=== PATIENT | male | born 1945 | race Caucasian/White ===

== ENCOUNTER 2019-04-28 06:59 | Inpatient (IN) | payer MEDICARE ==
[2019-04-28] MEDS ORDERED: Aspirin Chewable 81 MG TAB ONE (07:43)
[2019-04-28] MEDS ORDERED: Nitroglycerin 0.4 MG TAB 1 EACH ONE (07:43)
[2019-04-28] MEDS ORDERED: Nitroglycerin 2% Ointment 1 INCH/1 GM Packet ONE (07:43)
[2019-04-28 08:17] LABS: Troponin I 0.051 ng/mL (< 0.028)
[2019-04-28] MEDS ORDERED: Ondansetron ODT 4 MG TAB PO PRN (08:53)
[2019-04-28] MEDS ORDERED: Calcium Carbonate 500 MG ChewTAB PO PRN (08:53)
[2019-04-28] MEDS ORDERED: Acetaminophen 325 MG TAB PO PRN (08:53)
[2019-04-28] MEDS ORDERED: Ondansetron PF 4 MG/2 ML Vial IVP PRN (08:53)
[2019-04-28] MEDS ORDERED: Senokot S 8.6-50 MG TAB PO PRN (08:53)
[2019-04-28] MEDS ORDERED: Enoxaparin Sodium 40 MG/0.4 ML SYRINGE SC SCH (09:00)
[2019-04-28] MEDS ORDERED: Furosemide 100 MG in Sodium Chloride 0.9% 90 ML IVPB SCH ×2 (09:00→14:51)
[2019-04-28 09:22] LABS: Anion Gap 17 mmol/L (10-20); BUN (Urea Nitrogen) 33 mg/dL (8.4-25.7); Calc. Creatinine Clearance 0 mL/min (70-130); Calcium 8.6 mg/dL (7.8-10.44); Carbon Dioxide 28 mmol/L (23-31); Chloride 100 mmol/L (98-107); Estimated GFR-MDRD 55; Glucose 93 mg/dL (83-110); Potassium 3.9 mmol/L (3.5-5.1); Sodium 141 mmol/L (136-145)
--- NOTE | 2019-04-28 10:15 | RAD ---
EXAM: XR Chest 1 View Portable PROVIDED CLINICAL HISTORY: Shortness of breath COMPARISON: None FINDINGS: The cardiac silhouette appears enlarged. Median sternotomy changes, atherosclerosis and left subclavi an cardiac pacing device redemonstrated. Bibasilar pleural-parenchymal opacity and perihilar airspace disease. No evidence for pneumothorax. Portions of the upper chest are obscured by overlying patient's soft tissues. The lungs are hypoinflated. IMPRESSION: Cardiomegaly and findings suggesting congestive failure with left greater than right pleural fluid an d adjacent atelectasis and/or infiltrate. Perihilar airspace disease may reflect pulmonary edema. Follow-up is recommended.
--- NOTE | 2019-04-28 10:39 | HP ---
PRIMARY CARE PHYSICIAN: Byron Torres MD at [facility]. CHIEF COMPLAINT: Shortness of breath. HISTORY OF PRESENT ILLNESS: The patient is a 74-year-old male with coronary artery disease, presented to the emergency room with above complaints. He initially presented to [facility] and was transferred to this facility. The patient is a poor historian. Over the last few days, the patient developed gradual worsening shortness of breath along with bilateral lower extremity swelling. His shortness of breath got worse this morning, for which he presented to the emergency room. He denies any chest pain, palpitations, syncope. He has chronic bilateral lower extremity ulceration and is followed by wound care. He has pressure dressings in both the lower extremity up to the knees. He denies recent immobilization or travel. He had mild cough without significant production. He denies recent hospital admission. The last time he was hospitalized was approximately 7 years ago for his coronary artery bypass grafting. The patient was started on noninvasive positive-pressure ventilation for O2 saturation of 88% at [facility]. His BNP was 2961 with a troponin of 0.041. He received IV Lasix. A Molina catheter was placed with 1300 output. He was transferred to this hospital. He is currently on noninvasive positive-pressure ventilation. PAST MEDICAL HISTORY: 1. Coronary artery disease. 2. Questionable peripheral vascular disease. PAST SURGICAL HISTORY: 1. Coronary artery bypass grafting. 2. Multiple toes amputation. ALLERGIES: NO KNOWN DRUG ALLERGIES. MEDICATIONS: Current home medications per the patient, he takes 81 mg aspirin as well as Lasix 20 mg b.i.d., which was recently increased. SOCIAL HISTORY: The patient currently lives in a mobile home alone. He is full code. His decision maker is Jai Jane. He denies current use of tobacco, alcohol, or drug use. FAMILY HISTORY: Negative for premature coronary artery disease. REVIEW OF SYSTEMS: Limited due to current mentation. PHYSICAL EXAMINATION: VITAL SIGNS: Temperature 97.5, respirations of 28, pulse rate of 69 with a blood pressure of 110/75 with O2 saturation of 95% on noninvasive positive-pressure ventilation. GENERAL: A 74-year-old male, in kmgk-bq-jqwydhwr respiratory distress. HEENT: Head, atraumatic and normocephalic. Sclerae anicteric. Moist mucous membranes. No oral lesion. NECK: Supple. No carotid bruit. JVD appears to be elevated. LUNGS: Showed accessory muscle use with rhonchi and rales especially at bases. No wheezing. HEART: S1 and S2 present. There is systolic murmur over the left lateral sternal border. No heaves or pulsation. ABDOMEN: Soft, bowel sounds present. No organomegaly. EXTREMITIES: There is bilateral lower extremity edema with pressure dressings. NEUROLOGY: As discussed above. PSYCHIATRY: As discussed above. SKIN: Warm and dry. There is superficial abrasion on his left side of the forehead approximately 1 cm in diameter. LYMPH NODE: No palpable lymph nodes in the neck. LABORATORY FINDINGS: WBC 5.0 with hemoglobin 14.2, hematocrit 44.9, and platelet of 177. Chemistry showed sodium 141, potassium 3.6, chloride 100, bicarb 30, BUN of 33, creatinine 1.6. Bilirubin 1.4 with alkaline phosphatase 233, AST 31, ALT of 29. Troponin of 0.041 with normal CK-MB. EKG by my review showed left bundle-branch block with first-degree AV block. Chest x-ray at [facility] was consistent with congestive heart failure. Repeat chest x-ray is pending at this time. IMPRESSION: 1. Acute hypoxic respiratory failure secondary to congestive heart failure exacerbation, ejection fraction unknown. 2. Acute kidney injury, probably secondary to cardiorenal syndrome. 3. Type 2 myocardial infarction. 4. Abnormal LFTs probably secondary to passive hepatic congestion. 5. Coronary artery disease. 6. Suspected peripheral vascular disease. 7. History of bilateral lower extremity edema with ulceration, currently has pressure dressings. 8. Physical deconditioning. 9. Multiple toe amputations. PLAN: The patient will be monitored in the intermediate care unit. Due to his blood pressure on the lower side as well as acute kidney injury, we will start him on low-dose Lasix drip. His x-ray at [facility] showed worsening bilateral pleural effusion. An x-ray will be repeated. We will get echocardiogram. We will put him on fluid restriction. We will start him on potassium supplementation while on IV Lasix. Consult Cardiology and Pulmonary. Plan was discussed with the patient in detail. He stated understanding. We will consult Physical Therapy as well for possible need for snf placement at discharge. Job ID: [id number]
[2019-04-28] MEDS: Potassium Chloride 10 MEQ TAB PO SCH ×2 (15:13→16:57)
[2019-04-28] MEDS ORDERED: DOBUTamine 500 mg/250 ml 250 ML IVPB SCH (16:30)
--- NOTE | 2019-04-28 17:10 | CON ---
DATE OF CONSULTATION: 04/28/2019 REASON FOR CONSULTATION: Severe congestive heart failure. HISTORY OF PRESENT ILLNESS: Mr. Jane is a 74-year-old gentleman, apparently a long cardiac history. Unfortunately, he cannot give much history as he is on BiPAP, but he is critically ill. Mr. Jane was transferred from the [facility]. He was relatively hypotensive and had severe pulmonary edema. He was given the BiPAP and given intravenous diuretics. He remains on BiPAP. Because of the BiPAP, he is unable to give really any answers except yes and no and even that is not completely clear how much he understands. The patient did have previous bypass surgery based on chest x-ray. Also has a defibrillator implantation. He thinks a bypass was 6 or 7 years ago in [place], but he really cannot tell me anything else. He says he has not had recent chest pain. He had a defibrillator in the past. He cannot tell me when or what type it is. We were unable to know what medicines he was taking, although apparently he was taking furosemide on a daily basis perhaps 20 mg, but we do not know. ALLERGIES: NONE KNOWN OR AT LEAST NONE REPORTED. REVIEW OF SYSTEMS: Does not obtainable. PAST MEDICAL HISTORY: 1. He has had bypass surgery based on the chest x-ray, he says six or seven years ago. 2. Previous defibrillator implantation. 3. Apparently, he has history of congestive heart failure. FAMILY HISTORY: Unobtainable. SOCIAL HISTORY: Unobtainable, although apparently he has been living at home. PHYSICAL EXAMINATION: GENERAL: This is a chronically ill-appearing gentleman, still in some respiratory distress. He is on BiPAP. VITAL SIGNS: His blood pressure is in the 90 systolic. The pulse is in the 70s, it is sinus on the monitor in the left bundle-branch block pattern. NECK: Neck veins are distended, but he is lying only about a 15 degrees angle. He is lying on his left side. CARDIAC: Distant heart sounds. I do not appreciate a murmur, rub, or gallop, but as mentioned, he is lying on his right side. ABDOMEN: Soft and nontender. EXTREMITIES: There is 4+ edema all the way up to his hips. Pedal pulses are diminished. PERTINENT LABORATORY: He does have a creatinine of 1.27, which is actually better than it was in [facility]. Potassium is 3.9. Troponin 0.051. Creatinine was 1.6 in [facility]. Troponin 0.041 in [facility]. BNP 2961. Chest x-ray shows severe pulmonary edema, previous sternotomy wires, and a defibrillator is in place. The film is under penetrated. I think it is probably a biventricular device, but the pacing is not biventricular. EKG reveals a wide-complex rhythm. It looks like it is sinus in all likelihood. There is lot of baseline artifact with a very wide left bundle-branch block pattern. QRS 0.18. ASSESSMENT: 1. Congestive heart failure, severe, probably systolic, acute on chronic. 2. Previous bypass surgery. 3. Previous defibrillator implantation. From looking at the x-ray, I believe it is probably a biventricular device, but it does not appear to be biventricular pacing. 4. Renal insufficiency/failure, stage 3 to 4 depending on which the creatinine is looked at. 5. Relative hypotension. 6. Respiratory failure. The patient is clearly chronically ill, but also acutely ill as well. PLAN: 1. He is on intravenous Lasix. We will try to increase the dose. 2. Try to interrogate the defibrillator to see at least what type he has, whether it is still functioning. 3. Echocardiogram to be a left ventricular function and valvular heart status. 4. Hopefully, if further information could be obtained, prognosis appears likely poor long-term in this unfortunate gentleman. Hopefully, further family will be available for further information. Job ID: [id number]
--- NOTE | 2019-04-29 01:19 | CON ---
DATE OF CONSULTATION: 04/28/2019 HISTORY OF PRESENT ILLNESS: Mr. Jane is a 74-year-old male who presented to the hospital today with complaints of shortness of breath. He has formally been followed by [facility] code clerk. He is transferred from [place] here with significant pulmonary edema and hypoventilation. He has improved with BiPAP. He is diuresed with Lasix. PAST MEDICAL HISTORY: Remarkable for: 1. Coronary artery bypass grafting. 2. History of defibrillator. 3. History of cardiomyopathy. SOCIAL HISTORY: he lives in a 39-foot long trailer according to the nursing staff. Apparently, he is not a daily smoker or daily drinker. FAMILY HISTORY: Not obtained. ALLERGIES: THERE ARE NO REPORTED ALLERGIES. REVIEW OF SYSTEMS: 10 point review of systems completed, not accurately obtainable. PHYSICAL EXAMINATION: GENERAL: He is frail-appearing. He has bruises all over his body. He says he falls frequently at home. VITAL SIGNS: Blood pressure is 111/65, heart rate is in the 80s, respiratory rate in the teens, oximetry is in the 90s. HEENT: Pupils react. Sclerae anicteric. NECK: Supple. LUNGS: Remarkable for crackles in both lung bases. HEART: Regular rhythm. S1 and S2 are distant. ABDOMEN: Soft and nontender. EXTREMITIES: With four extremity edema. As mentioned, multiple ecchymoses. He has some ecchymoses on his torso as well. LABORATORY DATA: Electrolytes are normal. BUN 33, creatinine 1.27. Troponin was 0.05. No other lab done here. Apparently, there was lab done in [place], but I will not have access to this in the computer. IMPRESSION: Congestive heart failure. His radiograph certainly consistent with this and hypoventilation. We will be happy to follow the other physicians caring for him. He appears to be slowly clinically improving, but he also appears to be quite frail. This is a 70 minute consult, with greater than 50% of time spent on unit coordinating care. Job ID: [id number] MTDD
[2019-04-29 04:21] LABS: ALT (SGPT) 25 U/L (8-55); AST (SGOT) 34 U/L (5-34); Albumin 2.9 g/dL (3.4-4.8); Alkaline Phosphatase 191 U/L (40-110); Anion Gap 16 mmol/L (10-20); BUN (Urea Nitrogen) 28 mg/dL (8.4-25.7); Bilirubin, Total 1.8 mg/dL (0.2-1.2); Calc. Creatinine Clearance 80 mL/min (70-130); Calcium 8.1 mg/dL (7.8-10.44); Carbon Dioxide 27 mmol/L (23-31); Chloride 101 mmol/L (98-107); Estimated GFR-MDRD 64; Globulin 3.4 g/dL (2.4-3.5); Glucose 91 mg/dL (83-110); Magnesium 2.2 mg/dL (1.6-2.6); Potassium 4.9 mmol/L (3.5-5.1); Protein, Total 6.3 g/dL (5.8-8.1); Sodium 139 mmol/L (136-145)
[2019-04-29 05:22] LABS: #Eosinphils 0.1 thou/uL (0.0-0.7); #Lymphocytes 0.9 thou/uL (1.20-3.40); #Monocytes 0.9 thou/uL (0.11-0.59); #Neutrophils 4.7 thou/uL (1.40-6.50); %Basophils 0.5 % (0.0-1.0); %Monocytes 13.6 % (0.0-10.0); %Neutrophils 71.8 % (42.0-75.0); Hemoglobin 13.9 g/dL (14.0-18.0); MDiff Complete? YES; Macrocytosis SLIGHT = 6-15 cells (100X) (0-5/hpf); Mean Corpuscular HGB CONC 30.9 g/dL (32.0-36.0); Mean Corpuscular Hemoglobin 31.4 pg (27.0-31.0); Mean Platelet Volume 9.6 fL (7.4-10.4); Platelet Count 70 thou/uL (130-400); Platelet Morphology Comment Appears Decreased; RBC Distribution Width 14.5 % (11.5-14.5); Red Blood Cell (RBC) Count 4.43 mill/uL (4.70-6.10); White Blood Cell (WBC) Count 6.5 thou/uL (4.8-10.8)
--- NOTE | 2019-04-29 08:43 | RAD ---
CHEST ONE VIEW: HISTORY: Heart failure. COMPARISON: Radiograph from the prior day. FINDINGS: Large effusions are similar. High grade pulmonary edema. AICD/pacer is similar. Multiple midline sternotomy wires. No acute osseous abnormality. IMPRESSION: High grade decompensated congestive heart failure. POS: CET
[2019-04-29] MEDS: Aspirin 81 mg Enteric Coated Tablet PO SCH (08:46)
--- NOTE | 2019-04-29 08:46 | PRG ---
DATE OF SERVICE: 04/29/2019 SUBJECTIVE: Mr. Jane is feeling better. He is off his BiPAP, he is on nasal cannula oxygen. OBJECTIVE: VITAL SIGNS: His blood pressure 107/67, pulse is in the 90s. He has frequent premature contractions. LUNGS: Clear anterolaterally. CARDIAC: Normal S1, normal S2. ABDOMEN: Soft and nontender. Echocardiogram showed the ejection fraction to be 15%. LABORATORY: Creatinine is 1.11, bilirubin 1.8. ASSESSMENT: 1. Congestive heart failure, systolic, acute on chronic, advanced. 2. Left bundle-branch block. 3. Defibrillator battery has been depleted, not functional. PLAN: 1. Consideration for replacing the defibrillator generator. Hopefully, can resynchronize him, otherwise appears to be end-stage if cannot be done. The patient is agreeable to discussing that with Dr. Phelps. 2. We will hold Mediastream as he may undergo procedure today. Job ID: [id number]
[2019-04-29] MEDS: Amiodarone 450 MG, Admixture Fee 1 EACH in Dextrose 5% in Water 250 ML IVPB SCH (10:27)
--- NOTE | 2019-04-29 15:40 | PDOC.HOSPP ---
- Subjective Encounter Date: 04/29/19 Encounter Time: 14:00 Subjective: Patient seen and examined for Resp failure. SOB improving. Still requiring NIPPV intermittently. No new complaints. No overnight events - Objective Vital Signs & Weight: Vital Signs (12 hours) Temp Pulse Pulse Pulse BP BP Pulse Ox 04/29/19 12:01 77 80 103/70 101/75 04/29/19 11:50 97.9 F 04/29/19 10:36 79 04/29/19 08:00 100 04/29/19 07:20 97.2 F L 04/29/19 03:59 97.5 F L Pulse Ox Pulse Ox 04/29/19 12:01 94 L 90 L 04/29/19 11:50 04/29/19 10:36 04/29/19 08:00 04/29/19 07:20 04/29/19 03:59 Weight Admit Weight 220 lb Weight 221 lb 8 oz Most Recent Monitor Data Heart Rate from ECG 81 NIBP 95/62 NIBP BP-Mean 73 Respiration from ECG 30 SpO2 100 I&O: 04/28/19 04/29/19 04/30/19 06:59 06:59 06:59 Intake Total 750.9 Output Total 2275 Balance -1524.1 Result Diagrams: 04/29/19 03:38 04/29/19 03:38 Radiology Reviewed by me: Yes (CXR - reviewed) EKG Reviewed by me: Yes (Tele SR/NSVT) Hospitalist ROS - Review of Systems Cardiovascular: reports: orthopnea, paroxysmal noc. dyspnea, edema. denies: chest pain, palpitations, light headedness, other Gastrointestinal: denies: nausea, vomiting, abdominal pain, diarrhea, constipation, melena, hematochezia, other - Medication Medications: Active Medications Generic Name Dose Route Start Last Admin Trade Name Freq PRN Reason Stop Dose Admin Aspirin 81 mg 04/29/19 09:00 04/29/19 08:46 Ecotrin PO 81 mg DAILY KAITLYNN Administration Furosemide 100 mg/ Sodium 100 mls @ 5 mls/hr 04/28/19 14:51 04/28/19 15:13 Chloride IVPB 100 mls INF KAITLYNN Administration 5 MG/HR Amiodarone HCl 450 mg/ 259 mls @ 0 mls/hr 04/29/19 10:15 04/29/19 10:27 Miscellaneous Medication 1 IVPB 259 mls each/ Dextrose/Water INF KAITLYNN Administration Protocol As Directed Potassium Chloride 20 meq 04/29/19 08:00 04/29/19 08:47 Klor-Con PO Not Given BID- KAITLYNN - Exam General Appearance: ill appearing Neck: JVD Heart: RRR, no gallops, no rubs, murmur present Respiratory: rales, rhonchi, tachypneic Respiratory - other findings: accessory muscle use Gastrointestinal: soft, non-tender, non-distended, normal bowel sounds Extremities: no cyanosis, no clubbing Extremities - other findings: B/L LE compression dressing Neurological: no new deficit Psychiatric: normal affect, A&O x 3 Hosp A/P - Plan DVT proph w/lovenox Acute hypoxic respiratory failure requiring NIPPB Acute on chronic systolic HF exacerbation - ACC stage D NSVT EMILY on CKD 2 Type 2 myocardial infarction. Abnormal LFTs probably secondary to passive hepatic congestion. CAD PVD Chronic B/L LE ulcers Physical deconditioning. Multiple toe amputations. Thrombocytopenia PLAN: Cont Lasix drip with fluid restriction Cont Amiodarone drip Off Dobutamine due to ventricular arrhythmia Cont ASA Cardio/Pulm/EP input appreciated AM labs Monitor Platelets SNF eval Cont other meds as above
--- NOTE | 2019-04-29 16:13 | CON ---
DATE OF CONSULTATION: This is Luly Robles NP, dictating a report for Salomon Phelps MD. REASON FOR CONSULTATION: Biventricular ICD in the pocket, qehma-lm-[id number] systolic heart failure. HISTORY OF PRESENT ILLNESS: Mr. Jane is a 74-year-old gentleman with an extensive cardiac history. He is currently in the intensive care unit at [facility] on BiPAP. He initially presented to [facility] and was transferred to [facility] for increased acuity of care. He was hypotensive and had severe pulmonary edema. He was placed on BiPAP and is being given IV diuretics. Today, he remains on BiPAP, and thus, he has a difficult time answering questions in a review of systems. Most information was gathered through chart review and medical records. He has a history of coronary artery bypass and also a biventricular ICD. Interrogation of this device was attempted, however, appears to be in the pocket. Also, his QRS on EKG is severely widened with left bundle-branch morphology, suggesting loss of biventricular pacing support. His bypass was probably 6 to 7 years ago in [place], although it seems his followup with doctors has been minimal at best since that time. REVIEW OF SYSTEMS: Unable to obtain given respiratory distress and on BiPAP. ALLERGIES: NO KNOWN DRUG ALLERGIES, LISTED IN CHART FOR REVIEW. PAST MEDICAL HISTORY: 1. Coronary artery disease with prior bypass grafting. 2. Biventricular ICD. 3. Cardiomyopathy. SOCIAL HISTORY: Chart review shows the patient has denied alcohol or tobacco use. He lives in a trailer according to nursing staff. FAMILY HISTORY: Could not be obtained. OBJECTIVE: VITAL SIGNS: Pulse 77, blood pressure 103/70, oxygen 94% on 4 L via nasal cannula, and temperature is 97.9 degrees Fahrenheit. GENERAL: The patient is alert. Orientation was not assessed with BiPAP. The patient does nod his head or shake his head appropriate in response to questions and appears to be appropriate. He is resting in bed at the time of exam on BiPAP. He is quite frail-appearing and has extensive bruising over his body. He indicates he falls frequently at home. HEENT: He is normocephalic and atraumatic. Sclerae are anicteric. EOMs are intact. NECK: Supple with positive jugular venous distention. There is no lymphadenopathy. LUNGS: Crackles to bilateral lower lobes. There are no wheezes or rhonchi appreciated. He is on a bilevel support. HEART: Rate is irregularly irregular. PMI is nonpalpable. Heart tones are distant. ABDOMEN: Soft and nontender. EXTREMITIES: Warm and dry to touch. Extensive scattered bruising/ecchymoses are noted. He has edema in all 4 extremities. There is no clubbing. DATABASE: Hematology was unremarkable. Chemistry: Potassium 4.9 and creatinine 1.11. Magnesium 2.2. ALT and AST are within normal limits. Troponin 0.051. TSH 1.12. Echocardiogram on 04/28/2019: Ejection fraction 15%. Left atrium severely dilated. PA systolic pressure 55 mmHg. Telemetry and EKG: Currently in sinus rhythm with wide QRS and left bundle-branch block morphology. IMPRESSION: 1. Implantable cardiac defibrillator battery depletion, requiring generator change. 2. History of ynw-TF-pltxoaspb myocardial infarction/complicated with cardiac arrest in 2010. 3. Coronary artery disease with 4-vessel bypass in 2010 with redo saphenous vein graft to the RCA on 06/17/2010. 4. History of left ventricular assist device. 5. Status post biventricular implantable cardiac defibrillator implant on 07/28/2010 without any recent followup, now at end-of-life. 6. Drtur-gh-dflyujp systolic heart failure with acute fluid overload on bilevel support. 7. Cardiomyopathy with left ventricular ejection fraction of approximately 15%. 8. Nonsustained ventricular tachycardia in the setting of acute congestive heart failure exacerbation, currently on IV amiodarone. 9. Peripheral vascular disease status post toe amputation with chronic cellulitis without systemic infection. PLAN AND RECOMMENDATIONS: Mr. Jane has an extensive and complicated cardiac history. It appears his biventricular ICD is at end-of-life/ in the pocket. With that in mind, he lost biventricular pacing support, which would contribute to an acute heart failure exacerbation. Mr. Jane does not appear to have had any recent followup with whoever placed this ICD. He does require generator change. His ejection fraction is severely reduced and he continues to need IV diuretics for fluid management. At this point, I would wait for generator change until he is better compensated with his acute congestive heart failure. I will plan for a generator change on Saturday, 05/01. I discussed the risks, benefits, and alternatives with him. He nods to indicate understanding and I will follow up with him tomorrow to once again discuss generator change. Thank you for allowing me to participate in the care of this patient. Job ID: [id number]
[2019-04-29 16:24] LABS: Potassium 3.9 mmol/L (3.5-5.1)
[2019-04-29] MEDS ORDERED: cefTRIAXone\\ROCEPHIN 1 GM in Sodium Chloride 0.9% 100 ML IVPB SCH (17:00)
[2019-04-29] MEDS ORDERED: Enoxaparin Sodium 40 MG/0.4 ML SYRINGE SC SCH (18:00)
--- NOTE | 2019-04-29 20:26 | PRG ---
DATE OF SERVICE: 04/29/2019 SUBJECTIVE: Mr. Jane is considerably better. He is having nonsustained ventricular tachycardia. I felt it maybe as the fibrillator is . He had a long hospitalization apparently in [place] in the past that even involved a tracheostomy. OBJECTIVE: His chest exam is improved. His crackles are improved. He is off BiPAP and appears reasonably comfortable. Heart, regular rhythm. Abdomen is soft. IMPRESSION: History of coronary artery bypass grafting; coronary artery disease; ventricular tachycardia in the past; placement of a defibrillator; qkele-ij-koevipl respiratory failure, requiring a tracheostomy; and history of cardiomyopathy. He has not kept followup appointments with his container washer machine in [place] apparently, we will continue to follow. Chest x-ray still shows pulmonary edema and effusions. He continues to diurese. Job ID: [id number]
[2019-04-30 03:58] LABS: INR-International Normal Ratio 1.3; PTT 32.1 SEC (22.9-36.1); Prothrombin Time 16.3 SEC (12.0-14.7)
[2019-04-30 04:19] LABS: Albumin 3.1 g/dL (3.4-4.8)
[2019-04-30 04:21] LABS: Calcium 8.2 mg/dL (7.8-10.44); Chloride 100 mmol/L (98-107); Sodium 137 mmol/L (136-145)
[2019-04-30 04:22] LABS: Glucose 121 mg/dL (83-110)
[2019-04-30 04:24] LABS: Bilirubin, Total 1.3 mg/dL (0.2-1.2); Carbon Dioxide 25 mmol/L (23-31)
[2019-04-30 04:25] LABS: Alkaline Phosphatase 266 U/L (40-110); Calc. Creatinine Clearance 69 mL/min (70-130); Estimated GFR-MDRD 54
[2019-04-30 04:26] LABS: BUN (Urea Nitrogen) 29 mg/dL (8.4-25.7)
[2019-04-30 04:27] LABS: Magnesium 2.3 mg/dL (1.6-2.6)
[2019-04-30 04:28] LABS: ALT (SGPT) 30 U/L (8-55)
[2019-04-30 06:18] LABS: AST (SGOT) 32 U/L (5-34)
[2019-04-30 06:19] LABS: Potassium 4.3 mmol/L (3.5-5.1)
[2019-04-30 06:20] LABS: Protein, Total 6.6 g/dL (5.8-8.1)
[2019-04-30 06:21] LABS: Globulin 3.5 g/dL (2.4-3.5)
[2019-04-30 06:25] LABS: Anion Gap 16 mmol/L (10-20)
[2019-04-30] MEDS: Amiodarone 450 MG, Admixture Fee 1 EACH in Dextrose 5% in Water 250 ML IVPB SCH (08:42)
[2019-04-30] MEDS: Aspirin 81 mg Enteric Coated Tablet PO SCH (08:42)
[2019-04-30] MEDS ORDERED: Enoxaparin Sodium 40 MG/0.4 ML SYRINGE SC SCH (09:00)
[2019-04-30] MEDS ORDERED: DOBUTamine 500 mg/250 ml 250 ML IVPB SCH (09:30)
[2019-04-30] MEDS: Saccharomyces boulardii 250 MG CAP PO SCH (09:36)
--- NOTE | 2019-04-30 09:47 | PRG ---
DATE OF SERVICE: 04/30/2019 SUBJECTIVE: Mr. Jane has been doing better today, but he is still short of breath, cannot lay flat. OBJECTIVE: VITAL SIGNS: His blood pressure is 100 systolic; pulse is 70, it is sinus with a left bundle-branch block. LUNGS: There are rales at the bases. CARDIAC: There is apical systolic murmur and mitral regurgitation. ABDOMEN: Soft and nontender. EXTREMITIES: There is no edema. ASSESSMENT: 1. Congestive heart failure, systolic, xdlwi-io-olwnybf, severe, still in heart failure. 2. Left bundle-branch block. 3. Biventricular pacemaker/defibrillator with generator no longer functioning due to battery depletion. 4. History of ventricular tachycardia, seems to be correlated with dobutamine. He has been on amiodarone since yesterday. We will try again with low-dose dobutamine as it had helped him diurese. We will try with 1 mcg/kg/minute. Hopefully, he can undergo a defibrillator change tomorrow. Job ID: [id number]
[2019-04-30] MEDS ORDERED: Potassium Chloride 20 MEQ TAB PO SCH (12:00)
--- NOTE | 2019-04-30 17:20 | PDOC.EP ---
- Subjective Date: 04/30/19 Time: 08:00 Interval History: follow up for ICD management. Plan for gen change tomorrow if remains medically stable. Feels he is improving today. - Review of Systems Constitutional: denies: chills, fever, malaise Respiratory: reports: shortness of breath Cardiology: reports: edema. denies: chest pain, heart racing, passing out Gastrointestinal: denies: abdominal pain, constipation, diarrhea - Objective Allergies/Adverse Reactions: Allergies Allergy/AdvReac Type Severity Reaction Status Date / Time No Known Drug Allergies Allergy Verified 04/28/19 13:19 Current Medications Acetaminophen (Tylenol) 650 mg PO Q4H PRN PRN Reason: Headache/Fever/Mild Pain (1-3) Aspirin (Ecotrin) 81 mg PO DAILY [facility] Last Admin: 04/30/19 08:42 Dose: 81 mg Calcium Carbonate (Tums) 1,000 mg PO Q4H PRN PRN Reason: Heartburn or Indigestion Enoxaparin Sodium (Lovenox) 40 mg SC 09 [facility] Stop: 05/01/19 05:00 Last Admin: 04/30/19 08:42 Dose: 40 mg Furosemide 100 mg/ Sodium (Chloride) 100 mls @ 5 mls/hr IVPB INF [facility] Last Admin: 04/28/19 15:13 Dose: 100 mls Amiodarone HCl 450 mg/Miscellaneous Medication 1 each/ Dextrose/Water 259 mls @ 0 mls/hr IVPB INF [facility]; Protocol Last Admin: 04/30/19 08:42 Dose: 259 mls Dobutamine HCl/Dextrose (Dobutamine 500 Mg/250 Ml) 250 mls @ 2.981 mls/hr IVPB INF [facility]; Protocol Last Admin: 04/30/19 12:44 Dose: 250 mls Ondansetron HCl (Zofran Odt) 4 mg PO Q6H PRN PRN Reason: Nausea/Vomiting Ondansetron HCl (Zofran) 4 mg IVP Q6H PRN PRN Reason: Nausea/Vomiting Potassium Chloride (Klor-Con) 20 meq PO QAM-WM [facility] Last Admin: 04/30/19 08:42 Dose: 20 meq Saccharomyces Boulardii (Florastor) 250 mg PO DAILY [facility] Last Admin: 04/30/19 09:36 Dose: Not Given Senna/Docusate Sodium (Senokot S) 2 tab PO BID PRN PRN Reason: Constipation Sodium Chloride (Flush - Normal Saline) 10 ml IVF PRN PRN PRN Reason: Saline Flush Vital Signs & Weight: Vital Signs Temp Pulse Pulse BP BP Pulse Ox Pulse Ox 04/30/19 15:24 98.9 F 04/30/19 10:22 98.9 F 04/30/19 10:16 69 70 104/66 100/72 100 04/30/19 09:44 73 69 108/66 103/64 100 04/30/19 08:00 95 04/30/19 07:24 97.0 F L Pulse Ox 04/30/19 15:24 04/30/19 10:22 04/30/19 10:16 98 04/30/19 09:44 99 04/30/19 08:00 04/30/19 07:24 Admit Weight 220 lb Weight 219 lb 1.6 oz I/O: I/O 04/29/19 04/30/19 05/01/19 06:59 06:59 06:59 Intake Total 750.9 1338.4 450 Output Total 2275 1840 Balance -1524.1 -501.6 450 - Physical Exam General: alert & oriented x3, appears well, no apparent distress, speech clear, affect appropriate HEENT: mucus membranes moist, normocephaly Neck: supple neck, midline trachea, no JVD/HJR Cardiology: regular rate and rhythm, PMI nondisplaced Lungs: bibasilar rales. negative: wheezes Neurology: cranial nerve 2-12 intact, grossly intact, no lateralizing findings Abdomen: unremarkable, active bowel sounds, no hepatosplenomegaly. negative: HJR negative Extremities: dry, + edema B. negative: clubbing Skin: left sided device - Labs Result Diagrams: 04/29/19 03:38 04/30/19 03:17 - EKG Interpretation EKG shows: Sinus rhythm (LBBB) - Assessment/Plan Assessment/Plan: 1. Implantable cardiac defibrillator battery depletion, requiring generator change. 2. History of [id number] myocardial infarction/complicated with cardiac arrest in 2010. 3. Coronary artery disease with 4-vessel bypass in 2010 with redo saphenous vein graft to the RCA on 06/17/2010. 4. History of left ventricular assist device. 5. Status post biventricular implantable cardiac defibrillator implant on 2010 without any recent followup, now at end-of-life. 6. [id number] systolic heart failure with acute fluid overload on bilevel support. 7. Cardiomyopathy with left ventricular ejection fraction of approximately 15%. 8. Nonsustained ventricular tachycardia in the setting of acute congestive heart failure exacerbation, currently on IV amiodarone. 9. Peripheral vascular disease status post toe amputation with chronic cellulitis without systemic infection. NPO after MN for gen change tomorrow AM. Will test device and assess lead function during exam. Additional leads may be required if current ones are not funcitoning appropriately. Patient agreeable to plan. R/B/U were discussed.
--- NOTE | 2019-04-30 20:25 | PRG ---
DATE OF SERVICE: 04/30/2019 SUBJECTIVE: Davis Jane is much more talkative. OBJECTIVE: VITAL SIGNS: He is afebrile. Heart rate is 76, telemetry runs of nonsustained ventricular tachycardia, blood pressure is fluctuating 90 to 100 systolic, and oximetry is 95% on 4 L cannula. LUNGS: Remarkable for crackles at bases. HEART: Regular rhythm. ABDOMEN: Soft. EXTREMITIES: Without asymmetry. He still has peripheral edema and has multiple ecchymoses. He is tentatively on the schedule to have a new ICD placed tomorrow. He says he is agreeable to this. IMPRESSION: 1. Severe cardiomyopathy with nonsustained ventricular tachycardia. 2. History of noncompliance with followup. 3. Deconditioning with frequent falls. We will continue to follow. Job ID: [id number]
[2019-05-01] MEDS: Amiodarone 450 MG, Admixture Fee 1 EACH in Dextrose 5% in Water 250 ML IVPB SCH (01:55)
[2019-05-01 04:51] LABS: Anion Gap 15 mmol/L (10-20); BUN (Urea Nitrogen) 33 mg/dL (8.4-25.7); Calc. Creatinine Clearance 72 mL/min (70-130); Calcium 8.7 mg/dL (7.8-10.44); Carbon Dioxide 33 mmol/L (23-31); Chloride 96 mmol/L (98-107); Estimated GFR-MDRD 57; Glucose 116 mg/dL (83-110); Potassium 5.2 mmol/L (3.5-5.1); Sodium 139 mmol/L (136-145)
--- NOTE | 2019-05-01 08:48 | PRG ---
DATE OF SERVICE: 05/01/2019 SUBJECTIVE: Buck is able to lie flat today. OBJECTIVE: VITAL SIGNS: His blood pressure is 108/70, pulse in the 70s and sinus. LUNGS: Clear anteriorly and laterally. CARDIAC: Normal S1 and normal S2. ASSESSMENT: 1. Congestive heart failure, systolic. 2. Acute on chronic with severely depressed left ventricular function. 3. Mild hyperkalemia. Potassium 5.2. PLAN: 1. Stop potassium. 2. Continue furosemide. 3. Continue amiodarone. 4. Hopefully, can undergo a placement of new pacemaker defibrillator today. Job ID: [id number]
[2019-05-01] MEDS ORDERED: Polyethylene Glycol 3350 17 GM Packet PO PRN (09:18)
--- NOTE | 2019-05-01 09:23 | PDOC.HOSPP ---
- Subjective Encounter Date: 04/30/19 Encounter Time: 10:30 Subjective: Patient seen and examined for resp failure. Required NIPPV last night. SOB improving. No CP. No new complaints. No overnight events - Objective Vital Signs & Weight: Vital Signs (12 hours) Temp 05/01/19 07:39 97.2 F L 05/01/19 04:00 97.4 F L 05/01/19 00:53 97.9 F 04/30/19 23:27 96.2 F L Weight Admit Weight 220 lb Weight 220 lb 8 oz Most Recent Monitor Data Heart Rate from ECG 69 NIBP 116/70 NIBP BP-Mean 85 Respiration from ECG 29 SpO2 100 I&O: 04/30/19 05/01/19 05/02/19 06:59 06:59 06:59 Intake Total 1338.4 2016.9 Output Total 1840 1350 Balance -501.6 666.9 Result Diagrams: 04/29/19 03:38 05/01/19 03:30 EKG Reviewed by me: Yes (Tele SR) Hospitalist ROS - Review of Systems Cardiovascular: reports: orthopnea, paroxysmal noc. dyspnea, edema. denies: chest pain, palpitations, light headedness, other Gastrointestinal: denies: nausea, vomiting, abdominal pain, diarrhea, constipation, melena, hematochezia, other - Medication Medications: Active Medications Generic Name Dose Route Start Last Admin Trade Name Freq PRN Reason Stop Dose Admin Aspirin 81 mg 04/29/19 09:00 04/30/19 08:42 Ecotrin PO 81 mg DAILY [facility] Administration Furosemide 100 mg/ Sodium 100 mls @ 5 mls/hr 04/28/19 14:51 04/28/19 15:13 Chloride IVPB 100 mls INF [facility] Administration 5 MG/HR Amiodarone HCl 450 mg/ 259 mls @ 0 mls/hr 04/29/19 10:15 05/01/19 01:55 Miscellaneous Medication 1 IVPB 259 mls each/ Dextrose/Water INF [facility] Administration Protocol As Directed Dobutamine HCl/Dextrose 250 mls @ 2.981 mls/hr 04/30/19 09:30 04/30/19 12:44 Dobutamine 500 Mg/250 Ml IVPB 250 mls INF [facility] Administration Protocol 1 MCG/KG/MIN Saccharomyces Boulardii 250 mg 04/30/19 09:00 04/30/19 09:36 Florastor PO Not Given DAILY [facility] - Exam General Appearance: NAD Heart: RRR, no gallops, no rubs, normal peripheral pulses Respiratory: no wheezes, normal chest expansion, rales, rhonchi Respiratory - other findings: accessory muscle use + Gastrointestinal: soft, non-tender, non-distended, normal bowel sounds Extremities: no cyanosis, no clubbing Extremities - other findings: Edema Psychiatric: normal affect, A&O x 3 Hosp A/P - Plan Acute hypoxic respiratory failure requiring NIPPB Acute on chronic systolic HF exacerbation - ACC stage D NSVT EMILY on CKD 2 Type 2 myocardial infarction. Abnormal LFTs probably secondary to passive hepatic congestion. h/o CAD s/p PA and Cardiogenic shock PVD Chronic B/L LE ulcers Physical deconditioning. Multiple toe amputations. Thrombocytopenia Swallow dysfunction PLAN: Cont Lasix drip - increase to 5 mg/hr Cont Amiodarone drip Dobutamine drip started Cont ASA AM labs Cont other meds as above Generator change in AM
--- NOTE | 2019-05-01 10:01 | PRG ---
DATE OF SERVICE: 05/01/2019 SUBJECTIVE: Mr. Junior was in no distress. He says he is feeling better. He is awaiting his procedure today to replace his defibrillator. Lungs still have crackles at his bases, but he is actually lying completely supine without complaints of dyspnea. He is not tachypneic. His respiratory rates are in the teens to low 20s, blood pressure is 116/70, and heart rate is 69. IMPRESSION: 1. Severe systolic cardiomyopathy with a nonfunctioning defibrillator in place with nonsustained ventricular tachycardia. 2. History of medical marginal compliance. 3. Volume overload. 4. Frequent falls. 5. Awaiting placement of defibrillator. We will follow for now as long as he is in the intermediate care unit. Job ID: [id number]
[2019-05-01] MEDS ORDERED: Ketamine 50 MG/ML (10ML VIAL) ONE (12:52)
[2019-05-01] MEDS ORDERED: PROPOFOL 200 MG/20 ML VIAL ONE (14:53)
[2019-05-01] MEDS: Aspirin 81 mg Enteric Coated Tablet PO SCH (15:23)
[2019-05-01] MEDS: Saccharomyces boulardii 250 MG CAP PO SCH (15:23)
[2019-05-01 16:20] LABS: Anion Gap 20 mmol/L (10-20); BUN (Urea Nitrogen) 33 mg/dL (8.4-25.7); Calc. Creatinine Clearance 75 mL/min (70-130); Calcium 8.6 mg/dL (7.8-10.44); Carbon Dioxide 26 mmol/L (23-31); Chloride 102 mmol/L (98-107); Estimated GFR-MDRD 60; Glucose 103 mg/dL (83-110); Potassium 5.3 mmol/L (3.5-5.1); Sodium 143 mmol/L (136-145)
[2019-05-01] MEDS: Senokot S 8.6-50 MG TAB PO SCH (20:21)
[2019-05-01] MEDS: Amiodarone 200 MG TAB PO SCH (20:22)
[2019-05-02 04:12] LABS: Anion Gap 19 mmol/L (10-20); Calc. Creatinine Clearance 85 mL/min (70-130); Calcium 8.5 mg/dL (7.8-10.44); Carbon Dioxide 24 mmol/L (23-31); Chloride 101 mmol/L (98-107); Estimated GFR-MDRD 69; Potassium 4.7 mmol/L (3.5-5.1); Sodium 139 mmol/L (136-145)
[2019-05-02 04:56] LABS: Band 1 % (5-11); Eosinophils 2 % (0-10); Hemoglobin 14.8 g/dL (14.0-18.0); Hypochromia SLIGHT = 6-15 cells (100X) (0-5/hpf); Lymphocytes 5 % (21-51); MDiff Complete? YES; Mean Corpuscular HGB CONC 32.1 g/dL (32.0-36.0); Mean Platelet Volume 8.8 fL (7.4-10.4); Microcytosis SLIGHT = 6-15 cells (100X) (0-5/hpf); Monocytes 13 % (0-10); Neutrophil 79 % (42-75); Platelet Count 64 thou/uL (130-400); Platelet Morphology Comment Appears Decreased; RBC Distribution Width 14.3 % (11.5-14.5); Red Blood Cell (RBC) Count 4.49 mill/uL (4.70-6.10); Target Cells SLIGHT = 2-5 cells (100X) (0-1/hpf); White Blood Cell (WBC) Count 6.7 thou/uL (4.8-10.8)
--- NOTE | 2019-05-02 07:23 | PDOC.HOSPP ---
- Subjective Encounter Date: 05/01/19 Encounter Time: 18:00 Subjective: Patient seen and examined for CHF. Feeling better. On Lasix drip. s/p EP procedure. No new complaints. No overnight events - Objective Vital Signs & Weight: Vital Signs (12 hours) Temp Pulse Ox 05/02/19 07:12 97.2 F L 05/02/19 03:40 97.3 F L 05/01/19 23:38 97.5 F L 05/01/19 20:00 96 05/01/19 19:55 97.7 F Weight Admit Weight 220 lb Weight 220 lb 8 oz Most Recent Monitor Data Heart Rate from ECG 62 NIBP 108/81 NIBP BP-Mean 90 Respiration from ECG 26 SpO2 94 I&O: 05/01/19 05/02/19 05/03/19 06:59 06:59 06:59 Intake Total 2016.9 1355 Output Total 1350 600 Balance 666.9 755 Result Diagrams: 05/02/19 03:41 05/02/19 03:41 Additional Labs: Accuchecks 05/02/19 04:22 POC Glucose 101 EKG Reviewed by me: Yes (Tele paced) Hospitalist ROS - Review of Systems Cardiovascular: reports: orthopnea, paroxysmal noc. dyspnea, edema. denies: chest pain, palpitations, light headedness, other Gastrointestinal: reports: constipation. denies: nausea, vomiting, abdominal pain, diarrhea, melena, hematochezia, other - Medication Medications: Active Medications Generic Name Dose Route Start Last Admin Trade Name Freq PRN Reason Stop Dose Admin Amiodarone HCl 400 mg 05/01/19 21:00 05/01/19 20:22 Cordarone PO 400 mg BID [facility] Administration Aspirin 81 mg 04/29/19 09:00 05/01/19 15:23 Ecotrin PO Not Given DAILY [facility] Saccharomyces Boulardii 250 mg 04/30/19 09:00 05/01/19 15:23 Florastor PO Not Given DAILY [facility] Senna/Docusate Sodium 2 tab 05/01/19 21:00 05/01/19 20:21 Senokot S PO 2 tab BID [facility] Administration - Exam General Appearance: awake alert Respiratory: no wheezes, rales, rhonchi Gastrointestinal: soft, non-distended, normal bowel sounds Extremities: 1+ LE edema Neurological: no new deficit Hosp A/P - Plan DVT proph w/lovenox Acute hypoxic respiratory failure requiring NIPPB Acute on chronic systolic HF exacerbation - ACC stage D NSVT EMILY on CKD 2 Type 2 myocardial infarction. Abnormal LFTs probably secondary to passive hepatic congestion. h/o CAD s/p [place] and Cardiogenic shock PVD Chronic B/L LE ulcers Physical deconditioning. Multiple toe amputations. Thrombocytopenia Swallow dysfunction PLAN: Cont Lasix drip @ 4 mg/hr Cont Amiodarone PO Dobutamine drip dced Cont ASA AM labs Monitor Platelets while on Lovenox Cont other meds as above Cont NIPPV PRN
[2019-05-02] MEDS: Aspirin 81 mg Enteric Coated Tablet PO SCH (10:29)
[2019-05-02] MEDS: Folic Acid 1 MG TAB PO SCH (10:30)
[2019-05-02] MEDS: Amiodarone 200 MG TAB PO SCH ×2 (10:30→20:54)
[2019-05-02] MEDS: Senokot S 8.6-50 MG TAB PO SCH ×2 (10:30→20:54)
[2019-05-02] MEDS: Multivit, Therapeutic 1 TAB PO SCH (10:30)
[2019-05-02] MEDS: Saccharomyces boulardii 250 MG CAP PO SCH (10:30)
[2019-05-02] MEDS: Cyanocobalamin (Vitamin B-12) 1,000 MCG TAB PO SCH (10:31)
[2019-05-02] MEDS: Polyethylene Glycol 3350 17 GM Packet PO SCH (10:31)
[2019-05-02] MEDS: Enoxaparin Sodium 40 MG/0.4 ML SYRINGE SC SCH (10:31)
--- NOTE | 2019-05-02 11:01 | PRG ---
DATE OF SERVICE: 05/02/2019 SUBJECTIVE: This morning, he is better. He denies any pain or discomfort. He is status post change of his defibrillator. OBJECTIVE: VITAL SIGNS: Temperature 97, saturations are 97% on 4 L, blood pressure 96/50, and pulse 60. CHEST: Decreased breath sounds. No wheezing. CARDIAC: Normal S1 and S2. No gallops. ABDOMEN: No masses. LABORATORY DATA: Unremarkable. IMPRESSION: 1. Status post malfunctioning automatic implantable cardioverter-defibrillator, status post change of the battery. 2. Congestive heart failure. PLAN: Continue diuretics, supportive care, PT. We will follow while in the MICU. Job ID: [id number]
--- NOTE | 2019-05-02 12:50 | PDOC.CPN ---
- Subjective Date: 05/02/19 Time: 12:48 Interval history: He had his AICD upgrade yesterday and did well. His site looks clean dry and intact. - Review of Systems General: denies: fever/chills, weight/appetite/sleep changes, night sweats, fatigue Respiratory: denies: cough, congestion, shortness of breath, exercise intolerance Cardiovascular: denies: chest pain, palpitation, edema, paroxysmal nocturnal dyspnea, orthopnea Gastrointestinal: denies: nausea, vomiting, diarrhea, constipation, abd pain, GI bleeding Musculoskeletal: denies: pain, tenderness, stiffness, swelling, arthritis/ arthralgias Neurological: denies: numbness, syncope, seizure, weakness - Objective Allergies/Adverse Reactions: Allergies Allergy/AdvReac Type Severity Reaction Status Date / Time No Known Drug Allergies Allergy Verified 04/28/19 13:19 Visit Medications: Current Medications Acetaminophen (Tylenol) 650 mg PO Q4H PRN PRN Reason: Headache/Fever/Mild Pain (1-3) Amiodarone HCl (Cordarone) 400 mg PO BID [facility] Last Admin: 05/02/19 10:30 Dose: 400 mg Aspirin (Ecotrin) 81 mg PO DAILY [facility] Last Admin: 05/02/19 10:29 Dose: 81 mg Calcium Carbonate (Tums) 1,000 mg PO Q4H PRN PRN Reason: Heartburn or Indigestion Cyanocobalamin (Vitamin B-12) 1,000 mcg PO DAILY [facility] Last Admin: 05/02/19 10:31 Dose: 1,000 mcg Enoxaparin Sodium (Lovenox) 40 mg SC 0900 [facility] Last Admin: 05/02/19 10:31 Dose: 40 mg Folic Acid (Folvite) 1 mg PO DAILY [facility] Last Admin: 05/02/19 10:30 Dose: 1 mg Furosemide 100 mg/ Sodium (Chloride) 100 mls @ 4 mls/hr IVPB INF [facility] Multivitamins (Theragran) 1 tab PO DAILY [facility] Last Admin: 05/02/19 10:30 Dose: 1 tab Ondansetron HCl (Zofran Odt) 4 mg PO Q6H PRN PRN Reason: Nausea/Vomiting Ondansetron HCl (Zofran) 4 mg IVP Q6H PRN PRN Reason: Nausea/Vomiting Polyethylene Glycol (Miralax) 17 gm PO DAILY [facility] Last Admin: 05/02/19 10:31 Dose: 17 gm Saccharomyces Boulardii (Florastor) 250 mg PO DAILY [facility] Last Admin: 05/02/19 10:30 Dose: 250 mg Senna/Docusate Sodium (Senokot S) 2 tab PO BID [facility] Last Admin: 05/02/19 10:30 Dose: 2 tab Sodium Chloride (Flush - Normal Saline) 10 ml IVF PRN PRN PRN Reason: Saline Flush Vital Signs & Weight: Vital Signs Temp Pulse Ox 05/02/19 11:24 97.3 F L 05/02/19 08:00 97 05/02/19 07:12 97.2 F L 05/02/19 03:40 97.3 F L Admit Weight 220 lb Weight 218 lb 12.8 oz - Physical Exam General: alert & oriented x3 HEENT: mucus membranes moist Neck: supple neck Cardiac: no murmur Lungs: normal breath sounds Neuro: grossly intact Abdomen: active bowel sounds Extremities: no edema Skin: clear Musculoskeletal: no pain - Labs Result Diagrams: 05/02/19 03:41 05/02/19 03:41 Troponin/CKMB Troponin I 0.051 ng/mL (< 0.028) H 04/28/19 07:49 - Telemetry Sinus rhythms and dysrhythmias: other (Vpaced.) Supraventricular conduction: atrial fibrillation - Assessment/Plan Assessment/Plan: 1. Acute on chronic systolic CHF 2. Reduced EF at 15% 3. Hyperkalemia, improved. 4. S/P BiV AICD placement. PLAN: - Continue IV diuresis. - BP borderline low to add any CHF meds.
--- NOTE | 2019-05-02 16:58 | PDOC.HOSPP ---
- Subjective Encounter Date: 05/02/19 Encounter Time: 09:00 Subjective: Pt seen for followup re: acute hypoxic respiratory failure. Feels better. - Objective Vital Signs & Weight: Vital Signs (12 hours) Temp Pulse Ox 05/02/19 15:48 98.3 F 05/02/19 11:24 97.3 F L 05/02/19 08:00 97 05/02/19 07:12 97.2 F L Weight Admit Weight 220 lb Weight 218 lb 12.8 oz Most Recent Monitor Data Heart Rate from ECG 64 NIBP 106/62 NIBP BP-Mean 76 Respiration from ECG 23 SpO2 98 I&O: 05/01/19 05/02/19 05/03/19 06:59 06:59 06:59 Intake Total 2016.9 1355 Output Total 1350 1750 Balance 666.9 -395 Result Diagrams: 05/03/19 03:19 05/03/19 03:19 Additional Labs: Accuchecks 05/02/19 04:22 POC Glucose 101 Labs and MARs reviewed by me EKG Reviewed by me: Yes (Tele: NSR) Hospitalist ROS - Review of Systems Respiratory: reports: cough, dry, SOB with excertion. denies: shortness of breath, hemoptysis, pleuritic pain, sputum, wheezing Cardiovascular: denies: chest pain, palpitations, orthopnea, paroxysmal noc. dyspnea, edema, light headedness - Medication Medications: Active Medications Generic Name Dose Route Start Last Admin Trade Name Freq PRN Reason Stop Dose Admin Amiodarone HCl 400 mg 05/01/19 21:00 05/02/19 10:30 Cordarone PO 400 mg BID [facility] Administration Aspirin 81 mg 04/29/19 09:00 05/02/19 10:29 Ecotrin PO 81 mg DAILY [facility] Administration Cyanocobalamin 1,000 mcg 05/02/19 09:00 05/02/19 10:31 Vitamin B-12 PO 1,000 mcg DAILY [facility] Administration Enoxaparin Sodium 40 mg 05/02/19 09:00 05/02/19 10:31 Lovenox SC 40 mg 0900 [facility] Administration Folic Acid 1 mg 05/02/19 09:00 05/02/19 10:30 Folvite PO 1 mg DAILY [facility] Administration Multivitamins 1 tab 05/02/19 09:00 05/02/19 10:30 Theragran PO 1 tab DAILY [facility] Administration Polyethylene Glycol 17 gm 05/02/19 09:00 05/02/19 10:31 Miralax PO 17 gm DAILY [facility] Administration Saccharomyces Boulardii 250 mg 04/30/19 09:00 05/02/19 10:30 Florastor PO 250 mg DAILY [facility] Administration Senna/Docusate Sodium 2 tab 05/01/19 21:00 05/02/19 10:30 Senokot S PO 2 tab BID [facility] Administration - Exam General Appearance: NAD Eye: anicteric sclera ENT: moist mucosa Neck: supple, no JVD Heart: RRR, no rubs Respiratory: CTAB, no ronchi Gastrointestinal: soft, non-tender Psychiatric: normal affect, normal behavior Hosp A/P - Plan Hosp A/P ASSESSMENT: Acute hypoxic respiratory failure Acute on chronic systolic HF exacerbation - ACC stage D NSVT EMILY on CKD 2 Type 2 myocardial infarction. Abnormal LFTs probably secondary to passive hepatic congestion. h/o CAD s/p [place] and Cardiogenic shock PVD Chronic B/L LE ulcers Physical deconditioning. Thrombocytopenia PLAN: Cont Lasix drip Cont oral Amiodarone Cont ASA AM labs Monitor Platelets Cont NIPPV PRN DVT proph w/lovenox
[2019-05-03 03:49] LABS: Band 1 % (5-11); Eosinophils 3 % (0-10); Hemoglobin 14.7 g/dL (14.0-18.0); Lymphocytes 10 % (21-51); MDiff Complete? YES; Mean Corpuscular HGB CONC 32.7 g/dL (32.0-36.0); Mean Corpuscular Hemoglobin 33.8 pg (27.0-31.0); Mean Platelet Volume 8.1 fL (7.4-10.4); Metamyelocyte 1 % (0-0); Monocytes 12 % (0-10); Neutrophil 73 % (42-75); Platelet Count 135 thou/uL (130-400); Platelet Morphology Comment Appears Adequate; RBC Distribution Width 14.3 % (11.5-14.5); Red Blood Cell (RBC) Count 4.34 mill/uL (4.70-6.10); White Blood Cell (WBC) Count 7.7 thou/uL (4.8-10.8)
[2019-05-03 03:51] LABS: Anion Gap 12 mmol/L (10-20); BUN (Urea Nitrogen) 32 mg/dL (8.4-25.7); Calc. Creatinine Clearance 77 mL/min (70-130); Calcium 8.3 mg/dL (7.8-10.44); Carbon Dioxide 36 mmol/L (23-31); Chloride 98 mmol/L (98-107); Estimated GFR-MDRD 62; Glucose 101 mg/dL (83-110); Potassium 3.7 mmol/L (3.5-5.1); Sodium 142 mmol/L (136-145)
[2019-05-03] MEDS: Aspirin 81 mg Enteric Coated Tablet PO SCH (09:46)
[2019-05-03] MEDS: Multivit, Therapeutic 1 TAB PO SCH (09:46)
[2019-05-03] MEDS: Folic Acid 1 MG TAB PO SCH (09:46)
[2019-05-03] MEDS: Amiodarone 200 MG TAB PO SCH ×2 (09:46→20:37)
[2019-05-03] MEDS: Saccharomyces boulardii 250 MG CAP PO SCH (09:46)
[2019-05-03] MEDS: Senokot S 8.6-50 MG TAB PO SCH ×2 (09:46→20:37)
[2019-05-03] MEDS: Enoxaparin Sodium 40 MG/0.4 ML SYRINGE SC SCH (09:46)
[2019-05-03] MEDS: Cyanocobalamin (Vitamin B-12) 1,000 MCG TAB PO SCH (09:46)
[2019-05-03] MEDS: Polyethylene Glycol 3350 17 GM Packet PO SCH (09:47)
--- NOTE | 2019-05-03 11:49 | PRG ---
DATE OF SERVICE: 05/03/2019 SUBJECTIVE: This morning, he is still lethargic, but arousable. OBJECTIVE: VITAL SIGNS: Temperature 98, pulse 61, blood pressure 100/63, saturations 100%. CHEST: Decreased breath sounds. No wheezing. CARDIAC: Normal S1 and S2. No gallops. Abdomen: No masses. LABORATORY DATA: Unremarkable. ASSESSMENT AND PLAN: Cardiomyopathy, nonfunctioning defibrillator, hypoventilation, respiratory failure, severe deconditioning. Continue supportive care, PT. He needs aggressive PT, ambulation. Job ID: [id number]
--- NOTE | 2019-05-03 13:01 | PDOC.CPN ---
- Subjective Date: 05/03/19 Time: 12:59 Interval history: breathing not quite to baseline yet and continues to have edema. - Review of Systems General: denies: fever/chills, weight/appetite/sleep changes, night sweats, fatigue Respiratory: denies: cough, congestion, shortness of breath, exercise intolerance Cardiovascular: denies: chest pain, palpitation, edema, paroxysmal nocturnal dyspnea, orthopnea Gastrointestinal: denies: nausea, vomiting, diarrhea, constipation, abd pain, GI bleeding Musculoskeletal: denies: pain, tenderness, stiffness, swelling, arthritis/ arthralgias Neurological: denies: numbness, syncope, seizure, weakness - Objective Allergies/Adverse Reactions: Allergies Allergy/AdvReac Type Severity Reaction Status Date / Time No Known Drug Allergies Allergy Verified 04/28/19 13:19 Visit Medications: Current Medications Acetaminophen (Tylenol) 650 mg PO Q4H PRN PRN Reason: Headache/Fever/Mild Pain (1-3) Amiodarone HCl (Cordarone) 400 mg PO BID [facility] Last Admin: 05/03/19 09:46 Dose: 400 mg Aspirin (Ecotrin) 81 mg PO DAILY [facility] Last Admin: 05/03/19 09:46 Dose: 81 mg Calcium Carbonate (Tums) 1,000 mg PO Q4H PRN PRN Reason: Heartburn or Indigestion Cyanocobalamin (Vitamin B-12) 1,000 mcg PO DAILY [facility] Last Admin: 05/03/19 09:46 Dose: 1,000 mcg Enoxaparin Sodium (Lovenox) 40 mg SC 0900 [facility] Last Admin: 05/03/19 09:46 Dose: 40 mg Folic Acid (Folvite) 1 mg PO DAILY [facility] Last Admin: 05/03/19 09:46 Dose: 1 mg Furosemide 100 mg/ Sodium (Chloride) 100 mls @ 4 mls/hr IVPB INF [facility] Multivitamins (Theragran) 1 tab PO DAILY [facility] Last Admin: 05/03/19 09:46 Dose: 1 tab Ondansetron HCl (Zofran Odt) 4 mg PO Q6H PRN PRN Reason: Nausea/Vomiting Ondansetron HCl (Zofran) 4 mg IVP Q6H PRN PRN Reason: Nausea/Vomiting Polyethylene Glycol (Miralax) 17 gm PO DAILY [facility] Last Admin: 05/03/19 09:47 Dose: 17 gm Saccharomyces Boulardii (Florastor) 250 mg PO DAILY [facility] Last Admin: 05/03/19 09:46 Dose: 250 mg Senna/Docusate Sodium (Senokot S) 2 tab PO BID [facility] Last Admin: 05/03/19 09:46 Dose: 2 tab Sodium Chloride (Flush - Normal Saline) 10 ml IVF PRN PRN PRN Reason: Saline Flush Vital Signs & Weight: Vital Signs Temp Pulse Ox 05/03/19 10:25 98.3 F 05/03/19 08:00 100 05/03/19 07:13 97.2 F L 05/03/19 03:51 97.6 F Admit Weight 220 lb Weight 213 lb 9.6 oz - Physical Exam General: appears well HEENT: normocephaly Neck: supple neck Cardiac: regular rate and rhythm Lungs: bibasilar rales Neuro: grossly intact Abdomen: unremarkable Extremities: 2+ LE edema Skin: clear Musculoskeletal: no pain - Labs Result Diagrams: 05/03/19 03:19 05/03/19 03:19 Troponin/CKMB Troponin I 0.051 ng/mL (< 0.028) H 04/28/19 07:49 - Telemetry Sinus rhythms and dysrhythmias: sinus rhythm - Assessment/Plan Assessment/Plan: 1. Acute on chronic systolic CHF 2. Reduced EF at 15% 3. Hyperkalemia, improved. 4. S/P BiV AICD placement. PLAN: - Continue IV diuresis. - BP borderline low to add any CHF meds.
--- NOTE | 2019-05-03 13:21 | PDOC.HOSPP ---
- Subjective Encounter Date: 05/03/19 Encounter Time: 10:20 Subjective: Pt seen for followup re; acute hypoxic respiratory failure. Feels better, states he is improving. - Objective Vital Signs & Weight: Vital Signs (12 hours) Temp Pulse Ox 05/03/19 10:25 98.3 F 05/03/19 08:00 100 05/03/19 07:13 97.2 F L 05/03/19 03:51 97.6 F Weight Admit Weight 220 lb Weight 213 lb 9.6 oz Most Recent Monitor Data Heart Rate from ECG 61 NIBP 100/63 NIBP BP-Mean 75 Respiration from ECG 33 SpO2 100 I&O: 05/02/19 05/03/19 05/04/19 06:59 06:59 06:59 Intake Total 1355 1084 Output Total 1750 1900 Balance -395 -816 Result Diagrams: 05/03/19 03:19 05/03/19 03:19 Additional Labs: labs and MARs reviewed by ar Hospitalist ROS - Review of Systems Respiratory: reports: SOB with excertion. denies: cough, shortness of breath, pleuritic pain, sputum Cardiovascular: denies: chest pain, palpitations, orthopnea, paroxysmal noc. dyspnea, edema, light headedness - Medication Medications: Active Medications Generic Name Dose Route Start Last Admin Trade Name Adánq PRN Reason Stop Dose Admin Amiodarone HCl 400 mg 05/01/19 21:00 05/03/19 09:46 Cordarone PO 400 mg BID KAITLYNN Administration Aspirin 81 mg 04/29/19 09:00 05/03/19 09:46 Ecotrin PO 81 mg DAILY KAITLYNN Administration Cyanocobalamin 1,000 mcg 05/02/19 09:00 05/03/19 09:46 Vitamin B-12 PO 1,000 mcg DAILY KAITLYNN Administration Enoxaparin Sodium 40 mg 05/02/19 09:00 05/03/19 09:46 Lovenox SC 40 mg 0900 KAITLYNN Administration Folic Acid 1 mg 05/02/19 09:00 05/03/19 09:46 Folvite PO 1 mg DAILY KAITLYNN Administration Multivitamins 1 tab 05/02/19 09:00 05/03/19 09:46 Theragran PO 1 tab DAILY KAITLYNN Administration Polyethylene Glycol 17 gm 05/02/19 09:00 05/03/19 09:47 Miralax PO 17 gm DAILY KAITLYNN Administration Saccharomyces Boulardii 250 mg 04/30/19 09:00 05/03/19 09:46 Florastor PO 250 mg DAILY KAITLYNN Administration Senna/Docusate Sodium 2 tab 05/01/19 21:00 05/03/19 09:46 Senokot S PO 2 tab BID KAITLYNN Administration - Exam General Appearance: NAD Eye: anicteric sclera ENT: moist mucosa Neck: supple Heart: RRR Respiratory - other findings: Bibasal crackles Skin: no rashes Musculoskeletal: no muscle wasting Psychiatric: normal affect, normal behavior Hosp A/P - Plan out of bed/ambulate Hosp A/P ASSESSMENT: Acute hypoxic respiratory failure Acute on chronic systolic HF exacerbation - ACC stage D NSVT EMILY on CKD 2 Type 2 myocardial infarction. Abnormal LFTs h/o CAD PVD Chronic B/L LE ulcers Physical deconditioning. PLAN: Pt improving on Lasix drip Cont oral Amiodarone Cont aspirin AM labs Thrombocytopenia resolved Cont NIPPV PRN DVT proph w/lovenox
[2019-05-04 03:16] LABS: #Eosinphils 0.2 thou/uL (0.0-0.7); #Lymphocytes 0.7 thou/uL (1.20-3.40); #Monocytes 0.6 thou/uL (0.11-0.59); #Neutrophils 3.9 thou/uL (1.40-6.50); %Basophils 0.6 % (0.0-1.0); %Eosinophils 3.5 % (0.0-10.0); %Lymphocytes 12.2 % (21.0-51.0); %Monocytes 10.9 % (0.0-10.0); %Neutrophils 72.8 % (42.0-75.0); Hemoglobin 14.1 g/dL (14.0-18.0); Mean Corpuscular HGB CONC 30.6 g/dL (32.0-36.0); Mean Corpuscular Hemoglobin 31.7 pg (27.0-31.0); Mean Platelet Volume 7.9 fL (7.4-10.4); Platelet Count 163 thou/uL (130-400); RBC Distribution Width 14.2 % (11.5-14.5); Red Blood Cell (RBC) Count 4.46 mill/uL (4.70-6.10); White Blood Cell (WBC) Count 5.3 thou/uL (4.8-10.8)
[2019-05-04 03:37] LABS: BUN (Urea Nitrogen) 30 mg/dL (8.4-25.7); Calc. Creatinine Clearance 86 mL/min (70-130); Calcium 8.2 mg/dL (7.8-10.44); Estimated GFR-MDRD 73; Glucose 93 mg/dL (83-110)
[2019-05-04 03:46] LABS: Chloride 94 mmol/L (98-107); Potassium 3.5 mmol/L (3.5-5.1); Sodium 143 mmol/L (136-145)
[2019-05-04 03:48] LABS: Anion Gap 15 mmol/L (10-20); Carbon Dioxide 38 mmol/L (23-31)
--- NOTE | 2019-05-04 09:32 | PRG ---
DATE OF SERVICE: 05/04/2019 SUBJECTIVE: Mr. Jane is awake and alert. He does not have any chest pain. He is not short of breath, but he is extremely edematous. His edema is not improving. OBJECTIVE: VITAL SIGNS: His blood pressure 100/56, pulse is 70. LUNGS: Clear. CARDIAC: Normal S1. Normal S2. ABDOMEN: Soft and nontender. EXTREMITIES: Severe edema in his upper extremities. Moderate edema in lower extremities. PERTINENT LABORATORY DATA: Potassium is 3.5, BUN is 30, creatinine is 1. ASSESSMENT: 1. Congestive heart failure systolic, acute on chronic, not improving much. 2. Status post biventricular pacemaker defibrillator generator change. 3. Metabolic alkalosis. PLAN: 1. Resume dobutamine. 2. He is on oral amiodarone. 3. He is on enoxaparin. 4. We will give him a single dose of Diamox for the metabolic alkalosis. 5. Prognosis guarded and poor in this unfortunate gentleman. Job ID: [id number]
[2019-05-04] MEDS: Furosemide 100 MG in Sodium Chloride 0.9% 90 ML IVPB SCH (10:32)
[2019-05-04] MEDS: Folic Acid 1 MG TAB PO SCH (10:33)
[2019-05-04] MEDS: Multivit, Therapeutic 1 TAB PO SCH (10:33)
[2019-05-04] MEDS: Amiodarone 200 MG TAB PO SCH ×2 (10:33→20:37)
[2019-05-04] MEDS: Cyanocobalamin (Vitamin B-12) 1,000 MCG TAB PO SCH (10:33)
[2019-05-04] MEDS: Aspirin 81 mg Enteric Coated Tablet PO SCH (10:33)
[2019-05-04] MEDS: Saccharomyces boulardii 250 MG CAP PO SCH (10:33)
[2019-05-04] MEDS: Enoxaparin Sodium 40 MG/0.4 ML SYRINGE SC SCH (10:34)
[2019-05-04] MEDS: Polyethylene Glycol 3350 17 GM Packet PO SCH (10:34)
[2019-05-04] MEDS: Senokot S 8.6-50 MG TAB PO SCH ×2 (10:34→20:38)
[2019-05-04] MEDS: DOBUTamine 500 mg/250 ml 250 ML IVPB SCH (10:35)
[2019-05-04] MEDS ORDERED: Potassium Chloride 20 MEQ TAB PO SCH (12:00)
[2019-05-04] MEDS ORDERED: acetaZOLAMIDE Sodium 500 MG in Sodium Chloride 0.9% 50 ML IVPB SCH (14:00)
--- NOTE | 2019-05-04 17:58 | PDOC.HOSPP ---
- Subjective Encounter Date: 05/04/19 Encounter Time: 10:20 Subjective: Pt seen for followup re: acute hypoxic respiratory failure. Slept okay last night. SOBOE - Objective Vital Signs & Weight: Vital Signs (12 hours) Temp Pulse Ox 05/04/19 15:44 98.1 F 05/04/19 11:12 97.3 F L 05/04/19 08:00 100 05/04/19 07:01 96.6 F L Weight Admit Weight 220 lb Weight 216 lb 3.2 oz Most Recent Monitor Data Heart Rate from ECG 80 NIBP 93/58 NIBP BP-Mean 69 Respiration from ECG 33 SpO2 97 I&O: 05/03/19 05/04/19 05/05/19 06:59 06:59 06:59 Intake Total 1084 1543 Output Total 1900 2250 Balance -319 -031 Result Diagrams: 05/04/19 03:07 05/04/19 03:07 Additional Labs: Labs and MARs reviewed by me EKG Reviewed by me: Yes (Tele: NSR) Hospitalist ROS - Review of Systems Respiratory: reports: cough, SOB with excertion. denies: dry, shortness of breath, hemoptysis, pleuritic pain, sputum, wheezing Cardiovascular: reports: orthopnea. denies: chest pain, palpitations, paroxysmal noc. dyspnea, edema, light headedness - Medication Medications: Active Medications Generic Name Dose Route Start Last Admin Trade Name Freq PRN Reason Stop Dose Admin Amiodarone HCl 400 mg 05/01/19 21:00 05/04/19 10:33 Cordarone PO 400 mg BID KAITLYNN Administration Aspirin 81 mg 04/29/19 09:00 05/04/19 10:33 Ecotrin PO 81 mg DAILY KAITLYNN Administration Cyanocobalamin 1,000 mcg 05/02/19 09:00 05/04/19 10:33 Vitamin B-12 PO 1,000 mcg DAILY KAITLYNN Administration Enoxaparin Sodium 40 mg 05/02/19 09:00 05/04/19 10:34 Lovenox SC 40 mg 0900 KAITLYNN Administration Folic Acid 1 mg 05/02/19 09:00 05/04/19 10:33 Folvite PO 1 mg DAILY KAITLYNN Administration Furosemide 100 mg/ Sodium 100 mls @ 4 mls/hr 05/01/19 16:04 05/04/19 10:32 Chloride IVPB 100 mls INF KAITLYNN Administration 4 MG/HR Dobutamine HCl/Dextrose 250 mls @ 7.355 mls/hr 05/04/19 09:15 05/04/19 10:35 Dobutamine 500 Mg/250 Ml IVPB 250 mls INF KAITLYNN Administration Protocol 2.5 MCG/KG/MIN Acetazolamide Sodium 500 mg/ 50 mls @ 100 mls/hr 05/04/19 14:00 05/04/19 13: 37 Sodium Chloride IVPB 05/05/19 06:00 50 mls 1400 KAITLYNN Administration Multivitamins 1 tab 05/02/19 09:00 05/04/19 10:33 Theragran PO 1 tab DAILY KAITLYNN Administration Polyethylene Glycol 17 gm 05/02/19 09:00 05/04/19 10:34 Miralax PO 17 gm DAILY KAITLYNN Administration Saccharomyces Boulardii 250 mg 04/30/19 09:00 05/04/19 10:33 Florastor PO 250 mg DAILY KAITLYNN Administration Senna/Docusate Sodium 2 tab 05/01/19 21:00 05/04/19 10:34 Senokot S PO 2 tab BID KAITLYNN Administration - Exam General Appearance: NAD Eye: anicteric sclera Neck: supple, symmetric Heart: RRR Respiratory - other findings: Ranulfo crackles Gastrointestinal: soft, non-tender Extremities: 2+ LE edema Psychiatric: normal affect, normal behavior Hosp A/P - Plan Hosp A/P ASSESSMENT: Acute hypoxic respiratory failure Acute on chronic systolic HF exacerbation NSVT Type 2 myocardial infarction. Abnormal LFTs h/o CAD PVD Chronic B/L LE ulcers Physical deconditioning. PLAN: Pt improving on Lasix drip s/p BiV IVD Continue amiodarone Continue aspirin Creatinine improving DVT proph w/lovenox
--- NOTE | 2019-05-04 20:32 | PRG ---
DATE OF SERVICE: 05/04/2019 OBJECTIVE: VITAL SIGNS: Mr. Jane is afebrile. Heart rate is 75, blood pressure is 124/74, oximetry is 96% on 2 L. LUNGS: Clear now, HEART: Regular rhythm. ABDOMEN: Soft. He had his new defibrillator placed on Saturday. Deconditioning is the biggest issue he is facing at this time in my opinion. IMPRESSION: 1. Congestive heart failure, systolic, still on dobutamine. 2. Status post biventricular pacemaker defibrillator generator change. 3. He is stable overall, but has developed an elevated bicarb with his diuresis, for which Dr. Hayes has prescribed Diamox. This should help. His creatinine is normal at 1.00. Overall, he appears to be stable. Job ID: [id number]
[2019-05-05 04:40] LABS: BUN (Urea Nitrogen) 31 mg/dL (8.4-25.7); Calc. Creatinine Clearance 81 mL/min (70-130); Calcium 8.5 mg/dL (7.8-10.44); Estimated GFR-MDRD 67; Glucose 99 mg/dL (83-110)
[2019-05-05 04:49] LABS: Anion Gap 13 mmol/L (10-20); Carbon Dioxide 40 mmol/L (23-31); Chloride 93 mmol/L (98-107); Potassium 3.8 mmol/L (3.5-5.1); Sodium 142 mmol/L (136-145)
--- NOTE | 2019-05-05 09:30 | PRG ---
DATE OF SERVICE: 05/05/2019 SUBJECTIVE: Mr. Jane is not really progressing well. He is still very short of breath. He is not strong enough to get up out of bed. OBJECTIVE: VITAL SIGNS: His blood pressure is somewhat better 110/56, pulse is in the 60s. LUNGS: Clear. CARDIAC: Normal S1 and normal S2. ABDOMEN: Soft and nontender. EXTREMITIES: There is still severe edema. LABORATORY DATA: Creatinine is 1.07 and CO2 is 40. ASSESSMENT: 1. Congestive heart failure, systolic, acute on chronic, still in severe heart failure. 2. Status post biventricular defibrillator change. PLAN: 1. Increase rate up to 80. 2. We will give him a dose of Diamox as he is getting a metabolic alkalosis. They gave him one dose yesterday. We will give an additional dose later today. 3. We will give a dose of metolazone. Job ID: [id number]
[2019-05-05] MEDS: Senokot S 8.6-50 MG TAB PO SCH ×2 (09:41→21:17)
[2019-05-05] MEDS: Enoxaparin Sodium 40 MG/0.4 ML SYRINGE SC SCH (09:41)
[2019-05-05] MEDS: Multivit, Therapeutic 1 TAB PO SCH (09:41)
[2019-05-05] MEDS: Amiodarone 200 MG TAB PO SCH ×2 (09:42→21:16)
[2019-05-05] MEDS: Saccharomyces boulardii 250 MG CAP PO SCH (09:42)
[2019-05-05] MEDS: Aspirin 81 mg Enteric Coated Tablet PO SCH (09:42)
[2019-05-05] MEDS: Folic Acid 1 MG TAB PO SCH (09:42)
[2019-05-05] MEDS: Cyanocobalamin (Vitamin B-12) 1,000 MCG TAB PO SCH (09:42)
[2019-05-05] MEDS: DOBUTamine 500 mg/250 ml 250 ML IVPB SCH (09:42)
[2019-05-05] MEDS: Polyethylene Glycol 3350 17 GM Packet PO SCH (09:54)
[2019-05-05] MEDS ORDERED: Metolazone 5 MG TAB PO SCH (12:00)
[2019-05-05] MEDS ORDERED: Potassium Chloride 20 MEQ TAB PO SCH (12:00)
--- NOTE | 2019-05-05 13:30 | PDOC.HOSPP ---
- Subjective Encounter Date: 05/05/19 Encounter Time: 09:00 Subjective: Pt seen for followup re: acute hypoxic respiratory failure. States he feels better. - Objective Vital Signs & Weight: Vital Signs (12 hours) Temp Pulse Ox 05/05/19 11:14 97.0 F L 05/05/19 08:00 100 05/05/19 07:14 96.8 F L 05/05/19 03:36 97.4 F L Weight Admit Weight 220 lb Weight 214 lb Most Recent Monitor Data Heart Rate from ECG 83 NIBP 121/63 NIBP BP-Mean 82 Respiration from ECG 29 SpO2 97 I&O: 05/04/19 05/05/19 05/06/19 06:59 06:59 06:59 Intake Total 1543 1506 250 Output Total 2250 6810 Balance -921 -9684 250 Result Diagrams: 05/04/19 03:07 05/05/19 03:35 Additional Labs: labs and MARs reviewed by me EKG Reviewed by me: Yes (Tele: paced rhythm) Hospitalist ROS - Review of Systems Respiratory: reports: SOB with excertion. denies: cough, shortness of breath, pleuritic pain, wheezing Gastrointestinal: denies: nausea, vomiting, abdominal pain, diarrhea, constipation, melena, hematochezia Genitourinary: denies: dysuria, frequency, incontinence, hematuria, retention - Medication Medications: Active Medications Generic Name Dose Route Start Last Admin Trade Name Freq PRN Reason Stop Dose Admin Amiodarone HCl 400 mg 05/01/19 21:00 05/05/19 09:42 Cordarone PO 400 mg BID KAITLYNN Administration Aspirin 81 mg 04/29/19 09:00 05/05/19 09:42 Ecotrin PO 81 mg DAILY KAITLYNN Administration Cyanocobalamin 1,000 mcg 05/02/19 09:00 05/05/19 09:42 Vitamin B-12 PO 1,000 mcg DAILY KAITLYNN Administration Enoxaparin Sodium 40 mg 05/02/19 09:00 05/05/19 09:41 Lovenox SC 40 mg 0900 KAITLYNN Administration Folic Acid 1 mg 05/02/19 09:00 05/05/19 09:42 Folvite PO 1 mg DAILY KAITLYNN Administration Furosemide 100 mg/ Sodium 100 mls @ 4 mls/hr 05/01/19 16:04 05/04/19 10:32 Chloride IVPB 100 mls INF KAITLYNN Administration 4 MG/HR Dobutamine HCl/Dextrose 250 mls @ 7.355 mls/hr 05/04/19 09:15 05/05/19 09:42 Dobutamine 500 Mg/250 Ml IVPB 250 mls INF KAITLYNN Administration Protocol 2.5 MCG/KG/MIN Metolazone 5 mg 05/05/19 12:00 05/05/19 11:45 Zaroxolyn PO 05/05/19 14:00 5 mg 1200 KAITLYNN Administration Multivitamins 1 tab 05/02/19 09:00 05/05/19 09:41 Theragran PO 1 tab DAILY KAITLYNN Administration Polyethylene Glycol 17 gm 05/02/19 09:00 05/05/19 09:54 Miralax PO Not Given DAILY KAITLYNN Potassium Chloride 40 meq 05/05/19 12:00 05/05/19 11:46 K-Dur PO 05/05/19 14:00 40 meq 1200 KAITLYNN Administration Saccharomyces Boulardii 250 mg 04/30/19 09:00 05/05/19 09:42 Florastor PO 250 mg DAILY KAITLYNN Administration Senna/Docusate Sodium 2 tab 05/01/19 21:00 05/05/19 09:41 Senokot S PO 2 tab BID KAITLYNN Administration - Exam General Appearance: NAD Eye: anicteric sclera ENT: moist mucosa Neck: supple Heart: RRR Respiratory: CTAB Gastrointestinal: soft, non-tender Psychiatric: normal affect, normal behavior Hosp A/P - Plan Hosp A/P ASSESSMENT: Acute hypoxic respiratory failure Acute on chronic systolic HF exacerbation NSVT Type 2 myocardial infarction. Abnormal LFTs h/o CAD PVD Chronic B/L LE ulcers Physical deconditioning. PLAN: Pt's heart rate to be set to 80 Pt got Diamox for metabolic alkalosis. Continue Lasix drip s/p BiV ICD Continue amiodarone and aspirin DVT proph w/lovenox
--- NOTE | 2019-05-05 15:28 | PDOC.PALCO ---
Palliative Care Consult - Consult Details Requesting Physician: Dr Quinteros Reason for Consult: goals of care, assistance with communication prognosis/ disease, complex decision-making Family Members Present: None - Pertinent HPI 74 year old male who lives independently and had an onset of increasing of shortness of breath with bilateral lower extremity edema. Noted to have chronic wounds to lower extremities. Patient reports he called EMS and was transported to the hospital in [place] then to [facility] for higher level of care. Elevated BNP, placed on non invasive postiive pressure ventilation. Admitted to IM, patient continues with shortness of breath, fragile state. Paced at 80. - Social History Smoking Status: Never smoker Smoking: no tobacco exposure Alcohol Use: none Drug Use History: none Living Situation: independent (Lives in a Camper Trailer since October, was in a hotel previously for unknown period) - Medications MAR Reviewed: Yes - Allergies Allergies/Adverse Reactions: Allergies Allergy/AdvReac Type Severity Reaction Status Date / Time No Known Drug Allergies Allergy Verified 04/28/19 13:19 - Subjective Shortness of breath with push of speech, tachypnea. Weakness with any ambulation secondary to increase in shortness of breath paired with chronic wounds to lower extremities. - ROS Constitutional: weakness Eyes: other (Negative for visual changes) ENT: other (Negative for difficulty swallowing, congestion) Respiratory: shortness of breath, shortness of breath with extertion Cardiology: edema Gastrointestinal: other (Negative for constipation, diarrhea, nausea, vomiting) Genitourinary: other Musculoskeletal: other (weakness to slower extremties) Neurological: other (Denies headache, confusion, dizziness) Skin: wounds, other (breakdown to buttock, lower extremities) - Objective Vital Signs: Vital Signs - Most Recent Temp Pulse Resp BP Pulse Ox 97.0 F L 56 L 103/62 100 05/05/19 11:14 05/03/19 14:02 05/03/19 14:02 05/05/19 08:00 Palliative Performance Scale: 40 - Physical Exam Constitutional: ill appearing, mild distress HEENT: EOMI, moist MMs, sclera anicteric Respiratory: accessory muscle use, labored respirations, tachypnea Cardiovascular: RRR Gastrointestinal: soft, non-tender Genitourinary: baltazar catheter Musculoskeletal: edema present Neurology: moves all 4 limbs Skin: fragile, friable Psychiatric: A&O x 3 - Problem List (1) Palliative care encounter Code(s): Z51.5 - ENCOUNTER FOR PALLIATIVE CARE Current Visit: Yes Status: Acute (2) Lower extremity ulceration Code(s): L97.909 - NON-PRS CHRONIC ULC UNSP PRT OF UNSP LOW LEG W UNSP SEVERITY Current Visit: Yes Status: Acute (3) Congestive heart failure Code(s): I50.9 - HEART FAILURE, UNSPECIFIED Current Visit: Yes Status: Acute (4) Acute kidney injury Code(s): N17.9 - ACUTE KIDNEY FAILURE, UNSPECIFIED Current Visit: Yes Status : Acute (5) Peripheral vascular disease of lower extremity Code(s): I73.9 - PERIPHERAL VASCULAR DISEASE, UNSPECIFIED Current Visit: Yes Status: Acute (6) Physical deconditioning Code(s): R53.81 - OTHER MALAISE Current Visit: Yes Status: Acute - Plan/Recommendations Plan: Visited with patient at length, he worked in the [employer] in [place]. States until October he lived in a motel (unknown period of time) and in October purchased a camper and has lived in the camper independently until this hospital stay. States he is concerned about money and what he "can afford for care after hospital stay". Discussed [facility] to rehab to gain strength with his ultimate goal of returning to his camper. Significant time spent on not only life review but medical review and discussing decline. Discussed concern of returning home prior to gaining strength as this may potentiate a return to the hospital. Goal of care currently: Remain with full resuscitation measures, consider discharge to [facility] to gain strength to return to camper/ independent setting. Patient limited on family support/resources. Please also refer to Palliative Care RN notes in note section. [60] minutes spent on this encounter with >50% of the time in counseling and coordination of care. Thank you for this very appropriate consult.
[2019-05-05] MEDS: acetaZOLAMIDE Sodium 500 MG in Sodium Chloride 0.9% 50 ML IVPB SCH (15:59)
--- NOTE | 2019-05-05 23:38 | PRG ---
DATE OF SERVICE: 05/05/2019 SUBJECTIVE: Davis Junior had not improved. In fact, he looks worse today. We discussed BiPAP and he wanted to go back on BiPAP, so we started that this afternoon. The nurse very steadily recognize that he was declining as the day progressed. OBJECTIVE: VITAL SIGNS: Blood pressure this evening is 112/59, heart rate is in 80s, respiratory rates in the high 20s to low 30s. He is afebrile. LUNGS: Remarkable for rhonchi at his bases. HEART: Regular rhythm. ABDOMEN: Soft. LABORATORY DATA: White count 5.3 yesterday, no lab today. Sodium 142, potassium 3.8, chloride 93, bicarb 40, BUN 31, and creatinine 1.07. INR is 1.3. Another chest x-ray in several days, so I have ordered one in tomorrow morning. IMPRESSION: 1. Congestive heart failure. 2. Extreme deconditioning with a history of multiple falls prior to admission at home. 3. Metabolic alkalosis secondary to his diuretics. I will reassess him in the morning. He appears stable on noninvasive ventilation. Unfortunately, his prognosis is really poor given his lack of improvement after replacement of his defibrillator generator. Job ID: [id number]
[2019-05-06 04:28] LABS: BUN (Urea Nitrogen) 30 mg/dL (8.4-25.7); Calc. Creatinine Clearance 79 mL/min (70-130); Estimated GFR-MDRD 66; Glucose 96 mg/dL (83-110)
[2019-05-06 04:38] LABS: Anion Gap 14 mmol/L (10-20); Carbon Dioxide 39 mmol/L (23-31); Chloride 90 mmol/L (98-107); Sodium 139 mmol/L (136-145)
--- NOTE | 2019-05-06 07:54 | RAD ---
XR Chest 1 View Portable HISTORY: Shortness of breath COMPARISON: 04/29/2019 FINDINGS: Changes of median sternotomy and left-sided AICD again seen. There is pulmonary vascular co ngestion and bilateral pleural effusions and bibasilar infiltrates. There are degenerative changes in the right shoulder joint.
[2019-05-06] MEDS ORDERED: Metolazone 5 MG TAB PO SCH (08:15)
--- NOTE | 2019-05-06 08:55 | PRG ---
DATE OF SERVICE: 05/06/2019 SUBJECTIVE: Mr. Jane continues to look very weak. He does not appear short of breath. Overall, he looks slightly better. Clinically, he does not have any chest pain. He is still very weak and it has been difficult to mobilize him. OBJECTIVE: VITAL SIGNS: His blood pressure is 104 systolic, pulse is 80 and it has increased the pacer rate up to 80. LUNGS: Clear anteriorly and laterally. CARDIAC: Normal S1, normal S2. ABDOMEN: Soft and nontender. EXTREMITIES: Still moderate to severe edema. The patient did have a good diuresis last night, put out 3.5 L last night. The pacemaker rate was increased to 80. ASSESSMENT: 1. Congestive heart failure, improved but still class IV, currently clinically. 2. Severely depressed left ventricular function. 3. Status post biventricular pacemaker defibrillator generator change. 4. Metabolic alkalosis. PLAN: 1. He is on intravenous furosemide. 2. We will increase dobutamine up to 5 mcg/kg per minute. 3. Metolazone will be given today. 4. Another dose of Diamox. 5. Consideration for spironolactone tomorrow if the kidney function remains stable. Long-term prognosis is poor, short-term is guarded. Job ID: [id number] [facility]
[2019-05-06] MEDS: Enoxaparin Sodium 40 MG/0.4 ML SYRINGE SC SCH (10:15)
[2019-05-06] MEDS: Folic Acid 1 MG TAB PO SCH (10:16)
[2019-05-06] MEDS: Polyethylene Glycol 3350 17 GM Packet PO SCH (10:16)
[2019-05-06] MEDS: Senokot S 8.6-50 MG TAB PO SCH ×2 (10:16→20:39)
[2019-05-06] MEDS: Aspirin 81 mg Enteric Coated Tablet PO SCH (10:17)
[2019-05-06] MEDS: Amiodarone 200 MG TAB PO SCH ×2 (10:17→20:39)
[2019-05-06] MEDS: Saccharomyces boulardii 250 MG CAP PO SCH (10:17)
[2019-05-06] MEDS: Multivit, Therapeutic 1 TAB PO SCH (10:17)
[2019-05-06] MEDS: Cyanocobalamin (Vitamin B-12) 1,000 MCG TAB PO SCH (10:17)
[2019-05-06] MEDS ORDERED: Potassium Chloride 20 MEQ TAB PO SCH (12:00)
--- NOTE | 2019-05-06 13:02 | PDOC.HOSPP ---
- Subjective Encounter Date: 05/06/19 Encounter Time: 09:40 Subjective: Pt seen for followup re: acute hypoxic respiratory failure. States he feels about the same as yesterday. - Objective Vital Signs & Weight: Vital Signs (12 hours) Temp Pulse Pulse BP BP Pulse Ox Pulse Ox 05/06/19 11:17 97.3 F L 05/06/19 09:36 81 80 107/68 90/50 L 100 05/06/19 08:00 98 05/06/19 07:17 97.0 F L 05/06/19 04:00 98.6 F Pulse Ox 05/06/19 11:17 05/06/19 09:36 100 05/06/19 08:00 05/06/19 07:17 05/06/19 04:00 Weight Admit Weight 220 lb Weight 206 lb 1.6 oz Most Recent Monitor Data Heart Rate from ECG 80 NIBP 91/56 NIBP BP-Mean 67 Respiration from ECG 32 SpO2 100 I&O: 05/05/19 05/06/19 05/07/19 06:59 06:59 06:59 Intake Total 1506 1050.8 200 Output Total 3550 7800 Balance -2044 -6749.2 200 Result Diagrams: 05/04/19 03:07 05/06/19 03:40 Additional Labs: Labs and MARs reviewed by me EKG Reviewed by me: Yes (Tele; electronic paced) Hospitalist ROS - Review of Systems Constitutional: denies: fever, chills, sweats, weakness, malaise Respiratory: reports: SOB with excertion Cardiovascular: reports: orthopnea. denies: chest pain, palpitations, paroxysmal noc. dyspnea, edema, light headedness Gastrointestinal: denies: nausea, vomiting, abdominal pain, diarrhea, constipation, melena, hematochezia - Medication Medications: Active Medications Generic Name Dose Route Start Last Admin Trade Name Freq PRN Reason Stop Dose Admin Amiodarone HCl 400 mg 05/01/19 21:00 05/06/19 10:17 Cordarone PO 400 mg BID KAITLYNN Administration Aspirin 81 mg 04/29/19 09:00 05/06/19 10:17 Ecotrin PO 81 mg DAILY KAITLYNN Administration Cyanocobalamin 1,000 mcg 05/02/19 09:00 05/06/19 10:17 Vitamin B-12 PO 1,000 mcg DAILY KAITLYNN Administration Enoxaparin Sodium 40 mg 05/02/19 09:00 05/06/19 10:15 Lovenox SC 40 mg 0900 KAITLYNN Administration Folic Acid 1 mg 05/02/19 09:00 05/06/19 10:16 Folvite PO 1 mg DAILY KAITLYNN Administration Furosemide 100 mg/ Sodium 100 mls @ 4 mls/hr 05/01/19 16:04 05/04/19 10:32 Chloride IVPB 100 mls INF KAITLYNN Administration 4 MG/HR Acetazolamide Sodium 500 mg/ 50 mls @ 100 mls/hr 05/05/19 16:00 05/05/19 15: 59 Sodium Chloride IVPB 05/07/19 16:01 50 mls 1600 KAITLYNN Administration Multivitamins 1 tab 05/02/19 09:00 05/06/19 10:17 Theragran PO 1 tab DAILY KAITLYNN Administration Polyethylene Glycol 17 gm 05/02/19 09:00 05/06/19 10:16 Miralax PO Not Given DAILY KAITLYNN Saccharomyces Boulardii 250 mg 04/30/19 09:00 05/06/19 10:17 Florastor PO 250 mg DAILY KAITLYNN Administration Senna/Docusate Sodium 2 tab 05/01/19 21:00 05/06/19 10:16 Senokot S PO Not Given BID KAITLYNN - Exam General Appearance: NAD Eye: anicteric sclera ENT: moist mucosa Neck: supple Heart: RRR Respiratory: CTAB Gastrointestinal: soft, non-tender Extremities: 1+ LE edema Skin - other findings: wounds as documented Psychiatric: normal affect, normal behavior Hosp A/P - Plan Hosp A/P ASSESSMENT: Acute hypoxic respiratory failure Acute on chronic systolic HF exacerbation NSVT Type 2 myocardial infarction. Abnormal LFTs h/o CAD PVD Chronic B/L LE ulcers Physical deconditioning. PLAN: DVT proph w/lovenox Continue Lasix drip and dobutamine. s/p BiV ICD Continue amiodarone and aspirin
[2019-05-06] MEDS ORDERED: acetaZOLAMIDE Sodium 500 MG in Sodium Chloride 0.9% 50 ML IVPB SCH (16:00)
[2019-05-06] MEDS: DOBUTamine 500 mg/250 ml 250 ML IVPB SCH (16:50)
[2019-05-06] MEDS: acetaZOLAMIDE Sodium 500 MG in Sodium Chloride 0.9% 50 ML IVPB SCH (16:50)
[2019-05-06] MEDS: Furosemide 100 MG in Sodium Chloride 0.9% 90 ML IVPB SCH (16:50)
--- NOTE | 2019-05-06 17:05 | PRG ---
DATE OF SERVICE: 05/06/2019 SUBJECTIVE: Davis Jane is doing better. He wore the BiPAP up until around suppertime and then did wear it all night. He says he feels better and he certainly looks better today. OBJECTIVE: LUNGS: Remarkable for crackles at both lung bases. HEART: Regular rhythm. ABDOMEN: Soft. LABORATORY DATA: Chest radiograph, still consistent with pulmonary edema with bilateral effusions. Electrolytes; sodium 139, potassium 4, chloride 90, bicarb 39, BUN 30, and creatinine 1.09. IMPRESSION AND PLAN: 1. Respiratory muscle insufficiency secondary to deconditioning. 2. Underlying severe cardiomyopathy with placement of a new defibrillator generator. 3. Metabolic alkalosis associated with diuresis. 4. Ongoing requirement for dobutamine. We will give him a dose of Diamox today and continue supportive care. He appears stable at this point in time. Job ID: [id number]
--- NOTE | 2019-05-06 17:45 | EKG ---
Test Reason : Blood Pressure : / mmHG Vent. Rate : 069 BPM Atrial Rate : 048 BPM P-R Int : 000 ms QRS Dur : 178 ms QT Int : 482 ms P-R-T Axes : 000 -08 018 degrees QTc Int : 516 ms Ventricular-paced rhythm with occasional AV dual-paced complexes Abnormal ECG When compared with ECG of 28-APR-2019 07:31, (Unconfirmed) Electronic ventricular pacemaker has replaced Sinus rhythm Confirmed by DR. Nina BOOTH ([id number]) on 05/06/2019 5:45:01 PM Referred By: HUMPHREY Confirmed By:DR. Nina BOOTH
[2019-05-07 04:12] LABS: BUN (Urea Nitrogen) 38 mg/dL (8.4-25.7); Calc. Creatinine Clearance 56 mL/min (70-130); Calcium 9.2 mg/dL (7.8-10.44); Estimated GFR-MDRD 46; Glucose 90 mg/dL (83-110)
[2019-05-07 04:21] LABS: Anion Gap 19 mmol/L (10-20); Carbon Dioxide 38 mmol/L (23-31); Chloride 85 mmol/L (98-107); Potassium 4.1 mmol/L (3.5-5.1); Sodium 138 mmol/L (136-145)
--- NOTE | 2019-05-07 08:01 | RAD ---
EXAM: Single view of the chest HISTORY: CHF COMPARISON: 05/06/2019 FINDINGS: Single view of the chest shows an enlarged cardiomediastinal silhouette. The patient is st atus post sternotomy. The pacemaker is unchanged in position. There are stable bilateral pleural effusions with adjacent atelectasis. The bones are unremarkable. IMPRESSION: Stable exam
[2019-05-07] MEDS: Amiodarone 200 MG TAB PO SCH ×2 (09:17→21:40)
[2019-05-07] MEDS: Senokot S 8.6-50 MG TAB PO SCH ×2 (09:18→21:40)
[2019-05-07] MEDS: Cyanocobalamin (Vitamin B-12) 1,000 MCG TAB PO SCH (09:18)
[2019-05-07] MEDS: Enoxaparin Sodium 40 MG/0.4 ML SYRINGE SC SCH (09:18)
[2019-05-07] MEDS: Aspirin 81 mg Enteric Coated Tablet PO SCH (09:18)
[2019-05-07] MEDS: Folic Acid 1 MG TAB PO SCH (09:18)
[2019-05-07] MEDS: Multivit, Therapeutic 1 TAB PO SCH (09:18)
[2019-05-07] MEDS: Polyethylene Glycol 3350 17 GM Packet PO SCH (09:19)
[2019-05-07] MEDS: Saccharomyces boulardii 250 MG CAP PO SCH (09:19)
[2019-05-07] MEDS ORDERED: Furosemide 100 MG in Sodium Chloride 0.9% 90 ML IVPB SCH (09:29)
--- NOTE | 2019-05-07 09:55 | PRG ---
DATE OF SERVICE: 05/07/2019 SUBJECTIVE: Mr. Jane is feeling better today, just weak. His breathing has improved. OBJECTIVE: VITAL SIGNS: Blood pressure is low 97/50 and pulse 80 and it is paced. LUNGS: Clear. CARDIAC: Normal S1 and normal S2. ABDOMEN: Soft and nontender. EXTREMITIES: Mild edema. LABORATORY DATA: His creatinine did go up to 1.48 from 1.09. His urine output yesterday was 7.8 L. ASSESSMENT: 1. Congestive heart failure systolic, finally improving. 2. Worsening renal failure due to diuresis. PLAN: 1. He is not going to receive any further metolazone at this point. 2. No Diamox today. 3. Reduce furosemide to 2 mg an hour. Job ID: [id number]
--- NOTE | 2019-05-07 14:55 | PDOC.HOSPP ---
- Subjective Encounter Date: 05/07/19 Encounter Time: 09:20 Subjective: Pt seen for followup re; acute hypoxic respiratory failure. reports feeling better today, diuresed well last night. - Objective Vital Signs & Weight: Vital Signs (12 hours) Temp Pulse Pulse BP BP Pulse Ox Pulse Ox 05/07/19 11:23 96.4 F L 05/07/19 09:00 81 80 103/60 101/60 100 100 05/07/19 07:33 97.1 F L 05/07/19 03:37 97.7 F Weight Admit Weight 220 lb Weight 193 lb 3.2 oz Most Recent Monitor Data Heart Rate from ECG 80 NIBP 101/60 NIBP BP-Mean 73 Respiration from ECG 22 SpO2 100 I&O: 05/06/19 05/07/19 05/08/19 06:59 06:59 06:59 Intake Total 1050.8 930 Output Total 7800 8075 1325 [facility] -6749.2 -7145 -1325 Result Diagrams: 05/04/19 03:07 05/07/19 01:32 Additional Labs: labs and MARs reviewed by me EKG Reviewed by me: Yes (Tele: V-paced) Hospitalist ROS - Review of Systems Respiratory: reports: SOB with excertion Cardiovascular: denies: chest pain, palpitations, orthopnea, paroxysmal noc. dyspnea, edema, light headedness Gastrointestinal: denies: nausea, vomiting, abdominal pain, diarrhea, constipation, melena, hematochezia - Medication Medications: Active Medications Generic Name Dose Route Start Last Admin Trade Name Adánq PRN Reason Stop Dose Admin Amiodarone HCl 400 mg 05/01/19 21:00 05/07/19 09:17 Cordarone PO 400 mg BID KAITLYNN Administration Aspirin 81 mg 04/29/19 09:00 05/07/19 09:18 Ecotrin PO 81 mg DAILY KAITLYNN Administration Cyanocobalamin 1,000 mcg 05/02/19 09:00 05/07/19 09:18 Vitamin B-12 PO 1,000 mcg DAILY KAITLYNN Administration Enoxaparin Sodium 40 mg 05/02/19 09:00 05/07/19 09:18 Lovenox SC 40 mg 0900 KAITLYNN Administration Folic Acid 1 mg 05/02/19 09:00 05/07/19 09:18 Folvite PO 1 mg DAILY KAITLYNN Administration Acetazolamide Sodium 500 mg/ 50 mls @ 100 mls/hr 05/05/19 16:00 05/06/19 16: 50 Sodium Chloride IVPB 05/07/19 16:01 50 mls 1600 KAITLYNN Administration Dobutamine HCl/Dextrose 250 mls @ 14.71 mls/hr 05/06/19 09:15 05/06/19 16:50 Dobutamine 500 Mg/250 Ml IVPB 250 mls INF KAITLYNN Administration Protocol 5 MCG/KG/MIN Multivitamins 1 tab 05/02/19 09:00 05/07/19 09:18 Theragran PO 1 tab DAILY KAITLYNN Administration Polyethylene Glycol 17 gm 05/02/19 09:00 05/07/19 09:19 Miralax PO Not Given DAILY KAITLYNN Saccharomyces Boulardii 250 mg 04/30/19 09:00 05/07/19 09:19 Florastor PO 250 mg DAILY KAITLYNN Administration Senna/Docusate Sodium 2 tab 05/01/19 21:00 05/07/19 09:18 Senokot S PO Not Given BID KAITLYNN - Exam General Appearance: NAD Eye: anicteric sclera ENT: moist mucosa Neck: supple Heart: RRR Respiratory - other findings: Ranulfo crackles Gastrointestinal: soft, non-tender Skin - other findings: wounds as documented Psychiatric: normal affect, normal behavior Hosp A/P - Plan Hosp A/P ASSESSMENT: Acute hypoxic respiratory failure Acute on chronic systolic HF exacerbation NSVT Type 2 myocardial infarction. Abnormal LFTs h/o CAD PVD Chronic B/L LE ulcers Physical deconditioning. PLAN: Furosemide drip dose dcreased to 2mg/hr Continue dobutamine. s/p BiV ICD Continue amiodarone and aspirin Ambulate pt
[2019-05-07] MEDS: acetaZOLAMIDE Sodium 500 MG in Sodium Chloride 0.9% 50 ML IVPB SCH (15:52)
[2019-05-08] MEDS: DOBUTamine 500 mg/250 ml 250 ML IVPB SCH ×2 (02:56→21:22)
[2019-05-08 04:10] LABS: BUN (Urea Nitrogen) 44 mg/dL (8.4-25.7); Calc. Creatinine Clearance 47 mL/min (70-130); Calcium 8.9 mg/dL (7.8-10.44); Estimated GFR-MDRD 42; Glucose 99 mg/dL (83-110)
[2019-05-08 04:20] LABS: Anion Gap 11 mmol/L (10-20); Chloride 82 mmol/L (98-107); Potassium 3.5 mmol/L (3.5-5.1); Sodium 134 mmol/L (136-145)
[2019-05-08 04:26] LABS: Carbon Dioxide 45 mmol/L (23-31)
[2019-05-08 05:25] LABS: #Eosinphils 0.3 thou/uL (0.0-0.7); #Lymphocytes 0.8 thou/uL (1.20-3.40); #Monocytes 0.7 thou/uL (0.11-0.59); #Neutrophils 4.5 thou/uL (1.40-6.50); %Basophils 0.6 % (0.0-1.0); %Eosinophils 4.2 % (0.0-10.0); %Lymphocytes 12.4 % (21.0-51.0); %Monocytes 10.4 % (0.0-10.0); %Neutrophils 72.3 % (42.0-75.0); Hemoglobin 15.2 g/dL (14.0-18.0); Mean Corpuscular HGB CONC 33.4 g/dL (32.0-36.0); Mean Corpuscular Hemoglobin 33.7 pg (27.0-31.0); Mean Platelet Volume 8.1 fL (7.4-10.4); Platelet Count 176 thou/uL (130-400); RBC Distribution Width 13.8 % (11.5-14.5); Red Blood Cell (RBC) Count 4.52 mill/uL (4.70-6.10); White Blood Cell (WBC) Count 6.2 thou/uL (4.8-10.8)
[2019-05-08 05:26] LABS: Actual Bicarbonate (HCO3a) 47.1 mEq/L (22-28); Calcium, Ionized 1.15 mmol/L (1.12-1.30); Carboxyhemoglobin (COHb) 1.1 gm% (0.0-3.0); Hemoglobin (Hb) 15.8 g/dL (14.0-18.0); O2 Tension (PaO2) 111.5 mmHg (> 70.0); pH, Arterial 7.47 (7.35-7.45)
[2019-05-08 05:31] LABS: CO2 Tension 66.2 mmHg (35.0-45.0); Puncture Site L RADIAL
[2019-05-08] MEDS ORDERED: Potassium Chloride 20 MEQ TAB PO SCH (08:30)
--- NOTE | 2019-05-08 08:41 | PRG ---
DATE OF SERVICE: 05/08/2019 SUBJECTIVE: Mr. Jane feels okay, just weak. He is not short of breath. No chest pain. The patient put out another 8 L yesterday. He put out 8 L a day before as well. His weight is down to 187, which is 33 pounds down from admission. OBJECTIVE: VITAL SIGNS: His blood pressure is low, currently he is sitting up, it is 87 systolic, pulse normal. HEART: S1 and S2. ABDOMEN: Soft, nontender. EXTREMITIES: Only minimal edema. LABORATORY DATA: The creatinine has gone higher at 1.6 and his CO2 is 45. ASSESSMENT: 1. Congestive heart failure. 2. Metabolic alkalosis secondary to intravascular contraction. 3. Worsening renal function secondary to diuresis. PLAN: 1. The diuretic was dramatically reduced yesterday. We will go ahead and stop the diuretics today. 2. Replete potassium. 3. Likely resume some diuretics on Saturday. 4. Still on dobutamine, hopefully can be weaned off that this weekend. Blood pressure is much too low for YOSELIN inhibitors, ARBs or beta-blockers at this time. 5. Spironolactone contraindicated with the increasing creatinine. Job ID: [id number]
[2019-05-08] MEDS ORDERED: Sodium Chloride 0.9% 500 ML IV SCH (08:45)
--- NOTE | 2019-05-08 09:40 | RAD ---
PORTABLE CHEST: Date: 05/08/2019 PROVIDED CLINICAL HISTORY: Respiratory insufficiency. FINDINGS: Comparison with 05/07/2019. Significant interval change with respect to the prior examination is not apparent. IMPRESSION: As above. POS: OFF
[2019-05-08] MEDS: Aspirin 81 mg Enteric Coated Tablet PO SCH (10:38)
[2019-05-08] MEDS: Folic Acid 1 MG TAB PO SCH (10:38)
[2019-05-08] MEDS: Amiodarone 200 MG TAB PO SCH ×2 (10:38→20:28)
[2019-05-08] MEDS: Saccharomyces boulardii 250 MG CAP PO SCH (10:38)
[2019-05-08] MEDS: Polyethylene Glycol 3350 17 GM Packet PO SCH (10:38)
[2019-05-08] MEDS: Senokot S 8.6-50 MG TAB PO SCH ×2 (10:38→20:28)
[2019-05-08] MEDS: Multivit, Therapeutic 1 TAB PO SCH (10:39)
[2019-05-08] MEDS: Cyanocobalamin (Vitamin B-12) 1,000 MCG TAB PO SCH (10:39)
[2019-05-08] MEDS: Enoxaparin Sodium 40 MG/0.4 ML SYRINGE SC SCH (10:40)
--- NOTE | 2019-05-08 19:45 | PDOC.HOSPP ---
- Subjective Encounter Date: 05/08/19 Encounter Time: 09:00 Subjective: Pt seen for followup re: acute respiratory failure. Feels better. - Objective Vital Signs & Weight: Vital Signs (12 hours) Temp Pulse Ox 05/08/19 19:22 97.5 F L 05/08/19 15:00 96.1 F L 05/08/19 11:00 95.7 F L 05/08/19 07:50 100 Weight Admit Weight 220 lb Weight 187 lb 7 oz Most Recent Monitor Data Heart Rate from ECG 80 NIBP 95/59 NIBP BP-Mean 71 Respiration from ECG 26 SpO2 100 I&O: 05/07/19 05/08/19 05/09/19 06:59 06:59 06:59 Intake Total 930 1216.6 Output Total 8079 5275 Balance -7145 -4058.4 Result Diagrams: 05/10/19 03:32 05/10/19 03:31 Additional Labs: Labs and MARs reviewed by me EKG Reviewed by me: Yes (Tele: V-paced) Hospitalist ROS - Review of Systems Respiratory: reports: SOB with excertion. denies: cough, dry, shortness of breath, hemoptysis, pleuritic pain, sputum, wheezing Cardiovascular: reports: edema. denies: chest pain, palpitations, orthopnea, paroxysmal noc. dyspnea, light headedness - Medication Medications: Active Medications Generic Name Dose Route Start Last Admin Trade Name Freq PRN Reason Stop Dose Admin Amiodarone HCl 400 mg 05/01/19 21:00 05/08/19 10:38 Cordarone PO 400 mg BID KAITLYNN Administration Aspirin 81 mg 04/29/19 09:00 05/08/19 10:38 Ecotrin PO 81 mg DAILY KAITLYNN Administration Cyanocobalamin 1,000 mcg 05/02/19 09:00 05/08/19 10:39 Vitamin B-12 PO 1,000 mcg DAILY KAITLYNN Administration Enoxaparin Sodium 40 mg 05/02/19 09:00 05/08/19 10:40 Lovenox SC 40 mg 0900 KAITLYNN Administration Folic Acid 1 mg 05/02/19 09:00 05/08/19 10:38 Folvite PO 1 mg DAILY KAITLYNN Administration Dobutamine HCl/Dextrose 250 mls @ 14.71 mls/hr 05/06/19 09:15 05/08/19 02:56 Dobutamine 500 Mg/250 Ml IVPB 250 mls INF KAITLYNN Administration Protocol 5 MCG/KG/MIN Multivitamins 1 tab 05/02/19 09:00 05/08/19 10:39 Theragran PO 1 tab DAILY KAITLYNN Administration Polyethylene Glycol 17 gm 05/02/19 09:00 05/08/19 10:38 Miralax PO 17 gm DAILY KAITLYNN Administration Saccharomyces Boulardii 250 mg 04/30/19 09:00 05/08/19 10:38 Florastor PO 250 mg DAILY KAITLYNN Administration Senna/Docusate Sodium 2 tab 05/01/19 21:00 05/08/19 10:38 Senokot S PO 2 tab BID KAITLYNN Administration Sodium Chloride 10 ml 04/28/19 08:53 05/07/19 15:53 Flush - Normal Saline IVF 10 ml PRN PRN Administration Saline Flush - Exam General Appearance: NAD Eye: anicteric sclera ENT: moist mucosa Neck: supple Heart: RRR Respiratory - other findings: Ranulfo crackles Gastrointestinal: soft, non-tender Extremities: 1+ LE edema Skin - other findings: wounds as documented Psychiatric: normal affect, normal behavior Hosp A/P - Plan Hosp A/P ASSESSMENT: Acute hypoxic respiratory failure Acute on chronic systolic HF exacerbation NSVT Type 2 myocardial infarction. Abnormal LFTs h/o CAD PVD Chronic B/L LE ulcers Physical deconditioning.Metabolic alkalosis PLAN: Furosemide drip discontinue Continue dobutamine drip. s/p BiV ICD during this admission Continue amiodarone and aspirin Acetazolamide 250 mg PO x1, then 250 mg daily x 3 days, then reassess Mobilize pt.
--- NOTE | 2019-05-08 20:13 | PRG ---
DATE OF SERVICE: 05/08/2019 SUBJECTIVE: Davis Jane is in no distress. OBJECTIVE: VITAL SIGNS: He is afebrile, oximetry is 100% on 3 L. GENERAL: He is resting comfortably. LUNGS: Clear anteriorly. HEART: Regular rhythm. ABDOMEN: Soft. Intake and outputs -7145 yesterday, -4058 today. IMPRESSION: Volume overload with congestive heart failure, still improving with diuresis. Chest radiograph done today shows improved edema. Continue current care. He is still on dobutamine. He will remain in the intermediate care unit as long as he is on dobutamine. Job ID: [id number]
[2019-05-08] MEDS ORDERED: AcetaZOLAMIDE 250 MG TAB PO SCH (22:00)
[2019-05-08] MEDS ORDERED: AcetaZOLAMIDE ER 500 MG CAP PO SCH (22:00)
--- NOTE | 2019-05-09 07:34 | RAD ---
EXAM: Portable chest PROVIDED CLINICAL HISTORY: Respiratory insufficiency COMPARISON: 05/08/2019 FINDINGS: Significant interval change with respect to the prior examination is not apparent. IMPRESSION: As above.
[2019-05-09] MEDS: Cyanocobalamin (Vitamin B-12) 1,000 MCG TAB PO SCH (09:15)
[2019-05-09] MEDS: Saccharomyces boulardii 250 MG CAP PO SCH (09:15)
[2019-05-09] MEDS: Enoxaparin Sodium 40 MG/0.4 ML SYRINGE SC SCH (09:15)
[2019-05-09] MEDS: Multivit, Therapeutic 1 TAB PO SCH (09:15)
[2019-05-09] MEDS: Amiodarone 200 MG TAB PO SCH ×2 (09:15→20:51)
[2019-05-09] MEDS: AcetaZOLAMIDE 250 MG TAB PO SCH (09:15)
[2019-05-09] MEDS: Aspirin 81 mg Enteric Coated Tablet PO SCH (09:16)
[2019-05-09] MEDS: Senokot S 8.6-50 MG TAB PO SCH ×2 (09:16→20:51)
[2019-05-09] MEDS: Polyethylene Glycol 3350 17 GM Packet PO SCH (09:16)
[2019-05-09] MEDS: Folic Acid 1 MG TAB PO SCH (09:16)
[2019-05-09 09:59] LABS: Anion Gap 11 mmol/L (10-20); BUN (Urea Nitrogen) 36 mg/dL (8.4-25.7); Calc. Creatinine Clearance 63 mL/min (70-130); Calcium 8.9 mg/dL (7.8-10.44); Carbon Dioxide 34 mmol/L (23-31); Chloride 91 mmol/L (98-107); Estimated GFR-MDRD 62; Glucose 105 mg/dL (83-110); Potassium 3.8 mmol/L (3.5-5.1); Sodium 132 mmol/L (136-145)
--- NOTE | 2019-05-09 13:28 | PDOC.HOSPP ---
- Subjective Encounter Date: 05/09/19 Encounter Time: 13:26 Subjective: The patient feels better. He states he doesn't feel congested. He is not able to bring up any phlegm. He has no mucus coming out of his nose anymore. He felt dry earlier this week. He is receiving acetazolamide Patient denies chest pain . Patient is asking whether he requires rehab Patient states that his battery in his pacemaker failed and he had significant edema few days prior to admission - Objective Vital Signs & Weight: Vital Signs (12 hours) Temp Pulse Ox 05/09/19 11:30 96.5 F L 05/09/19 09:00 97.1 F L 05/09/19 07:33 100 05/09/19 05:18 97.3 F L Weight Admit Weight 220 lb Weight 179 lb 8 oz Most Recent Monitor Data Heart Rate from ECG 80 NIBP 114/66 NIBP BP-Mean 82 Respiration from ECG 22 SpO2 100 I&O: 05/08/19 05/09/19 05/10/19 06:59 06:59 06:59 Intake Total 1216.6 245 Output Total 5275 2300 Balance -4058.4 -8325 Result Diagrams: 05/08/19 03:34 05/09/19 09:38 Hospitalist ROS - Review of Systems Constitutional: denies: fever, chills - Medication Medications: Active Medications Generic Name Dose Route Start Last Admin Trade Name Freq PRN Reason Stop Dose Admin Acetazolamide 250 mg 05/09/19 09:00 05/09/19 09:15 Diamox PO 05/11/19 09:01 250 mg DAILY KAITLYNN Administration Amiodarone HCl 400 mg 05/01/19 21:00 05/09/19 09:15 Cordarone PO 400 mg BID KAITLYNN Administration Aspirin 81 mg 04/29/19 09:00 05/09/19 09:16 Ecotrin PO 81 mg DAILY KAITLYNN Administration Cyanocobalamin 1,000 mcg 05/02/19 09:00 05/09/19 09:15 Vitamin B-12 PO 1,000 mcg DAILY KAITLYNN Administration Enoxaparin Sodium 40 mg 05/02/19 09:00 05/09/19 09:15 Lovenox SC 40 mg 0900 KAITLYNN Administration Folic Acid 1 mg 05/02/19 09:00 05/09/19 09:16 Folvite PO 1 mg DAILY KAITLYNN Administration Dobutamine HCl/Dextrose 250 mls @ 14.71 mls/hr 05/06/19 09:15 05/08/19 21:22 Dobutamine 500 Mg/250 Ml IVPB 250 mls INF KAITLYNN Administration Protocol 5 MCG/KG/MIN Multivitamins 1 tab 05/02/19 09:00 05/09/19 09:15 Theragran PO 1 tab DAILY KAITLYNN Administration Polyethylene Glycol 17 gm 05/02/19 09:00 05/09/19 09:16 Miralax PO 17 gm DAILY KAITLYNN Administration Saccharomyces Boulardii 250 mg 04/30/19 09:00 05/09/19 09:15 Florastor PO 250 mg DAILY KAITLYNN Administration Senna/Docusate Sodium 2 tab 05/01/19 21:00 05/09/19 09:16 Senokot S PO 2 tab BID KAITLYNN Administration Sodium Chloride 10 ml 04/28/19 08:53 05/07/19 15:53 Flush - Normal Saline IVF 10 ml PRN PRN Administration Saline Flush - Exam General Appearance: NAD, awake alert General - other findings: on 1L oxygen saturating 100% Eye: PERRL, anicteric sclera ENT: normocephalic atraumatic, no oropharyngeal lesions Neck: supple, symmetric, no JVD, no thyromegaly Heart: RRR, no murmur, no gallops, no rubs Respiratory: CTAB, no wheezes, no rales, no ronchi Gastrointestinal: soft, non-tender, non-distended, normal bowel sounds Hosp A/P - Plan ECHO: EF 15% with lateral wall, apex, inferior wall, mid and distal anferior akinesis. PA pressure 55, moderate TR, moderate MR Acute hypoxic respiratory failure secondary to acute systolic congestive heart failure S/p AICD replacement 05/01 - ECHO shows EF 15% with lateral wall, apex, inferior wall, mid and distal akinesis. He is s/p AICD replacement on 05/01 - chest X ray appears to show improvement in edema on the left side. Currently weaned down to 1L . Wean oxygen to maintain saturation 92% - still on dobutamine 5 mg, weaning per cardiology - continue diuresis with acetazolamide. IV lasix tomorrow per cardiology - possibly may need cath at some point to rule out ischemia? Hyponatremia - sodium down to 132 - holding lasix for today per cardiology, IV lasix tomorrow 20 mg Metabolic alkalosis- improving - continue acetazolamide EMILY - resolved Code status: full code
--- NOTE | 2019-05-09 15:10 | EKG ---
Test Reason : Blood Pressure : / mmHG Vent. Rate : 074 BPM Atrial Rate : 074 BPM P-R Int : 248 ms QRS Dur : 160 ms QT Int : 468 ms P-R-T Axes : 034 016 184 degrees QTc Int : 519 ms Sinus rhythm with 1st degree A-V block with Premature atrial complexes Left bundle branch block Abnormal ECG No ST elevation/CT No [facility] Compared to [facility] Confirmed by MAYCO Marie, ZINA ([id number]), editorial writer SONAM DAVIS ([id number]) on 05/09/2019 3:10:15 PM Referred By: Confirmed By:ZINA MAO M.D.
--- NOTE | 2019-05-09 15:22 | PRG ---
DATE OF SERVICE: 05/09/2019 SUBJECTIVE: Davis Jane says he is feeling a little better. He is still on dobutamine. OBJECTIVE: VITAL SIGNS: Heart rate 80, blood pressure 102/60, respiratory rate is 22. He is paced. LUNGS: Clear anterior and laterally. HEART: Regular rhythm. ABDOMEN: Soft. LABORATORY DATA: Sodium 132, potassium 3.8, chloride 91, bicarb 34, BUN 36, creatinine 1.14. IMPRESSION: 1. Congestive heart failure. 2. Status post replacement of his defibrillator generator. 3. Acute on chronic renal insufficiency with an improvement of his creatinine today in spite of a 2 L diuresis. Hopefully, he is turning the corner. He will need to go into some type of skilled environment. Job ID: [id number]
--- NOTE | 2019-05-09 15:25 | PRG ---
DATE OF SERVICE: 05/09/2019 SUBJECTIVE: Mr. Jane is continuing to feel better. He still continues to be extremely weak. He is deconditioned. He is slightly short of breath. He did have some shortness of breath last night, required a nonrebreather for a short period of time. He is back on 2 L today. He did have a significant urinary output the day before and his diuretics were decreased at this time and also he still remains on dobutamine. He did have somewhat reasonable output yesterday. He still remains on a low dose of diuretic in the form of Lasix. I believe, he has been continued on the acetazolamide. At this time, he is still continued to have some urine output. The medications were decreased yesterday after his BUN and creatinine were elevated and also he was becoming intravascularly volume depleted with I believe bicarb was up to 45. Today, this was much improved and his creatinine is back down to 1.14, and if he continued to diurese, he should do fine. Otherwise, we may need to reinstate higher dose of his diuretics and we will continue the dobutamine at least for today and maybe even tomorrow depending on his urinary output. PHYSICAL EXAMINATION: GENERAL: An elderly gentleman. He is alert. He is oriented. He is very pleasant. VITAL SIGNS: Blood pressure is 107/66, heart rate is 80 and is somewhat irregular and he appears to be pacing, O2 saturations 100%, respiratory rate is about 20. He is on 2 L of nasal cannula. HEENT: Unremarkable. CHEST: Actually clear to auscultation. I did not hear any rales, rhonchi, or wheezing. CARDIOVASCULAR: Slightly irregular, but most part appears to be regular, I believe he must be pacing. He has a defibrillator in place. ABDOMEN: Soft and nontender. Positive bowel sounds are present. EXTREMITIES: Only mild ankle edema today. The lower extremities are wrapped in surgical type dressings with Coban and padding underneath, otherwise, this appears to have improved significantly. NEUROLOGIC: He is alert. LABORATORY DATA: Sodium of 132, BUN was 36, creatinine was 1.14, and his bicarb was 34. He did not have any CBC today nor blood gases thus far. IMPRESSION: 1. Elderly gentleman with congestive heart failure exacerbation and cardiomyopathy. He is status post bypass surgery. He appears to be improving after diuresis. We will continue to diurese him with a dobutamine. He still has some excess fluid obviously, but this will continue to diurese hopefully. 2. History of coronary artery disease. He is status post bypass surgery. This appears to be stable at this time without problems. Once the patient is discharged from here, he will most likely need to go to a rehab facility. We will continue to adjust his medications in the interim. Job ID: [id number]
[2019-05-09] MEDS: DOBUTamine 500 mg/250 ml 250 ML IVPB SCH (16:35)
[2019-05-10 03:54] LABS: Hemoglobin 15.2 g/dL (14.0-18.0); Mean Corpuscular HGB CONC 30.5 g/dL (32.0-36.0); Mean Corpuscular Hemoglobin 30.1 pg (27.0-31.0); Mean Corpuscular Volume 98.8 fL (78.0-98.0); Platelet Count 213 thou/uL (130-400); RBC Distribution Width 13.8 % (11.5-14.5); Red Blood Cell (RBC) Count 5.05 mill/uL (4.70-6.10); White Blood Cell (WBC) Count 6.9 thou/uL (4.8-10.8)
[2019-05-10 04:14] LABS: Anion Gap 12 mmol/L (10-20); BUN (Urea Nitrogen) 38 mg/dL (8.4-25.7); Calc. Creatinine Clearance 63 mL/min (70-130); Calcium 8.9 mg/dL (7.8-10.44); Carbon Dioxide 31 mmol/L (23-31); Chloride 93 mmol/L (98-107); Estimated GFR-MDRD 62; Glucose 93 mg/dL (83-110); Potassium 3.6 mmol/L (3.5-5.1); Sodium 132 mmol/L (136-145)
--- NOTE | 2019-05-10 08:42 | RAD ---
EXAM: Portable chest PROVIDED CLINICAL HISTORY: Respiratory insufficiency COMPARISON: 05/09/2019 FINDINGS: Significant interval change with respect to the prior examination is not apparent. IMPRESSION: As above.
[2019-05-10] MEDS: Enoxaparin Sodium 40 MG/0.4 ML SYRINGE SC SCH (10:07)
[2019-05-10] MEDS: Polyethylene Glycol 3350 17 GM Packet PO SCH (10:08)
[2019-05-10] MEDS: Amiodarone 200 MG TAB PO SCH ×2 (10:08→21:03)
[2019-05-10] MEDS: Cyanocobalamin (Vitamin B-12) 1,000 MCG TAB PO SCH (10:08)
[2019-05-10] MEDS: Senokot S 8.6-50 MG TAB PO SCH ×2 (10:08→21:03)
[2019-05-10] MEDS: Multivit, Therapeutic 1 TAB PO SCH (10:08)
[2019-05-10] MEDS: Furosemide 20 MG/2 ML VIAL SLOW IVP SCH (10:09)
[2019-05-10] MEDS: Folic Acid 1 MG TAB PO SCH (10:09)
[2019-05-10] MEDS: Aspirin 81 mg Enteric Coated Tablet PO SCH (10:09)
[2019-05-10] MEDS: Saccharomyces boulardii 250 MG CAP PO SCH (10:09)
[2019-05-10] MEDS: AcetaZOLAMIDE 250 MG TAB PO SCH (10:09)
--- NOTE | 2019-05-10 13:45 | PRG ---
DATE OF SERVICE: 05/10/2019 SUBJECTIVE: Mr. Jane looks much more comfortable. OBJECTIVE: VITAL SIGNS: He is afebrile, heart rate is 80, blood pressure is 112/66, respiratory rates in the 20s. LUNGS: He is not short of breath at rest. The tachypnea that he was experiencing earlier in the week has resolved. He still has fine crackles in both lung bases. HEART: Regular rhythm. ABDOMEN: Soft. LABORATORY DATA: White count 6.9, hemoglobin 15.2, platelets 213. Sodium 132, potassium 3.6, chloride 93, bicarb 31, BUN 38, creatinine 1.14. Intake and output, negative 1637. It appears he has diuresed almost 22 L since the . IMPRESSION AND PLAN: 1. Congestive heart failure. 2. Status post replacement of the defibrillator generator. He continues to clinically improve. He continues on dobutamine infusion. Chest x-ray is still not normal, but is improving. His pleural effusions will resolve slowly. Job ID: [id number]
--- NOTE | 2019-05-10 15:15 | PDOC.HOSPP ---
- Subjective Encounter Date: 05/10/19 Encounter Time: 12:00 Subjective: The patient is doing better. He has some improvement in his shortness of breath. No cough. He ambulated with PT in the afternoon, states that he was quite short of breath while walking down the hallway and didn't go very far. - Objective Vital Signs & Weight: Vital Signs (12 hours) Temp Pulse Ox 05/10/19 11:04 96.6 F L 05/10/19 07:58 100 05/10/19 07:38 97.0 F L 05/10/19 04:00 98.0 F Weight Admit Weight 220 lb Weight 175 lb Most Recent Monitor Data Heart Rate from ECG 80 NIBP 101/60 NIBP BP-Mean 73 Respiration from ECG 21 SpO2 100 I&O: 05/09/19 05/10/19 05/11/19 06:59 06:59 06:59 Intake Total 245 663 Output Total 2300 2300 Balance -3200 -3437 Result Diagrams: 05/10/19 03:32 05/10/19 03:31 Hospitalist ROS - Review of Systems Constitutional: denies: fever, chills Cardiovascular: denies: chest pain, palpitations - Medication Medications: Active Medications Generic Name Dose Route Start Last Admin Trade Name Freq PRN Reason Stop Dose Admin Acetazolamide 250 mg 05/09/19 09:00 05/10/19 10:09 Diamox PO 05/11/19 09:01 250 mg DAILY KAITLYNN Administration Amiodarone HCl 400 mg 05/01/19 21:00 05/10/19 10:08 Cordarone PO 400 mg BID KAITLYNN Administration Aspirin 81 mg 04/29/19 09:00 05/10/19 10:09 Ecotrin PO 81 mg DAILY KAITLYNN Administration Cyanocobalamin 1,000 mcg 05/02/19 09:00 05/10/19 10:08 Vitamin B-12 PO 1,000 mcg DAILY KAITLYNN Administration Enoxaparin Sodium 40 mg 05/02/19 09:00 05/10/19 10:07 Lovenox SC 40 mg 0900 KAITLYNN Administration Folic Acid 1 mg 05/02/19 09:00 05/10/19 10:09 Folvite PO 1 mg DAILY KAITLYNN Administration Furosemide 20 mg 05/10/19 09:00 05/10/19 10:09 Lasix SLOW IVP 20 mg DAILY KAITLYNN Administration Dobutamine HCl/Dextrose 250 mls @ 14.71 mls/hr 05/06/19 09:15 05/09/19 16:35 Dobutamine 500 Mg/250 Ml IVPB 250 mls INF KAITLYNN Administration Protocol 5 MCG/KG/MIN Multivitamins 1 tab 05/02/19 09:00 05/10/19 10:08 Theragran PO 1 tab DAILY KAITLYNN Administration Polyethylene Glycol 17 gm 05/02/19 09:00 05/10/19 10:08 Miralax PO 17 gm DAILY KAITLYNN Administration Saccharomyces Boulardii 250 mg 04/30/19 09:00 05/10/19 10:09 Florastor PO 250 mg DAILY KAITLYNN Administration Senna/Docusate Sodium 2 tab 05/01/19 21:00 05/10/19 10:08 Senokot S PO 2 tab BID KAITLYNN Administration Sodium Chloride 10 ml 04/28/19 08:53 05/07/19 15:53 Flush - Normal Saline IVF 10 ml PRN PRN Administration Saline Flush - Exam General Appearance: NAD, awake alert Eye: PERRL, anicteric sclera ENT: normocephalic atraumatic, no oropharyngeal lesions Neck: supple, symmetric, no JVD, no thyromegaly Heart: RRR, no murmur, no gallops, no rubs Respiratory: CTAB, no wheezes, no rales, no ronchi Gastrointestinal: soft, non-tender, non-distended, normal bowel sounds Extremities: no cyanosis, no clubbing, 1+ LE edema Hosp A/P - Plan ECHO: EF 15% with lateral wall, apex, inferior wall, mid and distal anferior akinesis. PA pressure 55, moderate TR, moderate MR Chest X ray 05/09: pulmonary edema seems to have improved some on the right #Acute hypoxic respiratory failure secondary to acute systolic congestive heart failure #S/p AICD replacement 05/01 - ECHO shows EF 15% with lateral wall, apex, inferior wall, mid and distal akinesis. He is s/p AICD replacement on 05/01 - chest X ray today appears to show some mild improvement in pulmonary edema on right. Continue to wean oxygen to maintain saturation > 92% - still on dobutamine 5 mg. Continue for another 24 to 48 hours - continue diuresis with acetazolamide. IV lasix 20 mg x 1 today - possibly may need cath at some point to rule out ischemia? Hyponatremia - sodium 132 Metabolic alkalosis- resolved EMILY - resolved Dispo: may need rehab Code status: full code
[2019-05-11] MEDS: DOBUTamine 500 mg/250 ml 250 ML IVPB SCH ×2 (05:09→09:28)
[2019-05-11] MEDS ORDERED: Potassium Chloride 20 MEQ TAB PO SCH (08:45)
--- NOTE | 2019-05-11 09:09 | PRG ---
DATE OF SERVICE: 05/11/2019 SUBJECTIVE: Mr. Jane was able to get up out of bed and sit in a chair for some time yesterday, still very weak. He is eating well. OBJECTIVE: VITAL SIGNS: Blood pressure is 104 systolic, pulse is 80 and it is paced. LUNGS: Clear. CARDIAC: Normal S1, normal S2. ABDOMEN: Soft, nontender. EXTREMITIES: There is only minimal edema. IMAGING STUDIES: Chest x-ray shows pleural effusions, but I do not see pulmonary congestion anymore. ASSESSMENT: 1. Congestive heart failure, systolic, acute on chronic, still severe, but gradually improving. 2. Ventricular tachycardia, suppressed. 3. Hypoxemia, resolved. 4. Still relatively low blood pressure. PLAN: 1. Reduce dobutamine to 2.5 mcg/kg per minute. 2. Try to give him Entresto tonight. 3. Probably move him out of telemetry floor tomorrow if he is doing well. Job ID: [id number]
--- NOTE | 2019-05-11 09:21 | RAD ---
PORTABLE UPRIGHT FRONTAL CHEST RADIOGRAPH: DATE: 05/11/2019. COMPARISON: 05/10/2019. HISTORY: Ventilated patient. FINDINGS: There is no endotracheal tube present. Stable multilead transvenous AICD. Stable midline sternotomy wires. Persistent dense opacity is noted in the left base with obscuration of the left hemidiaphragm and ronn nting of the left costophrenic angle consistent with left lower lobe consolidation/collapse and left pleural fluid. Hazy increased density persists within the right base suggesting a combination of air space disease and pleural fluid. IMPRESSION: No significant interval change in nonspecific dense pleural and parenchymal opacity in the lung bases . POS: [facility]
[2019-05-11] MEDS: Cyanocobalamin (Vitamin B-12) 1,000 MCG TAB PO SCH (09:29)
[2019-05-11] MEDS: Enoxaparin Sodium 40 MG/0.4 ML SYRINGE SC SCH (09:29)
[2019-05-11] MEDS: Saccharomyces boulardii 250 MG CAP PO SCH (09:29)
[2019-05-11] MEDS: Folic Acid 1 MG TAB PO SCH (09:29)
[2019-05-11] MEDS: Multivit, Therapeutic 1 TAB PO SCH (09:29)
[2019-05-11] MEDS: Aspirin 81 mg Enteric Coated Tablet PO SCH (09:29)
[2019-05-11] MEDS: AcetaZOLAMIDE 250 MG TAB PO SCH (09:29)
[2019-05-11] MEDS: Senokot S 8.6-50 MG TAB PO SCH ×2 (09:29→20:31)
[2019-05-11] MEDS: Furosemide 20 MG/2 ML VIAL SLOW IVP SCH (09:29)
[2019-05-11] MEDS: Polyethylene Glycol 3350 17 GM Packet PO SCH (09:30)
[2019-05-11] MEDS: Piperacillin/Tazobactam 3.375 GM in Sodium Chloride 0.9% 100 ML IVPB SCH ×3 (11:38→21:25)
--- NOTE | 2019-05-11 13:06 | PRG ---
DATE OF SERVICE: 05/11/2019 SUBJECTIVE: Davis Jane has no complaints. His dobutamine has been turned down. He says he is breathing well. He is on nasal cannula. OBJECTIVE: VITAL SIGNS: His oximetry is 100%, heart rate is 80, blood pressure is in the high 80s, respiratory rates in the teens to low 20s. LUNGS: Clear. HEART: Regular rhythm. ABDOMEN: Soft. EXTREMITIES: Without edema. IMAGING STUDIES: Chest radiograph still shows effusions. Some likely, these will resolve quickly. There is no clear indication for thoracentesis at this time. Dr. Hayes starting him on Entresto. Hopefully tomorrow, we can move him out of the intermediate care unit. Job ID: [id number]
--- NOTE | 2019-05-11 16:32 | PDOC.HOSPP ---
- Subjective Encounter Date: 05/11/19 Encounter Time: 16:30 Subjective: The patient had labored breathing when ambulating with PT today. Per patient he was told his sats drop. He is bringing up more phlegm. He has been weaned down to 1.5L nasal cannula Patient was told by Dr. Hayes to never miss a day of PT. Also per Dr. Hayes did not tolerate reduced dose of 2.5 mcg/kg, trial of 4 mcg tomorrow - Objective Vital Signs & Weight: Vital Signs (12 hours) Temp Pulse Pulse BP BP Pulse Ox Pulse Ox 05/11/19 15:29 96.6 F L 05/11/19 14:37 80 80 111/67 97/51 L 100 05/11/19 11:41 97.0 F L 05/11/19 08:00 100 05/11/19 07:38 97.0 F L Pulse Ox 05/11/19 15:29 05/11/19 14:37 99 05/11/19 11:41 05/11/19 08:00 05/11/19 07:38 Weight Admit Weight 220 lb Weight 173 lb 8 oz Most Recent Monitor Data Heart Rate from ECG 81 NIBP 111/67 NIBP BP-Mean 81 Respiration from ECG 25 SpO2 100 I&O: 05/10/19 05/11/19 05/12/19 06:59 06:59 06:59 Intake Total 663 552 Output Total 2300 1950 Balance -8657 1398 Result Diagrams: 05/10/19 03:32 05/10/19 03:31 Hospitalist ROS - Review of Systems Constitutional: denies: fever, chills - Medication Medications: Active Medications Generic Name Dose Route Start Last Admin Trade Name Martha PRN Reason Stop Dose Admin Aspirin 81 mg 04/29/19 09:00 05/11/19 09:29 Ecotrin PO 81 mg DAILY KAITLYNN Administration Cyanocobalamin 1,000 mcg 05/02/19 09:00 05/11/19 09:29 Vitamin B-12 PO 1,000 mcg DAILY KAITLYNN Administration Enoxaparin Sodium 40 mg 05/02/19 09:00 05/11/19 09:29 Lovenox SC 40 mg 0900 KAITLYNN Administration Folic Acid 1 mg 05/02/19 09:00 05/11/19 09:29 Folvite PO 1 mg DAILY KAITLYNN Administration Furosemide 20 mg 05/10/19 09:00 05/11/19 09:29 Lasix SLOW IVP 20 mg DAILY KAITLYNN Administration Dobutamine HCl/Dextrose 250 mls @ 14.71 mls/hr 05/11/19 09:15 05/11/19 09:28 Dobutamine 500 Mg/250 Ml IVPB 250 mls INF KAITLYNN Administration Protocol 5 MCG/KG/MIN Piperacillin Sod/Tazobactam 100 mls @ 200 mls/hr 05/11/19 09:45 05/11/19 16: 21 Sod 3.375 gm/ Sodium Chloride IVPB 100 mls Q6H KAITLYNN Administration Multivitamins 1 tab 05/02/19 09:00 05/11/19 09:29 Theragran PO 1 tab DAILY KAITLYNN Administration Polyethylene Glycol 17 gm 05/02/19 09:00 05/11/19 09:30 Miralax PO Not Given DAILY KAITLYNN Saccharomyces Boulardii 250 mg 04/30/19 09:00 05/11/19 09:29 Florastor PO 250 mg DAILY KAITLYNN Administration Senna/Docusate Sodium 2 tab 05/01/19 21:00 05/11/19 09:29 Senokot S PO 2 tab BID KAITLYNN Administration Sodium Chloride 10 ml 04/28/19 08:53 05/10/19 21:04 Flush - Normal Saline IVF 10 ml PRN PRN Administration Saline Flush - Exam General Appearance: NAD, awake alert Eye: PERRL, anicteric sclera ENT: normocephalic atraumatic, no oropharyngeal lesions Neck: supple, symmetric, no JVD Heart: RRR, no murmur, no gallops Respiratory - other findings: crackles left side, right side seems clear Gastrointestinal: soft, non-tender, non-distended Extremities: no cyanosis, no clubbing, no edema Hosp A/P - Plan ECHO: EF 15% with lateral wall, apex, inferior wall, mid and distal anferior akinesis. PA pressure 55, moderate TR, moderate MR Chest X ray 05/09: pulmonary edema seems to have improved some on the right Chest X ray 05/09: persistent dense opacity in left base with consolidation/ collapse and left pleural fluid. Hazy density right base #Acute hypoxic respiratory failure secondary to acute systolic congestive heart failure vs pneumonia #S/p AICD replacement 05/01 - ECHO shows EF 15% with lateral wall, apex, inferior wall, mid and distal akinesis. He is s/p AICD replacement on 05/01 - continue dobutamine, did not tolerate reduced dose per Dr. Hayes. - chest X ray showed some mild improvement in pulmonary edema on right. 05/09. chest x ray shows persistent opacity in left lung base, hazy density right lung base. Will start cefdinir and azithromycin to see if pneumonia may be causing persistent hypoxia - Continue to wean oxygen to maintain saturation > 92% - still on dobutamine 5 mg. Continue for another 24 to 48 hours per cardiology -s/p diuresis with acetazolamide. On IV lasix 20 mg daily - possibly may need cath at some point to rule out ischemia? Hyponatremia - sodium 132 Metabolic alkalosis- resolved EMILY - resolved Dispo: may need rehab, continue dobutamine drip Code status: full code
[2019-05-11] MEDS ORDERED: Cefdinir 300 MG CAP PO SCH (16:45)
[2019-05-11] MEDS: Amiodarone 200 MG TAB PO SCH (20:31)
[2019-05-12] MEDS: Piperacillin/Tazobactam 3.375 GM in Sodium Chloride 0.9% 100 ML IVPB SCH ×4 (02:58→22:06)
[2019-05-12] MEDS: DOBUTamine 500 mg/250 ml 250 ML IVPB SCH (02:58)
--- NOTE | 2019-05-12 07:38 | RAD ---
EXAM: Single view of the chest HISTORY: Respiratory failure COMPARISON: 05/11/2019 FINDINGS: Single view of the chest shows an enlarged but stable cardiomediastinal silhouette. The pa tient is status post sternotomy. The pacemaker is unchanged in position. There is a stable small left pleural effusion with adjacent atelectasis. Degenerative changes are seen in the spine and right shoulder. IMPRESSION: Stable left pleural effusion
[2019-05-12] MEDS: Saccharomyces boulardii 250 MG CAP PO SCH (07:46)
[2019-05-12] MEDS: Cyanocobalamin (Vitamin B-12) 1,000 MCG TAB PO SCH (07:46)
[2019-05-12] MEDS: Aspirin 81 mg Enteric Coated Tablet PO SCH (07:46)
[2019-05-12] MEDS: Multivit, Therapeutic 1 TAB PO SCH (07:46)
[2019-05-12] MEDS: Senokot S 8.6-50 MG TAB PO SCH ×2 (07:46→21:27)
[2019-05-12] MEDS: Furosemide 20 MG/2 ML VIAL SLOW IVP SCH (07:47)
[2019-05-12] MEDS: Folic Acid 1 MG TAB PO SCH (07:47)
[2019-05-12] MEDS: Amiodarone 200 MG TAB PO SCH ×2 (07:47→21:27)
[2019-05-12] MEDS: Enoxaparin Sodium 40 MG/0.4 ML SYRINGE SC SCH (07:47)
[2019-05-12] MEDS: Polyethylene Glycol 3350 17 GM Packet PO SCH (07:47)
[2019-05-12] MEDS ORDERED: DOBUTamine 500 mg/250 ml 250 ML IVPB SCH (08:41)
[2019-05-12] MEDS ORDERED: Azithromycin 250 MG TAB PO SCH (09:00)
[2019-05-12] MEDS ORDERED: Cefdinir 300 MG CAP PO SCH (09:00)
--- NOTE | 2019-05-12 09:17 | PRG ---
DATE OF SERVICE: 05/12/2019 SUBJECTIVE: Mr. Jane is feeling somewhat better today. It seems like his appetite is good. Yesterday, we tried to cut his dobutamine to 2.5 mcg/kg/min. He did not tolerate that. His blood pressure dropped for a few hours. OBJECTIVE: VITAL SIGNS: Today, his blood pressure is 120 systolic, pulse is still 80, it is paced. LUNGS: Clear. CARDIAC: Normal S1 and S2. ABDOMEN: Soft, nontender. EXTREMITIES: Only minimal edema. ASSESSMENT: 1. Congestive heart failure systolic, acute on chronic, slightly improved. 2. Ventricular tachycardia, suppressed. 3. Hypotension. 4. Dependence on dobutamine. PLAN: 1. Reduce dobutamine to 4 mcg/kg/min. 2. Unable to tolerate YOSELIN inhibitors or beta blockers due to hypotension. 3. Okay to me to move to the floor. We can gradually wean the dobutamine there. Job ID: [id number]
--- NOTE | 2019-05-12 15:27 | RAD ---
Modified Barium Swallow CLINICAL HISTORY: Dysphagia unspecified R13.10 and feeding difficulties R 63.3 FINDINGS: The examination is performed under real-time fluoroscopy under guidance of the speech ther apy department. 2.2 minutes with a total exposure 1.083 yo per centimeter square. There are episodes of flash tracheal penetration with thin barium liquids only. No episodes of trach eal penetration and aspiration were evident with the remaining materials administered. IMPRESSION: Episodes of flash tracheal penetration with thin barium liquids only. No episodes of trac heal aspiration. Reference speech pathology report for further details.
--- NOTE | 2019-05-12 15:30 | PRG ---
DATE OF SERVICE: 05/12/2019 SUBJECTIVE: Mr. Jane is clinically stable. He has no complaints. Apparently, he did not tolerate the decrease in dobutamine yesterday, so he had to have dobutamine increased back up. OBJECTIVE: VITAL SIGNS: Stable. LUNGS: Clear. HEART: Regular rhythm. ABDOMEN: Soft. Apparently, he is not tolerating beta-blockers or YOSELIN inhibitors. PLAN: We will continue dobutamine at 4 mcg per kg per minute at this time. We will continue to follow. Chest x-ray stable. We will continue to follow. It is reasonable to do a barium swallow on him, but I certainly would not be pushing him down a path of a PEG just from a quality of life reasons. Hopefully, something can be identified that will be amenable to speech therapy. Job ID: [id number]
[2019-05-12 16:09] LABS: Hemoglobin 16.5 g/dL (14.0-18.0); Mean Corpuscular HGB CONC 31.2 g/dL (32.0-36.0); Mean Corpuscular Hemoglobin 31.5 pg (27.0-31.0); Mean Platelet Volume 7.2 fL (7.4-10.4); Platelet Count 244 thou/uL (130-400); RBC Distribution Width 14.1 % (11.5-14.5); Red Blood Cell (RBC) Count 5.24 mill/uL (4.70-6.10); White Blood Cell (WBC) Count 6.5 thou/uL (4.8-10.8)
[2019-05-12 16:10] LABS: Anion Gap 9 mmol/L (10-20); BUN (Urea Nitrogen) 36 mg/dL (8.4-25.7); Calc. Creatinine Clearance 52 mL/min (70-130); Calcium 8.7 mg/dL (7.8-10.44); Carbon Dioxide 35 mmol/L (23-31); Chloride 97 mmol/L (98-107); Estimated GFR-MDRD 51; Glucose 103 mg/dL (83-110); Potassium 4.2 mmol/L (3.5-5.1); Sodium 137 mmol/L (136-145)
--- NOTE | 2019-05-12 17:25 | PDOC.HOSPP ---
- Subjective Encounter Date: 05/12/19 Encounter Time: 16:00 Subjective: The patient is doing okay. He feels some shortness of breath. Went for swallow study and was found to have poorly coordinated swallow muscles, recommended pureed diet. The patient has a mild cough, but it has improved. PLan to reduce dobutamine 3 mcg today - Objective Vital Signs & Weight: Vital Signs (12 hours) Temp Pulse Pulse BP BP BP Pulse Ox 05/12/19 14:29 80 80 93/61 92/62 05/12/19 11:26 96.2 F L 05/12/19 08:00 100 05/12/19 07:22 96.2 F L 05/12/19 06:21 108/62 Pulse Ox Pulse Ox 05/12/19 14:29 100 100 05/12/19 11:26 05/12/19 08:00 05/12/19 07:22 05/12/19 06:21 Weight Admit Weight 220 lb Weight 174 lb 9 oz Most Recent Monitor Data Heart Rate from ECG 80 NIBP 88/60 NIBP BP-Mean 69 Respiration from ECG 20 SpO2 100 I&O: 05/11/19 05/12/19 05/13/19 06:59 06:59 06:59 Intake Total 552 1775 700 Output Total 1950 1800 750 Balance -1398 -25 -50 Result Diagrams: 05/12/19 15:44 05/12/19 15:44 Additional Labs: Accuchecks 05/12/19 05/12/19 05/12/19 17:01 10:32 05:59 POC Glucose 128 H 96 91 Hospitalist ROS - Review of Systems Constitutional: denies: fever, chills Respiratory: reports: cough Cardiovascular: denies: chest pain, palpitations, orthopnea Gastrointestinal: denies: nausea - Medication Medications: Active Medications Generic Name Dose Route Start Last Admin Trade Name Freq PRN Reason Stop Dose Admin Amiodarone HCl 200 mg 05/11/19 21:00 05/12/19 07:47 Cordarone PO 200 mg BID KAITLYNN Administration Aspirin 81 mg 04/29/19 09:00 05/12/19 07:46 Ecotrin PO 81 mg DAILY KAITLYNN Administration Cyanocobalamin 1,000 mcg 05/02/19 09:00 05/12/19 07:46 Vitamin B-12 PO 1,000 mcg DAILY KAITLYNN Administration Enoxaparin Sodium 40 mg 05/02/19 09:00 05/12/19 07:47 Lovenox SC 40 mg 0900 KAITLYNN Administration Folic Acid 1 mg 05/02/19 09:00 05/12/19 07:47 Folvite PO 1 mg DAILY KAITLYNN Administration Furosemide 20 mg 05/10/19 09:00 05/12/19 07:47 Lasix SLOW IVP 20 mg DAILY KAITLYNN Administration Piperacillin Sod/Tazobactam 100 mls @ 200 mls/hr 05/11/19 09:45 05/12/19 16: 38 Sod 3.375 gm/ Sodium Chloride IVPB 100 mls Q6H KAITLYNN Administration Multivitamins 1 tab 05/02/19 09:00 05/12/19 07:46 Theragran PO 1 tab DAILY KAITLYNN Administration Polyethylene Glycol 17 gm 05/02/19 09:00 05/12/19 07:47 Miralax PO 17 gm DAILY KAITLYNN Administration Saccharomyces Boulardii 250 mg 04/30/19 09:00 05/12/19 07:46 Florastor PO 250 mg DAILY KAITLYNN Administration Senna/Docusate Sodium 2 tab 05/01/19 21:00 05/12/19 07:46 Senokot S PO 2 tab BID KAITLYNN Administration Sodium Chloride 10 ml 04/28/19 08:53 05/10/19 21:04 Flush - Normal Saline IVF 10 ml PRN PRN Administration Saline Flush - Exam General Appearance: NAD, awake alert Eye: PERRL, anicteric sclera ENT: normocephalic atraumatic, no oropharyngeal lesions Neck: supple, symmetric, no JVD, no thyromegaly Heart: RRR, no murmur, no gallops, no rubs Respiratory: CTAB, no wheezes, no rales, no ronchi Gastrointestinal: soft, non-tender, non-distended, normal bowel sounds Extremities: no cyanosis, no clubbing, no edema Skin: normal turgor, no lesions, no rashes Neurological: cranial nerve grossly intact, normal sensation to touch, no focal deficits, no new deficit Musculoskeletal: normal tone, normal strength, no muscle wasting Psychiatric: normal affect, normal behavior, A&O x 3, oriented to person Hosp A/P - Plan ECHO: EF 15% with lateral wall, apex, inferior wall, mid and distal anferior akinesis. PA pressure 55, moderate TR, moderate MR Chest X ray 05/09: pulmonary edema seems to have improved some on the right Chest X ray 05/09: persistent dense opacity in left base with consolidation/ collapse and left pleural fluid. Hazy density right base Chest X ray 05/12: stable left pleural effusion #Acute hypoxic respiratory failure secondary to acute systolic congestive heart failure vs pneumonia #S/p AICD replacement 05/01 - ECHO shows EF 15% with lateral wall, apex, inferior wall, mid and distal akinesis. He is s/p AICD replacement on 05/01 - continue dobutamine, wean to 3 mcg today - chest X ray showed some mild improvement in pulmonary edema on right. 05/09. chest x ray shows persistent opacity in left lung base, hazy density right lung base. Started zosyn 05/10, will continue. Chest X ray 05/12 shows stable left pleural effusion -s/p diuresis with acetazolamide. On IV lasix 20 mg daily. Dobutamine drip to be weaned to 3 mcg EMILY - creatinine up to 1.35 - will hold lasix today, continue dobutamine Hyponatremia - sodium 132 Metabolic alkalosis- resolved Dispo: may need rehab, continue dobutamine drip Code status: full code
[2019-05-13] MEDS: Piperacillin/Tazobactam 3.375 GM in Sodium Chloride 0.9% 100 ML IVPB SCH ×3 (03:27→16:49)
[2019-05-13 03:58] LABS: Hemoglobin 15.1 g/dL (14.0-18.0); Mean Corpuscular HGB CONC 31.3 g/dL (32.0-36.0); Mean Corpuscular Volume 99.2 fL (78.0-98.0); Mean Platelet Volume 7.4 fL (7.4-10.4); Platelet Count 249 thou/uL (130-400); RBC Distribution Width 13.9 % (11.5-14.5); Red Blood Cell (RBC) Count 4.87 mill/uL (4.70-6.10)
[2019-05-13 04:04] LABS: Anion Gap 10 mmol/L (10-20); BUN (Urea Nitrogen) 36 mg/dL (8.4-25.7); Calc. Creatinine Clearance 68 mL/min (70-130); Calcium 8.3 mg/dL (7.8-10.44); Carbon Dioxide 30 mmol/L (23-31); Chloride 100 mmol/L (98-107); Estimated GFR-MDRD 70; Glucose 87 mg/dL (83-110); Potassium 3.7 mmol/L (3.5-5.1); Sodium 136 mmol/L (136-145)
[2019-05-13] MEDS: Senokot S 8.6-50 MG TAB PO SCH ×2 (07:56→20:53)
[2019-05-13] MEDS: Saccharomyces boulardii 250 MG CAP PO SCH (07:56)
[2019-05-13] MEDS: Polyethylene Glycol 3350 17 GM Packet PO SCH (07:56)
[2019-05-13] MEDS: Multivit, Therapeutic 1 TAB PO SCH (07:56)
[2019-05-13] MEDS: Folic Acid 1 MG TAB PO SCH (07:56)
[2019-05-13] MEDS: Cyanocobalamin (Vitamin B-12) 1,000 MCG TAB PO SCH (07:56)
[2019-05-13] MEDS: Enoxaparin Sodium 40 MG/0.4 ML SYRINGE SC SCH (07:56)
[2019-05-13] MEDS: Aspirin 81 mg Enteric Coated Tablet PO SCH (07:56)
[2019-05-13] MEDS: Amiodarone 200 MG TAB PO SCH ×2 (07:56→20:54)
--- NOTE | 2019-05-13 14:43 | PRG ---
DATE OF SERVICE: SUBJECTIVE: Mr. Jane says he is not short of breath. He does feel weak. No chest pain. OBJECTIVE: VITAL SIGNS: His blood pressure now is 104 systolic, it is all the way down to dobutamine 1 mcg/kg per minute. Pulse is 80 and it is paced. LUNGS: Clear. CARDIAC: Normal S1, normal S2. ASSESSMENT: 1. Congestive heart failure, systolic, initially stage IV, now stage III. 2. Still hypotensive. PLAN: 1. Go ahead and turn off the dobutamine. 2. Okay with me to be transferred to telemetry. 3. Amiodarone continues. It is a low dose in view of the initial ventricular tachycardia. Job ID: [id number]
--- NOTE | 2019-05-13 16:45 | PDOC.HOSPP ---
- Subjective Encounter Date: 05/13/19 Encounter Time: 16:45 Subjective: The patient is doing well. He was weaned off oxygen today. Ambulated with PT but was too short of breath so stopped early. Dobutamine drip discontinued. - Objective Vital Signs & Weight: Vital Signs (12 hours) Temp Pulse Pulse BP BP Pulse Ox Pulse Ox 05/13/19 15:49 97.5 F L 05/13/19 11:46 98.2 F 05/13/19 11:06 80 80 95/57 L 98/57 L 100 05/13/19 08:00 100 05/13/19 07:18 97.6 F Pulse Ox 05/13/19 15:49 05/13/19 11:46 05/13/19 11:06 100 05/13/19 08:00 05/13/19 07:18 Weight Admit Weight 220 lb Weight 182 lb 2 oz Most Recent Monitor Data Heart Rate from ECG 80 NIBP 102/66 NIBP BP-Mean 78 Respiration from ECG 25 SpO2 100 I&O: 05/12/19 05/13/19 05/14/19 06:59 06:59 06:59 Intake Total 1775 902.3 Output Total 1800 1350 Balance -25 -447.7 Result Diagrams: 05/13/19 03:30 05/13/19 03:30 Additional Labs: Accuchecks 05/13/19 05/13/19 05/12/19 16:20 10:36 20:18 POC Glucose 94 87 133 H 05/12/19 17:01 POC Glucose 128 H Hospitalist ROS - Review of Systems Constitutional: denies: fever, chills Respiratory: denies: cough, dry, shortness of breath Cardiovascular: denies: chest pain, palpitations - Medication Medications: Active Medications Generic Name Dose Route Start Last Admin Trade Name Freq PRN Reason Stop Dose Admin Amiodarone HCl 200 mg 05/11/19 21:00 05/13/19 07:56 Cordarone PO 200 mg BID KAITLYNN Administration Aspirin 81 mg 04/29/19 09:00 05/13/19 07:56 Ecotrin PO 81 mg DAILY KAITLYNN Administration Cyanocobalamin 1,000 mcg 05/02/19 09:00 05/13/19 07:56 Vitamin B-12 PO 1,000 mcg DAILY KAITLYNN Administration Enoxaparin Sodium 40 mg 05/02/19 09:00 05/13/19 07:56 Lovenox SC 40 mg 0900 KAITLYNN Administration Folic Acid 1 mg 05/02/19 09:00 05/13/19 07:56 Folvite PO 1 mg DAILY KAITLYNN Administration Piperacillin Sod/Tazobactam 100 mls @ 200 mls/hr 05/11/19 09:45 05/13/19 10: 09 Sod 3.375 gm/ Sodium Chloride IVPB 100 mls Q6H KAITLYNN Administration Dobutamine HCl/Dextrose 250 mls @ 11.768 mls/hr 05/12/19 08:41 05/13/19 00:36 Dobutamine 500 Mg/250 Ml IVPB 250 mls INF KAITLYNN Administration Protocol 4 MCG/KG/MIN Multivitamins 1 tab 05/02/19 09:00 05/13/19 07:56 Theragran PO 1 tab DAILY KAITLYNN Administration Polyethylene Glycol 17 gm 05/02/19 09:00 05/13/19 07:56 Miralax PO 17 gm DAILY KAITLYNN Administration Saccharomyces Boulardii 250 mg 04/30/19 09:00 05/13/19 07:56 Florastor PO 250 mg DAILY KAITLYNN Administration Senna/Docusate Sodium 2 tab 05/01/19 21:00 05/13/19 07:56 Senokot S PO 2 tab BID KAITLYNN Administration Sodium Chloride 10 ml 04/28/19 08:53 05/10/19 21:04 Flush - Normal Saline IVF 10 ml PRN PRN Administration Saline Flush - Exam General Appearance: NAD, awake alert Eye: PERRL, anicteric sclera ENT: normocephalic atraumatic, no oropharyngeal lesions Neck: supple, symmetric, no JVD, no thyromegaly Heart: RRR, no murmur, no gallops, no rubs Respiratory: CTAB, no wheezes, no rales, no ronchi Gastrointestinal: soft, non-tender, non-distended Extremities: no cyanosis, no clubbing, no edema Hosp A/P - Plan ECHO: EF 15% with lateral wall, apex, inferior wall, mid and distal anferior akinesis. PA pressure 55, moderate TR, moderate MR Chest X ray 05/09: pulmonary edema seems to have improved some on the right Chest X ray 05/09: persistent dense opacity in left base with consolidation/ collapse and left pleural fluid. Hazy density right base Chest X ray 05/12: stable left pleural effusion #Acute hypoxic respiratory failure secondary to acute systolic congestive heart failure vs pneumonia #S/p AICD replacement 05/01 - ECHO shows EF 15% with lateral wall, apex, inferior wall, mid and distal akinesis. He is s/p AICD replacement on 05/01 - dobutamine drip discontinued, chest X ray 05/12 shows stable left pleural effusion. Was started on IV zosyn due to right lung infiltrate 05/09. Will switch to oral augmentin - continue PTOT, hopefully can d/c soon - EMILY - resolved. Creatinine down to 1 Hyponatremia - sodium 132 Metabolic alkalosis- resolved Dispo: may need rehab, continue dobutamine drip Code status: full code
[2019-05-13] MEDS ORDERED: Potassium Chloride 20 MEQ TAB PO SCH (17:00)
--- NOTE | 2019-05-13 19:29 | PRG ---
DATE OF SERVICE: 05/13/2019 SUBJECTIVE: Davis Jane has no complaints. He denies shortness of breath. He is still weak, but he was weak before he came in and was falling frequently at home. Hemodynamics are stable. He is only on a microgram of dobutamine. OBJECTIVE: VITAL SIGNS: Heart rate is in 80s. He is paced. LUNGS: Clear. Remainder of his heart, abdomen, and extremity exam is unchanged. IMPRESSION: Congestive heart failure clinically slowly improving with replacement of his defibrillator generator, increasing his pacemaker rate, and a long-term dobutamine infusion. He will be transferred to telemetry, when a dobutamine is discontinued. He will be continued on amiodarone for now considering his recurrent ventricular tachycardia, when he came in. Job ID: [id number]
[2019-05-13] MEDS: Amoxicillin/Potassium Clav 875 MG TAB PO SCH (20:53)
[2019-05-14 03:43] LABS: Hemoglobin 15.3 g/dL (14.0-18.0); Mean Corpuscular Hemoglobin 31.6 pg (27.0-31.0); Mean Corpuscular Volume 98.6 fL (78.0-98.0); Mean Platelet Volume 7.5 fL (7.4-10.4); Platelet Count 296 thou/uL (130-400); RBC Distribution Width 14.1 % (11.5-14.5); Red Blood Cell (RBC) Count 4.83 mill/uL (4.70-6.10); White Blood Cell (WBC) Count 6.6 thou/uL (4.8-10.8)
[2019-05-14 04:04] LABS: Anion Gap 10 mmol/L (10-20); BUN (Urea Nitrogen) 38 mg/dL (8.4-25.7); Calc. Creatinine Clearance 76 mL/min (70-130); Calcium 8.4 mg/dL (7.8-10.44); Carbon Dioxide 27 mmol/L (23-31); Chloride 103 mmol/L (98-107); Estimated GFR-MDRD 76; Glucose 97 mg/dL (83-110); Sodium 136 mmol/L (136-145)
[2019-05-14] MEDS: Enoxaparin Sodium 40 MG/0.4 ML SYRINGE SC SCH (07:46)
[2019-05-14] MEDS: Polyethylene Glycol 3350 17 GM Packet PO SCH (07:46)
[2019-05-14] MEDS: Folic Acid 1 MG TAB PO SCH (07:47)
[2019-05-14] MEDS: Senokot S 8.6-50 MG TAB PO SCH ×2 (07:47→20:35)
[2019-05-14] MEDS: Saccharomyces boulardii 250 MG CAP PO SCH (07:47)
[2019-05-14] MEDS: Cyanocobalamin (Vitamin B-12) 1,000 MCG TAB PO SCH (07:47)
[2019-05-14] MEDS: Aspirin 81 mg Enteric Coated Tablet PO SCH (07:47)
[2019-05-14] MEDS: Amiodarone 200 MG TAB PO SCH ×2 (07:47→20:35)
[2019-05-14] MEDS: Amoxicillin/Potassium Clav 875 MG TAB PO SCH ×2 (07:47→20:35)
[2019-05-14] MEDS: Multivit, Therapeutic 1 TAB PO SCH (07:47)
[2019-05-14] MEDS ORDERED: Spironolactone 25 MG TAB PO SCH (08:15)
--- NOTE | 2019-05-14 08:24 | PRG ---
DATE OF SERVICE: 05/14/2019 SUBJECTIVE: Mr. Jane is feeling better. He is in the bed. OBJECTIVE: VITAL SIGNS: His blood pressure is in the low 90s systolic. His pulse is 80, it is paced. LUNGS: Clear. CARDIAC: Normal S1 and S2. ABDOMEN: Soft, nontender. EXTREMITIES: Minimal edema. ASSESSMENT: 1. Congestive heart failure, systolic, now in a chronic phase, remains hypotensive. 2. Ventricular tachycardia, stable. 3. Status post biventricular pacemaker generator change, biventricular pacing. PLAN: 1. Start oral torsemide and spironolactone. 2. Start lisinopril tomorrow. 3. If doing well tomorrow, could probably be released. We are awaiting for a bed on telemetry now. Blood pressure is still too low to date. Try to add an YOSELIN inhibitor, too low for beta-blockers, but we will try an YOSELIN inhibitor tomorrow, see if he can tolerate that. Job ID: [id number]
[2019-05-14] MEDS: Torsemide 20 MG TAB PO SCH (08:34)
--- NOTE | 2019-05-14 18:25 | PDOC.HOSPP ---
- Subjective Encounter Date: 05/14/19 Encounter Time: 12:00 Subjective: The patient states he was feeling more short of breath when getting to side of bed with physical therapy. He denies chest pain or cough. He is off oxygen. Off dobutamine - Objective Vital Signs & Weight: Vital Signs (12 hours) Pulse Ox 05/14/19 08:00 100 Weight Admit Weight 220 lb Weight 182 lb 2 oz Most Recent Monitor Data Heart Rate from ECG 80 NIBP 95/62 NIBP BP-Mean 73 Respiration from ECG 27 SpO2 100 I&O: 05/13/19 05/14/19 05/15/19 06:59 06:59 06:59 Intake Total 902.3 800 500 Output Total 1350 750 750 Balance -447.7 50 -250 Result Diagrams: 05/14/19 03:14 05/14/19 03:14 Additional Labs: Accuchecks 05/14/19 06:15 POC Glucose 84 Hospitalist ROS - Review of Systems Constitutional: denies: fever, chills ENT: denies: mouth pain Respiratory: denies: cough, dry - Medication Medications: Active Medications Generic Name Dose Route Start Last Admin Trade Name Freq PRN Reason Stop Dose Admin Amiodarone HCl 200 mg 05/11/19 21:00 05/14/19 07:47 Cordarone PO 200 mg BID KAITLYNN Administration Amoxicillin/Clavulanate Potassium 875 mg 05/13/19 21:00 05/14/19 07:47 Augmentin PO 875 mg Q12HR KAITLYNN Administration Aspirin 81 mg 04/29/19 09:00 05/14/19 07:47 Ecotrin PO 81 mg DAILY KAITLYNN Administration Cyanocobalamin 1,000 mcg 05/02/19 09:00 05/14/19 07:47 Vitamin B-12 PO 1,000 mcg DAILY KAITLYNN Administration Enoxaparin Sodium 40 mg 05/02/19 09:00 05/14/19 07:46 Lovenox SC 40 mg 0900 KAITLYNN Administration Folic Acid 1 mg 05/02/19 09:00 05/14/19 07:47 Folvite PO 1 mg DAILY KAITLYNN Administration Multivitamins 1 tab 05/02/19 09:00 05/14/19 07:47 Theragran PO 1 tab DAILY KAITLYNN Administration Polyethylene Glycol 17 gm 05/02/19 09:00 05/14/19 07:46 Miralax PO 17 gm DAILY KAITLYNN Administration Potassium Chloride 20 meq 05/14/19 08:00 05/14/19 07:46 Klor-Con PO 20 meq QAM-WM KAITLYNN Administration Saccharomyces Boulardii 250 mg 04/30/19 09:00 05/14/19 07:47 Florastor PO 250 mg DAILY KAITLYNN Administration Senna/Docusate Sodium 2 tab 05/01/19 21:00 05/14/19 07:47 Senokot S PO 2 tab BID KAITLYNN Administration Sodium Chloride 10 ml 04/28/19 08:53 05/10/19 21:04 Flush - Normal Saline IVF 10 ml PRN PRN Administration Saline Flush Torsemide 20 mg 05/14/19 09:00 05/14/19 08:34 Demadex PO 20 mg DAILY KAITLYNN Administration - Exam General Appearance: NAD, awake alert Eye: PERRL, anicteric sclera ENT: normocephalic atraumatic, no oropharyngeal lesions Neck: no JVD Heart: RRR, no murmur, no gallops, no rubs Respiratory: CTAB Respiratory - other findings: crackles right mid lung Gastrointestinal: soft, non-tender, non-distended, normal bowel sounds Extremities: no cyanosis, no clubbing, no edema Hosp A/P - Plan ECHO: EF 15% with lateral wall, apex, inferior wall, mid and distal anferior akinesis. PA pressure 55, moderate TR, moderate MR Chest X ray 05/09: pulmonary edema seems to have improved some on the right Chest X ray 05/09: persistent dense opacity in left base with consolidation/ collapse and left pleural fluid. Hazy density right base Chest X ray 05/12: stable left pleural effusion #Acute hypoxic respiratory failure secondary to acute systolic congestive heart failure vs pneumonia #S/p AICD replacement 05/01 - ECHO shows EF 15% with lateral wall, apex, inferior wall, mid and distal akinesis. He is s/p AICD replacement on 05/01 - dobutamine drip discontinued, chest X ray 05/12 shows stable left pleural effusion. Was started on IV zosyn due to right lung infiltrate 05/09. Continue oral augmentin day 5, continue for two more days - continue PTOT, possibly d/c to skilled - EMILY - resolved. Creatinine down to 1 Hyponatremia - sodium 132 Metabolic alkalosis- resolved Dispo: may need rehab, hopefully d/c tomorrow? Code status: full code
--- NOTE | 2019-05-14 21:24 | PRG ---
DATE OF SERVICE: 05/14/2019 SUBJECTIVE: Mr. Jane is in no distress. OBJECTIVE: VITAL SIGNS: He is afebrile. Oximetry is 100% on room air, heart rate is 80, blood pressure is 93/62. LUNGS: Clear. HEART: Regular rhythm. ABDOMEN: Soft. LABORATORY DATA: White count 6.6, hemoglobin 15.3, platelets 296. Electrolytes are unremarkable. BUN 38, creatinine 0.96. IMPRESSION AND PLAN: Congestive heart failure, slowly improving. Probably does not need a lab work everyday anymore. Apparently, he is being placed in a [facility] environment family. We will sign off. Job ID: [id number]
[2019-05-15] MEDS ORDERED: Lisinopril 5 MG TAB PO SCH (09:00)
[2019-05-15] MEDS ORDERED: Sacubitril 24.5 MG/Valsartan 25.5 MG TABLET PO SCH (09:00)
[2019-05-15] MEDS: Amiodarone 200 MG TAB PO SCH (10:27)
[2019-05-15] MEDS: Amoxicillin/Potassium Clav 875 MG TAB PO SCH ×2 (10:27→20:43)
[2019-05-15] MEDS: Multivit, Therapeutic 1 TAB PO SCH (10:27)
[2019-05-15] MEDS: Cyanocobalamin (Vitamin B-12) 1,000 MCG TAB PO SCH (10:27)
[2019-05-15] MEDS: Senokot S 8.6-50 MG TAB PO SCH ×2 (10:27→20:43)
[2019-05-15] MEDS: Folic Acid 1 MG TAB PO SCH (10:27)
[2019-05-15] MEDS: Saccharomyces boulardii 250 MG CAP PO SCH (10:27)
[2019-05-15] MEDS: Aspirin 81 mg Enteric Coated Tablet PO SCH (10:27)
[2019-05-15] MEDS: Enoxaparin Sodium 40 MG/0.4 ML SYRINGE SC SCH (10:28)
[2019-05-15] MEDS: Polyethylene Glycol 3350 17 GM Packet PO SCH (10:28)
[2019-05-15] MEDS: Torsemide 20 MG TAB PO SCH (11:09)
--- NOTE | 2019-05-15 13:36 | PRG ---
DATE OF SERVICE: 05/15/2019 SUBJECTIVE: Mr. Jane is doing okay. He did receive a dose of Entresto this morning. OBJECTIVE: VITAL SIGNS: His blood pressure is 90 systolic, it was 106 systolic earlier. He is in a recliner. LUNGS: Clear. CARDIAC: Normal S1. Normal S2. ABDOMEN: Soft and nontender. EXTREMITIES: No edema. ASSESSMENT: Severe advanced congestive heart failure. PLAN: 1. We will try him on low-dose Entresto. 2. Start low-dose spironolactone tomorrow. 3. Low-dose torsemide tomorrow. Hopefully, he will be able to tolerate this medicine from a cardiac standpoint. Probably needs to stay in the hospital till Saturday, probably could be released on Saturday. Job ID: [id number]
--- NOTE | 2019-05-15 18:47 | PDOC.HOSPP ---
- Subjective Encounter Date: 05/15/19 Encounter Time: 18:45 non-verbal Subjective: Patient got up with PT and sat in chair. Had some shortness of breath, no significant cough. Started on entresto this am. BP at 7:00 pm noted to be 80/ 50. Patient denies dizziness or lightheadedness. He did have systolic of 80 in the ICU and MAP was normal. Per nursing, he has transport set up to go to rehab at 1:00 pm tomorrow - Objective Vital Signs & Weight: Vital Signs (12 hours) Temp Pulse Pulse Pulse Resp BP BP 05/15/19 15:55 97.6 F 76 18 05/15/19 15:17 97.6 F 05/15/19 13:47 80 80 107/58 L 86/54 L 05/15/19 11:30 97.0 F L 05/15/19 10:53 80 80 104/68 93/64 05/15/19 08:00 05/15/19 07:40 97.8 F BP Pulse Ox Pulse Ox Pulse Ox 05/15/19 15:55 87/54 L 100 05/15/19 15:17 05/15/19 13:47 99 99 05/15/19 11:30 05/15/19 10:53 100 100 05/15/19 08:00 100 05/15/19 07:40 Weight Admit Weight 220 lb Weight 186 lb Most Recent Monitor Data Heart Rate from ECG 80 NIBP 96/62 NIBP BP-Mean 73 Respiration from ECG 34 SpO2 100 I&O: 05/14/19 05/15/19 05/16/19 06:59 06:59 06:59 Intake Total 800 1260 600 Output Total 750 1175 450 Balance 50 85 150 Result Diagrams: 05/14/19 03:14 05/14/19 03:14 Additional Labs: Accuchecks 05/15/19 06:21 POC Glucose 127 H Hospitalist ROS - Review of Systems Constitutional: denies: fever, chills Gastrointestinal: denies: nausea, vomiting, abdominal pain - Medication Medications: Active Medications Generic Name Dose Route Start Last Admin Trade Name Freq PRN Reason Stop Dose Admin Amoxicillin/Clavulanate Potassium 875 mg 05/13/19 21:00 05/15/19 10:27 Augmentin PO 875 mg Q12HR KAITLYNN Administration Aspirin 81 mg 04/29/19 09:00 05/15/19 10:27 Ecotrin PO 81 mg DAILY KAITLYNN Administration Cyanocobalamin 1,000 mcg 05/02/19 09:00 05/15/19 10:27 Vitamin B-12 PO 1,000 mcg DAILY KAITLYNN Administration Enoxaparin Sodium 40 mg 05/02/19 09:00 05/15/19 10:28 Lovenox SC 40 mg 0900 KAITLYNN Administration Folic Acid 1 mg 05/02/19 09:00 05/15/19 10:27 Folvite PO 1 mg DAILY KAITLYNN Administration Multivitamins 1 tab 05/02/19 09:00 05/15/19 10:27 Theragran PO 1 tab DAILY KAITLYNN Administration Polyethylene Glycol 17 gm 05/02/19 09:00 05/15/19 10:28 Miralax PO Not Given DAILY KAITLYNN Saccharomyces Boulardii 250 mg 04/30/19 09:00 05/15/19 10:27 Florastor PO 250 mg DAILY KAITLYNN Administration Sacubitril/Valsartan 1 tab 05/15/19 21:00 05/15/19 10:59 Entresto 24 Mg-26 Mg Tablet PO 1 tab BID KAITLYNN Administration Senna/Docusate Sodium 2 tab 05/01/19 21:00 05/15/19 10:27 Senokot S PO 2 tab BID KAITLYNN Administration Sodium Chloride 10 ml 04/28/19 08:53 05/10/19 21:04 Flush - Normal Saline IVF 10 ml PRN PRN Administration Saline Flush - Exam General Appearance: NAD, awake alert Eye: PERRL, anicteric sclera ENT: normocephalic atraumatic, no oropharyngeal lesions Neck: supple, symmetric, no JVD, no thyromegaly Hosp A/P - Plan ECHO: EF 15% with lateral wall, apex, inferior wall, mid and distal anferior akinesis. PA pressure 55, moderate TR, moderate MR Chest X ray 05/09: pulmonary edema seems to have improved some on the right Chest X ray 05/09: persistent dense opacity in left base with consolidation/ collapse and left pleural fluid. Hazy density right base Chest X ray 05/12: stable left pleural effusion #Acute hypoxic respiratory failure secondary to acute systolic congestive heart failure vs pneumonia #S/p AICD replacement 05/01 - ECHO shows EF 15% with lateral wall, apex, inferior wall, mid and distal akinesis. He is s/p AICD replacement on 05/01 - dobutamine drip discontinued, chest X ray 05/12 shows stable left pleural effusion. Was started on IV zosyn due to right lung infiltrate 05/09. Continue oral augmentin day 6, continue for one more day - started entresto today, BP in evening 70 to 80 systolic. Hold for SBP < 100 - plan was to add spironolactone and torsemide tomorrow, but will need to monitor BP. Can add as outpatient if necessary per Dr. Hayes - can possibly d/c tomorrow if seems stable - per cardiology plan to add entresto, then spironolactone and torsemide tomorrow however patient is slightly hypotensive to 80's currently - continue PTOT, possibly d/c to skilled eventually - EMILY - resolved. Creatinine down to 1 Hyponatremia - resolved Metabolic alkalosis- resolved Dispo: d/c tomorrow to rehab Code status: full code
[2019-05-15] MEDS: Rosuvastatin 10 MG TAB PO SCH (20:43)
[2019-05-16 05:14] LABS: Anion Gap 9 mmol/L (10-20); BUN (Urea Nitrogen) 46 mg/dL (8.4-25.7); Calc. Creatinine Clearance 96 mL/min (70-130); Calcium 8.2 mg/dL (7.8-10.44); Carbon Dioxide 28 mmol/L (23-31); Chloride 101 mmol/L (98-107); Estimated GFR-MDRD Greater than 90; Glucose 100 mg/dL (83-110); Potassium 3.9 mmol/L (3.5-5.1); Sodium 134 mmol/L (136-145)
[2019-05-16] MEDS ORDERED: Spironolactone 25 MG TAB PO SCH (08:00)
[2019-05-16] MEDS: Enoxaparin Sodium 40 MG/0.4 ML SYRINGE SC SCH (08:13)
[2019-05-16] MEDS: Amiodarone 200 MG TAB PO SCH (08:13)
[2019-05-16] MEDS: Potassium Chloride 10 MEQ TAB PO SCH (08:13)
[2019-05-16] MEDS: Senokot S 8.6-50 MG TAB PO SCH ×2 (08:13→21:00)
[2019-05-16] MEDS: Saccharomyces boulardii 250 MG CAP PO SCH (08:14)
[2019-05-16] MEDS: Amoxicillin/Potassium Clav 875 MG TAB PO SCH ×2 (08:14→21:00)
[2019-05-16] MEDS: Aspirin 81 mg Enteric Coated Tablet PO SCH (08:14)
[2019-05-16] MEDS: Multivit, Therapeutic 1 TAB PO SCH (08:14)
[2019-05-16] MEDS: Polyethylene Glycol 3350 17 GM Packet PO SCH (08:15)
[2019-05-16] MEDS ORDERED: Torsemide 10 MG TAB PO SCH (09:00)
--- NOTE | 2019-05-16 11:38 | PDOC.HOSPP ---
- Subjective Encounter Date: 05/16/19 Encounter Time: 11:36 Subjective: Mr Jane was seen today in follow-up of Acute on chronic heart failure.He does not have any complaints, but says he couldn't run a race. - Objective Vital Signs & Weight: Vital Signs (12 hours) Temp Pulse Resp BP BP BP Pulse Ox 05/16/19 11:30 88/53 L 05/16/19 11:22 98.1 F 80 18 91/62 95 05/16/19 07:22 98.3 F 80 18 85/51 L 93 L 05/16/19 04:00 97.3 F L 80 18 84/50 L 93 L 05/16/19 00:10 98/54 L Weight Admit Weight 220 lb Weight 185 lb 14.4 oz Most Recent Monitor Data Heart Rate from ECG 80 NIBP 96/62 NIBP BP-Mean 73 Respiration from ECG 34 SpO2 100 I&O: 05/15/19 05/16/19 05/17/19 06:59 06:59 06:59 Intake Total 1260 1200 Output Total 1175 800 Balance 85 400 Result Diagrams: 05/14/19 03:14 05/16/19 04:40 Hospitalist ROS - Medication Medications: Active Medications Generic Name Dose Route Start Last Admin Trade Name Freq PRN Reason Stop Dose Admin Amiodarone HCl 200 mg 05/16/19 09:00 05/16/19 08:13 Cordarone PO 200 mg DAILY KAITLYNN Administration Amoxicillin/Clavulanate Potassium 875 mg 05/13/19 21:00 05/16/19 08:14 Augmentin PO 875 mg Q12HR KAITLYNN Administration Aspirin 81 mg 04/29/19 09:00 05/16/19 08:14 Ecotrin PO 81 mg DAILY KAITLYNN Administration Enoxaparin Sodium 40 mg 05/02/19 09:00 05/16/19 08:13 Lovenox SC 40 mg 0900 KAITLYNN Administration Multivitamins 1 tab 05/02/19 09:00 05/16/19 08:14 Theragran PO 1 tab DAILY KAITLYNN Administration Polyethylene Glycol 17 gm 05/02/19 09:00 05/16/19 08:15 Miralax PO Not Given DAILY KAITLYNN Potassium Chloride 10 meq 05/16/19 08:00 05/16/19 08:13 Klor-Con 10 PO 10 meq QAM-WM KAITLYNN Administration Rosuvastatin Calcium 10 mg 05/15/19 21:00 05/15/19 20:43 Crestor PO 10 mg HS KAITLYNN Administration Saccharomyces Boulardii 250 mg 04/30/19 09:00 05/16/19 08:14 Florastor PO 250 mg DAILY KAITLYNN Administration Sacubitril/Valsartan 1 tab 05/15/19 21:00 05/16/19 08:28 Entresto 24 Mg-26 Mg Tablet PO Not Given BID KAITLYNN Senna/Docusate Sodium 2 tab 05/01/19 21:00 05/16/19 08:13 Senokot S PO 2 tab BID KAITLYNN Administration Sodium Chloride 10 ml 04/28/19 08:53 05/15/19 20:43 Flush - Normal Saline IVF 10 ml PRN PRN Administration Saline Flush Spironolactone 12.5 mg 05/16/19 08:00 05/16/19 08:14 Aldactone PO 12.5 mg QAM-WM KAITLYNN Administration Torsemide 10 mg 05/16/19 09:00 05/16/19 08:14 Demadex PO 10 mg DAILY KAITLYNN Administration - Exam Eye: PERRL Heart: RRR, no murmur, no gallops, no rubs, normal peripheral pulses Respiratory: CTAB ( with the exception of rales at the left base) Gastrointestinal: soft, non-tender, non-distended, normal bowel sounds Extremities: no cyanosis, no clubbing, 1+ LE edema Hosp A/P (1) Acute on chronic systolic heart failure, NYHA class 3 Code(s): I50.23 - ACUTE ON CHRONIC SYSTOLIC (CONGESTIVE) HEART FAILURE Status : Acute (2) Physical deconditioning Code(s): R53.81 - OTHER MALAISE Status: Acute (3) [id number] kidney injury Code(s): N17.9 - ACUTE KIDNEY FAILURE, UNSPECIFIED; N18.9 - CHRONIC KIDNEY DISEASE, UNSPECIFIED Status: Acute (4) Pneumonia Code(s): J18.9 - PNEUMONIA, UNSPECIFIED ORGANISM Status: Acute (5) Ventricular tachycardia Code(s): I47.2 - VENTRICULAR TACHYCARDIA Status: Acute - Plan * Acute on chronic systolic heart failure- better compensated * Non-sustained Ventricular Tachycardia- continue Amiodarone * Acute kidney injury- resolved * Blood pressure is on the lower side, but he is asymptomatic with this * Stable for transfer to Rehab
--- NOTE | 2019-05-16 16:00 | PDOC.CPN ---
- Subjective Date: 05/16/19 Time: 15:00 Interval history: Patient resting. Tired. No new complaints. - Review of Systems General: reports: fatigue Respiratory: reports: shortness of breath. denies: cough, congestion, exercise intolerance Cardiovascular: denies: chest pain, palpitation, edema, paroxysmal nocturnal dyspnea, orthopnea Gastrointestinal: denies: nausea, vomiting, diarrhea, constipation, abd pain, GI bleeding Musculoskeletal: denies: pain, tenderness, stiffness, swelling, arthritis/ arthralgias Neurological: denies: numbness, syncope, seizure, weakness - Objective Allergies/Adverse Reactions: Allergies Allergy/AdvReac Type Severity Reaction Status Date / Time No Known Drug Allergies Allergy Verified 04/28/19 13:19 Visit Medications: Current Medications Acetaminophen (Tylenol) 650 mg PO Q4H PRN PRN Reason: Headache/Fever/Mild Pain (1-3) Amiodarone HCl (Cordarone) 200 mg PO DAILY [facility] Last Admin: 05/16/19 08:13 Dose: 200 mg Amoxicillin/Clavulanate Potassium (Augmentin) 875 mg PO Q12HR [facility] Last Admin: 05/16/19 08:14 Dose: 875 mg Aspirin (Ecotrin) 81 mg PO DAILY [facility] Last Admin: 05/16/19 08:14 Dose: 81 mg Calcium Carbonate (Tums) 1,000 mg PO Q4H PRN PRN Reason: Heartburn or Indigestion Enoxaparin Sodium (Lovenox) 40 mg SC 0900 [facility] Last Admin: 05/16/19 08:13 Dose: 40 mg Multivitamins (Theragran) 1 tab PO DAILY [facility] Last Admin: 05/16/19 08:14 Dose: 1 tab Ondansetron HCl (Zofran Odt) 4 mg PO Q6H PRN PRN Reason: Nausea/Vomiting Ondansetron HCl (Zofran) 4 mg IVP Q6H PRN PRN Reason: Nausea/Vomiting Polyethylene Glycol (Miralax) 17 gm PO DAILY [facility] Last Admin: 05/16/19 08:15 Dose: Not Given Potassium Chloride (Klor-Con 10) 10 meq PO QAM-WM [facility] Last Admin: 05/16/19 08:13 Dose: 10 meq Rosuvastatin Calcium (Crestor) 10 mg PO HS [facility] Last Admin: 05/15/19 20:43 Dose: 10 mg Saccharomyces Boulardii (Florastor) 250 mg PO DAILY [facility] Last Admin: 05/16/19 08:14 Dose: 250 mg Sacubitril/Valsartan (Entresto 24 Mg-26 Mg Tablet) 1 tab PO BID [facility] Last Admin: 05/16/19 08:28 Dose: Not Given Senna/Docusate Sodium (Senokot S) 2 tab PO BID [facility] Last Admin: 05/16/19 08:13 Dose: 2 tab Sodium Chloride (Flush - Normal Saline) 10 ml IVF PRN PRN PRN Reason: Saline Flush Last Admin: 05/15/19 20:43 Dose: 10 ml Torsemide (Demadex) 10 mg PO DAILY [facility] Last Admin: 05/16/19 08:14 Dose: 10 mg Vital Signs & Weight: Vital Signs Temp Pulse Resp BP BP BP BP 05/16/19 15:03 97.9 F 81 18 81/51 L 05/16/19 11:41 82/52 L 05/16/19 11:40 78/50 L 05/16/19 11:30 88/53 L 05/16/19 11:22 98.1 F 80 18 91/62 05/16/19 07:22 98.3 F 80 18 85/51 L 05/16/19 04:00 97.3 F L 80 18 84/50 L Pulse Ox 05/16/19 15:03 95 05/16/19 11:41 05/16/19 11:40 05/16/19 11:30 05/16/19 11:22 95 05/16/19 07:22 93 L 05/16/19 04:00 93 L Admit Weight 220 lb Weight 185 lb 14.4 oz - Physical Exam General: alert & oriented x3, appears well Cardiac: regular rate and rhythm, no murmur Lungs: normal breath sounds Neuro: grossly intact Abdomen: soft Extremities: no edema Skin: clear Musculoskeletal: no pain - Labs Result Diagrams: 05/14/19 03:14 05/16/19 04:40 Troponin/CKMB Troponin I 0.051 ng/mL (< 0.028) H 04/28/19 07:49 - Assessment/Plan Assessment/Plan: 1. Acute on chronic systolic CHF (EF 15%) 2. S/P BiV AICD placement. 3. Hypotension Patient with significant hypotension, but mostly asymptomatic, after AM meds. Will stop aldactone. Monitor closely. RG-Pt seen and examined. Agree with the above. Given continued low BP, stop entresto overnight and stop demedex Restart if BP increases but only add one or the other
[2019-05-16] MEDS: Rosuvastatin 10 MG TAB PO SCH (21:00)
[2019-05-17 05:09] LABS: Anion Gap 10 mmol/L (10-20); BUN (Urea Nitrogen) 44 mg/dL (8.4-25.7); Calc. Creatinine Clearance 96 mL/min (70-130); Calcium 8.2 mg/dL (7.8-10.44); Carbon Dioxide 25 mmol/L (23-31); Chloride 101 mmol/L (98-107); Estimated GFR-MDRD Greater than 90; Glucose 86 mg/dL (83-110); Potassium 4.1 mmol/L (3.5-5.1); Sodium 132 mmol/L (136-145)
[2019-05-17] MEDS: Potassium Chloride 10 MEQ TAB PO SCH (08:42)
[2019-05-17] MEDS: Amoxicillin/Potassium Clav 875 MG TAB PO SCH ×2 (08:42→20:30)
[2019-05-17] MEDS: Amiodarone 200 MG TAB PO SCH (08:42)
[2019-05-17] MEDS: Saccharomyces boulardii 250 MG CAP PO SCH (08:43)
[2019-05-17] MEDS: Enoxaparin Sodium 40 MG/0.4 ML SYRINGE SC SCH (08:43)
[2019-05-17] MEDS: Senokot S 8.6-50 MG TAB PO SCH ×2 (08:43→20:30)
[2019-05-17] MEDS: Aspirin 81 mg Enteric Coated Tablet PO SCH (08:43)
[2019-05-17] MEDS: Multivit, Therapeutic 1 TAB PO SCH (08:43)
[2019-05-17] MEDS: Polyethylene Glycol 3350 17 GM Packet PO SCH (08:44)
--- NOTE | 2019-05-17 10:40 | PDOC.HOSPP ---
- Subjective Encounter Date: 05/17/19 Encounter Time: 10:38 Subjective: Mr. Jane was seen today in follow-up of CHF exacerbation. He is still quite weak, but does not complain. - Objective Vital Signs & Weight: Vital Signs (12 hours) Temp Pulse Resp BP BP Pulse Ox 05/17/19 07:05 97.4 F L 81 18 85/54 L 94 L 05/17/19 03:01 97.7 F 82 14 100/59 L 92 L 05/16/19 23:13 97.7 F 82 14 88/54 L 94 L Weight Admit Weight 220 lb Weight 186 lb 6.4 oz Most Recent Monitor Data Heart Rate from ECG 80 NIBP 96/62 NIBP BP-Mean 73 Respiration from ECG 34 SpO2 100 I&O: 05/16/19 05/17/19 05/18/19 06:59 06:59 06:59 Intake Total 1200 850 Output Total 800 1500 Balance 400 -650 Result Diagrams: 05/14/19 03:14 05/17/19 04:18 Hospitalist ROS - Medication Medications: Active Medications Generic Name Dose Route Start Last Admin Trade Name Martha PRN Reason Stop Dose Admin Amiodarone HCl 200 mg 05/16/19 09:00 05/17/19 08:42 Cordarone PO 200 mg DAILY KAITLYNN Administration Amoxicillin/Clavulanate Potassium 875 mg 05/13/19 21:00 05/17/19 08:42 Augmentin PO 875 mg Q12HR KAITLYNN Administration Aspirin 81 mg 04/29/19 09:00 05/17/19 08:43 Ecotrin PO 81 mg DAILY KAITLYNN Administration Enoxaparin Sodium 40 mg 05/02/19 09:00 05/17/19 08:43 Lovenox SC 40 mg 0900 KAITLYNN Administration Multivitamins 1 tab 05/02/19 09:00 05/17/19 08:43 Theragran PO 1 tab DAILY KAITLYNN Administration Polyethylene Glycol 17 gm 05/02/19 09:00 05/17/19 08:44 Miralax PO Not Given DAILY KAITLYNN Potassium Chloride 10 meq 05/16/19 08:00 05/17/19 08:42 Klor-Con 10 PO 10 meq QAM-WM KAITLYNN Administration Rosuvastatin Calcium 10 mg 05/15/19 21:00 05/16/19 21:00 Crestor PO 10 mg HS KAITLYNN Administration Saccharomyces Boulardii 250 mg 04/30/19 09:00 05/17/19 08:43 Florastor PO 250 mg DAILY KAITLYNN Administration Senna/Docusate Sodium 2 tab 05/01/19 21:00 05/17/19 08:43 Senokot S PO 2 tab BID KAITLYNN Administration Sodium Chloride 10 ml 04/28/19 08:53 05/17/19 08:51 Flush - Normal Saline IVF 10 ml PRN PRN Administration Saline Flush - Exam Eye: PERRL Heart: RRR, no murmur, no gallops, no rubs, normal peripheral pulses Respiratory: CTAB, no wheezes, no rales, no ronchi, normal chest expansion, no tachypnea Gastrointestinal: soft, non-tender, non-distended, normal bowel sounds, no palpable masses, no hepatomegaly Extremities: no cyanosis, no clubbing, no edema Neurological: no focal deficits Hosp A/P (1) Acute on chronic systolic heart failure, NYHA class 3 Code(s): I50.23 - ACUTE ON CHRONIC SYSTOLIC (CONGESTIVE) HEART FAILURE Status : Acute (2) Physical deconditioning Code(s): R53.81 - OTHER MALAISE Status: Acute (3) [id number] kidney injury Code(s): N17.9 - ACUTE KIDNEY FAILURE, UNSPECIFIED; N18.9 - CHRONIC KIDNEY DISEASE, UNSPECIFIED Status: Acute (4) Pneumonia Code(s): J18.9 - PNEUMONIA, UNSPECIFIED ORGANISM Status: Acute (5) Ventricular tachycardia Code(s): I47.2 - VENTRICULAR TACHYCARDIA Status: Acute - Plan * Acute on chronic systolic heart failure- compensated- however his blood pressure has been too low to tolerate Entresto, Aldactone, or Demadex * Continue to monitor his blood pressure * Transfer to Rehab is on hold due to his low bloood pressure * Non-sustained Ventricular Tachycardia- continue Amiodarone * Acute kidney injury- resolved
[2019-05-17] MEDS ORDERED: DOBUTamine 500 mg/250 ml 250 ML IVPB SCH (14:30)
--- NOTE | 2019-05-17 14:40 | PDOC.CPN ---
- Subjective Date: 05/17/19 Time: 14:30 Interval history: Patient still with fatigue, SOB, edema. BP remains low. Now off Entresto, torsemide and aldactone and still hypotensive. - Review of Systems General: denies: fever/chills, weight/appetite/sleep changes, night sweats, fatigue Respiratory: reports: shortness of breath, exercise intolerance. denies: cough , congestion Cardiovascular: reports: orthopnea Gastrointestinal: denies: nausea, vomiting, diarrhea, constipation, abd pain, GI bleeding Musculoskeletal: reports: swelling. denies: pain, tenderness, stiffness, arthritis/arthralgias Neurological: denies: numbness, syncope, seizure, weakness - Objective Allergies/Adverse Reactions: Allergies Allergy/AdvReac Type Severity Reaction Status Date / Time No Known Drug Allergies Allergy Verified 04/28/19 13:19 Visit Medications: Current Medications Acetaminophen (Tylenol) 650 mg PO Q4H PRN PRN Reason: Headache/Fever/Mild Pain (1-3) Amiodarone HCl (Cordarone) 200 mg PO DAILY [facility] Last Admin: 05/17/19 08:42 Dose: 200 mg Amoxicillin/Clavulanate Potassium (Augmentin) 875 mg PO Q12HR [facility] Last Admin: 05/17/19 08:42 Dose: 875 mg Aspirin (Ecotrin) 81 mg PO DAILY [facility] Last Admin: 05/17/19 08:43 Dose: 81 mg Calcium Carbonate (Tums) 1,000 mg PO Q4H PRN PRN Reason: Heartburn or Indigestion Enoxaparin Sodium (Lovenox) 40 mg SC 0900 [facility] Last Admin: 05/17/19 08:43 Dose: 40 mg Dobutamine HCl/Dextrose (Dobutamine 500 Mg/250 Ml) 250 mls @ 12.683 mls/hr IVPB INF [facility]; Protocol Multivitamins (Theragran) 1 tab PO DAILY [facility] Last Admin: 05/17/19 08:43 Dose: 1 tab Ondansetron HCl (Zofran Odt) 4 mg PO Q6H PRN PRN Reason: Nausea/Vomiting Ondansetron HCl (Zofran) 4 mg IVP Q6H PRN PRN Reason: Nausea/Vomiting Polyethylene Glycol (Miralax) 17 gm PO DAILY [facility] Last Admin: 05/17/19 08:44 Dose: Not Given Potassium Chloride (Klor-Con 10) 10 meq PO QAM-WM [facility] Last Admin: 05/17/19 08:42 Dose: 10 meq Rosuvastatin Calcium (Crestor) 10 mg PO HS [facility] Last Admin: 05/16/19 21:00 Dose: 10 mg Saccharomyces Boulardii (Florastor) 250 mg PO DAILY [facility] Last Admin: 05/17/19 08:43 Dose: 250 mg Senna/Docusate Sodium (Senokot S) 2 tab PO BID [facility] Last Admin: 05/17/19 08:43 Dose: 2 tab Sodium Chloride (Flush - Normal Saline) 10 ml IVF PRN PRN PRN Reason: Saline Flush Last Admin: 05/17/19 08:51 Dose: 10 ml Vital Signs & Weight: Vital Signs Temp Pulse Resp BP BP Pulse Ox 05/17/19 10:53 98.2 F 80 18 92/60 95 05/17/19 07:05 97.4 F L 81 18 85/54 L 94 L 05/17/19 03:01 97.7 F 82 14 100/59 L 92 L Admit Weight 220 lb Weight 186 lb 6.4 oz - Physical Exam Neck: JVD/HJR Cardiac: regular rate and rhythm Lungs: decreased breath sounds, bibasilar rales Neuro: grossly intact Abdomen: soft - Labs Result Diagrams: 05/14/19 03:14 05/17/19 04:18 Troponin/CKMB Troponin I 0.051 ng/mL (< 0.028) H 04/28/19 07:49 - Assessment/Plan Assessment/Plan: 1. Acute on chronic systolic CHF (EF 15%) 2. S/P BiV AICD placement. 3. Hypotension Discussed with Dr. Hernandez option of adding albumin vs dopamine. He suggests adding dobutamine. Will order and monitor BPs/diuresis.
[2019-05-17] MEDS: Rosuvastatin 10 MG TAB PO SCH (20:30)
[2019-05-18 04:49] LABS: Anion Gap 8 mmol/L (10-20); BUN (Urea Nitrogen) 38 mg/dL (8.4-25.7); Calc. Creatinine Clearance 80 mL/min (70-130); Calcium 8.1 mg/dL (7.8-10.44); Carbon Dioxide 29 mmol/L (23-31); Chloride 102 mmol/L (98-107); Estimated GFR-MDRD 78; Glucose 85 mg/dL (83-110); Potassium 4.2 mmol/L (3.5-5.1); Sodium 135 mmol/L (136-145)
[2019-05-18] MEDS: Amiodarone 200 MG TAB PO SCH (08:43)
[2019-05-18] MEDS: Potassium Chloride 10 MEQ TAB PO SCH (08:43)
[2019-05-18] MEDS: Senokot S 8.6-50 MG TAB PO SCH ×2 (08:44→21:08)
[2019-05-18] MEDS: Enoxaparin Sodium 40 MG/0.4 ML SYRINGE SC SCH (08:44)
[2019-05-18] MEDS: Aspirin 81 mg Enteric Coated Tablet PO SCH (08:44)
[2019-05-18] MEDS: Multivit, Therapeutic 1 TAB PO SCH (08:44)
[2019-05-18] MEDS: Saccharomyces boulardii 250 MG CAP PO SCH (08:44)
[2019-05-18] MEDS: Polyethylene Glycol 3350 17 GM Packet PO SCH (08:45)
--- NOTE | 2019-05-18 08:59 | PRG ---
DATE OF SERVICE: 05/18/2019 SUBJECTIVE: Mr. Jane had to be started back on dobutamine over the weekend due to hypotension and also his diuretics have been stopped, but he is now retaining fluid. OBJECTIVE: VITAL SIGNS: His blood pressure is 100 systolic on dobutamine, pulse 80. LUNGS: Clear anteriorly and laterally. CARDIAC: Normal S1, normal S2. ABDOMEN: Soft and nontender. EXTREMITIES: Mild edema. LABORATORY DATA: Potassium of 4.2, creatinine is 0.9. ASSESSMENT: 1. Congestive heart failure systolic, chronic with severely low ejection fraction. 2. Status post upgrade of his defibrillator to a biventricular device. 3. Hypotension. 4. Congestive heart failure. PLAN: 1. Repeat echocardiogram to make sure there is no pericardial fluid. 2. CBC to be drawn. 3. Unfortunately prognosis looks poor. He had to be taken off really all of his cardiac medicines, even his diuretics. Also we will do chest x-ray to re-evaluate his left ventricular function. Prognosis unfortunately is poor in this elderly gentleman. Job ID: [id number]
[2019-05-18 09:01] LABS: #Basophils 0.1 thou/uL (0.0-0.2); #Eosinphils 0.2 thou/uL (0.0-0.7); #Lymphocytes 1.1 thou/uL (1.20-3.40); #Monocytes 0.5 thou/uL (0.11-0.59); #Neutrophils 4.5 thou/uL (1.40-6.50); %Basophils 1.1 % (0.0-1.0); %Lymphocytes 17.6 % (21.0-51.0); %Monocytes 7.2 % (0.0-10.0); %Neutrophils 71.1 % (42.0-75.0); Hemoglobin 15.3 g/dL (14.0-18.0); Mean Corpuscular Hemoglobin 31.7 pg (27.0-31.0); Mean Platelet Volume 7.2 fL (7.4-10.4); Platelet Count 276 thou/uL (130-400); RBC Distribution Width 14.3 % (11.5-14.5); Red Blood Cell (RBC) Count 4.83 mill/uL (4.70-6.10); White Blood Cell (WBC) Count 6.3 thou/uL (4.8-10.8)
--- NOTE | 2019-05-18 09:50 | RAD ---
EXAM: CHEST ONE VIEW HISTORY: CHF COMPARISON: 05/12/2019 FINDINGS: This examination is obtained with the patient and kyphotic positioning and rotation to the right whic h accentuates the cardiac silhouette and mediastinal structures. However, there does appear to be persistent pleural and parenchymal changes left lung base. There is patchy patchy parenchymal density in the left midlung zone. Multilead left subclavian acid device is again noted in place. Postsurgical changes related to media n sternotomy are again seen. No other interval change. IMPRESSION: 1. Limited exam due to patient rotation and kyphotic positioning, the chest does not appear to be sig nificantly changed when compared to prior study with persistent nonspecific pleural and parenchymal changes left lung base which may represent left pleural effusion and atelectasis. Patchy parenchymal density left midlung zone may be related to superimposed pneumonia. Follow-up to resolution is recommended.
[2019-05-18] MEDS ORDERED: DOBUTamine 500 mg/250 ml 250 ML IVPB SCH (14:30)
--- NOTE | 2019-05-18 18:07 | PDOC.HOSPP ---
- Subjective Encounter Date: 05/18/19 Encounter Time: 18:05 Subjective: Mr. Jane was seen today in follow-up of CHF exacerbation. He notes some fatigue and dyspnea when he gets up to walk, and he has only walked a few steps in his room. - Objective Vital Signs & Weight: Vital Signs (12 hours) Temp Pulse Resp BP Pulse Ox 05/18/19 15:03 97.3 F L 80 20 95/56 L 96 05/18/19 11:00 97.3 F L 68 22 H 103/62 98 05/18/19 07:10 97.6 F 80 17 100/56 L 95 Weight Admit Weight 220 lb Weight 185 lb 8 oz Most Recent Monitor Data Heart Rate from ECG 80 NIBP 96/62 NIBP BP-Mean 73 Respiration from ECG 34 SpO2 100 I&O: 05/17/19 05/18/19 05/19/19 06:59 06:59 06:59 Intake Total 850 968.1 312 Output Total 1500 2350 450 Balance -650 -1381.9 -138 Result Diagrams: 05/18/19 08:41 05/18/19 03:59 Hospitalist ROS - Medication Medications: Active Medications Generic Name Dose Route Start Last Admin Trade Name Freq PRN Reason Stop Dose Admin Amiodarone HCl 200 mg 05/16/19 09:00 05/18/19 08:43 Cordarone PO 200 mg DAILY KAITLYNN Administration Aspirin 81 mg 04/29/19 09:00 05/18/19 08:44 Ecotrin PO 81 mg DAILY KAITLYNN Administration Enoxaparin Sodium 40 mg 05/02/19 09:00 05/18/19 08:44 Lovenox SC 40 mg 0900 KAITLYNN Administration Multivitamins 1 tab 05/02/19 09:00 05/18/19 08:44 Theragran PO 1 tab DAILY KAITLYNN Administration Polyethylene Glycol 17 gm 05/02/19 09:00 05/18/19 08:45 Miralax PO 17 gm DAILY KAITLYNN Administration Potassium Chloride 10 meq 05/16/19 08:00 05/18/19 08:43 Klor-Con 10 PO 10 meq QAM-WM KAITLYNN Administration Rosuvastatin Calcium 10 mg 05/15/19 21:00 05/17/19 20:30 Crestor PO 10 mg HS KAITLYNN Administration Saccharomyces Boulardii 250 mg 04/30/19 09:00 05/18/19 08:44 Florastor PO 250 mg DAILY KAITLYNN Administration Senna/Docusate Sodium 2 tab 05/01/19 21:00 05/18/19 08:44 Senokot S PO 2 tab BID KAITLYNN Administration Sodium Chloride 10 ml 04/28/19 08:53 05/17/19 08:51 Flush - Normal Saline IVF 10 ml PRN PRN Administration Saline Flush - Exam Eye: PERRL Heart: RRR, no murmur, no gallops, no rubs, normal peripheral pulses Respiratory: CTAB (+ with the exception of decreased breath sounds at the bases , and some faint rales) Gastrointestinal: soft, non-tender, non-distended, normal bowel sounds, no palpable masses, no hepatomegaly Extremities: no cyanosis, no clubbing, 1+ LE edema Hosp A/P (1) Acute on chronic systolic heart failure, NYHA class 3 Code(s): I50.23 - ACUTE ON CHRONIC SYSTOLIC (CONGESTIVE) HEART FAILURE Status : Acute (2) Physical deconditioning Code(s): R53.81 - OTHER MALAISE Status: Acute (3) Lkeus-ug-wdncoqx kidney injury Code(s): N17.9 - ACUTE KIDNEY FAILURE, UNSPECIFIED; N18.9 - CHRONIC KIDNEY DISEASE, UNSPECIFIED Status: Acute (4) Pneumonia Code(s): J18.9 - PNEUMONIA, UNSPECIFIED ORGANISM Status: Acute (5) Ventricular tachycardia Code(s): I47.2 - VENTRICULAR TACHYCARDIA Status: Acute - Plan * Acute on chronic systolic heart failure- due to hypotension, he has been started on a Dobtamine drip * His blood pressure has responded, and he has put out some fluid as well * Discharge plans are now on hold, now that he is on Dobutamine and discharge location will need to be revisited * Non-sustained Ventricular Tachycardia- continue Amiodarone * Acute kidney injury- resolved
[2019-05-18] MEDS: Rosuvastatin 10 MG TAB PO SCH (21:08)
[2019-05-19 05:16] LABS: Anion Gap 9 mmol/L (10-20); BUN (Urea Nitrogen) 32 mg/dL (8.4-25.7); Calc. Creatinine Clearance 93 mL/min (70-130); Calcium 8.2 mg/dL (7.8-10.44); Carbon Dioxide 30 mmol/L (23-31); Chloride 101 mmol/L (98-107); Estimated GFR-MDRD Greater than 90; Glucose 81 mg/dL (83-110); Potassium 4.2 mmol/L (3.5-5.1); Sodium 136 mmol/L (136-145)
[2019-05-19] MEDS: Enoxaparin Sodium 40 MG/0.4 ML SYRINGE SC SCH (08:54)
[2019-05-19] MEDS: Potassium Chloride 10 MEQ TAB PO SCH (08:55)
[2019-05-19] MEDS: Senokot S 8.6-50 MG TAB PO SCH ×2 (08:55→21:05)
[2019-05-19] MEDS: Polyethylene Glycol 3350 17 GM Packet PO SCH (08:56)
[2019-05-19] MEDS: Amiodarone 200 MG TAB PO SCH (08:56)
[2019-05-19] MEDS: Aspirin 81 mg Enteric Coated Tablet PO SCH (08:56)
[2019-05-19] MEDS: Multivit, Therapeutic 1 TAB PO SCH (08:56)
[2019-05-19] MEDS: Saccharomyces boulardii 250 MG CAP PO SCH (08:56)
[2019-05-19] MEDS ORDERED: DOBUTamine 500 mg/250 ml 250 ML IVPB SCH (10:54)
[2019-05-19] MEDS ORDERED: Spironolactone 25 MG TAB PO SCH (11:00)
--- NOTE | 2019-05-19 11:21 | PRG ---
DATE OF SERVICE: 05/19/2019 SUBJECTIVE: Mr. Jane is doing okay. No chest pain or pressure. OBJECTIVE: VITAL SIGNS: Blood pressure 109/64, the most recent is 100 systolic; pulse 80, it is paced. LUNGS: Clear. CARDIAC: Normal S1, normal S2. ABDOMEN: Soft and nontender. LABORATORY DATA: Echocardiogram showed ejection fraction 15% to 20%. The apex is akinetic. Anterior wall is akinetic. Otherwise, hypokinetic. ASSESSMENT: Severe congestive heart failure manifested by hypotension. PLAN: Try to wean dobutamine off again. He is unable to tolerate Entresto due to hypotension. Still on amiodarone. Need to resume torsemide and spironolactone. Job ID: [id number]
[2019-05-19] MEDS ORDERED: DOBUTamine 500 mg/250 ml 500 MG in Premix Bag 1 BAG IVPB SCH (11:30)
--- NOTE | 2019-05-19 11:43 | PDOC.HOSPP ---
- Subjective Encounter Date: 05/19/19 Encounter Time: 11:42 Subjective: Mr. Jane was seen today in follow-up of CHF exacerbation. He does not have any new complaints. He denies chest pain and says he is breathing better. - Objective Vital Signs & Weight: Vital Signs (12 hours) Temp Pulse Resp BP Pulse Ox 05/19/19 11:27 97.4 F L 80 109/63 98 05/19/19 08:51 95 05/19/19 07:23 97.9 F 80 16 109/64 95 05/19/19 03:58 97.1 F L 80 20 105/63 94 L 05/19/19 00:30 77 110/61 Weight Admit Weight 220 lb Weight 184 lb 6.4 oz Most Recent Monitor Data Heart Rate from ECG 80 NIBP 96/62 NIBP BP-Mean 73 Respiration from ECG 34 SpO2 100 I&O: 05/18/19 05/19/19 05/20/19 06:59 06:59 06:59 Intake Total 968.1 372 Output Total 2350 800 Balance -1381.9 -428 Result Diagrams: 05/18/19 08:41 05/19/19 04:08 Hospitalist ROS - Medication Medications: Active Medications Generic Name Dose Route Start Last Admin Trade Name Freq PRN Reason Stop Dose Admin Amiodarone HCl 200 mg 05/16/19 09:00 05/19/19 08:56 Cordarone PO 200 mg DAILY KAITLYNN Administration Aspirin 81 mg 04/29/19 09:00 05/19/19 08:56 Ecotrin PO 81 mg DAILY KAITLYNN Administration Enoxaparin Sodium 40 mg 05/02/19 09:00 05/19/19 08:54 Lovenox SC 40 mg 0900 KAITLYNN Administration Dobutamine HCl/Dextrose 500 mg 250 mls @ 2.5 mls/hr 05/19/19 11:30 05/19/19 11:31 / Device IVPB 250 mls INF KAITLYNN Administration 1 MCG/KG/MIN Multivitamins 1 tab 05/02/19 09:00 05/19/19 08:56 Theragran PO 1 tab DAILY KAITLYNN Administration Polyethylene Glycol 17 gm 05/02/19 09:00 05/19/19 08:56 Miralax PO 17 gm DAILY KAITLYNN Administration Potassium Chloride 10 meq 05/16/19 08:00 05/19/19 08:55 Klor-Con 10 PO 10 meq QAM-WM KAITLYNN Administration Rosuvastatin Calcium 10 mg 05/15/19 21:00 05/18/19 21:08 Crestor PO 10 mg HS KAITLYNN Administration Saccharomyces Boulardii 250 mg 04/30/19 09:00 05/19/19 08:56 Florastor PO 250 mg DAILY KAITLYNN Administration Senna/Docusate Sodium 2 tab 05/01/19 21:00 05/19/19 08:55 Senokot S PO 2 tab BID KAITLYNN Administration Sodium Chloride 10 ml 04/28/19 08:53 05/17/19 08:51 Flush - Normal Saline IVF 10 ml PRN PRN Administration Saline Flush Spironolactone 25 mg 05/19/19 11:00 05/19/19 11:31 Aldactone PO 05/19/19 13:00 25 mg 1100 KAITLYNN Administration - Exam Eye: PERRL Heart: RRR, no murmur, no gallops, no rubs, normal peripheral pulses Respiratory: CTAB (+ coarse breath sounds) Gastrointestinal: soft, non-tender, non-distended, normal bowel sounds, no palpable masses, no hepatomegaly Extremities: no cyanosis Hosp A/P (1) Acute on chronic systolic heart failure, NYHA class 3 Code(s): I50.23 - ACUTE ON CHRONIC SYSTOLIC (CONGESTIVE) HEART FAILURE Status : Acute (2) Physical deconditioning Code(s): R53.81 - OTHER MALAISE Status: Acute (3) Tovdv-hs-asdjxfs kidney injury Code(s): N17.9 - ACUTE KIDNEY FAILURE, UNSPECIFIED; N18.9 - CHRONIC KIDNEY DISEASE, UNSPECIFIED Status: Acute (4) Pneumonia Code(s): J18.9 - PNEUMONIA, UNSPECIFIED ORGANISM Status: Acute (5) Ventricular tachycardia Code(s): I47.2 - VENTRICULAR TACHYCARDIA Status: Acute - Plan * Acute on chronic systolic heart failure- patient continues on Dobutamine- discussed with Dr. Hayes- plan is to try to wean him off completely by the end of the day * CAD- stable * Non-sustained Ventricular Tachycardia- continue Amiodarone * Acute kidney injury- resolved
[2019-05-19 12:38] VITALS: BMI 24.3
[2019-05-19] MEDS: Rosuvastatin 10 MG TAB PO SCH (21:06)
[2019-05-19] MEDS: Apixaban 5 MG TAB PO SCH (21:06)
[2019-05-20] MEDS ORDERED: Spironolactone 25 MG TAB PO SCH (08:00)
[2019-05-20] MEDS ORDERED: PROPOFOL 20 ML ONE (08:26)
[2019-05-20] MEDS ORDERED: Torsemide 10 MG TAB PO SCH (09:00)
[2019-05-20] MEDS ORDERED: PHENYLEPHRINE-NS 100 MCG/ML 10 ML SYRINGE ONE (10:07)
[2019-05-20] MEDS: Multivit, Therapeutic 1 TAB PO SCH (10:10)
[2019-05-20] MEDS: Amiodarone 200 MG TAB PO SCH ×3 (10:10→20:58)
[2019-05-20] MEDS: Saccharomyces boulardii 250 MG CAP PO SCH (10:11)
[2019-05-20] MEDS: Aspirin 81 mg Enteric Coated Tablet PO SCH (10:11)
[2019-05-20] MEDS: Senokot S 8.6-50 MG TAB PO SCH ×2 (10:11→20:58)
[2019-05-20] MEDS: Apixaban 5 MG TAB PO SCH ×2 (10:11→20:59)
[2019-05-20] MEDS: Potassium Chloride 10 MEQ TAB PO SCH (10:12)
[2019-05-20] MEDS: Polyethylene Glycol 3350 17 GM Packet PO SCH (10:13)
--- NOTE | 2019-05-20 10:34 | PRG ---
DATE OF SERVICE: 05/20/2019 SUBJECTIVE: Mr. Jane underwent cardioversion today. No complaints, feels okay. OBJECTIVE: VITAL SIGNS: Blood pressure is actually slightly better 104 systolic. LUNGS: Clear. CARDIAC: Normal S1 and normal S2. ABDOMEN: Soft and nontender. EXTREMITIES: No edema. ASSESSMENT: 1. Advanced congestive heart failure, systolic ejection fraction 15% to 20%. 2. Mitral regurgitation. 3. Paroxysmal atrial fibrillation. PLAN: 1. Amiodarone dose was increased. 2. Stop dobutamine. 3. Hopefully can be released tomorrow. Job ID: [id number]
--- NOTE | 2019-05-20 11:45 | PDOC.HOSPP ---
- Subjective Encounter Date: 05/20/19 Encounter Time: 11:43 Subjective: Mr. Jane was seen today in follow-up of CHF exacerbation. He says he feels better. He is now in sinus rhythm, and says he can notice it, and fells much better. - Objective Vital Signs & Weight: Vital Signs (12 hours) Temp Pulse Resp BP BP BP Pulse Ox 05/20/19 09:52 98 F 80 18 100/68 94 L 05/20/19 07:45 96.9 F L 80 18 101/63 94 L 05/20/19 05:37 94 L 05/20/19 04:40 97.8 F 82 17 104/66 94 L 05/20/19 00:45 96.3 F L 18 101/62 93 L Weight Admit Weight 220 lb Weight 185 lb 14.4 oz Most Recent Monitor Data Heart Rate from ECG 80 NIBP 96/62 NIBP BP-Mean 73 Respiration from ECG 34 SpO2 100 I&O: 05/19/19 05/20/19 05/21/19 06:59 06:59 06:59 Intake Total 372 1050 150 Output Total 800 800 0 Balance -428 250 150 Result Diagrams: 05/18/19 08:41 05/19/19 04:08 Hospitalist ROS - Medication Medications: Active Medications Generic Name Dose Route Start Last Admin Trade Name Martha PRN Reason Stop Dose Admin Amiodarone HCl 400 mg 05/20/19 09:00 05/20/19 10:10 Cordarone PO 400 mg TID KAITLYNN Administration Apixaban 5 mg 05/19/19 21:00 05/20/19 10:11 Eliquis PO 5 mg BID KAITLYNN Administration Aspirin 81 mg 04/29/19 09:00 05/20/19 10:11 Ecotrin PO 81 mg DAILY KAITLYNN Administration Multivitamins 1 tab 05/02/19 09:00 05/20/19 10:10 Theragran PO 1 tab DAILY KAITLYNN Administration Polyethylene Glycol 17 gm 05/02/19 09:00 05/20/19 10:13 Miralax PO Not Given DAILY KAITLYNN Potassium Chloride 10 meq 05/16/19 08:00 05/20/19 10:12 Klor-Con 10 PO 10 meq QAM-WM KAITLYNN Administration Rosuvastatin Calcium 10 mg 05/15/19 21:00 05/19/19 21:06 Crestor PO 10 mg HS KAITLYNN Administration Saccharomyces Boulardii 250 mg 04/30/19 09:00 05/20/19 10:11 Florastor PO 250 mg DAILY KAITLYNN Administration Senna/Docusate Sodium 2 tab 05/01/19 21:00 05/20/19 10:11 Senokot S PO 2 tab BID KAITLYNN Administration Sodium Chloride 10 ml 04/28/19 08:53 05/17/19 08:51 Flush - Normal Saline IVF 10 ml PRN PRN Administration Saline Flush Torsemide 10 mg 05/20/19 09:00 05/20/19 10:11 Demadex PO 10 mg DAILY KAITLYNN Administration - Exam Eye: PERRL Heart: RRR, no murmur, no gallops, no rubs, normal peripheral pulses Respiratory: CTAB, no wheezes, no rales, no ronchi, normal chest expansion Gastrointestinal: soft, non-tender, non-distended, normal bowel sounds, no palpable masses, no hepatomegaly Extremities: 1+ LE edema (+ good capillary refill,) Hosp A/P (1) Acute on chronic systolic heart failure, NYHA class 3 Code(s): I50.23 - ACUTE ON CHRONIC SYSTOLIC (CONGESTIVE) HEART FAILURE Status : Acute (2) Physical deconditioning Code(s): R53.81 - OTHER MALAISE Status: Acute (3) Thlxe-gc-tuccqit kidney injury Code(s): N17.9 - ACUTE KIDNEY FAILURE, UNSPECIFIED; N18.9 - CHRONIC KIDNEY DISEASE, UNSPECIFIED Status: Acute (4) Pneumonia Code(s): J18.9 - PNEUMONIA, UNSPECIFIED ORGANISM Status: Acute (5) Ventricular tachycardia Code(s): I47.2 - VENTRICULAR TACHYCARDIA Status: Acute - Plan * Acute on chronic systolic heart failure- he has been weaned off of Dobutamine - will continue to monitor his blood pressure * CAD- stable * Ventricular Tachycardia- stable * Pneumonia- stable * Severe deconditioning- continue PT/OT
--- NOTE | 2019-05-20 14:09 | OP ---
DATE OF PROCEDURE: 05/20/2019 PROCEDURE PERFORMED: Transesophageal echocardiogram. INDICATION: A 74-year-old gentleman with paroxysmal atrial fibrillation and cardiomyopathy. DESCRIPTION OF PROCEDURE: The patient was taken to the PACU. The patient was sedated by Anesthesiology. A transesophageal probe was placed into the distal esophagus and stomach. Echocardiographic images were obtained. The transesophageal probe was removed. FINDINGS: 1. Severe decrease in left ventricular systolic function. 2. Left atrial enlargement. 3. Left ventricle is severely dilated. 4. Moderate mitral regurgitation. 5. Mild tricuspid regurgitation. 6. The left atrial appendage appears to be ligated. 7. No thrombus is noted in the left atrium or left ventricular apex. 8. Atherosclerotic debris in the descending aorta. IMPRESSION: No formed thrombus in the left atrial appendage. Job ID: [id number]
[2019-05-20] MEDS: Rosuvastatin 10 MG TAB PO SCH (20:58)
--- NOTE | 2019-05-20 21:03 | OP ---
Date of procedure: 05/20/19 PROCEDURE: Cardioversion. The patient is brought to the Recovery Room in the fasting state. Transesophageal echo did not show a ny evidence of thrombus. The patient was given 35 joules direct current energy synchronized through t he defibrillator device that did not get him out of atrial fibrillation. He was given [address] current energy synchronized via the cutaneous pads and it converted him to sinus rhythm. CONCLUSION: Successful cardioversion.
[2019-05-21 04:42] LABS: Anion Gap 10 mmol/L (10-20); BUN (Urea Nitrogen) 31 mg/dL (8.4-25.7); Calc. Creatinine Clearance 79 mL/min (70-130); Calcium 8.6 mg/dL (7.8-10.44); Carbon Dioxide 31 mmol/L (23-31); Chloride 101 mmol/L (98-107); Estimated GFR-MDRD 77; Glucose 98 mg/dL (83-110); Sodium 137 mmol/L (136-145)
--- NOTE | 2019-05-21 08:18 | PRG ---
DATE OF SERVICE: 05/21/2019 SUBJECTIVE: Mr. Jane underwent successful cardioversion yesterday. Today, he is lying supine. OBJECTIVE: VITAL SIGNS: His blood pressure most recently reported for him was 101/59 and pulse is 80, it is paced, it is atrial paced, ventricular paced. LUNGS: Clear anteriorly. Posteriorly, he has some decreased breath sounds at the bases. CARDIAC: Normal S1. Normal S2. ABDOMEN: Soft and nontender. EXTREMITIES: There is no edema. The patient looks mildly dyspneic even at rest, however. ASSESSMENT: 1. Severely depressed left ventricular function. 2. Successful cardioversion. 3. Successful replacement of his biventricular pacemaker defibrillator generator. 4. Hypotension. PLAN: 1. Increase torsemide to 20 mg a day. 2. Spironolactone 25 mg a day. 3. Amiodarone, he is on 400 mg 3 times a day. Now, when he leaves, I would have him take 400 mg a day for 1 month, then 200 mg a day. 4. Apixaban 5 mg twice a day. 5. Rosuvastatin 10 mg a day. 6. The patient can be released to the care home in [place] when feasible. I will discuss with the hospitalist. Job ID: [id number]
[2019-05-21] MEDS: Amiodarone 200 MG TAB PO SCH ×2 (08:56→22:47)
[2019-05-21] MEDS: Spironolactone 25 MG TAB PO SCH (08:57)
[2019-05-21] MEDS: Senokot S 8.6-50 MG TAB PO SCH ×2 (08:57→20:58)
[2019-05-21] MEDS: Apixaban 5 MG TAB PO SCH ×2 (08:57→20:58)
[2019-05-21] MEDS: Polyethylene Glycol 3350 17 GM Packet PO SCH (08:57)
[2019-05-21] MEDS: Potassium Chloride 10 MEQ TAB PO SCH (08:57)
[2019-05-21] MEDS: Multivit, Therapeutic 1 TAB PO SCH (08:57)
[2019-05-21] MEDS: Aspirin 81 mg Enteric Coated Tablet PO SCH (08:57)
[2019-05-21] MEDS: Saccharomyces boulardii 250 MG CAP PO SCH (08:58)
[2019-05-21] MEDS ORDERED: Torsemide 10 MG TAB PO SCH (09:00)
[2019-05-21] MEDS ORDERED: Torsemide 20 MG TAB PO SCH (09:00)
[2019-05-21] MEDS ORDERED: Amiodarone 200 MG TAB PO SCH (15:00)
--- NOTE | 2019-05-21 18:14 | PDOC.HOSPP ---
- Subjective Encounter Date: 05/21/19 Encounter Time: 18:11 Subjective: Mr. Jane was seen today in follow-up of CHF exacerbation. He does not have any complaints today. - Objective Vital Signs & Weight: Vital Signs (12 hours) Temp Pulse Pulse Pulse Pulse Resp BP 05/21/19 15:23 97.8 F 80 18 05/21/19 14:06 80 80 80 101/67 05/21/19 11:25 98 F 80 18 05/21/19 08:00 05/21/19 07:58 97.5 F L 74 18 BP BP BP BP Pulse Ox 05/21/19 15:23 86/52 L 100 05/21/19 14:06 102/63 87/50 L 05/21/19 11:25 93/57 L 98 05/21/19 08:00 99 05/21/19 07:58 99/63 97 Weight Admit Weight 220 lb Weight 186 lb Most Recent Monitor Data Heart Rate from ECG 80 NIBP 96/62 NIBP BP-Mean 73 Respiration from ECG 34 SpO2 100 I&O: 05/20/19 05/21/19 05/22/19 06:59 06:59 06:59 Intake Total 1050 650 Output Total 800 2000 Balance 250 -1350 Result Diagrams: 05/18/19 08:41 05/21/19 04:06 Hospitalist ROS - Medication Medications: Active Medications Generic Name Dose Route Start Last Admin Trade Name Adánq PRN Reason Stop Dose Admin Apixaban 5 mg 05/19/19 21:00 05/21/19 08:57 Eliquis PO 5 mg BID KAITLYNN Administration Aspirin 81 mg 04/29/19 09:00 05/21/19 08:57 Ecotrin PO 81 mg DAILY KAITLYNN Administration Multivitamins 1 tab 05/02/19 09:00 05/21/19 08:57 Theragran PO 1 tab DAILY KAITLYNN Administration Polyethylene Glycol 17 gm 05/02/19 09:00 05/21/19 08:57 Miralax PO Not Given DAILY KAITLYNN Potassium Chloride 10 meq 05/16/19 08:00 05/21/19 08:57 Klor-Con 10 PO 10 meq QAM-WM KAITLYNN Administration Rosuvastatin Calcium 10 mg 05/15/19 21:00 05/20/19 20:58 Crestor PO 10 mg HS KAITLYNN Administration Saccharomyces Boulardii 250 mg 04/30/19 09:00 05/21/19 08:58 Florastor PO 250 mg DAILY KAITLYNN Administration Senna/Docusate Sodium 2 tab 05/01/19 21:00 05/21/19 08:57 Senokot S PO 2 tab BID KAITLYNN Administration Sodium Chloride 10 ml 04/28/19 08:53 05/21/19 08:58 Flush - Normal Saline IVF 10 ml PRN PRN Administration Saline Flush Spironolactone 25 mg 05/21/19 08:00 05/21/19 08:57 Aldactone PO 25 mg QAM-WM KAITLNYN Administration - Exam Eye: PERRL Heart: RRR, no murmur, no gallops, no rubs, normal peripheral pulses Respiratory: CTAB, no rales, no ronchi Gastrointestinal: soft, non-tender, non-distended, normal bowel sounds, no palpable masses Extremities: 1+ LE edema Hosp A/P (1) Acute on chronic systolic heart failure, NYHA class 3 Code(s): I50.23 - ACUTE ON CHRONIC SYSTOLIC (CONGESTIVE) HEART FAILURE Status : Acute (2) Physical deconditioning Code(s): R53.81 - OTHER MALAISE Status: Acute (3) Aosme-re-ttqobdv kidney injury Code(s): N17.9 - ACUTE KIDNEY FAILURE, UNSPECIFIED; N18.9 - CHRONIC KIDNEY DISEASE, UNSPECIFIED Status: Acute (4) Pneumonia Code(s): J18.9 - PNEUMONIA, UNSPECIFIED ORGANISM Status: Acute (5) Ventricular tachycardia Code(s): I47.2 - VENTRICULAR TACHYCARDIA Status: Acute - Plan * Acute on chronic systolic heart failure- His blood pressure has been stable off Dobutamine * AFIB- he has been converted back to sinus, and the dose of Amiodarone has been increased * Case discussed with Dr. Hayes * CAD- stable * Ventricular Tachycardia- stable * Pneumonia- resolved * Severe deconditioning- continue PT/OT * Awaiting transfer to Rehab
[2019-05-21] MEDS: Rosuvastatin 10 MG TAB PO SCH (20:58)
[2019-05-22 05:09] LABS: Anion Gap 9 mmol/L (10-20); BUN (Urea Nitrogen) 35 mg/dL (8.4-25.7); Calc. Creatinine Clearance 78 mL/min (70-130); Calcium 8.4 mg/dL (7.8-10.44); Carbon Dioxide 30 mmol/L (23-31); Chloride 101 mmol/L (98-107); Estimated GFR-MDRD 75; Glucose 84 mg/dL (83-110); Potassium 4.3 mmol/L (3.5-5.1); Sodium 136 mmol/L (136-145)
[2019-05-22] MEDS: Potassium Chloride 10 MEQ TAB PO SCH (08:55)
[2019-05-22] MEDS: Apixaban 5 MG TAB PO SCH ×2 (08:55→21:40)
[2019-05-22] MEDS: Aspirin 81 mg Enteric Coated Tablet PO SCH (08:55)
[2019-05-22] MEDS: Senokot S 8.6-50 MG TAB PO SCH ×2 (08:55→21:41)
[2019-05-22] MEDS: Saccharomyces boulardii 250 MG CAP PO SCH (08:55)
[2019-05-22] MEDS: Polyethylene Glycol 3350 17 GM Packet PO SCH (08:56)
[2019-05-22] MEDS: Multivit, Therapeutic 1 TAB PO SCH (08:58)
[2019-05-22] MEDS ORDERED: Torsemide 20 MG TAB PO SCH (09:00)
[2019-05-22] MEDS: Amiodarone 200 MG TAB PO SCH ×2 (09:49→21:40)
[2019-05-22] MEDS: Spironolactone 25 MG TAB PO SCH (09:49)
--- NOTE | 2019-05-22 12:27 | PDOC.HOSPP ---
- Subjective Encounter Date: 05/22/19 Encounter Time: 12:25 Subjective: Mr. Jane was seen today in follow-up of CHF exacerbation. He is breathing better. He is still quite weak. No new complaints. - Objective Vital Signs & Weight: Vital Signs (12 hours) Temp Pulse Resp BP BP Pulse Ox 05/22/19 11:36 97.6 F 78 16 89/64 L 98 05/22/19 08:52 97.9 F 80 16 93/56 L 99 05/22/19 04:00 97.4 F L 80 18 94/59 L 95 Weight Admit Weight 220 lb Weight 187 lb 3.2 oz Most Recent Monitor Data Heart Rate from ECG 80 NIBP 96/62 NIBP BP-Mean 73 Respiration from ECG 34 SpO2 100 I&O: 05/21/19 05/22/19 05/23/19 06:59 06:59 06:59 Intake Total 650 1380 Output Total 2000 1800 Balance -1350 -420 Result Diagrams: 05/18/19 08:41 05/22/19 04:25 Hospitalist ROS - Medication Medications: Active Medications Generic Name Dose Route Start Last Admin Trade Name Martha PRN Reason Stop Dose Admin Amiodarone HCl 200 mg 05/21/19 21:00 05/22/19 09:49 Cordarone PO 200 mg BID KAITLYNN Administration Apixaban 5 mg 05/19/19 21:00 05/22/19 08:55 Eliquis PO 5 mg BID KAITLYNN Administration Aspirin 81 mg 04/29/19 09:00 05/22/19 08:55 Ecotrin PO 81 mg DAILY KAITLYNN Administration Multivitamins 1 tab 05/02/19 09:00 05/22/19 08:58 Theragran PO 1 tab DAILY KAITLYNN Administration Polyethylene Glycol 17 gm 05/02/19 09:00 05/22/19 08:56 Miralax PO Not Given DAILY KAITLYNN Potassium Chloride 10 meq 05/16/19 08:00 05/22/19 08:55 Klor-Con 10 PO 10 meq QAM-WM KAITLYNN Administration Rosuvastatin Calcium 10 mg 05/15/19 21:00 05/21/19 20:58 Crestor PO 10 mg HS KAITLYNN Administration Saccharomyces Boulardii 250 mg 04/30/19 09:00 05/22/19 08:55 Florastor PO 250 mg DAILY KAITLYNN Administration Senna/Docusate Sodium 2 tab 05/01/19 21:00 05/22/19 08:55 Senokot S PO 2 tab BID KAITLYNN Administration Sodium Chloride 10 ml 04/28/19 08:53 05/22/19 08:54 Flush - Normal Saline IVF 10 ml PRN PRN Administration Saline Flush Spironolactone 25 mg 05/21/19 08:00 05/22/19 09:49 Aldactone PO 25 mg QAM-WM KAITLYNN Administration Torsemide 10 mg 05/22/19 09:00 05/22/19 09:50 Demadex PO Not Given DAILY KAITLYNN - Exam Eye: PERRL, anicteric sclera Heart: RRR, no murmur, no gallops, no rubs, normal peripheral pulses Respiratory: CTAB, no wheezes, no rales, no ronchi, normal chest expansion Gastrointestinal: soft, non-tender, non-distended, normal bowel sounds, no palpable masses, no hepatomegaly Extremities: no cyanosis Hosp A/P (1) Acute on chronic systolic heart failure, NYHA class 3 Code(s): I50.23 - ACUTE ON CHRONIC SYSTOLIC (CONGESTIVE) HEART FAILURE Status : Acute (2) Physical deconditioning Code(s): R53.81 - OTHER MALAISE Status: Acute (3) Fnnte-jl-abwlbxe kidney injury Code(s): N17.9 - ACUTE KIDNEY FAILURE, UNSPECIFIED; N18.9 - CHRONIC KIDNEY DISEASE, UNSPECIFIED Status: Acute (4) Pneumonia Code(s): J18.9 - PNEUMONIA, UNSPECIFIED ORGANISM Status: Acute (5) Ventricular tachycardia Code(s): I47.2 - VENTRICULAR TACHYCARDIA Status: Acute - Plan * Acute on chronic systolic heart failure- His blood pressure has been in the 80 "s and 90's systolic. Discussed with Dr. Hayes. This is likely his new baseline , and it is unlikely to get much better than this. * AFIB-he remains in sinus on Amiodarone * CAD- stable * Ventricular Tachycardia- stable * Pneumonia- resolved * Severe deconditioning- continue PT/OT * Awaiting transfer to Rehab
--- NOTE | 2019-05-22 16:20 | PRG ---
DATE OF SERVICE: 05/22/2019 SUBJECTIVE: Mr. Jane is doing somewhat better today. He is less short of breath. He has no chest pain. OBJECTIVE: VITAL SIGNS: Blood pressure is 98 systolic, pulse 80. LUNGS: Clear. CARDIAC: Normal S1, normal S2. ABDOMEN: Soft, nontender. EXTREMITIES: There is only mild edema. ASSESSMENT: 1. Congestive heart failure, systolic, chronic now. 2. Relatively hypotensive due to low cardiac output. 3. Status post cardioversion. 4. Status post biventricular pacemaker generator change. PLAN: 1. He is on spironolactone. 2. Amiodarone. 3. Aspirin and apixaban. 4. Torsemide. From my standpoint, there is nothing further to do. I discussed this with the patient. The patient could be released home if we can find a suitable place for him to live. Obviously, he cannot live at home yet. Dr. Emery is available this weekend if needed. Job ID: [id number]
[2019-05-22] MEDS: Rosuvastatin 10 MG TAB PO SCH (21:40)
[2019-05-23 04:14] VITALS: BP 94/59
[2019-05-23 08:32] VITALS: TEMP 97.3
== END 2019-05-23 08:20 | DRG 222 ==
LOC: ERS 06:59 → IMCU/EMU 08:31 → 2NO 05-15 15:56
PROVIDERS: ADMIT Internal Medicine; ATTEND Internal Medicine
PROC: 4A023N7 Measurement of Cardiac Sampling and Pressure, Left Heart, Percutaneous Approach (ICD-10-PCS; principal; 2019-05-01)
PROC: 0JH609Z Insertion of Cardiac Resynchronization Defibrillator Pulse Generator into Chest Subcutaneous Tissue and Fascia, Open Approach (ICD-10-PCS; 2019-05-01)
PROC: 0JPT0PZ Removal of Cardiac Rhythm Related Device from Trunk Subcutaneous Tissue and Fascia, Open Approach (ICD-10-PCS; 2019-05-01)
PROC: 3E0102A Introduction of Anti-Infective Envelope into Subcutaneous Tissue, Open Approach (ICD-10-PCS; 2019-05-01)
PROC: 02H63KZ Insertion of Defibrillator Lead into Right Atrium, Percutaneous Approach (ICD-10-PCS; 2019-05-01)
PROC: B2111ZZ Fluoroscopy of Multiple Coronary Arteries using Low Osmolar Contrast (ICD-10-PCS; 2019-05-01)
PROC: B2151ZZ Fluoroscopy of Left Heart using Low Osmolar Contrast (ICD-10-PCS; 2019-05-01)
PROC: 4B02XTZ Measurement of Cardiac Defibrillator, External Approach (ICD-10-PCS; 2019-05-01)
PROC: 5A2204Z Restoration of Cardiac Rhythm, Single (ICD-10-PCS; 2019-05-20)
DX: I13.0 Hypertensive heart and chronic kidney disease with heart failure and stage 1 through stage 4 chronic kidney disease, or unspecified chronic kidney disease (principal); J96.01 Acute respiratory failure with hypoxia; I21.A1 Myocardial infarction type 2; I50.23 Acute on chronic systolic (congestive) heart failure; J18.9 Pneumonia, unspecified organism; T82.191A Other mechanical complication of cardiac pulse generator (battery), initial encounter; N17.9 Acute kidney failure, unspecified; I47.2 Ventricular tachycardia; L97.929 Non-pressure chronic ulcer of unspecified part of left lower leg with unspecified severity; L97.919 Non-pressure chronic ulcer of unspecified part of right lower leg with unspecified severity; E87.3 Alkalosis; L03.90 Cellulitis, unspecified; E87.1 Hypo-osmolality and hyponatremia; I42.9 Cardiomyopathy, unspecified; I25.10 Atherosclerotic heart disease of native coronary artery without angina pectoris; Z95.1 Presence of aortocoronary bypass graft; Z89.429 Acquired absence of other toe(s), unspecified side; Z79.82 Long term (current) use of aspirin; I44.7 Left bundle-branch block, unspecified; I44.0 Atrioventricular block, first degree; D69.6 Thrombocytopenia, unspecified; I73.9 Peripheral vascular disease, unspecified; Z91.14 Patient's other noncompliance with medication regimen; E87.5 Hyperkalemia; N18.2 Chronic kidney disease, stage 2 (mild); I48.91 Unspecified atrial fibrillation; Z51.5 Encounter for palliative care
CPT/HCPCS: 33264; 36415; 36416; 71045; 74230; 80048; 80053; 82805; 83735; 84100; 84443; 84484; 85025; 85027; 85610; 85730; 92960; 93005; 93010; 93306; 93312; 93798; 94660; C1882; J0282; J0690; J1120; J1250; J1650; J1940; J2543; J2704; J3490; J7070

== ENCOUNTER 2020-02-26 18:13 | Inpatient (IN) | payer MEDICARE ==
[2020-02-26 18:45] LABS: #Eosinphils 0.1 thou/uL (0.0-0.7); #Lymphocytes 0.7 thou/uL (1.20-3.40); #Monocytes 0.6 thou/uL (0.11-0.59); #Neutrophils 6.1 thou/uL (1.40-6.50); %Basophils 0.3 % (0.0-1.0); %Eosinophils 0.8 % (0.0-10.0); %Lymphocytes 9.8 % (21.0-51.0); %Monocytes 7.5 % (0.0-10.0); %Neutrophils 81.6 % (42.0-75.0); Hemoglobin 14.3 g/dL (14.0-18.0); Mean Corpuscular HGB CONC 32.1 g/dL (32.0-36.0); Platelet Count 185 thou/uL (130-400); RBC Distribution Width 13.1 % (11.5-14.5); Red Blood Cell (RBC) Count 4.32 mill/uL (4.70-6.10); White Blood Cell (WBC) Count 7.5 thou/uL (4.8-10.8)
[2020-02-26 19:06] LABS: ALT (SGPT) 183 U/L (8-55); AST (SGOT) 132 U/L (5-34); Albumin 3.7 g/dL (3.4-4.8); Alkaline Phosphatase 198 U/L (40-110); Anion Gap 15 mmol/L (10-20); BUN (Urea Nitrogen) 31 mg/dL (8.4-25.7); Bilirubin, Total 1.7 mg/dL (0.2-1.2); Calc. Creatinine Clearance 0 mL/min (70-130); Carbon Dioxide 28 mmol/L (23-31); Chloride 96 mmol/L (98-107); Estimated GFR-MDRD 44; Globulin 3.6 g/dL (2.4-3.5); Glucose 99 mg/dL (83-110); Potassium 4.4 mmol/L (3.5-5.1); Protein, Total 7.3 g/dL (5.8-8.1); Sodium 135 mmol/L (136-145)
--- NOTE | 2020-02-26 19:09 | RAD ---
XR Chest 1 View Portable HISTORY: Bilateral lower extremity edema. Weight gain COMPARISON: 05/18/2019 FINDINGS: Changes of median sternotomy are again seen. Left-sided AICD remains in place. The heart is enlarged. There is a small right and larger left pleural effusion with adjacent atelectatic changes. No pneumothoraces are seen.
[2020-02-26 19:28] LABS: CKMB 0.8 ng/mL (0-6.6)
[2020-02-26] MEDS ORDERED: Furosemide 40 MG/4 ML VIAL ONE (19:56)
[2020-02-26 21:54] LABS: Troponin I 0.025 ng/mL (< 0.028)
[2020-02-26] MEDS ORDERED: Ondansetron PF 4 MG/2 ML Vial IVP PRN (23:00)
[2020-02-26] MEDS ORDERED: Ondansetron ODT 4 MG TAB SL PRN (23:00)
--- NOTE | 2020-02-27 00:12 | HP ---
REASON FOR ADMISSION: Shortness of breath. HISTORY OF PRESENT ILLNESS: This is a 74-year-old male patient who is known to have congestive heart failure with an ejection fraction of 15% to 20% post AICD, was in our hospital in April for acute on chronic respiratory failure secondary to congestive heart failure exacerbation. During his stay, he had a generator change for his biventricular pacemaker. Also underwent a TOBI, also had cardioversion. He was seen by Cardiology. At some point, he required to be on pressors for low blood pressure. He did have an episode of acute on chronic kidney injury. At some point, he improved. He was started back on Aldactone and Demadex with a low dose of YOSELIN inhibitor. He was discharged to [facility] for rehabilitation. He comes back today reporting increased fluid retention in his bilateral lower extremities and increased shortness of breath that started approximately 3 days ago. The shortness of breath is worsened with activity, relieved with rest. He does report frequent falls as well. He does not report any chest pain. He states that since his discharge from the hospital, he has been living in his trailer and did not follow with any tool machinist or any primary care physician. He states that he is compliant with his medications, but it seems that he is not very compliant with a low-salt diet. He does use Meals on Wheels. PAST MEDICAL HISTORY: 1. Coronary artery disease, status post CABG. 2. Congestive heart failure, post AICD placement, EF of 15% to 20%. ALLERGIES: NO NOTE OF ANY DRUG ALLERGIES. SOCIAL HISTORY: Does not smoke. Does not drink alcohol. FAMILY HISTORY: Reviewed and found to be negative for premature carotid disease. REVIEW OF SYSTEMS: All systems reviewed except the above-mentioned shortness of breath, found to be negative. PHYSICAL EXAMINATION: GENERAL: Awake, alert, oriented, does not appear in distress. Does appear a bit short of breath when he moves. VITAL SIGNS: His blood pressure is 116/86, pulse of 83, saturating 97% on room air. HEENT: Head is nontraumatic, normocephalic. Pupils equal, reactive. Extraocular movements are intact. Nonicteric sclerae. Well injected conjunctivae. Oral mucosa normal. Nasal mucosa normal. NECK: Supple. No adenopathy. No murmur. Thyroid is not palpable. Trachea is midline. No supraclavicular adenopathy. CARDIAC: S1, S2 regular. No murmurs. No gallops. No friction rubs. No displacement of PMI. LUNGS: Inspiratory crackles bilaterally. GI: Bowel sounds are positive. Nontender abdomen. He does have 3+ pitting edema, bilateral lower extremities. He does have erythema involving the medial aspect of his left thigh. It is warm to touch. He adds that he fell on that area when he was trying to sit in bed. He does have superficial ulcerations mainly around his left calf area. There is no evidence of pus or erythema around these superficial ulcerations. NEURO: Unable to fully assess, but he is moving all his four extremities. His cranial nerves appear to be intact. EKG shows a biventricular paced rhythm, as per my read. His blood work shows WBC of 7.5, hemoglobin of 14.3, platelets of 185. Sodium of 135, potassium 4.4, bicarb of 28, creatinine 1.55, previous creatinine 0.97, total bilirubin 1.7, previous total bilirubin 1.3, AST 132, previous AST 32, ALT 183, previous ALT 13, alkaline phosphatase 198, previous alkaline phosphatase 266, troponin 0.047, repeat 0.025. BNP 3019. His chest x-ray shows left-sided AICD remaining in place. Heart is enlarged. Small right and larger left pleural effusion with adjacent atelectasis. ASSESSMENT AND PLAN: This is a 74-year-old male patient presenting with exacerbation of his congestive heart failure. 1. Cardiac: The patient is admitted to telemetry, and we will start him on IV Lasix. We will ask Cardiology to see him. He will be on a low-sodium diet. 2. ID: I did notice redness involving the internal side of his left thigh. It is warm to touch. I believe that it might be cellulitis. I am starting him on IV Ancef. Also, he does have chronic wounds that do not look infected. We will have the wound care team to assess. 3. For DVT prophylaxis, he will be on SCDs and he is already on Eliquis. I am waiting for his med rec to be done, so I could reconcile his medication. 4. I did discuss with him his code status, and he wishes to be a full code. Job ID: [id number]
[2020-02-27] MEDS ORDERED: CEFAZOLIN 1 GM VIAL ONE ×2 (00:25→08:02)
[2020-02-27] MEDS: ceFAZolin 1 GM/D5W 1 GM in Premix Bag 1 BAG IVPB SCH ×3 (00:34→17:38)
[2020-02-27 01:19] LABS: Troponin I 0.031 ng/mL (< 0.028)
[2020-02-27 03:55] LABS: #Eosinphils 0.1 thou/uL (0.0-0.7); #Lymphocytes 0.7 thou/uL (1.20-3.40); #Monocytes 0.5 thou/uL (0.11-0.59); #Neutrophils 4.6 thou/uL (1.40-6.50); %Basophils 0.1 % (0.0-1.0); %Eosinophils 1.3 % (0.0-10.0); %Lymphocytes 12.3 % (21.0-51.0); %Monocytes 9.1 % (0.0-10.0); %Neutrophils 77.2 % (42.0-75.0); Hemoglobin 13.4 g/dL (14.0-18.0); Mean Corpuscular HGB CONC 32.4 g/dL (32.0-36.0); Mean Corpuscular Hemoglobin 33.1 pg (27.0-31.0); Platelet Count 163 thou/uL (130-400); RBC Distribution Width 13.1 % (11.5-14.5); Red Blood Cell (RBC) Count 4.05 mill/uL (4.70-6.10); White Blood Cell (WBC) Count 5.9 thou/uL (4.8-10.8)
[2020-02-27 04:10] LABS: Anion Gap 15 mmol/L (10-20); BUN (Urea Nitrogen) 29 mg/dL (8.4-25.7); Calc. Creatinine Clearance 0 mL/min (70-130); Calcium 8.7 mg/dL (7.8-10.44); Carbon Dioxide 29 mmol/L (23-31); Chloride 99 mmol/L (98-107); Estimated GFR-MDRD 46; Glucose 75 mg/dL (83-110); Potassium 3.9 mmol/L (3.5-5.1); Sodium 139 mmol/L (136-145)
--- NOTE | 2020-02-27 08:40 | PDOC.HOSPP ---
- Subjective Encounter Date: 02/27/20 Encounter Time: 10:55 Subjective: Patient with possible improvement in lower extremity edema. No SOB or chest pain. - Objective Result Diagrams: 02/27/20 03:43 02/27/20 03:43 Hospitalist ROS - Review of Systems Constitutional: denies: fever, chills Respiratory: denies: cough, shortness of breath Cardiovascular: denies: chest pain, palpitations Gastrointestinal: denies: nausea, vomiting, abdominal pain Genitourinary: denies: dysuria, hematuria - Medication Medications: Active Medications Generic Name Dose Route Start Last Admin Trade Name Freq PRN Reason Stop Dose Admin Cefazolin Sodium/Dextrose 1 gm 50 mls @ 100 mls/hr 02/26/20 23:59 02/27/20 08:10 / Device IVPB 50 mls [id number] KAITLYNN Administration - Exam General Appearance: NAD, awake alert ENT: moist mucosa Heart: RRR, no murmur, no gallops, no rubs Respiratory: CTAB, no wheezes, no rales, no ronchi Gastrointestinal: soft, non-tender, non-distended, normal bowel sounds Extremities: 1+ LE edema Extremities - other findings: toes and feet very wrinkly below compression wraps, likely improved swellin Skin - other findings: mild erythema, no warmth to left inner thigh, possibly due to edema Psychiatric: normal affect, normal behavior, A&O x 3 Hosp A/P (1) Acute on chronic systolic heart failure, NYHA class 3 Code(s): I50.23 - ACUTE ON CHRONIC SYSTOLIC (CONGESTIVE) HEART FAILURE Status: Acute (2) Llinn-pw-fejkhzs kidney injury Code(s): N17.9 - ACUTE KIDNEY FAILURE, UNSPECIFIED; N18.9 - CHRONIC KIDNEY DISEASE, UNSPECIFIED Status: Acute (3) CAD (coronary artery disease) Code(s): I25.10 - ATHSCL HEART DISEASE OF [place] CORONARY ARTERY W/O ANG PCTRS Status: Chronic (4) Hx of CABG Status: Chronic (5) Cellulitis Code(s): L03.90 - CELLULITIS, UNSPECIFIED Status: Suspected Qualifiers: Site of cellulitis: extremity Site of cellulitis of extremity: lower extremity Laterality: left Qualified Code(s): L03.116 - Cellulitis of left l ower limb - Plan Patient on fluid restriction, IV Lasix BID, daily weights, strict I&O. Cardiology consult IV Ancef starting 02/26/2020 for possible cellulitis left thigh, if looks good tomorrow can probably transition to Keflex Restart home meds when reconciled DVT Proph: Continue Eliquis GI Proph: Pepcid BID
[2020-02-27] MEDS ORDERED: Famotidine 20 MG TAB ONE (10:10)
[2020-02-27] MEDS ORDERED: Furosemide 40 MG/4 ML VIAL ONE (10:10)
[2020-02-27] MEDS: Famotidine 20 MG TAB PO SCH ×2 (10:20→22:27)
[2020-02-27] MEDS: Furosemide 40 MG/4 ML VIAL SLOW IVP SCH ×2 (10:24→22:27)
--- NOTE | 2020-02-27 16:43 | CON ---
DATE OF CONSULTATION: HISTORY OF PRESENT ILLNESS: Davis Jane is a 74-year-old white male, who is admitted with increased shortness of breath and peripheral edema. He is a somewhat poor historian, and most of the previous events are found looking at his hospitalization in April 2019. He apparently underwent CABG x4 in 2010 with redo CABG to the right coronary artery on June 17, 2010. He apparently had a left ventricular assist device. Then, in July 2010, he underwent placement of a biventricular ICD. After that, he did not follow up routinely. He then was admitted here in April 2019 with increased shortness of breath, was placed on BiPAP, and was in severe respiratory distress. It was found that his defibrillator was in the pocket. He was diuresed, was on dobutamine and ultimately underwent replacement of his biventricular ICD. He continued to have problems with hypotension, worsening renal function, and difficulty in diuresing. He underwent TOBI and cardioversion by Dr. Hayes. Ultimately, he was discharged, and he has never returned for followup. He does state that he religiously takes his medications, although at times he may have too much salt in his diet. Over the last three weeks, he has noted increased shortness of breath. He also over the last 4 to 5 days has noted increased peripheral edema. He denies any chest discomfort or ICD discharges. PAST MEDICAL HISTORY: Coronary artery disease, ischemic cardiomyopathy with ejection fraction of 15% to 20%, hypercholesterolemia, history of paroxysmal atrial fibrillation, status post cardioversion during the admission in April 2019. MEDICATIONS: 1. Amiodarone 200 mg b.i.d. (at discharge, he was supposed to continue this for 1 month ago and then go to 200 mg daily). 2. Eliquis 5 mg b.i.d. 3. Rosuvastatin 10 q.h.s. 4. Tums p.r.n. 5. Docusate sodium 250 mg daily. 6. Multivitamin daily. 7. KCl 10 mEq b.i.d. 8. Torsemide 10 mg daily. ALLERGIES: NONE. SOCIAL HISTORY: He does not smoke or drink. He lives in a travel trailer. FAMILY HISTORY: Unremarkable. REVIEW OF SYSTEMS: Unremarkable. PHYSICAL EXAMINATION: VITAL SIGNS: Blood pressure 97/67, pulse 78. HEENT: PERRL. NECK: Supple. CHEST: Reveals crackles at the bases. CARDIOVASCULAR: S1 and S2 normal without any S3 or S4. There is a 1/6 holosystolic murmur at the apex. ABDOMEN: Normal bowel sounds without tenderness or organomegaly. EXTREMITIES: Reveal 1+ pretibial edema. NEUROLOGICAL: Grossly intact. LABORATORY DATA: EKG reveals A-V pacing with what appears to be biventricular pacing. Chest x-ray reveals cardiomegaly and a small right, somewhat larger left pleural effusion. A biventricular defibrillator is in place. Hemoglobin 13.4, hematocrit 41.4, white count 5900, and platelets 163,000. Sodium 139, potassium 3.9, chloride 99, carbon dioxide 29, BUN 29, creatinine 1.49, AST 132, ALT 183. Troponin I 0.047. BNP 3019.3. IMPRESSION: 1. Acute on chronic systolic heart failure. 2. Severe ischemic cardiomyopathy, last ejection fraction of approximately 15%. 3. History of coronary artery bypass grafting x4 and then apparently redo coronary artery bypass grafting to the right coronary artery. 4. Biventricular ICD placed initially in 2010. In April 2019, when he presented, the defibrillator was in the pocket, and another biventricular defibrillator was placed. 5. Noncompliance-she has not been seen for followup since he was in the hospital in April 2019. 6. Hypertension. 7. Hypercholesterolemia. 8. Paroxysmal atrial fibrillation, status post cardioversion in April 2019. 9. Hepatic congestion. PLAN: [facility] [employer] will performed to better assess his volume status as well as any significant arrhythmias that he may have had. The amiodarone may be reduced to 200 mg daily. He states he is only taking Crestor and not the atorvastatin. Both were listed on his medications list. He is being diuresed with intravenous Lasix. Fasting lipid profile will be performed. When he was here previously, his blood pressure was such that he could not tolerate any medications except diuretics. Echocardiogram will be repeated. Job ID: [id number] MTDD
[2020-02-27] MEDS: Apixaban 5 MG TAB PO SCH ×2 (17:44→22:27)
[2020-02-27] MEDS ORDERED: Atorvastatin Calcium 20 MG TAB PO SCH (21:00)
[2020-02-27] MEDS ORDERED: Amiodarone 200 MG TAB PO SCH (21:00)
[2020-02-27] MEDS: Senokot 8.6 MG TAB PO SCH (22:28)
[2020-02-27] MEDS: Rosuvastatin 10 MG TAB PO SCH (22:28)
[2020-02-28] MEDS: ceFAZolin 1 GM/D5W 1 GM in Premix Bag 1 BAG IVPB SCH ×2 (01:26→09:09)
[2020-02-28 04:47] LABS: #Lymphocytes 0.6 thou/uL (1.20-3.40); #Monocytes 0.5 thou/uL (0.11-0.59); #Neutrophils 10.9 thou/uL (1.40-6.50); %Eosinophils 0.1 % (0.0-10.0); %Lymphocytes 4.6 % (21.0-51.0); %Monocytes 4.4 % (0.0-10.0); %Neutrophils 90.9 % (42.0-75.0); Hemoglobin 13.7 g/dL (14.0-18.0); Mean Corpuscular HGB CONC 32.3 g/dL (32.0-36.0); Mean Platelet Volume 8.6 fL (7.4-10.4); Platelet Count 188 thou/uL (130-400); RBC Distribution Width 13.3 % (11.5-14.5); Red Blood Cell (RBC) Count 4.16 mill/uL (4.70-6.10)
[2020-02-28 05:12] LABS: Anion Gap 14 mmol/L (10-20); BUN (Urea Nitrogen) 30 mg/dL (8.4-25.7); Calc. Creatinine Clearance 0 mL/min (70-130); Calcium 8.7 mg/dL (7.8-10.44); Carbon Dioxide 29 mmol/L (23-31); Chloride 96 mmol/L (98-107); Estimated GFR-MDRD 43; Glucose 140 mg/dL (83-110); Potassium 3.8 mmol/L (3.5-5.1); Sodium 135 mmol/L (136-145)
[2020-02-28] MEDS: Apixaban 5 MG TAB PO SCH ×2 (09:03→23:01)
[2020-02-28] MEDS: Spironolactone 25 MG TAB PO SCH (09:03)
[2020-02-28] MEDS: Amiodarone 200 MG TAB PO SCH (09:03)
[2020-02-28] MEDS: Famotidine 20 MG TAB PO SCH ×2 (09:03→23:01)
[2020-02-28] MEDS: Furosemide 40 MG/4 ML VIAL SLOW IVP SCH ×2 (09:04→23:01)
[2020-02-28] MEDS: Docusate Calcium (SURFAK) 240 MG CAP PO SCH (09:04)
[2020-02-28] MEDS: Saccharomyces boulardii 250 MG CAP PO SCH (09:04)
--- NOTE | 2020-02-28 11:01 | PDOC.HOSPP ---
- Subjective Encounter Date: 02/28/20 Encounter Time: 08:00 Subjective: Patient assessed this AM, reports he does not believe he is breathing much better. Sp02 overnight at 94% on RA. SCDs are causing pain in his lower legs so we can allow a few hours off/on. - Objective Vital Signs & Weight: Vital Signs (12 hours) Temp Pulse Resp BP Pulse Ox 02/28/20 07:32 96.6 F L 82 18 122/81 94 L 02/28/20 04:00 97.5 F L 81 18 111/71 94 L Weight Weight 77.564 kg I&O: 02/27/20 02/28/20 02/29/20 06:59 06:59 06:59 Intake Total 290 Output Total 450 Balance -160 Result Diagrams: 02/28/20 04:09 02/28/20 04:09 Hospitalist ROS - Review of Systems Constitutional: denies: fever, chills, sweats, weakness, malaise, other Eyes: denies: pain, vision change, conjunctivae inflammation, eyelid inflammation, redness, other ENT: denies: ear pain, ear discharge, nose pain, nose discharge, nose congestion, mouth pain, mouth swelling, throat pain, throat swelling, other Respiratory: reports: cough, shortness of breath, SOB with excertion Cardiovascular: denies: chest pain, palpitations, orthopnea, paroxysmal noc. dyspnea, edema, light headedness, other Gastrointestinal: denies: nausea, vomiting, abdominal pain, diarrhea, constipation, melena, hematochezia, other Genitourinary: denies: dysuria, frequency, incontinence, hematuria, retention, other Musculoskeletal: reports: leg pain Skin: reports: other (stasis ulcerations to bilteral lower legs with increased discomfort from SCDs) - Medication Medications: Active Medications Generic Name Dose Route Start Last Admin Trade Name Freq PRN Reason Stop Dose Admin Amiodarone HCl 200 mg 02/28/20 09:00 02/28/20 09:03 Amiodarone 200 Mg Tab PO 200 mg DAILY KAITLYNN Administration Apixaban 5 mg 02/27/20 09:00 02/28/20 09:03 Apixaban 5 Mg Tab PO 5 mg BID KAITLYNN Administration Docusate Calcium 240 mg 02/28/20 09:00 02/28/20 09:04 Docusate Calcium (Surfak) 240 Mg Cap PO Not Given DAILY KAITLYNN Famotidine 20 mg 02/27/20 09:00 02/28/20 09:03 Famotidine 20 Mg Tab PO 20 mg BID KAITLYNN Administration Furosemide 40 mg 02/27/20 09:00 02/28/20 09:04 Furosemide 40 Mg/4 Ml Vial SLOW IVP 40 mg BID KAITLYNN Administration Rosuvastatin Calcium 10 mg 02/27/20 21:00 02/27/20 22:28 Rosuvastatin 10 Mg Tab PO 10 mg HS KAITLYNN Administration Saccharomyces Boulardii 250 mg 02/28/20 09:00 02/28/20 09:04 Saccharomyces Boulardii 250 Mg Cap PO 250 mg DAILY KAITLYNN Administration Senna 1 tab 02/27/20 21:00 02/27/20 22:28 Senokot 8.6 Mg Tab PO 1 tab HS KAITLYNN Administration Sodium Chloride 10 ml 02/27/20 21:00 02/28/20 10:14 Flush - Normal Saline 10 Ml Syringe IVF 10 ml Q12HR KAITLYNN Administration Spironolactone 25 mg 02/28/20 08:00 02/28/20 09:03 Spironolactone 25 Mg Tab PO 25 mg QAM-WM KAITLYNN Administration - Exam General Appearance: awake alert Eye: PERRL ENT: normocephalic atraumatic, moist mucosa Neck: supple, no lymphadenopathy Heart: RRR, normal peripheral pulses Respiratory: normal chest expansion, rales Gastrointestinal: soft, non-tender Extremities: 2+ LE edema Extremities - other findings: bilateral lower leg with erythema,warmth, rt leg erythema/warmth to thigh Skin: normal turgor Hosp A/P (1) CAD (coronary artery disease) Code(s): I25.10 - ATHSCL HEART DISEASE OF [place] CORONARY ARTERY W/O ANG PCTRS Status: Chronic (2) Hx of CABG Status: Chronic (3) Cellulitis Code(s): L03.90 - CELLULITIS, UNSPECIFIED Status: Suspected Qualifiers: Site of cellulitis: extremity Site of cellulitis of extremity: lower extremity Laterality: left Qualified Code(s): L03.116 - Cellulitis of left lower limb (4) Acute on chronic systolic heart failure, NYHA class 3 Code(s): I50.23 - ACUTE ON CHRONIC SYSTOLIC (CONGESTIVE) HEART FAILURE Status: Acute (5) Congestive heart failure Code(s): I50.9 - HEART FAILURE, UNSPECIFIED Status: Chronic (6) Lower extremity ulceration Code(s): L97.909 - NON-PRS CHRONIC ULC UNSP PRT OF UNSP LOW LEG W UNSP SEVERITY Status: Chronic (7) Physical deconditioning Code(s): R53.81 - OTHER MALAISE Status: Chronic - Plan #CHF exacerbation Fluid restriction, IV lasix bid, daily weights, strict I&O Dr. Emery is following, will repeat Echo Cellulitus: Erythema and warmth up to patient's right thigh, Changed Kefzol to Rocephin IVPB daily Wound care into see patient this AM, ulcerations to BLE improving Home meds restarted Eliquis for DVT prevention and pepcid for PUD prevention Will recheck labs in Am
[2020-02-28] MEDS ORDERED: FLU VACC QS2020-21(65YR UP)/PF 240 MCG/0.7 ML SYRINGE IM ONE (15:15)
[2020-02-28 15:20] LABS: SARS-CoV-2 MS2 Positive; SARS-CoV-2 N Gene Negative; SARS-CoV-2 S Gene Negative; SARS-CoV-2 by NAA Not Detected (NotDetected); SARS-CoV-2 orf1ab Negative
[2020-02-28] MEDS: cefTRIAXone\\ROCEPHIN 2 GM in Sodium Chloride 0.9% 100 ML IVPB SCH (15:25)
[2020-02-28] MEDS: Rosuvastatin 10 MG TAB PO SCH (23:01)
[2020-02-28] MEDS: Senokot 8.6 MG TAB PO SCH (23:01)
[2020-02-29 07:44] LABS: Anion Gap 14 mmol/L (10-20); BUN (Urea Nitrogen) 34 mg/dL (8.4-25.7); Calc. Creatinine Clearance 46 mL/min (70-130); Calcium 8.4 mg/dL (7.8-10.44); Carbon Dioxide 30 mmol/L (23-31); Cardiac Risk 2.6 (Less than 4.5); Chloride 95 mmol/L (98-107); Cholesterol 86 mg/dl (< 200 Desired); Estimated GFR-MDRD 45; Glucose 93 mg/dL (83-110); HDL Cholesterol 33 mg/dL (>60 Neg Risk); LDL Cholesterol, Calculated 39 mg/dL; Potassium 3.5 mmol/L (3.5-5.1); Sodium 135 mmol/L (136-145); Triglycerides 70 mg/dL (Less than 150)
[2020-02-29] MEDS: Spironolactone 25 MG TAB PO SCH (07:58)
[2020-02-29] MEDS: Amiodarone 200 MG TAB PO SCH (07:58)
[2020-02-29] MEDS: Saccharomyces boulardii 250 MG CAP PO SCH (07:58)
[2020-02-29] MEDS: Apixaban 5 MG TAB PO SCH ×2 (07:58→21:17)
[2020-02-29] MEDS: Docusate Calcium (SURFAK) 240 MG CAP PO SCH (07:58)
[2020-02-29] MEDS: Famotidine 20 MG TAB PO SCH ×2 (07:58→21:17)
[2020-02-29] MEDS: Potassium Chloride 10 MEQ TAB PO SCH ×2 (07:58→21:17)
[2020-02-29] MEDS: Furosemide 40 MG/4 ML VIAL SLOW IVP SCH ×3 (07:58→22:02)
--- NOTE | 2020-02-29 09:23 | PRG ---
DATE OF SERVICE: SUBJECTIVE: Mr. Jane continues to feel weak and fatigued and some shortness of breath. No chest pain. OBJECTIVE: VITAL SIGNS: His blood pressure earlier was 92/54, most recently 121/82; pulse 80 and regular. LUNGS: Clear. CARDIAC: Normal S1, normal S2. ABDOMEN: Soft and nontender. EXTREMITIES: Moderate to severe edema. PERTINENT LABORATORY DATA: Creatinine is 1.52, potassium is 3.5. The patient states he did not follow up with the physicians in [place] after being discharged. Unfortunately, he is not being following up with anybody. ASSESSMENT: 1. Advanced congestive heart failure with an ejection fraction of 15% to 20%. 2. Previous bypass surgery and repeat bypass surgery. 3. Biventricular pacemaker defibrillator, unclear whether it is capturing the left ventricular lead. His congestive heart failure is systolic, acute on chronic. PLAN: 1. We will ask Electrophysiology to see him about the defibrillator. 2. Continue diuretics. 3. Consideration for low-dose dobutamine. Does not seem to be diuresing. Does not seem to be making any progress. Unfortunately, prognosis appears very poor in this unfortunate gentleman. Job ID: [id number]
[2020-02-29] MEDS: DOBUTamine 500 mg/250 ml 250 ML IVPB SCH (10:09)
--- NOTE | 2020-02-29 10:35 | PDOC.HOSPP ---
- Subjective Encounter Date: 02/29/20 Encounter Time: 11:00 Subjective: Patient not feeling much different. Left leg maybe a bit less swollen. Redness on left thigh very mild now. - Objective Vital Signs & Weight: Vital Signs (12 hours) Temp Pulse Resp BP Pulse Ox 02/29/20 07:59 121/82 02/29/20 07:00 97.9 F 80 18 134/74 95 02/29/20 03:48 97.5 F L 71 15 92/54 L 96 Weight Admit Weight 171 lb Weight 172 lb I&O: 02/28/20 02/29/20 03/01/20 06:59 06:59 06:59 Intake Total 290 130 Output Total 450 350 Balance -160 -220 Result Diagrams: 02/28/20 04:09 02/29/20 07:13 Hospitalist ROS - Review of Systems Constitutional: denies: fever, chills Respiratory: denies: cough, shortness of breath Cardiovascular: reports: edema. denies: chest pain, palpitations Gastrointestinal: denies: nausea, vomiting, abdominal pain Genitourinary: denies: dysuria, hematuria - Medication Medications: Active Medications Generic Name Dose Route Start Last Admin Trade Name Freq PRN Reason Stop Dose Admin Amiodarone HCl 200 mg 02/28/20 09:00 02/29/20 07:58 Amiodarone 200 Mg Tab PO 200 mg DAILY KAITLYNN Administration Apixaban 5 mg 02/27/20 09:00 02/29/20 07:58 Apixaban 5 Mg Tab PO 5 mg BID KAITLYNN Administration Docusate Calcium 240 mg 02/28/20 09:00 02/29/20 07:58 Docusate Calcium (Surfak) 240 Mg Cap PO 240 mg DAILY KAITLYNN Administration Famotidine 20 mg 02/27/20 09:00 02/29/20 07:58 Famotidine 20 Mg Tab PO 20 mg BID KAITLYNN Administration Furosemide 40 mg 02/27/20 09:00 02/29/20 07:58 Furosemide 40 Mg/4 Ml Vial SLOW IVP 40 mg BID KAITLYNN Administration Ceftriaxone Sodium 2 gm/ 100 mls @ 200 mls/hr 02/28/20 14:00 02/28/20 15:25 Sodium Chloride IVPB 100 mls Q24HR KAITLYNN Administration Dobutamine HCl/Dextrose 250 mls @ 5.851 mls/hr 02/29/20 09:00 02/29/20 10:09 Dobutamine 500 Mg/250 Ml IVPB 250 mls INF KAITLYNN Administration Protocol 2.5 MCG/KG/MIN Potassium Chloride 10 meq 02/29/20 09:00 02/29/20 07:58 Potassium Chloride 10 Meq Tab PO 10 meq MoWe@0900,2100 KAITLYNN Administration Rosuvastatin Calcium 10 mg 02/27/20 21:00 02/28/20 23:01 Rosuvastatin 10 Mg Tab PO 10 mg HS KAITLYNN Administration Saccharomyces Boulardii 250 mg 02/28/20 09:00 02/29/20 07:58 Saccharomyces Boulardii 250 Mg Cap PO 250 mg DAILY KAITLYNN Administration Senna 1 tab 02/27/20 21:00 02/28/20 23:01 Senokot 8.6 Mg Tab PO 1 tab HS KAITLYNN Administration Sodium Chloride 10 ml 02/27/20 21:00 02/29/20 07:58 Flush - Normal Saline 10 Ml Syringe IVF 10 ml Q12HR KAITLYNN Administration Spironolactone 25 mg 02/28/20 08:00 02/29/20 07:58 Spironolactone 25 Mg Tab PO 25 mg QAM-WM KAITLYNN Administration - Exam General Appearance: NAD, awake alert ENT: moist mucosa Heart: RRR, no murmur, no gallops, no rubs Respiratory: CTAB, no wheezes, no rales, no ronchi Gastrointestinal: soft, non-tender, non-distended, normal bowel sounds Extremities: 1+ LE edema Skin - other findings: mild erythema on left inner thigh, suspect due to edema, not infection Psychiatric: normal affect, normal behavior, A&O x 3 Hosp A/P (1) Acute on chronic systolic heart failure, NYHA class 3 Code(s): I50.23 - ACUTE ON CHRONIC SYSTOLIC (CONGESTIVE) HEART FAILURE Status: Acute (2) [id number] kidney injury Code(s): N17.9 - ACUTE KIDNEY FAILURE, UNSPECIFIED; N18.9 - CHRONIC KIDNEY DISEASE, UNSPECIFIED Status: Acute (3) CAD (coronary artery disease) Code(s): I25.10 - ATHSCL HEART DISEASE OF [place] CORONARY ARTERY W/O ANG PCTRS Status: Chronic (4) Hx of CABG Status: Chronic (5) Cellulitis Code(s): L03.90 - CELLULITIS, UNSPECIFIED Status: Suspected Qualifiers: Site of cellulitis: extremity Site of cellulitis of extremity: lower extremity Laterality: left Qualified Code(s): L03.116 - Cellulitis of left lower limb - Plan Patient on fluid restriction, IV Lasix BID, daily weights, strict I&O. Not diuresing so Dr. Hayes starting dobutamine. Dr. Hayes following. Plans to ask EP to see about defibrillator. IV Rocephin for possible cellulitis left thigh since WBC went up on Ancef. Recheck CBC in AM. Restart home meds when reconciled DVT Proph: Continue Eliquis GI Proph: Pepcid BID
[2020-02-29] MEDS: cefTRIAXone\\ROCEPHIN 2 GM in Sodium Chloride 0.9% 100 ML IVPB SCH (14:32)
[2020-02-29] MEDS: Acetaminophen 500 MG TAB PO PRN (18:17)
[2020-02-29] MEDS: Senokot 8.6 MG TAB PO SCH (21:17)
[2020-02-29] MEDS: Rosuvastatin 10 MG TAB PO SCH (21:17)
--- NOTE | 2020-02-29 22:03 | CON ---
DATE OF CONSULTATION: 02/29/2020 REASON FOR CONSULTATION: ICD management. HISTORY OF PRESENT ILLNESS: Mr. Jane is a 74-year-old male who presented with increasing shortness of breath and peripheral edema. He has inclusion of a biventricular ICD implant in July 2010 by an outside group with a generator change performed in April 2019 by myself. He is a poor historian and has lost to followup. In April, his ICD was in the pocket prior to implant. There were concerns about potential problems with LV capture, prompting EP consultation. His problem list is as follows. 1. Biventricular ICD implant in 2010. a. Found in pocket in April 2019, prompting generator change. 2. History of non-ST elevation [place]/complicated with cardiac arrest in 2010. 3. History of coronary artery disease with four-vessel bypass in 2010 with redo saphenous vein graft to the RCA on 06/17/2010. 4. History of LVAD. 5. Acute on chronic systolic congestive heart failure with fluid overload. 6. Ischemic cardiomyopathy with LVEF 15%. 7. Nonsustained ventricular tachycardia. 8. Peripheral vascular disease. 9. History of paroxysmal atrial fibrillation, status post TOBI cardioversion on 05/20/2019. REVIEW OF SYSTEMS: A 12-point review of systems is conducted. The patient is feeling fair. He is resting flat with no dyspnea at the time. ALLERGIES: NO KNOWN DRUG ALLERGIES. HOME MEDICATION LIST: 1. Amiodarone 200 mg b.i.d. (never reduced to the daily dose as per discharge taper instructions). 2. Eliquis 5 mg b.i.d. 3. Rosuvastatin 10 mg at bedtime. 4. Tums as needed. 5. Docusate daily. 6. Multivitamin daily. 7. Potassium chloride 10 mEq b.i.d. 8. Torsemide 10 mg daily. SOCIAL HISTORY: Negative for alcohol or tobacco. He lives in a travel trailer. FAMILY HISTORY: Unremarkable. OBJECTIVE: VITAL SIGNS: Temperature 97.6, pulse 81, blood pressure is 96/52, respirations 20, oxygen is 96% on room air. GENERAL: The patient is alert, oriented. He is a poor historian. He is in no apparent distress, resting flat in bed at the time of the exam. NECK: Supple with mild jugular venous distention. HEART: Rate is regularly regular with a holosystolic murmur at the apex. LUNGS: Clear to auscultation with fine bibasilar crackles persisting. ABDOMEN: Soft, nontender without palpable masses. Hepatojugular reflux is positive. EXTREMITIES: Warm and dry to touch. Well perfused without clubbing, cyanosis, or edema. There is a left precordial device site is without reaction. DATABASE: EKG today reveals sequential AV pacing. LABORATORY DATA: WBC 12.0, hemoglobin 13.7, potassium 3.5, creatinine 1.52. BNP 3019. AST 132, ALT 183, alkaline phosphatase 198. IMPRESSION: 1. Acute on chronic systolic congestive heart failure. 2. Severe ischemic cardiomyopathy, LVEF 10% to 15% in April 2019. 3. Severe noncompliance with lack of followup. 4. Fluid overload and congestive heart failure. 5. Inclusion of a biventricular ICD, pending transmission. 6. History of paroxysmal atrial fibrillation. PLAN AND RECOMMENDATIONS: With his fluid overload and history of arrhythmias, I have been contacted to help manage his arrhythmias and his ICD. There is some concern for potential poor LV capture. I will have his ICD interrogated and a repeat 12-lead ECG to help determine any potential ICD therapy or arrhythmia issues. I agree with reducing his amiodarone. His liver enzymes are elevated, which could represent congestion versus his over therapy on amiodarone. At this point, no apparent arrhythmias have been seen on telemetry. Further recommendations to come pending review of the upcoming testing results. Job ID: [id number]
[2020-03-01 04:39] LABS: #Eosinphils 0.1 thou/uL (0.0-0.7); #Lymphocytes 0.6 thou/uL (1.20-3.40); #Monocytes 0.5 thou/uL (0.11-0.59); %Basophils 0.2 % (0.0-1.0); %Eosinophils 1.6 % (0.0-10.0); %Lymphocytes 8.3 % (21.0-51.0); %Monocytes 7.4 % (0.0-10.0); %Neutrophils 82.5 % (42.0-75.0); Hemoglobin 12.7 g/dL (14.0-18.0); Mean Corpuscular Hemoglobin 33.3 pg (27.0-31.0); Platelet Count 166 thou/uL (130-400); RBC Distribution Width 12.9 % (11.5-14.5); Red Blood Cell (RBC) Count 3.82 mill/uL (4.70-6.10); White Blood Cell (WBC) Count 7.2 thou/uL (4.8-10.8)
[2020-03-01 05:04] LABS: Anion Gap 10 mmol/L (10-20); BUN (Urea Nitrogen) 38 mg/dL (8.4-25.7); Calc. Creatinine Clearance 53 mL/min (70-130); Calcium 8.4 mg/dL (7.8-10.44); Carbon Dioxide 31 mmol/L (23-31); Chloride 97 mmol/L (98-107); Estimated GFR-MDRD 53; Glucose 95 mg/dL (83-110); Potassium 3.4 mmol/L (3.5-5.1); Sodium 135 mmol/L (136-145)
[2020-03-01] MEDS: Famotidine 20 MG TAB PO SCH ×2 (07:56→21:16)
[2020-03-01] MEDS: Docusate Calcium (SURFAK) 240 MG CAP PO SCH (07:56)
[2020-03-01] MEDS: Saccharomyces boulardii 250 MG CAP PO SCH (07:57)
[2020-03-01] MEDS: Apixaban 5 MG TAB PO SCH ×2 (07:57→21:17)
[2020-03-01] MEDS: Amiodarone 200 MG TAB PO SCH (07:57)
[2020-03-01] MEDS: Spironolactone 25 MG TAB PO SCH (07:57)
[2020-03-01] MEDS: Furosemide 40 MG/4 ML VIAL SLOW IVP SCH ×2 (07:57→21:17)
--- NOTE | 2020-03-01 09:37 | PRG ---
DATE OF SERVICE: 03/01/2020 SUBJECTIVE: Mr. Jane is diuresing some, but still relatively modest amount. OBJECTIVE: VITAL SIGNS: His blood pressure is somewhat better 120/72, pulse 80, blood pressure earlier today is 102/63. LUNGS: Clear. CARDIAC: Normal S1 and normal S2. ABDOMEN: Soft and nontender. EXTREMITIES: Still moderate edema. ASSESSMENT: 1. Congestive heart failure systolic acute on chronic, severe. 2. Probable loss of capture of the left ventricular lead. PLAN: The device is going to be further interrogated if hopefully can program around this increased threshold in the left ventricular lead that is not feasible, then potentially may need upgrade of repeat placement of the LV lead. Job ID: [id number]
--- NOTE | 2020-03-01 12:34 | PDOC.HOSPP ---
- Subjective Encounter Date: 03/01/20 Encounter Time: 10:00 Subjective: Patient up in bed does complain of some shortness of breath. - Objective Vital Signs & Weight: Vital Signs (12 hours) Temp Pulse Resp BP BP Pulse Ox 03/01/20 11:25 97.6 F 80 20 101/71 96 03/01/20 10:15 98/59 L 03/01/20 06:55 97.7 F 79 18 120/72 96 03/01/20 03:46 97.8 F 80 21 H 102/63 93 L Weight Admit Weight 171 lb Weight 172 lb I&O: 02/29/20 03/01/20 03/02/20 06:59 06:59 06:59 Intake Total 130 Output Total 350 Balance -220 Result Diagrams: 03/01/20 04:24 03/01/20 04:24 Hospitalist ROS - Review of Systems Cardiovascular: denies: chest pain, palpitations, orthopnea, paroxysmal noc. dyspnea, edema, light headedness, other Gastrointestinal: denies: nausea, vomiting, abdominal pain, diarrhea, constipation, melena, hematochezia, other Genitourinary: denies: dysuria, frequency, incontinence, hematuria, retention, other Musculoskeletal: denies: neck pain, shoulder pain, arm pain, back pain, hand pa in, leg pain, foot pain, other - Medication Medications: Active Medications Generic Name Dose Route Start Last Admin Trade Name Freq PRN Reason Stop Dose Admin Acetaminophen 1,000 mg 02/29/20 18:11 02/29/20 18:17 Acetaminophen 500 Mg Tab PO 1,000 mg Q6H PRN Administration Moderate to Severe Pain (6-10) Amiodarone HCl 200 mg 02/28/20 09:00 03/01/20 07:57 Amiodarone 200 Mg Tab PO 200 mg DAILY [facility] Administration Apixaban 5 mg 02/27/20 09:00 03/01/20 07:57 Apixaban 5 Mg Tab PO 5 mg BID [facility] Administration Docusate Calcium 240 mg 02/28/20 09:00 03/01/20 07:56 Docusate Calcium (Surfak) 240 Mg Cap PO 240 mg DAILY [facility] Administration Famotidine 20 mg 02/27/20 09:00 03/01/20 07:56 Famotidine 20 Mg Tab PO 20 mg BID [facility] Administration Furosemide 40 mg 02/27/20 09:00 03/01/20 07:57 Furosemide 40 Mg/4 Ml Vial SLOW IVP 40 mg BID [facility] Administration Ceftriaxone Sodium 2 gm/ 100 mls @ 200 mls/hr 02/28/20 14:00 02/29/20 14:32 Sodium Chloride IVPB 100 mls Q24HR [facility] Administration Dobutamine HCl/Dextrose 250 mls @ 5.851 mls/hr 02/29/20 09:00 02/29/20 10:09 Dobutamine 500 Mg/250 Ml IVPB 250 mls INF [facility] Administration Protocol 2.5 MCG/KG/MIN Potassium Chloride 10 meq 02/29/20 09:00 02/29/20 21:17 Potassium Chloride 10 Meq Tab PO 10 meq MoWe@0900,2100 [facility] Administration Rosuvastatin Calcium 10 mg 02/27/20 21:00 02/29/20 21:17 Rosuvastatin 10 Mg Tab PO 10 mg HS [facility] Administration Saccharomyces Boulardii 250 mg 02/28/20 09:00 03/01/20 07:57 Saccharomyces Boulardii 250 Mg Cap PO 250 mg DAILY [facility] Administration Senna 1 tab 02/27/20 21:00 02/29/20 21:17 Senokot 8.6 Mg Tab PO 1 tab HS [facility] Administration Sodium Chloride 10 ml 02/27/20 21:00 03/01/20 07:57 Flush - Normal Saline 10 Ml Syringe IVF 10 ml Q12HR [facility] Administration Spironolactone 25 mg 02/28/20 08:00 03/01/20 07:57 Spironolactone 25 Mg Tab PO 25 mg QAM-WM [facility] Administration - Exam ENT: negative: normocephalic atraumatic, no oropharyngeal lesions, moist mucosa, dry oral mucosa Neck: negative: supple, symmetric, no JVD, no thyromegaly, no lymphadenopathy, no carotid bruit, JVD Heart: negative: RRR, no murmur, no gallops, no rubs, normal peripheral pulses, irregular, diminshed peripheral pulses, murmur present, II/IV, III/IV Respiratory: rales Gastrointestinal: soft, normal bowel sounds Extremities: 1+ LE edema Extremities - other findings: Erythema noted to the right lower extremity tracking to thigh Hosp A/P (1) CAD (coronary artery disease) Code(s): I25.10 - ATHSCL HEART DISEASE OF [place] CORONARY ARTERY W/O ANG PCTRS Status: Chronic (2) Cellulitis Code(s): L03.90 - CELLULITIS, UNSPECIFIED Status: Suspected Qualifiers: Site of cellulitis: extremity Site of cellulitis of extremity: lower extremity Laterality: left Qualified Code(s): L03.116 - Cellulitis of left lower limb (3) Acute on chronic systolic heart failure, NYHA class 3 Code(s): I50.23 - ACUTE ON CHRONIC SYSTOLIC (CONGESTIVE) HEART FAILURE Status: Acute (4) Peripheral vascular disease of lower extremity Code(s): I73.9 - PERIPHERAL VASCULAR DISEASE, UNSPECIFIED Status: Acute (5) Physical deconditioning Code(s): R53.81 - OTHER MALAISE Status: Chronic (6) CKD (chronic kidney disease) stage 3, GFR 30-59 ml/min Code(s): N18.30 - CHRONIC KIDNEY DISEASE, STAGE 3 UNSPECIFIED Status: Acute - Plan We will continue antibiotics which was started on February 27. Patient does have some erythema to his right leg. We will continue IV diuretics. Patient is on dobutamine drip. Per cardiology his device is going to be further interrogated to increase the threshold of the left ventricular lead if not feasible then adriel ent will require an upgrade of repeat placement of the LV lead
[2020-03-01] MEDS: cefTRIAXone\\ROCEPHIN 2 GM in Sodium Chloride 0.9% 100 ML IVPB SCH (14:58)
[2020-03-01] MEDS: Acetaminophen 500 MG TAB PO PRN (15:07)
--- NOTE | 2020-03-01 17:45 | PDOC.EP ---
- Subjective Date: 03/01/20 Time: 08:00 Interval History: no new events overnight. He reports significantly short of breath, but speaks to me lying flat in bed - Review of Systems Constitutional: reports: weakness. denies: chills, fever Respiratory: reports: shortness of breath. denies: cough, dry, hemoptysis, pleuritic pain Cardiology: denies: chest pain, edema, heart racing, light headedness, palp itations, passing out Gastrointestinal: denies: abdominal pain, nausea, vomitting Musculoskeletal: denies: unstable gait, falls, leg pain - Objective Allergies/Adverse Reactions: Allergies Allergy/AdvReac Type Severity Reaction Status Date / Time No Known Drug Allergies Allergy Verified 04/28/19 13:19 Current Medications Acetaminophen (Acetaminophen 500 Mg Tab) 1,000 mg PO Q6H PRN PRN Reason: Moderate to Severe Pain (6-10) Last Admin: 03/01/20 15:07 Dose: 1,000 mg Documented by: Amiodarone HCl (Amiodarone 200 Mg Tab) 200 mg PO DAILY [facility] Last Admin: 03/01/20 07:57 Dose: 200 mg Documented by: Apixaban (Apixaban 5 Mg Tab) 5 mg PO BID [facility] Last Admin: 03/01/20 07:57 Dose: 5 mg Documented by: Docusate Calcium (Docusate Calcium (Surfak) 240 Mg Cap) 240 mg PO DAILY [facility] Last Admin: 03/01/20 07:56 Dose: 240 mg Documented by: Famotidine (Famotidine 20 Mg Tab) 20 mg PO BID [facility] Last Admin: 03/01/20 07:56 Dose: 20 mg Documented by: Furosemide (Furosemide 40 Mg/4 Ml Vial) 40 mg SLOW IVP BID [facility] Last Admin: 03/01/20 07:57 Dose: 40 mg Documented by: Ceftriaxone Sodium 2 gm/ (Sodium Chloride) 100 mls @ 200 mls/hr IVPB Q24HR [facility] Last Admin: 03/01/20 14:58 Dose: 100 mls Documented by: Dobutamine HCl/Dextrose (Dobutamine 500 Mg/250 Ml) 250 mls @ 5.851 mls/hr IVPB INF [facility]; Protocol Last Admin: 02/29/20 10:09 Dose: 250 mls Documented by: Potassium Chloride (Potassium Chloride 10 Meq Tab) 10 meq PO MoWe@0900,2100 [facility] Last Admin: 02/29/20 21:17 Dose: 10 meq Documented by: Rosuvastatin Calcium (Rosuvastatin 10 Mg Tab) 10 mg PO [facility] Last Admin: 02/29/20 21:17 Dose: 10 mg Documented by: Saccharomyces Boulardii (Saccharomyces Boulardii 250 Mg Cap) 250 mg PO DAILY [facility] Last Admin: 03/01/20 07:57 Dose: 250 mg Documented by: Senna (Senokot 8.6 Mg Tab) 1 tab PO [facility] Last Admin: 02/29/20 21:17 Dose: 1 tab Documented by: Sodium Chloride (Flush - Normal Saline 10 Ml Syringe) 10 ml IVF Q12HR [facility] Last Admin: 03/01/20 07:57 Dose: 10 ml Documented by: Sodium Chloride (Flush - Normal Saline 10 Ml Syringe) 10 ml IVF PRN PRN PRN Reason: Saline Flush Spironolactone (Spironolactone 25 Mg Tab) 25 mg PO QAM-WM [facility] Last Admin: 03/01/20 07:57 Dose: 25 mg Documented by: Vital Signs & Weight: Vital Signs Temp Pulse Resp BP BP Pulse Ox 03/01/20 15:09 97.8 F 75 20 96/66 97 03/01/20 11:25 97.6 F 80 20 101/71 96 03/01/20 10:15 98/59 L 03/01/20 06:55 97.7 F 79 18 120/72 96 Admit Weight 171 lb Weight 172 lb I/O: I/O 02/29/20 03/01/20 03/02/20 06:59 06:59 06:59 Intake Total 130 Output Total 350 Balance -220 - Physical Exam General: alert & oriented x3, appears well, speech clear HEENT: mucus membranes moist Neck: supple neck, midline trachea, no lymphadenopathy Cardiology: regular rate and rhythm, no murmur, PMI nondisplaced Lungs: decreased breath sounds, bibasilar rales Neurology: cranial nerve 2-12 intact, grossly intact, no lateralizing findings - Labs Result Diagrams: 03/01/20 04:24 03/01/20 04:24 - EKG Interpretation EKG Method: Telemetry EKG shows: Sinus rhythm ( AV paced) - Device Device: biventricular, defibrillator Device Result: DNA [employer] - Assessment/Plan Assessment/Plan: 1. Biventricular ICD implant in 2010. a. Found in pocket in April 2019, prompting generator change. b. 03/01/20- device interrogated and loss of LV capture. requires LV lead revision 2. History of non-ST elevation [place]/complicated with cardiac arrest in 2010. 3. History of coronary artery disease with four-vessel bypass in 2010 with redo saphenous vein graft to the RCA on 06/17/2010. 4. History of LVAD. 5. Acute on chronic systolic congestive heart failure with fluid overload. 6. Ischemic cardiomyopathy with LVEF 15%. 7. Nonsustained ventricular tachycardia. 8. Peripheral vascular disease. 9. History of paroxysmal atrial fibrillation, status post TOBI cardioversion on 05/20/2019. [facility] transmission did not provide LV capture threshold. It was then interrogated by [employer] this morning and found that the LV lead was not capturing. the loss of cardiac resynchronization therapy and subsequent high- grade RV pacing likely be contributor to his congestive heart failure symptoms and fluid overload. His LV lead requires revision which was discussed with him as a possibility today. Plan for tentative LV lead revision with new lead implant, abandoning the old lead, tomorrow. will keep NPO after midnight.
[2020-03-01] MEDS: Rosuvastatin 10 MG TAB PO SCH (21:16)
[2020-03-01] MEDS: Senokot 8.6 MG TAB PO SCH (21:16)
[2020-03-01] MEDS: DOBUTamine 500 mg/250 ml 250 ML IVPB SCH (21:21)
[2020-03-02] MEDS: Furosemide 40 MG/4 ML VIAL SLOW IVP SCH ×3 (00:53→21:58)
[2020-03-02 05:02] LABS: #Eosinphils 0.1 thou/uL (0.0-0.7); #Lymphocytes 0.8 thou/uL (1.20-3.40); #Monocytes 0.8 thou/uL (0.11-0.59); #Neutrophils 5.8 thou/uL (1.40-6.50); %Lymphocytes 10.7 % (21.0-51.0); %Neutrophils 77.3 % (42.0-75.0); Mean Corpuscular HGB CONC 32.2 g/dL (32.0-36.0); Mean Corpuscular Hemoglobin 33.1 pg (27.0-31.0); Mean Platelet Volume 8.1 fL (7.4-10.4); Platelet Count 190 thou/uL (130-400); RBC Distribution Width 13.1 % (11.5-14.5); Red Blood Cell (RBC) Count 3.93 mill/uL (4.70-6.10); White Blood Cell (WBC) Count 7.5 thou/uL (4.8-10.8)
[2020-03-02 05:22] LABS: Anion Gap 13 mmol/L (10-20); BUN (Urea Nitrogen) 38 mg/dL (8.4-25.7); Calc. Creatinine Clearance 59 mL/min (70-130); Calcium 8.2 mg/dL (7.8-10.44); Carbon Dioxide 31 mmol/L (23-31); Chloride 97 mmol/L (98-107); Estimated GFR-MDRD 61; Glucose 111 mg/dL (83-110); Potassium 3.4 mmol/L (3.5-5.1); Sodium 138 mmol/L (136-145)
[2020-03-02] MEDS ORDERED: Potassium Chloride 20 MEQ/100 ML PREMIX BAG ONE (10:28)
[2020-03-02] MEDS ORDERED: Lidocaine 1% (PF) 30 ML VIAL ONE (10:28)
[2020-03-02] MEDS ORDERED: Gentamicin 80 MG/2 ML VIAL ONE (10:28)
[2020-03-02] MEDS ORDERED: CEFAZOLIN 1 GM VIAL ONE (10:28)
[2020-03-02] MEDS ORDERED: Furosemide 40 MG/4 ML VIAL ONE (10:28)
[2020-03-02] MEDS: Docusate Calcium (SURFAK) 240 MG CAP PO SCH (11:44)
[2020-03-02] MEDS: Famotidine 20 MG TAB PO SCH ×2 (11:44→20:29)
[2020-03-02] MEDS: Saccharomyces boulardii 250 MG CAP PO SCH (11:44)
[2020-03-02] MEDS: Potassium Chloride 10 MEQ TAB PO SCH ×2 (11:44→20:29)
[2020-03-02] MEDS: Spironolactone 25 MG TAB PO SCH (11:44)
[2020-03-02] MEDS: Amiodarone 200 MG TAB PO SCH (11:44)
[2020-03-02] MEDS: Apixaban 5 MG TAB PO SCH ×2 (11:45→20:29)
--- NOTE | 2020-03-02 11:46 | PDOC.HOSPP ---
- Subjective Encounter Date: 03/02/20 Encounter Time: 11:41 Subjective: Mr. Jane was seen today in follow-up of CHF exacerbation. He appears very dyspneic. He has increased work of breathing. He says he has not improved much since he was admitted. - Objective Vital Signs & Weight: Vital Signs (12 hours) Temp Pulse Resp BP Pulse Ox 03/02/20 11:36 98 F 80 22 H 119/79 99 03/02/20 07:37 97.4 F L 79 22 H 112/68 95 03/02/20 07:35 95 03/02/20 03:41 97.9 F 80 17 106/64 98 03/02/20 00:00 110/54 L Weight Admit Weight 171 lb Weight 172 lb Result Diagrams: 03/02/20 04:40 03/02/20 04:40 Hospitalist ROS - Medication Medications: Active Medications Generic Name Dose Route Start Last Admin Trade Name Freq PRN Reason Stop Dose Admin Acetaminophen 1,000 mg 02/29/20 18:11 03/01/20 15:07 Acetaminophen 500 Mg Tab PO 1,000 mg Q6H PRN Administration Moderate to Severe Pain (6-10) Amiodarone HCl 200 mg 02/28/20 09:00 03/01/20 07:57 Amiodarone 200 Mg Tab PO 200 mg DAILY [facility] Administration Apixaban 5 mg 02/27/20 09:00 03/01/20 21:17 Apixaban 5 Mg Tab PO Not Given BID [facility] Docusate Calcium 240 mg 02/28/20 09:00 03/01/20 07:56 Docusate Calcium (Surfak) 240 Mg Cap PO 240 mg DAILY [facility] Administration Famotidine 20 mg 02/27/20 09:00 03/01/20 21:16 Famotidine 20 Mg Tab PO 20 mg BID [facility] Administration Furosemide 40 mg 02/27/20 09:00 03/02/20 00:53 Furosemide 40 Mg/4 Ml Vial SLOW IVP 40 mg BID [facility] Administration Ceftriaxone Sodium 2 gm/ 100 mls @ 200 mls/hr 02/28/20 14:00 03/01/20 14:58 Sodium Chloride IVPB 100 mls Q24HR [facility] Administration Dobutamine HCl/Dextrose 250 mls @ 5.851 mls/hr 02/29/20 09:00 03/01/20 21:21 Dobutamine 500 Mg/250 Ml IVPB 250 mls INF [facility] Administration Protocol 2.5 MCG/KG/MIN Potassium Chloride 10 meq 02/29/20 09:00 02/29/20 21:17 Potassium Chloride 10 Meq Tab PO 10 meq MoWe@0900,2100 [facility] Administration Rosuvastatin Calcium 10 mg 02/27/20 21:00 03/01/20 21:16 Rosuvastatin 10 Mg Tab PO 10 mg HS [facility] Administration Saccharomyces Boulardii 250 mg 02/28/20 09:00 03/01/20 07:57 Saccharomyces Boulardii 250 Mg Cap PO 250 mg DAILY [facility] Administration Senna 1 tab 02/27/20 21:00 03/01/20 21:16 Senokot 8.6 Mg Tab PO 1 tab HS [facility] Administration Sodium Chloride 10 ml 02/27/20 21:00 03/01/20 21:17 Flush - Normal Saline 10 Ml Syringe IVF 10 ml Q12HR [facility] Administration Spironolactone 25 mg 02/28/20 08:00 03/01/20 07:57 Spironolactone 25 Mg Tab PO 25 mg QAM-WM [facility] Administration - Exam Eye: PERRL, anicteric sclera Heart: RRR, no gallops, murmur present, II/IV Respiratory: rales Gastrointestinal: soft, non-tender, non-distended, normal bowel sounds Extremities: 2+ LE edema (+ bilateral lower extremity edema) Hosp A/P (1) Acute on chronic systolic heart failure, NYHA class 3 Code(s): I50.23 - ACUTE ON CHRONIC SYSTOLIC (CONGESTIVE) HEART FAILURE Status: Acute (2) CAD (coronary artery disease) Code(s): I25.10 - ATHSCL HEART DISEASE OF [place] CORONARY ARTERY W/O ANG PCTRS Status: Chronic (3) Acute kidney injury Code(s): N17.9 - ACUTE KIDNEY FAILURE, UNSPECIFIED Status: Acute (4) Physical deconditioning Code(s): R53.81 - OTHER [place] Status: Chronic - Plan * Acute on chronic respiratory failure- He appears to be severely decompensated- Will check a stat ABG, and Chest X-ray * He may need to be placed on BiPAP and moved to the [facility] * Plan was for revision of the LV lead to his defibrillator, but this will need to be postponed * Acute Kidney injury- improved *
--- NOTE | 2020-03-02 12:07 | RAD ---
EXAM: CHEST ONE VIEW HISTORY: Shortness of breath. COMPARISON: 02/26/2020 FINDINGS: Patient is rotated to the right which accentuates the hilar structures and mediastinum. Postoperative changes related to median sternotomy and CABG are again noted. Multilead left subclavian AICD device remains in place. Cardiac silhouette is magnified by projection but does appear enlarged. Ther e are increased perihilar interstitial opacities which may be related to either pulmonary edema or infectious process. There is blunting of each lateral costophrenic angle which could be related to b ilateral pleural effusions versus pleural and parenchymal scarring. Right glenohumeral osteoarthropathy is present. There is osteopenia. IMPRESSION: 1. Increased perihilar interstitial opacities which may be related to pulmonary edema versus infectio us process. Follow-up to resolution is recommended. 2. Persistent blunting of each lateral costophrenic angle which could be related to mild pleural and parenchymal scarring versus small bilateral pleural effusions greater on the left.
[2020-03-02 12:35] LABS: Actual Bicarbonate (HCO3a) 28.9 mEq/L (22-28); Base Excess (BEa) 2.9 mEq/L (-2.0 to +3.0); CO2 Tension 49.7 mmHg (35.0-45.0); Calcium, Ionized (arterial) 1.12 mmol/L (1.12-1.30); Carboxyhemoglobin (COHb) 0.7 gm% (0.0-3.0); O2 Tension (PaO2), arterial 113.5 mmHg (> 70.0); Potassium - ABG Lab 4.31 mmol/L (3.70-5.30); pH, Arterial 7.38 (7.35-7.45)
[2020-03-02 12:36] LABS: Puncture Site RRA
[2020-03-02 12:37] LABS: ALV-art Gradient 24.015 mmHg (0-20)
[2020-03-02] MEDS ORDERED: Furosemide 40 MG/4 ML VIAL SLOW IVP SCH (12:45)
--- NOTE | 2020-03-02 13:03 | PDOC.EP ---
- Subjective Date: 03/02/20 Time: 13:02 Interval History: Labored breathing with increased shortness of breath this morning. Cannot lay flat. - Review of Systems Constitutional: denies: chills, fever, malaise, sweats Respiratory: reports: shortness of breath. denies: cough, dry, sputum, wheezing Cardiology: denies: chest pain, edema, heart racing, light headedness, passing out Gastrointestinal: denies: abdominal pain, nausea, vomitting Musculoskeletal: reports: unstable gait - Objective Allergies/Adverse Reactions: Allergies Allergy/AdvReac Type Severity Reaction Status Date / Time No Known Drug Allergies Allergy Verified 04/28/19 13:19 Current Medications Acetaminophen (Acetaminophen 500 Mg Tab) 1,000 mg PO Q6H PRN PRN Reason: Moderate to Severe Pain (6-10) Last Admin: 03/01/20 15:07 Dose: 1,000 mg Documented by: Amiodarone HCl (Amiodarone 200 Mg Tab) 200 mg PO DAILY [facility] Last Admin: 03/02/20 11:44 Dose: 200 mg Documented by: Apixaban (Apixaban 5 Mg Tab) 5 mg PO BID [facility] Last Admin: 03/02/20 11:45 Dose: Not Given Documented by: Docusate Calcium (Docusate Calcium (Surfak) 240 Mg Cap) 240 mg PO DAILY [facility] Last Admin: 03/02/20 11:44 Dose: 240 mg Documented by: Famotidine (Famotidine 20 Mg Tab) 20 mg PO BID [facility] Last Admin: 03/02/20 11:44 Dose: 20 mg Documented by: Furosemide (Furosemide 40 Mg/4 Ml Vial) 40 mg SLOW IVP BID [facility] Last Admin: 03/02/20 11:44 Dose: 40 mg Documented by: Furosemide (Furosemide 40 Mg/4 Ml Vial) 40 mg SLOW IVP NOW [facility] Stop: 03/02/20 14:45 Ceftriaxone Sodium 2 gm/ (Sodium Chloride) 100 mls @ 200 mls/hr IVPB Q24HR [facility] Last Admin: 03/01/20 14:58 Dose: 100 mls Documented by: Dobutamine HCl/Dextrose (Dobutamine 500 Mg/250 Ml) 250 mls @ 5.851 mls/hr IVPB INF [facility]; Protocol Last Admin: 03/01/20 21:21 Dose: 250 mls Documented by: Potassium Chloride (Potassium Chloride 10 Meq Tab) 10 meq PO MoWe@0900,2100 [facility] Last Admin: 03/02/20 11:44 Dose: 10 meq Documented by: Rosuvastatin Calcium (Rosuvastatin 10 Mg Tab) 10 mg PO [facility] Last Admin: 03/01/20 21:16 Dose: 10 mg Documented by: Saccharomyces Boulardii (Saccharomyces Boulardii 250 Mg Cap) 250 mg PO DAILY [facility] Last Admin: 03/02/20 11:44 Dose: 250 mg Documented by: Senna (Senokot 8.6 Mg Tab) 1 tab PO [facility] Last Admin: 03/01/20 21:16 Dose: 1 tab Documented by: Sodium Chloride (Flush - Normal Saline 10 Ml Syringe) 10 ml IVF Q12HR [facility] Last Admin: 03/02/20 11:44 Dose: 10 ml Documented by: Sodium Chloride (Flush - Normal Saline 10 Ml Syringe) 10 ml IVF PRN PRN PRN Reason: Saline Flush Spironolactone (Spironolactone 25 Mg Tab) 25 mg PO QAM-WM [facility] Last Admin: 03/02/20 11:44 Dose: 25 mg Documented by: Vital Signs & Weight: Vital Signs Temp Pulse Resp BP Pulse Ox 03/02/20 11:36 98 F 80 28 H 119/79 99 03/02/20 07:37 97.4 F L 79 22 H 112/68 95 03/02/20 07:35 95 03/02/20 03:41 97.9 F 80 17 106/64 98 Admit Weight 171 lb Weight 172 lb - Quality Measures Condition: Atrial Fibrillation/Flutter (hx or current) CV meds: Eliquis: Yes - Physical Exam General: alert & oriented x3. negative: appears well HEENT: mucus membranes moist, normocephaly, EOMI Neck: supple neck, midline trachea, no lymphadenopathy Cardiology: regular rate and rhythm, PMI nondisplaced Lungs: no wheezes, no rhonchi, bibasilar rales, other ( labored with accessory muscle use) Neurology: cranial nerve 2-12 intact, grossly intact, no lateralizing findings Abdomen: unremarkable, active bowel sounds, no pulsations/bruits Skin: device site stable w/o swelling - Chadsvasc Risk factors Congestive heart failure: 1 Age >75: 2 Risk Score: 3 - Labs Result Diagrams: 03/02/20 04:40 03/02/20 04:40 - EKG Interpretation EKG Method: Telemetry EKG shows: Sinus rhythm - Device Device: biventricular, defibrillator Device Result: [employer] - Assessment/Plan Assessment/Plan: 1. Biventricular ICD implant in 2010. a. Found in pocket in April 2019, prompting generator change. b. 03/01/20- device interrogated and loss of LV capture. requires LV lead revision 2. History of non-ST elevation [place]/complicated with cardiac arrest in 2010. 3. History of coronary artery disease with four-vessel bypass in 2010 with redo saphenous vein graft to the RCA on 06/17/2010. 4. History of LVAD. 5. Acute on chronic systolic congestive heart failure with fluid overload. 6. Ischemic cardiomyopathy with LVEF 15%. 7. Nonsustained ventricular tachycardia. 8. Peripheral vascular disease. 9. History of paroxysmal atrial fibrillation, status post TOBI cardioversion on 05/20/2019. labored breathing, accessory muscle use and crackles. Gave an additional 40 of IV Lasix with IV potassium. Due to congestive heart failure I am postponing LV lead revision, tentatively added for Saturday. electrolyte replacement needed please keep potassium greater than 4 and magnesium greater than 2. Need strict I/Os and daily weights please.
[2020-03-02] MEDS ORDERED: Metolazone 5 MG TAB PO SCH (14:00)
[2020-03-02] MEDS: cefTRIAXone\\ROCEPHIN 2 GM in Sodium Chloride 0.9% 100 ML IVPB SCH (14:27)
[2020-03-02] MEDS: Rosuvastatin 10 MG TAB PO SCH (20:29)
[2020-03-02] MEDS: Senokot 8.6 MG TAB PO SCH (20:30)
[2020-03-03 04:03] LABS: #Lymphocytes 0.6 thou/uL (1.20-3.40); #Monocytes 0.6 thou/uL (0.11-0.59); #Neutrophils 5.6 thou/uL (1.40-6.50); %Basophils 0.1 % (0.0-1.0); %Eosinophils 0.3 % (0.0-10.0); %Lymphocytes 8.6 % (21.0-51.0); %Monocytes 8.6 % (0.0-10.0); %Neutrophils 82.3 % (42.0-75.0); Hemoglobin 13.6 g/dL (14.0-18.0); Mean Corpuscular HGB CONC 32.4 g/dL (32.0-36.0); Mean Corpuscular Hemoglobin 33.3 pg (27.0-31.0); Mean Platelet Volume 8.2 fL (7.4-10.4); Platelet Count 202 thou/uL (130-400); RBC Distribution Width 13.2 % (11.5-14.5); White Blood Cell (WBC) Count 6.8 thou/uL (4.8-10.8)
[2020-03-03] MEDS: DOBUTamine 500 mg/250 ml 250 ML IVPB SCH (04:05)
[2020-03-03 04:12] LABS: Anion Gap 17 mmol/L (10-20); BUN (Urea Nitrogen) 40 mg/dL (8.4-25.7); Calc. Creatinine Clearance 55 mL/min (70-130); Calcium 8.6 mg/dL (7.8-10.44); Carbon Dioxide 28 mmol/L (23-31); Chloride 96 mmol/L (98-107); Estimated GFR-MDRD 56; Glucose 120 mg/dL (83-110); Sodium 137 mmol/L (136-145)
[2020-03-03] MEDS: Famotidine 20 MG TAB PO SCH ×2 (10:01→20:49)
[2020-03-03] MEDS: Docusate Calcium (SURFAK) 240 MG CAP PO SCH (10:01)
[2020-03-03] MEDS: Apixaban 5 MG TAB PO SCH (10:01)
[2020-03-03] MEDS: Saccharomyces boulardii 250 MG CAP PO SCH (10:01)
[2020-03-03] MEDS: Spironolactone 25 MG TAB PO SCH (10:02)
[2020-03-03] MEDS: Amiodarone 200 MG TAB PO SCH (10:02)
--- NOTE | 2020-03-03 11:33 | PDOC.HOSPP ---
- Subjective Encounter Date: 03/03/20 Encounter Time: 11:32 Subjective: Mr. Jane was seen today in follow-up of CHF exacerbation. He is still dyspneic, but - Objective Vital Signs & Weight: Vital Signs (12 hours) Temp Pulse Pulse BP BP Pulse Ox Pulse Ox 03/03/20 11:03 97.1 F L 03/03/20 09:04 79 79 108/69 97/65 100 03/03/20 08:00 100 03/03/20 07:07 96.5 F L 03/03/20 04:00 97.6 F 03/03/20 00:00 97.1 F L Pulse Ox 03/03/20 11:03 03/03/20 09:04 100 03/03/20 08:00 03/03/20 07:07 03/03/20 04:00 03/03/20 00:00 Weight Admit Weight 171 lb Weight 173 lb 4.8 oz Most Recent Monitor Data Heart Rate from ECG 83 NIBP 101/60 NIBP BP-Mean 73 Respiration from ECG 27 SpO2 100 I&O: 03/02/20 03/03/20 03/04/20 06:59 06:59 06:59 Intake Total 890 Output Total 1130 Balance -240 Result Diagrams: 03/03/20 03:11 03/03/20 03:11 Hospitalist ROS - Medication Medications: Active Medications Generic Name Dose Route Start Last Admin Trade Name Freq PRN Reason Stop Dose Admin Acetaminophen 1,000 mg 02/29/20 18:11 03/01/20 15:07 Acetaminophen 500 Mg Tab PO 1,000 mg Q6H PRN Administration Moderate to Severe Pain (6-10) Amiodarone HCl 200 mg 02/28/20 09:00 03/03/20 10:02 Amiodarone 200 Mg Tab PO 200 mg DAILY KAITLYNN Administration Apixaban 5 mg 02/27/20 09:00 03/03/20 10:01 Apixaban 5 Mg Tab PO 5 mg BID KAITLYNN Administration Docusate Calcium 240 mg 02/28/20 09:00 03/03/20 10:01 Docusate Calcium (Surfak) 240 Mg Cap PO 240 mg DAILY KAITLYNN Administration Famotidine 20 mg 02/27/20 09:00 03/03/20 10:01 Famotidine 20 Mg Tab PO 20 mg BID KAITLYNN Administration Ceftriaxone Sodium 2 gm/ 100 mls @ 200 mls/hr 02/28/20 14:00 03/02/20 14:27 Sodium Chloride IVPB 100 mls Q24HR KAITLYNN Administration Dobutamine HCl/Dextrose 250 mls @ 11.703 mls/hr 03/02/20 14:00 03/03/20 04:05 Dobutamine 500 Mg/250 Ml IVPB 250 mls INF KAITLYNN Administration Protocol 5 MCG/KG/MIN Potassium Chloride 10 meq 02/29/20 09:00 03/02/20 20:29 Potassium Chloride 10 Meq Tab PO 10 meq MoWe@0900,2100 KAITLYNN Administration Rosuvastatin Calcium 10 mg 02/27/20 21:00 03/02/20 20:29 Rosuvastatin 10 Mg Tab PO 10 mg HS KAITLYNN Administration Saccharomyces Boulardii 250 mg 02/28/20 09:00 03/03/20 10:01 Saccharomyces Boulardii 250 Mg Cap PO 250 mg DAILY KAITLYNN Administration Senna 1 tab 02/27/20 21:00 03/02/20 20:30 Senokot 8.6 Mg Tab PO 1 tab HS KAITLYNN Administration Sodium Chloride 10 ml 02/27/20 21:00 03/03/20 10:02 Flush - Normal Saline 10 Ml Syringe IVF 10 ml Q12HR KAITLYNN Administration Spironolactone 25 mg 02/28/20 08:00 03/03/20 10:02 Spironolactone 25 Mg Tab PO 25 mg QAM-WM KAITLYNN Administration - Exam Eye: PERRL, anicteric sclera Heart: RRR, no murmur, no gallops, normal peripheral pulses Respiratory: rales (+ rales through about mid way up chest) Gastrointestinal: soft, non-tender, non-distended, normal bowel sounds, no palpable masses, no hepatomegaly Extremities: 2+ LE edema (+ edema in both lower extremities) Hosp A/P (1) Acute on chronic systolic heart failure, NYHA class 3 Code(s): I50.23 - ACUTE ON CHRONIC SYSTOLIC (CONGESTIVE) HEART FAILURE Status: Acute (2) CAD (coronary artery disease) Code(s): I25.10 - ATHSCL HEART DISEASE OF [place] CORONARY ARTERY W/O ANG PCTRS Status: Chronic (3) Acute kidney injury Code(s): N17.9 - ACUTE KIDNEY FAILURE, UNSPECIFIED Status: Acute (4) Physical deconditioning Code(s): R53.81 - OTHER MALAISE Status: Chronic - Plan * Acute on chronic respiratory failure- Continue to diaurese * Discussed with PCCM-he will beplaced on BiPAP * Plan was for revision of the LV lead to his defibrillator, but this will need to be postponed * Acute Kidney injury-stable * Severe deconditioning - PT as tolerated * Prognosis is guarded
[2020-03-03] MEDS: Furosemide 100 MG/10 ML VIAL SLOW IVP SCH (15:09)
[2020-03-03] MEDS: cefTRIAXone\\ROCEPHIN 2 GM in Sodium Chloride 0.9% 100 ML IVPB SCH (15:09)
--- NOTE | 2020-03-03 17:22 | PDOC.EP ---
- Subjective Date: 03/03/20 Time: 08:00 Interval History: transferred to IMCU due to decline in respiratory status starting yesterday AM. Still short of breath with labored breathing. - Review of Systems Constitutional: reports: weakness. denies: chills, malaise Respiratory: reports: shortness of breath. denies: wheezing Cardiology: denies: chest pain, edema, heart racing, light headedness, palpitations, passing out - Objective Allergies/Adverse Reactions: Allergies Allergy/AdvReac Type Severity Reaction Status Date / Time No Known Drug Allergies Allergy Verified 04/28/19 13:19 Current Medications Acetaminophen (Acetaminophen 500 Mg Tab) 1,000 mg PO Q6H PRN PRN Reason: Moderate to Severe Pain (6-10) Last Admin: 03/01/20 15:07 Dose: 1,000 mg Documented by: Amiodarone HCl (Amiodarone 200 Mg Tab) 200 mg PO DAILY [facility] Last Admin: 03/03/20 10:02 Dose: 200 mg Documented by: Apixaban (Apixaban 5 Mg Tab) 5 mg PO BID [facility] Last Admin: 03/03/20 10:01 Dose: 5 mg Documented by: Docusate Calcium (Docusate Calcium (Surfak) 240 Mg Cap) 240 mg PO DAILY [facility] Last Admin: 03/03/20 10:01 Dose: 240 mg Documented by: Famotidine (Famotidine 20 Mg Tab) 20 mg PO BID [facility] Last Admin: 03/03/20 10:01 Dose: 20 mg Documented by: Furosemide (Furosemide 100 Mg/10 Ml Vial) 80 mg SLOW IVP 0600,1400 [facility] Last Admin: 03/03/20 15:09 Dose: 80 mg Documented by: Ceftriaxone Sodium 2 gm/ (Sodium Chloride) 100 mls @ 200 mls/hr IVPB Q24HR [facility] Last Admin: 03/03/20 15:09 Dose: 100 mls Documented by: Dobutamine HCl/Dextrose (Dobutamine 500 Mg/250 Ml) 250 mls @ 11.703 mls/hr IVPB INF [facility]; Protocol Last Admin: 03/03/20 04:05 Dose: 250 mls Documented by: Potassium Chloride (Potassium Chloride 10 Meq Tab) 10 meq PO MoWe@0900,2100 [facility] Last Admin: 03/02/20 20:29 Dose: 10 meq Documented by: Rosuvastatin Calcium (Rosuvastatin 10 Mg Tab) 10 mg PO [facility] Last Admin: 03/02/20 20:29 Dose: 10 mg Documented by: Saccharomyces Boulardii (Saccharomyces Boulardii 250 Mg Cap) 250 mg PO DAILY [facility] Last Admin: 03/03/20 10:01 Dose: 250 mg Documented by: Senna (Senokot 8.6 Mg Tab) 1 tab PO [facility] Last Admin: 03/02/20 20:30 Dose: 1 tab Documented by: Sodium Chloride (Flush - Normal Saline 10 Ml Syringe) 10 ml IVF Q12HR [facility] Last Admin: 03/03/20 10:02 Dose: 10 ml Documented by: Sodium Chloride (Flush - Normal Saline 10 Ml Syringe) 10 ml IVF PRN PRN PRN Reason: Saline Flush Spironolactone (Spironolactone 25 Mg Tab) 25 mg PO QAM-WM [facility] Last Admin: 03/03/20 10:02 Dose: 25 mg Documented by: Vital Signs & Weight: Vital Signs Temp Pulse Pulse BP BP Pulse Ox Pulse Ox 03/03/20 15:17 100 03/03/20 15:13 97.0 F L 03/03/20 11:03 97.1 F L 03/03/20 09:45 82 79 101/60 97/65 100 03/03/20 09:04 79 79 108/69 97/65 100 03/03/20 08:00 100 03/03/20 07:07 96.5 F L Pulse Ox 03/03/20 15:17 03/03/20 15:13 03/03/20 11:03 03/03/20 09:45 100 03/03/20 09:04 100 03/03/20 08:00 03/03/20 07:07 Admit Weight 171 lb Weight 173 lb 4.8 oz I/O: I/O 03/02/20 03/03/20 03/04/20 06:59 06:59 06:59 Intake Total 890 Output Total 1130 Balance -240 - Quality Measures Condition: Atrial Fibrillation/Flutter (hx or current) CV meds: Eliquis: Yes - Physical Exam General: cachectic. negative: appears well, no apparent distress, affect nelly ropriate HEENT: mucus membranes moist, normocephaly Neck: supple neck, midline trachea, no lymphadenopathy, JVD/HJR Cardiology: regular rate and rhythm, PMI nondisplaced Lungs: no wheezes, no rhonchi, bibasilar rales Neurology: cranial nerve 2-12 intact, grossly intact, no lateralizing findings - Labs Result Diagrams: 03/03/20 03:11 03/03/20 03:11 - EKG Interpretation EKG Method: Telemetry EKG shows: Sinus rhythm - Device Device: biventricular, defibrillator Device Result: [employer] - Assessment/Plan Assessment/Plan: 1. Biventricular ICD implant in 2010. a. Found in pocket in April 2019, prompting generator change. b. 03/01/20- device interrogated by [employer] pharmaceutical development technician and concerned for loss of LV capture, LV lead turned off 2. History of non-ST elevation [place]/complicated with cardiac arrest in 2010. 3. History of coronary artery disease with four-vessel bypass in 2010 with redo saphenous vein graft to the RCA on 06/17/2010. 4. History of LVAD. 5. Acute on chronic systolic congestive heart failure with fluid overload. 6. Ischemic cardiomyopathy with LVEF 15%. 7. Nonsustained ventricular tachycardia. 8. Peripheral vascular disease. 9. History of paroxysmal atrial fibrillation, status post TOBI cardioversion on 05/20/2019. Acute congestive heart failure. [employer] pharmaceutical development technician reinterrogated ICD bedside with 12 lead rhythm strip to better assess capture vs EGM only and was able to find a vector on his LV lead thatmay be adequate LV capture. His QRS remains wide but morphology is different than that with RV only pacing. Will re-eval in AM for right now he remains a poor candidate for surgical intervention. Continue lasix and fluid optimization with electrolyte surveillance.
[2020-03-03] MEDS: Rosuvastatin 10 MG TAB PO SCH (20:49)
[2020-03-03] MEDS: Senokot 8.6 MG TAB PO SCH (20:49)
[2020-03-04 03:59] LABS: Anion Gap 13 mmol/L (10-20); BUN (Urea Nitrogen) 41 mg/dL (8.4-25.7); Calc. Creatinine Clearance 55 mL/min (70-130); Calcium 8.5 mg/dL (7.8-10.44); Carbon Dioxide 33 mmol/L (23-31); Chloride 93 mmol/L (98-107); Estimated GFR-MDRD 55; Glucose 111 mg/dL (83-110); Magnesium 2.1 mg/dL (1.6-2.6); Potassium 3.2 mmol/L (3.5-5.1); Sodium 136 mmol/L (136-145)
[2020-03-04] MEDS: Furosemide 100 MG/10 ML VIAL SLOW IVP SCH ×2 (05:47→14:31)
[2020-03-04] MEDS: DOBUTamine 500 mg/250 ml 250 ML IVPB SCH (05:47)
--- NOTE | 2020-03-04 08:25 | CON ---
DATE OF CONSULTATION: 03/03/2020 HISTORY OF PRESENT ILLNESS: Mr. Jane is a very pleasant 75-year-old, who I became acquainted with, with his admissions at the beginning of the year. At that time he presented with shortness of breath, having been followed by [place] [employer]. He transferred here from [place] with pulmonary edema, improved with BiPAP. He has a history of coronary artery bypass grafting, defibrillator placement for cardiomyopathy. At that time, he was living alone in a trailer. He had bruises all over his body and reported falling a lot at home. He was found to have a nonfunctioning defibrillator in place and was having nonsustained ventricular tachycardia. He had a new defibrillator placed without complications. He did develop a metabolic alkalosis with diuresis, but it was easily treated with Diamox during the hospitalization. He was noted to have chronic kidney disease, but actually surprisingly tolerated diuresis with that as well possibly related to increased renal perfusion with decrease in his volume overload. He also was treated with dobutamine while he was in the intermediate care unit. He had a modified barium swallow done on the 12 May showing tracheal penetration with thin liquids. On the 20 of May, transesophageal echo was done and he was cardioverted. He went home at the end of April. He has been readmitted with congestive heart failure and he has been noted to be in respiratory distress. He is felt to benefit from BiPAP. He had been intermediate care unit from the floor last night, but was treated with oxygen. Today, he seemed more distressed. He is getting confused, so we added BiPAP. PAST MEDICAL HISTORY: As above. FAMILY HISTORY: Negative for lung disease in early age. SOCIAL HISTORY: The way I understand it, he does not have a lot of support. REVIEW OF SYSTEMS: Otherwise negative. PHYSICAL EXAMINATION: VITAL SIGNS: Afebrile. Oximetry is 100%, blood pressure 93/64, and respiratory rates in the 20s. HEAD AND NECK: Unremarkable. LUNGS: Clear. HEART: Regular rhythm. ABDOMEN: Soft. EXTREMITIES: Without clubbing, cyanosis, or edema. IMPRESSION: Congestive heart failure. Hopefully, he will tolerate more diuresis and BiPAP on a p.r.n. basis. We will follow with the other physicians. This is a 50 min visit with greater than 50% of the time spent on the unit with coordination of care. Job ID: [id number] [email or web address]
--- NOTE | 2020-03-04 08:36 | EKG ---
Test Reason : Blood Pressure : / mmHG Vent. Rate : 080 BPM Atrial Rate : 087 BPM P-R Int : 000 ms QRS Dur : 180 ms QT Int : 546 ms P-R-T Axes : 000 266 107 degrees QTc Int : 629 ms AV dual-paced rhythm Biventricular pacemaker detected Abnormal ECG When compared with ECG of 26-FEB-2020 19:00, (Unconfirmed) No significant change was found Confirmed by TAYOLR LUNA, IRVIN ([id number]) on 03/04/2020 8:36:01 AM Referred By: MOOK Confirmed By:IRVIN VAZQUEZ MD
[2020-03-04] MEDS ORDERED: Potassium Chloride 10 MEQ TAB PO SCH (09:00)
[2020-03-04] MEDS: Famotidine 20 MG TAB PO SCH ×2 (09:41→21:36)
[2020-03-04] MEDS: Docusate Calcium (SURFAK) 240 MG CAP PO SCH (09:41)
[2020-03-04] MEDS: Saccharomyces boulardii 250 MG CAP PO SCH (09:42)
[2020-03-04] MEDS: Potassium Chloride 10 MEQ TAB PO SCH ×2 (09:43→21:36)
[2020-03-04] MEDS: Spironolactone 25 MG TAB PO SCH (09:43)
[2020-03-04] MEDS: Amiodarone 200 MG TAB PO SCH (09:43)
--- NOTE | 2020-03-04 10:12 | PDOC.HOSPP ---
- Subjective Encounter Date: 03/04/20 Encounter Time: 10:10 Subjective: Mr. Jane was seen today in follow-up of repsiratory failure due to CHF exacerbation. He is breathing a bit better today. He does not have any new complaints. - Objective Vital Signs & Weight: Vital Signs (12 hours) Temp Pulse Pulse Ox 03/04/20 08:00 98 03/04/20 07:14 96.2 F L 03/04/20 04:00 97.6 F 03/04/20 02:22 80 03/04/20 00:00 97.4 F L Weight Admit Weight 171 lb Weight 173 lb Most Recent Monitor Data Heart Rate from ECG 80 NIBP 105/69 NIBP BP-Mean 81 Respiration from ECG 22 SpO2 99 I&O: 03/03/20 03/04/20 03/05/20 06:59 06:59 06:59 Intake Total 890 460 Output Total 1130 220 Balance -240 240 Result Diagrams: 03/03/20 03:11 03/04/20 03:08 Hospitalist ROS - Medication Medications: Active Medications Generic Name Dose Route Start Last Admin Trade Name Freq PRN Reason Stop Dose Admin Acetaminophen 1,000 mg 02/29/20 18:11 03/01/20 15:07 Acetaminophen 500 Mg Tab PO 1,000 mg Q6H PRN Administration Moderate to Severe Pain (6-10) Amiodarone HCl 200 mg 02/28/20 09:00 03/04/20 09:43 Amiodarone 200 Mg Tab PO 200 mg DAILY KAITLYNN Administration Apixaban 5 mg 02/27/20 09:00 03/03/20 10:01 Apixaban 5 Mg Tab PO 5 mg BID KAITLYNN Administration Docusate Calcium 240 mg 02/28/20 09:00 03/04/20 09:41 Docusate Calcium (Surfak) 240 Mg Cap PO Not Given DAILY KAITLYNN Famotidine 20 mg 02/27/20 09:00 03/04/20 09:41 Famotidine 20 Mg Tab PO Not Given BID KAITLYNN Furosemide 80 mg 03/03/20 14:00 03/04/20 05:47 Furosemide 100 Mg/10 Ml Vial SLOW IVP 80 mg 0600,1400 KAITLYNN Administration Ceftriaxone Sodium 2 gm/ 100 mls @ 200 mls/hr 02/28/20 14:00 11/12/20 15:09 Sodium Chloride IVPB 100 mls Q24HR KAITLYNN Administration Potassium Chloride 10 meq 03/04/20 09:00 03/04/20 09:43 Potassium Chloride 10 Meq Tab PO 10 meq MOWEFR@0900,2100 KAITLYNN Administration Rosuvastatin Calcium 10 mg 02/27/20 21:00 11 20:49 Rosuvastatin 10 Mg Tab PO 10 mg HS KAITLYNN Administration Saccharomyces Boulardii 250 mg 02/28/20 09:00 03/04/20 09:42 Saccharomyces Boulardii 250 Mg Cap PO Not Given DAILY KAITLYNN Senna 1 tab 02/27/20 21:00 03/03/20 20:49 Senokot 8.6 Mg Tab PO 1 tab HS KAITLYNN Administration Sodium Chloride 10 ml 02/27/20 21:00 03/04/20 09:43 Flush - Normal Saline 10 Ml Syringe IVF 10 ml Q12HR KAITLYNN Administration Spironolactone 25 mg 02/28/20 08:00 03/04/20 09:43 Spironolactone 25 Mg Tab PO 25 mg QAM-WM KAITLYNN Administration - Exam Eye: PERRL, anicteric sclera Heart: RRR, no murmur, no gallops, no rubs, normal peripheral pulses Respiratory: rales Gastrointestinal: soft, non-tender, non-distended, normal bowel sounds, no palpable masses, no hepatomegaly Extremities: 1+ LE edema Hosp A/P (1) Acute on chronic systolic heart failure, NYHA class 3 Code(s): I50.23 - ACUTE ON CHRONIC SYSTOLIC (CONGESTIVE) HEART FAILURE Status: Acute (2) CAD (coronary artery disease) Code(s): I25.10 - ATHSCL HEART DISEASE OF [place] CORONARY ARTERY W/O ANG PCTRS Status: Chronic (3) Acute kidney injury Code(s): N17.9 - ACUTE KIDNEY FAILURE, UNSPECIFIED Status: Acute (4) Physical deconditioning Code(s): R53.81 - OTHER MALAISE Status: Chronic - Plan * Acute on chronic respiratory failure- Continue to diurese * Continue BiPAP as needed * He had Defibrillator lead malfunction- plan is for replacement of the LV lead * Acute Kidney injury-stable * Severe deconditioning - PT as tolerated * Prognosis is guarded
[2020-03-04] MEDS: cefTRIAXone\\ROCEPHIN 2 GM in Sodium Chloride 0.9% 100 ML IVPB SCH (14:30)
--- NOTE | 2020-03-04 14:40 | PRG ---
DATE OF SERVICE: 03/04/2020 SUBJECTIVE: Mr. Jane is still a little bit encephalopathic. He wanted to know why we are getting ready to pull the plug on him. OBJECTIVE: VITAL SIGNS: He is afebrile. Heart rate is 80, blood pressure 104/68. GENERAL: He is still tachypneic with an increased work of breathing, but he looks better than he looked yesterday. LUNGS: Remarkable for crackles at his lung bases. HEART: Regular rhythm. ABDOMEN: Soft. LABORATORY DATA: White count today, but was normal yesterday. Electrolytes are normal. BUN 41, creatinine 1.26. He is developing a little bit of a metabolic alkalosis like he did last time. BNP yesterday was still over 3000. IMPRESSION: 1. Congestive heart failure. 2. Mild metabolic alkalosis with diuresis. If his bicarb goes up in the morning, he could be given Diamox. PLAN: We will see him less frequently over the weekend. Cardiology and hospitalist are following him. I have encouraged him to wear his BiPAP intermittently during the day and wear tonight, and also take in liquid nutrition during the day in between the use of his BiPAP. Job ID: [id number]
--- NOTE | 2020-03-04 15:09 | PDOC.EP ---
- Subjective Date: 03/04/20 Time: 15:08 Interval History: Seem to be improved. Still dyspnic, but less so than before. Diurised o Dobutamin . - Objective Allergies/Adverse Reactions: Allergies Allergy/AdvReac Type Severity Reaction Status Date / Time No Known Drug Allergies Allergy Verified 04/28/19 13:19 Current Medications Acetaminophen (Acetaminophen 500 Mg Tab) 1,000 mg PO Q6H PRN PRN Reason: Moderate to Severe Pain (6-10) Last Admin: 03/01/20 15:07 Dose: 1,000 mg Documented by: Amiodarone HCl (Amiodarone 200 Mg Tab) 200 mg PO DAILY [facility] Last Admin: 03/04/20 09:43 Dose: 200 mg Documented by: Apixaban (Apixaban 5 Mg Tab) 5 mg PO BID [facility] Last Admin: 03/03/20 10:01 Dose: 5 mg Documented by: Docusate Calcium (Docusate Calcium (Surfak) 240 Mg Cap) 240 mg PO DAILY [facility] Last Admin: 03/04/20 09:41 Dose: Not Given Documented by: Famotidine (Famotidine 20 Mg Tab) 20 mg PO BID [facility] Last Admin: 03/04/20 09:41 Dose: Not Given Documented by: Furosemide (Furosemide 100 Mg/10 Ml Vial) 80 mg SLOW IVP 0600,1400 [facility] Last Admin: 03/04/20 14:31 Dose: 80 mg Documented by: Ceftriaxone Sodium 2 gm/ (Sodium Chloride) 100 mls @ 200 mls/hr IVPB Q24HR [facility] Last Admin: 03/04/20 14:30 Dose: 100 mls Documented by: Dobutamine HCl/Dextrose (Dobutamine 500 Mg/250 Ml) 250 mls @ 5.851 mls/hr IVPB INF KAITLYNN; Protocol Potassium Chloride (Potassium Chloride 10 Meq Tab) 10 meq PO MOWEFR@0900,2100 [facility] Last Admin: 03/04/20 09:43 Dose: 10 meq Documented by: Rosuvastatin Calcium (Rosuvastatin 10 Mg Tab) 10 mg PO HS [facility] Last Admin: 03/03/20 20:49 Dose: 10 mg Documented by: Saccharomyces Boulardii (Saccharomyces Boulardii 250 Mg Cap) 250 mg PO DAILY [facility] Last Admin: 03/04/20 09:42 Dose: Not Given Documented by: Senna (Senokot 8.6 Mg Tab) 1 tab PO HS [facility] Last Admin: 03/03/20 20:49 Dose: 1 tab Documented by: Sodium Chloride (Flush - Normal Saline 10 Ml Syringe) 10 ml IVF Q12HR [facility] Last Admin: 03/04/20 09:43 Dose: 10 ml Documented by: Sodium Chloride (Flush - Normal Saline 10 Ml Syringe) 10 ml IVF PRN PRN PRN Reason: Saline Flush Spironolactone (Spironolactone 25 Mg Tab) 25 mg PO QAM-WM [facility] Last Admin: 03/04/20 09:43 Dose: 25 mg Documented by: Vital Signs & Weight: Vital Signs Temp Pulse Ox 03/04/20 11:44 96.6 F L 03/04/20 08:00 98 03/04/20 07:14 96.2 F L 03/04/20 04:00 97.6 F Admit Weight 171 lb Weight 173 lb I/O: I/O 03/03/20 03/04/20 03/05/20 06:59 06:59 06:59 Intake Total 890 460 Output Total 1130 220 Balance -240 240 - Quality Measures Condition: Atrial Fibrillation/Flutter (hx or current) CV meds: Eliquis: Yes - Physical Exam General: alert & oriented x3, appears well HEENT: normocephaly Neck: JVD/HJR (improved) Cardiology: regular rate Lungs: clear to auscultation, no wheeze, rales, rhonchi Neurology: grossly intact Abdomen: unremarkable, soft, non-tender Extremities: warm Skin: device site stable w/o swelling Musculoskeletal: no pain - Labs Result Diagrams: 03/03/20 03:11 03/04/20 03:08 - EKG Interpretation Status: report reviewed by me EKG Method: 12 Lead (Compared EKG with RV pacing vs BiV pacing with vector-Tip to ring and tip to coil. Seem adequate BiV pacing morphology.) EKG shows: other (BiV pacing) - Device Device: biventricular, defibrillator Device Result: [employer] - Assessment/Plan Assessment/Plan: 1. Biventricular ICD implant in 2010. a. Found in pocket in April 2019, prompting generator change. b. 03/01/20- device interrogated by [employer] chemical treatment plant technician and concerned for loss of LV capture, LV lead transiently turned off- now back in BiV pacing. 2. History of non-ST elevation [place]/complicated with cardiac arrest in 2010. 3. History of coronary artery disease with four-vessel bypass in 2010 with redo saphenous vein graft to the RCA on 06/17/2010. 4. History of LVAD. 5. Acute on chronic systolic congestive heart failure with fluid overload. 6. Ischemic cardiomyopathy with LVEF 15%. 7. Nonsustained ventricular tachycardia. 8. Peripheral vascular disease. 9. History of paroxysmal atrial fibrillation, status post TOBI cardioversion on 05/20/2019. Acute congestive heart failure. [employer] chemical treatment plant technician reinterrogated ICD bedside with 12 lead rhythm strip to better assess capture vs EGM only and was able to find a vector on his LV lead that has adequate LV capture. His QRS remains wide but morphology is different than that with RV only pacing. I feel this configuration provides adequate resynchronization. No further plans for surgical intervention. Continue lasix and fluid optimization with electrolyte surveillance. EP would sigh off. Call if can be further help.
[2020-03-04] MEDS: Rosuvastatin 10 MG TAB PO SCH (21:36)
[2020-03-04] MEDS: Senokot 8.6 MG TAB PO SCH (21:36)
[2020-03-04] MEDS: Apixaban 5 MG TAB PO SCH (21:36)
[2020-03-05 03:56] LABS: Anion Gap 15 mmol/L (10-20); BUN (Urea Nitrogen) 43 mg/dL (8.4-25.7); Calc. Creatinine Clearance 57 mL/min (70-130); Calcium 8.6 mg/dL (7.8-10.44); Carbon Dioxide 37 mmol/L (23-31); Chloride 89 mmol/L (98-107); Estimated GFR-MDRD 59; Glucose 109 mg/dL (83-110); Potassium 3.3 mmol/L (3.5-5.1); Sodium 138 mmol/L (136-145)
[2020-03-05] MEDS: Furosemide 100 MG/10 ML VIAL SLOW IVP SCH ×2 (05:58→14:53)
[2020-03-05] MEDS: Apixaban 5 MG TAB PO SCH ×2 (09:06→21:14)
[2020-03-05] MEDS: Famotidine 20 MG TAB PO SCH ×2 (09:06→21:14)
[2020-03-05] MEDS: Docusate Calcium (SURFAK) 240 MG CAP PO SCH (09:06)
[2020-03-05] MEDS: Amiodarone 200 MG TAB PO SCH (09:07)
[2020-03-05] MEDS: Spironolactone 25 MG TAB PO SCH (09:07)
[2020-03-05] MEDS: Saccharomyces boulardii 250 MG CAP PO SCH (09:07)
--- NOTE | 2020-03-05 13:14 | PRG ---
DATE OF SERVICE: 03/05/2020 SUBJECTIVE: There has been no significant change in status in the previous 24 hours. He remains on nasal cannula with oxygen saturation 87 to 90. PHYSICAL EXAMINATION: VITAL SIGNS: Blood pressure 96/68, heart rate is 80, oxygen saturation 87 to 90, respiratory rate 28. GENERAL: He is in moderate respiratory distress with increased work of breathing. LUNGS: Coarse rhonchi bilaterally. HEART: Regular rate and rhythm. ABDOMEN: Soft. There is no organomegaly. EXTREMITIES: No cyanosis or clubbing. LABORATORY DATA: None today. IMPRESSION: Coronavirus disease pneumonia. PLAN: We will continue current therapies. At this point, he is on traditional nasal cannula, but BiPAP may be appropriate to consider given his moderate increased work of breathing. Job ID: [id number]
[2020-03-05] MEDS: cefTRIAXone\\ROCEPHIN 2 GM in Sodium Chloride 0.9% 100 ML IVPB SCH (14:53)
--- NOTE | 2020-03-05 16:05 | PDOC.HOSPP ---
- Subjective Encounter Date: 03/05/20 Encounter Time: 08:30 Subjective: Patient seen for follow-up regarding congestive heart failure exacerbation. Reports feeling better. - Objective Vital Signs & Weight: Vital Signs (12 hours) Temp Pulse Ox 03/05/20 08:00 96 03/05/20 07:07 97.9 F Weight Admit Weight 171 lb Weight 165 lb 11.2 oz Most Recent Monitor Data Heart Rate from ECG 80 NIBP 96/68 NIBP BP-Mean 77 Respiration from ECG 28 SpO2 90 I&O: 03/04/20 03/05/20 03/06/20 06:59 06:59 06:59 Intake Total 460 1311.9 Output Total 220 Balance 240 1311.9 Result Diagrams: 03/03/20 03:11 03/05/20 03:05 Additional Labs: I reviewed patient's labs and [facility] Hospitalist ROS - Review of Systems Respiratory: reports: SOB with excertion. denies: cough, dry, shortness of breath, hemoptysis, pleuritic pain, sputum, wheezing Cardiovascular: denies: chest pain, palpitations, orthopnea, paroxysmal noc. dyspnea, edema, light headedness - Medication Medications: Active Medications Generic Name Dose Route Start Last Admin Trade Name Freq PRN Reason Stop Dose Admin Acetaminophen 1,000 mg 02/29/20 18:11 03/01/20 15:07 Acetaminophen 500 Mg Tab PO 1,000 mg Q6H PRN Administration Moderate to Severe Pain (6-10) Amiodarone HCl 200 mg 02/28/20 09:00 03/05/20 09:07 Amiodarone 200 Mg Tab PO 200 mg DAILY KAITLYNN Administration Apixaban 5 mg 02/27/20 09:00 03/05/20 09:06 Apixaban 5 Mg Tab PO 5 mg BID KAITLYNN Administration Docusate Calcium 240 mg 02/28/20 09:00 03/05/20 09:06 Docusate Calcium (Surfak) 240 Mg Cap PO 240 mg DAILY KAITLYNN Administration Famotidine 20 mg 02/27/20 09:00 03/05/20 09:06 Famotidine 20 Mg Tab PO 20 mg BID KAITLYNN Administration Furosemide 80 mg 03/03/20 14:00 03/05/20 14:53 Furosemide 100 Mg/10 Ml Vial SLOW IVP 80 mg 0600,1400 KAITLYNN Administration Ceftriaxone Sodium 2 gm/ 100 mls @ 200 mls/hr 02/28/20 14:00 03/05/20 14:53 Sodium Chloride IVPB 100 mls Q24HR KAITLYNN Administration Potassium Chloride 10 meq 03/04/20 09:00 03/04/20 21:36 Potassium Chloride 10 Meq Tab PO 10 meq MOWEFR@0900,2100 KAITLYNN Administration Rosuvastatin Calcium 10 mg 02/27/20 21:00 03/04/20 21:36 Rosuvastatin 10 Mg Tab PO 10 mg HS KAITLYNN Administration Saccharomyces Boulardii 250 mg 02/28/20 09:00 03/05/20 09:07 Saccharomyces Boulardii 250 Mg Cap PO 250 mg DAILY KAITLYNN Administration Senna 1 tab 02/27/20 21:00 03/04/20 21:36 Senokot 8.6 Mg Tab PO 1 tab HS KAITLYNN Administration Sodium Chloride 10 ml 02/27/20 21:00 03/05/20 09:07 Flush - Normal Saline 10 Ml Syringe IVF Not Given Q12HR KAITLYNN Spironolactone 25 mg 02/28/20 08:00 03/05/20 09:07 Spironolactone 25 Mg Tab PO 25 mg QAM-WM KAITLYNN Administration - Exam General Appearance: awake alert Eye: anicteric sclera ENT: moist mucosa Neck: supple Heart: RRR Respiratory - other findings: Bibasal crackles Gastrointestinal: soft Skin: no rashes Psychiatric: normal affect Hosp A/P - Plan -Assessment (1) Acute on chronic systolic heart failure, NYHA class 3 Code(s): I50.23 - ACUTE ON CHRONIC SYSTOLIC (CONGESTIVE) HEART FAILURE Status: Acute (2) CAD (coronary artery disease) Code(s): I25.10 - ATHSCL HEART DISEASE OF [place] CORONARY ARTERY W/O ANG PCTRS Status: Chronic (3) Physical deconditioning Code(s): R53.81 - OTHER MALAISE Status: Chronic (4) Acute kidney injury Code(s): N17.9 - ACUTE KIDNEY FAILURE, UNSPECIFIED Status: Resolved - Plan * Continue to diurese and on dopamine. * BiPAP as needed * No plan for surgical intervention for the pacemaker lead, per electrophysiology service. * Acute Kidney injury-resolved. * Severe deconditioning - PT as tolerated * Prognosis is guarded * Replace potassium.
[2020-03-05] MEDS ORDERED: Potassium Chloride 20 MEQ TAB PO SCH (16:15)
[2020-03-05] MEDS: Senokot 8.6 MG TAB PO SCH (21:14)
[2020-03-05] MEDS: Rosuvastatin 10 MG TAB PO SCH (21:14)
[2020-03-06] MEDS: DOBUTamine 500 mg/250 ml 250 ML IVPB SCH (02:43)
[2020-03-06 04:04] LABS: BUN (Urea Nitrogen) 40 mg/dL (8.4-25.7); Calc. Creatinine Clearance 63 mL/min (70-130); Calcium 8.3 mg/dL (7.8-10.44); Estimated GFR-MDRD 68; Glucose 98 mg/dL (83-110)
[2020-03-06 04:13] LABS: Anion Gap 18 mmol/L (10-20); Carbon Dioxide 38 mmol/L (23-31); Chloride 86 mmol/L (98-107); Potassium 3.5 mmol/L (3.5-5.1); Sodium 138 mmol/L (136-145)
[2020-03-06] MEDS: Furosemide 100 MG/10 ML VIAL SLOW IVP SCH ×2 (06:00→14:31)
[2020-03-06] MEDS: Amiodarone 200 MG TAB PO SCH (08:25)
[2020-03-06] MEDS: Spironolactone 25 MG TAB PO SCH (08:25)
[2020-03-06] MEDS: Famotidine 20 MG TAB PO SCH ×2 (08:25→21:05)
[2020-03-06] MEDS: Apixaban 5 MG TAB PO SCH ×2 (08:25→21:05)
[2020-03-06] MEDS: Docusate Calcium (SURFAK) 240 MG CAP PO SCH (08:25)
[2020-03-06] MEDS: Saccharomyces boulardii 250 MG CAP PO SCH (08:25)
--- NOTE | 2020-03-06 11:51 | PRG ---
DATE OF SERVICE: 03/06/2020 SUBJECTIVE: We continue with current attempts at diuresis. He is currently on nasal cannula. Unfortunately, he is more commonly in positive fluid balance than in negative fluid balance. PHYSICAL EXAMINATION: VITAL SIGNS: Blood pressure 96/61, heart rate is 80, respiratory rate 22, saturation 100% on 1.5 L nasal cannula. GENERAL: No apparent respiratory distress. He has external jugular venous distention. LUNGS: Basilar rhonchi, which improved with cough. HEART: Regular rate and rhythm. He has an intermittent S3. ABDOMEN: Soft. EXTREMITIES: He has 1+ edema. LABORATORY DATA: Chemistries today notable for potassium of 3.5, chloride 86, CO2 is 38, gap is 18, BUN 40, creatinine 1.0. Most recent BNP was 3100. IMPRESSION: 1. Severe cardiomyopathy with volume overload. 2. Respiratory difficulty secondary to above. PLAN: We will continue current therapies including attempted diuresis. Unfortunately, efforts have been limited by fluid intake, which has indicated any degree of effective negative fluid balance. PROGNOSIS: Guarded. Job ID: [id number]
[2020-03-06] MEDS: cefTRIAXone\\ROCEPHIN 2 GM in Sodium Chloride 0.9% 100 ML IVPB SCH (14:31)
--- NOTE | 2020-03-06 15:05 | PDOC.CPN ---
- Subjective Date: 03/06/20 Time: 15:03 - Objective Allergies/Adverse Reactions: Allergies Allergy/AdvReac Type Severity Reaction Status Date / Time No Known Drug Allergies Allergy Verified 04/28/19 13:19 Visit Medications: Current Medications Acetaminophen (Acetaminophen 500 Mg Tab) 1,000 mg PO Q6H PRN PRN Reason: Moderate to Severe Pain (6-10) Last Admin: 03/01/20 15:07 Dose: 1,000 mg Documented by: Amiodarone HCl (Amiodarone 200 Mg Tab) 200 mg PO DAILY [facility] Last Admin: 03/06/20 08:25 Dose: 200 mg Documented by: Apixaban (Apixaban 5 Mg Tab) 5 mg PO BID [facility] Last Admin: 03/06/20 08:25 Dose: 5 mg Documented by: Docusate Calcium (Docusate Calcium (Surfak) 240 Mg Cap) 240 mg PO DAILY [facility] Last Admin: 03/06/20 08:25 Dose: 240 mg Documented by: Famotidine (Famotidine 20 Mg Tab) 20 mg PO BID [facility] Last Admin: 03/06/20 08:25 Dose: 20 mg Documented by: Furosemide (Furosemide 100 Mg/10 Ml Vial) 80 mg SLOW IVP 0600,1400 [facility] Last Admin: 03/06/20 06:00 Dose: 80 mg Documented by: Ceftriaxone Sodium 2 gm/ (Sodium Chloride) 100 mls @ 200 mls/hr IVPB Q24HR [facility] Last Admin: 03/05/20 14:53 Dose: 100 mls Documented by: Dobutamine HCl/Dextrose (Dobutamine 500 Mg/250 Ml) 250 mls @ 5.851 mls/hr IVPB INF [facility]; Protocol Last Admin: 03/06/20 02:43 Dose: 250 mls Documented by: Potassium Chloride (Potassium Chloride 10 Meq Tab) 10 meq PO MOWEFR@0900,2100 [facility] Last Admin: 03/04/20 21:36 Dose: 10 meq Documented by: Rosuvastatin Calcium (Rosuvastatin 10 Mg Tab) 10 mg PO [facility] Last Admin: 03/05/20 21:14 Dose: 10 mg Documented by: Saccharomyces Boulardii (Saccharomyces Boulardii 250 Mg Cap) 250 mg PO DAILY [facility] Last Admin: 03/06/20 08:25 Dose: 250 mg Documented by: Senna (Senokot 8.6 Mg Tab) 1 tab PO HS [facility] Last Admin: 03/05/20 21:14 Dose: 1 tab Documented by: Sodium Chloride (Flush - Normal Saline 10 Ml Syringe) 10 ml IVF Q12HR [facility] Last Admin: 03/06/20 08:25 Dose: 10 ml Documented by: Sodium Chloride (Flush - Normal Saline 10 Ml Syringe) 10 ml IVF PRN PRN PRN Reason: Saline Flush Spironolactone (Spironolactone 25 Mg Tab) 25 mg PO QAM-WM [facility] Last Admin: 03/06/20 08:25 Dose: 25 mg Documented by: Vital Signs & Weight: Vital Signs Temp Pulse Ox 03/06/20 11:12 96.9 F L 03/06/20 07:22 98 03/06/20 07:08 96.3 F L 03/06/20 03:47 99 03/06/20 03:09 97.6 F Admit Weight 171 lb Weight 164 lb 4.8 oz - Physical Exam General: alert & oriented x3 Neck: no masses, no bruit Cardiac: regular rate and rhythm, regular rate, regular rhythm Lungs: decreased breath sounds Abdomen: no masses Extremities: 2+ LE edema - Labs Result Diagrams: 03/03/20 03:11 03/06/20 03:16 Troponin/CKMB CK-MB (CK-2) 0.8 ng/mL (0-6.6) 02/26/20 18:33 Troponin I 0.031 ng/mL (< 0.028) H 02/27/20 00:45 - Assessment/Plan Assessment/Plan: Ischemic 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
--- NOTE | 2020-03-06 15:26 | PDOC.HOSPP ---
- Subjective Encounter Date: 03/06/20 Encounter Time: 11:30 Subjective: Patient was seen in follow-up for CHF exacerbation. He denies chest pain or shortness of breath. - Objective Vital Signs & Weight: Vital Signs (12 hours) Temp Pulse Ox 03/06/20 11:12 96.9 F L 03/06/20 07:22 98 03/06/20 07:08 96.3 F L 03/06/20 03:47 99 Weight Admit Weight 171 lb Weight 164 lb 4.8 oz Most Recent Monitor Data Heart Rate from ECG 80 NIBP 96/70 NIBP BP-Mean 78 Respiration from ECG 24 SpO2 100 I&O: 03/05/20 03/06/20 03/07/20 06:59 06:59 06:59 Intake Total 1311.9 1120.8 Output Total 200 275 Balance 1311.9 920.8 -275 Result Diagrams: 03/03/20 03:11 03/06/20 03:16 Additional Labs: Labs and MAR reviewed by [facility] Hospitalist ROS - Review of Systems Cardiovascular: denies: chest pain, palpitations, orthopnea, paroxysmal noc. dyspnea, edema, light headedness Gastrointestinal: denies: nausea, vomiting, abdominal pain, diarrhea, constipation, melena, hematochezia - Medication Medications: Active Medications Generic Name Dose Route Start Last Admin Trade Name Freq PRN Reason Stop Dose Admin Acetaminophen 1,000 mg 02/29/20 18:11 03/01/20 15:07 Acetaminophen 500 Mg Tab PO 1,000 mg Q6H PRN Administration Moderate to Severe Pain (6-10) Amiodarone HCl 200 mg 02/28/20 09:00 03/06/20 08:25 Amiodarone 200 Mg Tab PO 200 mg DAILY KAITLYNN Administration Apixaban 5 mg 02/27/20 09:00 03/06/20 08:25 Apixaban 5 Mg Tab PO 5 mg BID KAITLYNN Administration Docusate Calcium 240 mg 02/28/20 09:00 03/06/20 08:25 Docusate Calcium (Surfak) 240 Mg Cap PO 240 mg DAILY KAITLYNN Administration Famotidine 20 mg 02/27/20 09:00 03/06/20 08:25 Famotidine 20 Mg Tab PO 20 mg BID KAITLYNN Administration Furosemide 80 mg 03/03/20 14:00 11/15/20 06:00 Furosemide 100 Mg/10 Ml Vial SLOW IVP 80 mg 0600,1400 KAITLYNN Administration Ceftriaxone Sodium 2 gm/ 100 mls @ 200 mls/hr 02/28/20 14:00 03/05/20 14:53 Sodium Chloride IVPB 100 mls Q24HR KAITLYNN Administration Dobutamine HCl/Dextrose 250 mls @ 5.851 mls/hr 03/04/20 07:51 03/06/20 02:43 Dobutamine 500 Mg/250 Ml IVPB 250 mls INF KAITLYNN Administration Protocol 2.5 MCG/KG/MIN Potassium Chloride 10 meq 03/04/20 09:00 03/04/20 21:36 Potassium Chloride 10 Meq Tab PO 10 meq MOWEFR@0900,2100 KAITLYNN Administration Rosuvastatin Calcium 10 mg 02/27/20 21:00 03/05/20 21:14 Rosuvastatin 10 Mg Tab PO 10 mg HS KAITLYNN Administration Saccharomyces Boulardii 250 mg 02/28/20 09:00 03/06/20 08:25 Saccharomyces Boulardii 250 Mg Cap PO 250 mg DAILY KAITLYNN Administration Senna 1 tab 02/27/20 21:00 03/05/20 21:14 Senokot 8.6 Mg Tab PO 1 tab HS KAITLYNN Administration Sodium Chloride 10 ml 02/27/20 21:00 03/06/20 08:25 Flush - Normal Saline 10 Ml Syringe IVF 10 ml Q12HR KAITLYNN Administration Spironolactone 25 mg 02/28/20 08:00 03/06/20 08:25 Spironolactone 25 Mg Tab PO 25 mg QAM-WM KAITLYNN Administration - Exam General Appearance: awake alert ENT: normocephalic atraumatic Neck: supple Heart: RRR Respiratory: CTAB Gastrointestinal: soft, non-tender Extremities: 2+ LE edema Psychiatric: normal affect Hosp A/P - Plan -Assessment (1) Acute on chronic systolic heart failure, NYHA class 3 Code(s): I50.23 - ACUTE ON CHRONIC SYSTOLIC (CONGESTIVE) HEART FAILURE Status: Acute (2) CAD (coronary artery disease) Code(s): I25.10 - ATHSCL HEART DISEASE OF [place] CORONARY ARTERY W/O ANG PCTRS Status: Chronic (3) Physical deconditioning Code(s): R53.81 - OTHER MALAISE Status: Chronic (4) Acute kidney injury Code(s): N17.9 - ACUTE KIDNEY FAILURE, UNSPECIFIED Status: Resolved - Plan * Continue to diurese and on dobutamine. Metolazone being added. * Patient did not need BiPAP overnight. * No plan for surgical intervention for the pacemaker lead, per electrophysiology service. * Severe deconditioning - PT as tolerated * Prognosis is guarded * Hypokalemia resolved
[2020-03-06] MEDS: Senokot 8.6 MG TAB PO SCH (21:05)
[2020-03-06] MEDS: Rosuvastatin 10 MG TAB PO SCH (21:05)
[2020-03-07 03:31] LABS: BUN (Urea Nitrogen) 36 mg/dL (8.4-25.7); Calc. Creatinine Clearance 58 mL/min (70-130); Calcium 8.3 mg/dL (7.8-10.44); Estimated GFR-MDRD 64; Glucose 98 mg/dL (83-110)
[2020-03-07 03:40] LABS: Anion Gap 14 mmol/L (10-20); Carbon Dioxide 39 mmol/L (23-31); Chloride 86 mmol/L (98-107); Potassium 3.1 mmol/L (3.5-5.1); Sodium 136 mmol/L (136-145)
[2020-03-07] MEDS: Furosemide 100 MG/10 ML VIAL SLOW IVP SCH ×2 (06:13→13:46)
[2020-03-07] MEDS: Saccharomyces boulardii 250 MG CAP PO SCH (07:58)
[2020-03-07] MEDS: Amiodarone 200 MG TAB PO SCH (07:58)
[2020-03-07] MEDS: Apixaban 5 MG TAB PO SCH ×2 (07:58→20:16)
[2020-03-07] MEDS: Famotidine 20 MG TAB PO SCH ×2 (07:58→20:16)
[2020-03-07] MEDS: Spironolactone 25 MG TAB PO SCH (07:58)
[2020-03-07] MEDS: Docusate Calcium (SURFAK) 240 MG CAP PO SCH (07:59)
[2020-03-07] MEDS: Potassium Chloride 10 MEQ TAB PO SCH ×2 (08:03→17:12)
[2020-03-07] MEDS ORDERED: Metolazone 2.5 MG TAB PO SCH ×2 (08:30)
--- NOTE | 2020-03-07 12:34 | PRG ---
DATE OF SERVICE: 03/07/2020 SUBJECTIVE: Davis Jane is a 75-year-old gentleman, complaining of difficulty breathing. OBJECTIVE: VITAL SIGNS: Temperature is 96, blood pressure 106/67, pulse 80, respirations 18, sats 98% on room air. CHEST: Decreased breath sounds. Bilateral rhonchi. CARDIAC: Normal S1 and S2. IMPRESSION: 1. Respiratory failure secondary to congestive cardiomyopathy. 2. Bilateral pleural effusion. PLAN: I have added low-dose Dulera to his present regime. Continue aggressive diuretics. Job ID: [id number]
[2020-03-07] MEDS: cefTRIAXone\\ROCEPHIN 2 GM in Sodium Chloride 0.9% 100 ML IVPB SCH (13:46)
--- NOTE | 2020-03-07 16:23 | PDOC.HOSPP ---
- Subjective Encounter Date: 03/07/20 Encounter Time: 10:45 Subjective: Pt seen for followup regarding CHF exac. States he feels better. - Objective Vital Signs & Weight: Vital Signs (12 hours) Temp Pulse Pulse BP BP Pulse Ox Pulse Ox 03/07/20 15:41 97.4 F L 03/07/20 12:00 96.7 F L 03/07/20 09:10 80 80 113/75 100/67 100 100 03/07/20 07:33 96.6 F L Weight Admit Weight 171 lb Weight 164 lb 8 oz Most Recent Monitor Data Heart Rate from ECG 80 NIBP 100/75 NIBP BP-Mean 83 Respiration from ECG 21 SpO2 99 I&O: 03/06/20 03/07/20 03/08/20 06:59 06:59 06:59 Intake Total 1120.8 990 Output Total 200 1520 Balance 920.8 -530 Result Diagrams: 03/03/20 03:11 03/07/20 02:50 Additional Labs: I reviewed labs and [place] Hospitalist ROS - Review of Systems Cardiovascular: denies: chest pain, palpitations, orthopnea, paroxysmal noc. dyspnea, edema, light headedness Gastrointestinal: denies: nausea, vomiting, abdominal pain, diarrhea, constipation, melena, hematochezia - Medication Medications: Active Medications Generic Name Dose Route Start Last Admin Trade Name Freq PRN Reason Stop Dose Admin Acetaminophen 1,000 mg 02/29/20 18:11 03/01/20 15:07 Acetaminophen 500 Mg Tab PO 1,000 mg Q6H PRN Administration Moderate to Severe Pain (6-10) Amiodarone HCl 200 mg 02/28/20 09:00 03/07/20 07:58 Amiodarone 200 Mg Tab PO 200 mg DAILY KAITLYNN Administration Apixaban 5 mg 02/27/20 09:00 03/07/20 07:58 Apixaban 5 Mg Tab PO 5 mg BID KAITLYNN Administration Docusate Calcium 240 mg 02/28/20 09:00 03/07/20 07:59 Docusate Calcium (Surfak) 240 Mg Cap PO 240 mg DAILY KAITLYNN Administration Famotidine 20 mg 02/27/20 09:00 03/07/20 07:58 Famotidine 20 Mg Tab PO 20 mg BID KAITLYNN Administration Furosemide 80 mg 03/03/20 14:00 03/07/20 13:46 Furosemide 100 Mg/10 Ml Vial SLOW IVP 80 mg 0600,1400 KAITLYNN Administration Ceftriaxone Sodium 2 gm/ 100 mls @ 200 mls/hr 02/28/20 14:00 03/07/20 13:46 Sodium Chloride IVPB 100 mls Q24HR KAITLYNN Administration Dobutamine HCl/Dextrose 250 mls @ 5.851 mls/hr 03/04/20 07:51 03/06/20 02:43 Dobutamine 500 Mg/250 Ml IVPB 250 mls INF KAITLYNN Administration Protocol 2.5 MCG/KG/MIN Rosuvastatin Calcium 10 mg 02/27/20 21:00 03/06/20 21:05 Rosuvastatin 10 Mg Tab PO 10 mg HS KAITLYNN Administration Saccharomyces Boulardii 250 mg 02/28/20 09:00 03/07/20 07:58 Saccharomyces Boulardii 250 Mg Cap PO 250 mg DAILY KATILYNN Administration Senna 1 tab 02/27/20 21:00 03/06/20 21:05 Senokot 8.6 Mg Tab PO 1 tab HS KAITLYNN Administration Sodium Chloride 10 ml 02/27/20 21:00 03/07/20 07:59 Flush - Normal Saline 10 Ml Syringe IVF 10 ml Q12HR KAITLYNN Administration Spironolactone 25 mg 02/28/20 08:00 03/07/20 07:58 Spironolactone 25 Mg Tab PO 25 mg QAM-WM KAITLYNN Administration - Exam General Appearance: awake alert Eye: anicteric sclera ENT: moist mucosa Neck: supple Heart: RRR Respiratory: CTAB Gastrointestinal: soft, non-tender Skin: no rashes Psychiatric: normal affect, normal behavior Hosp A/P - Plan -Assessment (1) Acute on chronic systolic heart failure, NYHA class 3 Code(s): I50.23 - ACUTE ON CHRONIC SYSTOLIC (CONGESTIVE) HEART FAILURE Status: Acute (2) CAD (coronary artery disease) Code(s): I25.10 - ATHSCL HEART DISEASE OF [place] CORONARY ARTERY W/O ANG PCTRS Status: Chronic (3) Physical deconditioning Code(s): R53.81 - OTHER MALAISE Status: Chronic (4) Acute kidney injury Code(s): N17.9 - ACUTE KIDNEY FAILURE, UNSPECIFIED Status: Resolved - Plan * Continue tfurosemide and metolazone. Pt is also on dobutamine drip. * No plan for surgical intervention for the pacemaker lead, according electrophysiology service. * PT- mobilize patient * Prognosis is guarded
[2020-03-07] MEDS: Mometasone 200 MCG/Formoterol 5 MCG 120 PUFF INHALER INH SCH (19:09)
[2020-03-07] MEDS: Senokot 8.6 MG TAB PO SCH (20:16)
[2020-03-07] MEDS: Rosuvastatin 10 MG TAB PO SCH (20:16)
[2020-03-08 03:47] LABS: BUN (Urea Nitrogen) 39 mg/dL (8.4-25.7); Calc. Creatinine Clearance 60 mL/min (70-130); Calcium 8.6 mg/dL (7.8-10.44); Estimated GFR-MDRD 66; Glucose 114 mg/dL (83-110)
[2020-03-08 03:57] LABS: Anion Gap 18 mmol/L (10-20); Carbon Dioxide 36 mmol/L (23-31); Chloride 85 mmol/L (98-107); Potassium 3.5 mmol/L (3.5-5.1); Sodium 135 mmol/L (136-145)
[2020-03-08] MEDS: Furosemide 100 MG/10 ML VIAL SLOW IVP SCH ×2 (05:17→17:16)
--- NOTE | 2020-03-08 06:54 | EKG ---
Test Reason : R V PACING EKG #1 Blood Pressure : / mmHG Vent. Rate : 085 BPM Atrial Rate : 080 BPM P-R Int : 138 ms QRS Dur : 184 ms QT Int : 544 ms P-R-T Axes : 000 -76 118 degrees QTc Int : 647 ms AV dual-paced rhythm with occasional Premature ventricular complexes Abnormal ECG When compared with ECG of 29-FEB-2020 15:41, (Unconfirmed) Premature ventricular complexes are now Present Vent. rate has increased BY 5 BPM Confirmed by IRVIN VAZQUEZ MD ([id number]) on 03/08/2020 6:54:29 AM Referred By: HUMPHREY Confirmed By:IRVIN VAZQUEZ MD
--- NOTE | 2020-03-08 06:55 | EKG ---
Test Reason : LV TIP TO RING #2 Blood Pressure : / mmHG Vent. Rate : 087 BPM Atrial Rate : 087 BPM P-R Int : 128 ms QRS Dur : 226 ms QT Int : 512 ms P-R-T Axes : 000 -65 074 degrees QTc Int : 616 ms AV dual-paced rhythm with occasional Premature ventricular complexes Biventricular pacemaker detected Abnormal ECG When compared with ECG of 03-MAR-2020 12:55, (Unconfirmed) Vent. rate has increased BY 2 BPM Confirmed by IRVIN VAZQUEZ MD ([id number]) on 03/08/2020 6:54:35 AM Referred By: [facility] Confirmed By:IRVIN VAZQUEZ MD
--- NOTE | 2020-03-08 06:55 | EKG ---
Test Reason : LV TIP TO RV #3 Blood Pressure : / mmHG Vent. Rate : 080 BPM Atrial Rate : 097 BPM P-R Int : 128 ms QRS Dur : 216 ms QT Int : 510 ms P-R-T Axes : 000 180 065 degrees QTc Int : 588 ms AV dual-paced rhythm Biventricular pacemaker detected Abnormal ECG When compared with ECG of 03-MAR-2020 12:58, (Unconfirmed) Premature ventricular complexes are no longer Present Vent. rate has decreased BY 7 BPM Confirmed by IRVIN VAZQUEZ MD ([id number]) on 03/08/2020 6:54:38 AM Referred By: HUMPHREY Confirmed By:IRVIN VAZQUEZ MD
[2020-03-08] MEDS: Mometasone 200 MCG/Formoterol 5 MCG 120 PUFF INHALER INH SCH ×2 (07:55→18:33)
[2020-03-08] MEDS: Saccharomyces boulardii 250 MG CAP PO SCH (08:51)
[2020-03-08] MEDS: Potassium Chloride 10 MEQ TAB PO SCH ×2 (08:51→17:23)
[2020-03-08] MEDS: Apixaban 5 MG TAB PO SCH ×2 (08:51→20:32)
[2020-03-08] MEDS: Amiodarone 200 MG TAB PO SCH (08:51)
[2020-03-08] MEDS: Spironolactone 25 MG TAB PO SCH (08:51)
[2020-03-08] MEDS: Docusate Calcium (SURFAK) 240 MG CAP PO SCH (08:51)
[2020-03-08] MEDS: Famotidine 20 MG TAB PO SCH ×2 (08:52→20:32)
--- NOTE | 2020-03-08 13:43 | PDOC.PALCO ---
Palliative Care Consult - Consult Details Requesting Physician: Dr Phelps, confirmed with Dr Gonzalez Reason for Consult: goals of care, complex decision-making - Allergies Allergies/Adverse Reactions: Allergies Allergy/AdvReac Type Severity Reaction Status Date / Time No Known Drug Allergies Allergy Verified 04/28/19 13:19 - Objective Vital Signs: Vital Signs - Most Recent Temp Pulse Resp BP Pulse Ox 97.0 F L 80 28 H 113/75 98 03/08/20 12:00 03/07/20 09:10 03/02/20 11:36 03/07/20 09:10 03/08/20 08:00 - Plan/Recommendations Plan: Mr Jane is familiar to Palliative Care. Confirms DNAR status. His goal is to return to his [facility] where he lives in [place]. He states he has a gentleman who assists him once a week. Discussed decline and consideration for additional assistance in home setting. Discussed Multiple morbidities and disease trajectory to decline. Intermittent confusion, however Mr Jane appears decisional. Palliative Care will further revisit goal of care 03/09/2020 after coordination with Case management to identify all resources and options. [50] minutes spent on this encounter with >50% of the time in counseling and coordination of care. Thank you for this very appropriate consult.
[2020-03-08] MEDS ORDERED: acetaZOLAMIDE Sodium 500 mg Vial IVP SCH (16:47)
--- NOTE | 2020-03-08 17:00 | PRG ---
DATE OF SERVICE: 03/08/2020 SUBJECTIVE: Davis Jane does not appear to have improved much over the weekend. He is extremely weak. OBJECTIVE: VITAL SIGNS: Stable. LUNGS: Unchanged. HEART: Unchanged. ABDOMEN: Unchanged. Just from a functional standpoint, I am not sure he can get through this, given how weak he is. His bicarb was up to 39 yesterday, it is 36 today. Diamox may help with this. Job ID: [id number]
[2020-03-08] MEDS: cefTRIAXone\\ROCEPHIN 2 GM in Sodium Chloride 0.9% 100 ML IVPB SCH (17:11)
--- NOTE | 2020-03-08 18:07 | PDOC.HOSPP ---
- Subjective Encounter Date: 03/08/20 Encounter Time: 12:00 Subjective: Patient seen in follow-up for congestive heart failure exacerbation. He denies any chest pain. He reports shortness of breath is better. - Objective Vital Signs & Weight: Vital Signs (12 hours) Temp Pulse Pulse BP BP Pulse Ox Pulse Ox 03/08/20 15:09 81 80 94/65 103/66 96 03/08/20 12:00 97.0 F L 03/08/20 08:00 98 03/08/20 07:24 96.4 F L Pulse Ox 03/08/20 15:09 97 03/08/20 12:00 03/08/20 08:00 03/08/20 07:24 Weight Admit Weight 171 lb Weight 158 lb 6.4 oz Most Recent Monitor Data Heart Rate from ECG 80 NIBP 88/65 NIBP BP-Mean 72 Respiration from ECG 25 SpO2 97 I&O: 03/07/20 03/08/20 03/09/20 06:59 06:59 06:59 Intake Total 990 1068.3 Output Total 1520 225 Balance -530 843.3 Result Diagrams: 03/03/20 03:11 03/08/20 02:54 Additional Labs: Labs and MAR reviewed by [facility] Hospitalist ROS - Review of Systems Respiratory: reports: SOB with excertion. denies: cough, shortness of breath, pleuritic pain, wheezing Cardiovascular: denies: chest pain, palpitations, orthopnea, paroxysmal noc. dyspnea, edema, light headedness - Medication Medications: Active Medications Generic Name Dose Route Start Last Admin Trade Name Freq PRN Reason Stop Dose Admin Acetaminophen 1,000 mg 02/29/20 18:11 03/01/20 15:07 Acetaminophen 500 Mg Tab PO 1,000 mg Q6H PRN Administration Moderate to Severe Pain (6-10) Amiodarone HCl 200 mg 02/28/20 09:00 03/08/20 08:51 Amiodarone 200 Mg Tab PO 200 mg DAILY KAITLYNN Administration Apixaban 5 mg 02/27/20 09:00 03/08/20 08:51 Apixaban 5 Mg Tab PO 5 mg BID KAITLYNN Administration Docusate Calcium 240 mg 02/28/20 09:00 03/08/20 08:51 Docusate Calcium (Surfak) 240 Mg Cap PO 240 mg DAILY KAITLYNN Administration Famotidine 20 mg 02/27/20 09:00 03/08/20 08:52 Famotidine 20 Mg Tab PO 20 mg BID KAITLYNN Administration Furosemide 80 mg 03/03/20 14:00 03/08/20 17:16 Furosemide 100 Mg/10 Ml Vial SLOW IVP 80 mg 0600,1400 KAITLYNN Administration Ceftriaxone Sodium 2 gm/ 100 mls @ 200 mls/hr 02/28/20 14:00 03/08/20 17:11 Sodium Chloride IVPB 100 mls Q24HR KAITLYNN Administration Dobutamine HCl/Dextrose 250 mls @ 5.851 mls/hr 03/04/20 07:51 03/06/20 02:43 Dobutamine 500 Mg/250 Ml IVPB 250 mls INF KAITLYNN Administration Protocol 2.5 MCG/KG/MIN Mometasone Furoate/Formoterol Fumar 2 puff 03/07/20 18:30 03/08/20 07:55 Mometasone 200 Mcg/Formoterol 5 Mcg 120 Puff Inhaler INH 2 puff BID-RT KAITLYNN Administration Potassium Chloride 10 meq 03/07/20 17:00 03/08/20 17:23 Potassium Chloride 10 Meq Tab PO 10 meq BID-WM KAITLYNN Administration Rosuvastatin Calcium 10 mg 02/27/20 21:00 03/07/20 20:16 Rosuvastatin 10 Mg Tab PO 10 mg HS KAITLYNN Administration Saccharomyces Boulardii 250 mg 02/28/20 09:00 03/08/20 08:51 Saccharomyces Boulardii 250 Mg Cap PO 250 mg DAILY KAITLYNN Administration Senna 1 tab 02/27/20 21:00 03/07/20 20:16 Senokot 8.6 Mg Tab PO 1 tab HS KAITLYNN Administration Sodium Chloride 10 ml 02/27/20 21:00 03/08/20 08:52 Flush - Normal Saline 10 Ml Syringe IVF 10 ml Q12HR KAITLYNN Administration Spironolactone 25 mg 02/28/20 08:00 03/08/20 08:51 Spironolactone 25 Mg Tab PO 25 mg QAM-WM KAITLYNN Administration - Exam General Appearance: awake alert Eye: anicteric sclera Neck: supple Heart: RRR Respiratory - other findings: Bibasilar crackles Gastrointestinal: soft, non-tender Skin: no rashes Psychiatric: normal affect Hosp A/P - Plan -Assessment (1) Acute on chronic systolic heart failure, NYHA class 3 Code(s): I50.23 - ACUTE ON CHRONIC SYSTOLIC (CONGESTIVE) HEART FAILURE Status: Acute (2) CAD (coronary artery disease) Code(s): I25.10 - ATHSCL HEART DISEASE OF [place] CORONARY ARTERY W/O ANG PCTRS Status: Chronic (3) Physical deconditioning Code(s): R53.81 - OTHER MALAISE Status: Chronic (4) Acute kidney injury Code(s): N17.9 - ACUTE KIDNEY FAILURE, UNSPECIFIED Status: Resolved - Plan * Continue Lasix, metolazone and dobutamine drip. * No plan for surgical intervention for the pacemaker lead, according to electrophysiology service. * PT- mobilize patient * Prognosis is guarded * Palliative care service has been consulted to discuss goals of care and disease trajectory.
[2020-03-08] MEDS: Rosuvastatin 10 MG TAB PO SCH (20:32)
[2020-03-08] MEDS: Senokot 8.6 MG TAB PO SCH (20:33)
[2020-03-09 04:26] LABS: BUN (Urea Nitrogen) 44 mg/dL (8.4-25.7); Calc. Creatinine Clearance 45 mL/min (70-130); Calcium 8.9 mg/dL (7.8-10.44); Estimated GFR-MDRD 49; Glucose 124 mg/dL (83-110)
[2020-03-09 04:35] LABS: Anion Gap 19 mmol/L (10-20); Carbon Dioxide 35 mmol/L (23-31); Chloride 85 mmol/L (98-107); Potassium 3.7 mmol/L (3.5-5.1); Sodium 135 mmol/L (136-145)
[2020-03-09] MEDS: Furosemide 100 MG/10 ML VIAL SLOW IVP SCH ×2 (06:01→14:11)
[2020-03-09] MEDS: Mometasone 200 MCG/Formoterol 5 MCG 120 PUFF INHALER INH SCH ×2 (06:19→18:14)
[2020-03-09] MEDS: Amiodarone 200 MG TAB PO SCH (10:02)
[2020-03-09] MEDS: Potassium Chloride 10 MEQ TAB PO SCH ×2 (10:02→18:04)
[2020-03-09] MEDS: Docusate Calcium (SURFAK) 240 MG CAP PO SCH (10:02)
[2020-03-09] MEDS: Famotidine 20 MG TAB PO SCH ×2 (10:02→21:13)
[2020-03-09] MEDS: Saccharomyces boulardii 250 MG CAP PO SCH (10:02)
[2020-03-09] MEDS: Apixaban 5 MG TAB PO SCH ×2 (10:02→21:13)
[2020-03-09] MEDS: Spironolactone 25 MG TAB PO SCH (10:04)
--- NOTE | 2020-03-09 10:31 | PRG ---
DATE OF SERVICE: 03/09/2020 SUBJECTIVE: Mr. Jane is awake and alert, but he is very weak. No chest pain or pressure. OBJECTIVE: VITAL SIGNS: Blood pressure 102/67 earlier, now it is low 90s systolic; pulse 80. LUNGS: Clear anteriorly and laterally. CARDIAC: Normal S1, normal S2, ASSESSMENT: 1. Advanced congestive heart failure, systolic, acute on chronic. 2. Previous biventricular pacemaker/defibrillator. PLAN: Dr. Phelps saw the patient and reprogrammed the vectors of the device. He believes the patient is currently getting a biventricular pacing. Continue dobutamine and intravenous diuretic as well as spironolactone. Repeat an EKG tomorrow to look at the QRS duration. The EKG from the 12th, looks like it is RV pacing only. I do not see additional EKGs. Job ID: [id number]
[2020-03-09] MEDS: cefTRIAXone\\ROCEPHIN 2 GM in Sodium Chloride 0.9% 100 ML IVPB SCH (14:10)
--- NOTE | 2020-03-09 15:21 | PRG ---
DATE OF SERVICE: 03/09/2020 SUBJECTIVE: Mr. Jane remains about the same. Weakness is the biggest issue he is facing on top of his cardiomyopathy. OBJECTIVE: VITAL SIGNS: His heart rate is 80, blood pressure 95/65, respiratory rate is 22. Intake and output coming in today are positive 623, although he has been voiding in a diaper as well. His weight is down 5 pounds compared to yesterday and 6 pounds from the day before. IMPRESSION: Congestive heart failure with volume overload diuresing. The bed scales are notoriously inaccurate, but I do believe that he is diuresing. There are a lot of other therapeutic options. Dr. Hayes plans to increase his dobutamine. We will follow. Job ID: [id number]
--- NOTE | 2020-03-09 17:27 | PDOC.HOSPP ---
- Subjective Encounter Date: 03/09/20 Encounter Time: 11:00 Subjective: Patient seen for follow-up regarding exacerbation of congestive heart failure. Reports that he slept well. He reports that he is breathing better. - Objective Vital Signs & Weight: Vital Signs (12 hours) Temp Pulse Pulse Pulse Resp BP BP 03/09/20 12:00 97.4 F L 03/09/20 08:50 80 80 99/71 102/67 03/09/20 08:00 03/09/20 07:22 97.2 F L 03/09/20 06:19 80 16 Pulse Ox Pulse Ox Pulse Ox 03/09/20 12:00 03/09/20 08:50 98 99 03/09/20 08:00 96 03/09/20 07:22 03/09/20 06:19 100 Weight Admit Weight 171 lb Weight 153 lb 7 oz Most Recent Monitor Data Heart Rate from ECG 80 NIBP 92/64 NIBP BP-Mean 73 Respiration from ECG 18 SpO2 100 I&O: 03/08/20 03/09/20 03/10/20 06:59 06:59 06:59 Intake Total 1068.3 1523 Output Total 225 900 Balance 843.3 623 Result Diagrams: 03/03/20 03:11 03/09/20 03:47 Additional Labs: I reviewed patient's labs and MAR EKG Reviewed by me: Yes (AV paced rhythm on telemetry) Hospitalist ROS - Review of Systems Cardiovascular: reports: edema. denies: chest pain, palpitations, orthopnea, paroxysmal noc. dyspnea, light headedness Gastrointestinal: denies: nausea, vomiting, abdominal pain, diarrhea, constipation, melena, hematochezia - Medication Medications: Active Medications Generic Name Dose Route Start Last Admin Trade Name Freq PRN Reason Stop Dose Admin Acetaminophen 1,000 mg 02/29/20 18:11 03/01/20 15:07 Acetaminophen 500 Mg Tab PO 1,000 mg Q6H PRN Administration Moderate to Severe Pain (6-10) Amiodarone HCl 200 mg 02/28/20 09:00 03/09/20 10:02 Amiodarone 200 Mg Tab PO 200 mg DAILY KAITLYNN Administration Apixaban 5 mg 02/27/20 09:00 03/09/20 10:02 Apixaban 5 Mg Tab PO 5 mg BID KAITLYNN Administration Docusate Calcium 240 mg 02/28/20 09:00 03/09/20 10:02 Docusate Calcium (Surfak) 240 Mg Cap PO 240 mg DAILY KAITLYNN Administration Famotidine 20 mg 02/27/20 09:00 03/09/20 10:02 Famotidine 20 Mg Tab PO 20 mg BID KAITLYNN Administration Furosemide 80 mg 03/03/20 14:00 03/09/20 14:11 Furosemide 100 Mg/10 Ml Vial SLOW IVP 80 mg 0600,1400 KAITLYNN Administration Ceftriaxone Sodium 2 gm/ 100 mls @ 200 mls/hr 02/28/20 14:00 03/09/20 14:10 Sodium Chloride IVPB 100 mls Q24HR KAITLYNN Administration Dobutamine HCl/Dextrose 250 mls @ 5.851 mls/hr 03/04/20 07:51 03/06/20 02:43 Dobutamine 500 Mg/250 Ml IVPB 250 mls INF KAITLYNN Administration Protocol 2.5 MCG/KG/MIN Mometasone Furoate/Formoterol Fumar 2 puff 03/07/20 18:30 03/09/20 06:19 Mometasone 200 Mcg/Formoterol 5 Mcg 120 Puff Inhaler INH 2 puff BID-RT KAITLYNN Administration Potassium Chloride 10 meq 03/07/20 17:00 03/09/20 10:02 Potassium Chloride 10 Meq Tab PO 10 meq BID-WM KAITLYNN Administration Rosuvastatin Calcium 10 mg 02/27/20 21:00 03/08/20 20:32 Rosuvastatin 10 Mg Tab PO 10 mg HS KAITLYNN Administration Saccharomyces Boulardii 250 mg 02/28/20 09:00 03/09/20 10:02 Saccharomyces Boulardii 250 Mg Cap PO 250 mg DAILY KAITLYNN Administration Senna 1 tab 02/27/20 21:00 03/08/20 20:33 Senokot 8.6 Mg Tab PO 1 tab HS KAITLYNN Administration Sodium Chloride 10 ml 02/27/20 21:00 03/09/20 10:03 Flush - Normal Saline 10 Ml Syringe IVF 10 ml Q12HR KAITLYNN Administration Spironolactone 25 mg 02/28/20 08:00 03/09/20 10:04 Spironolactone 25 Mg Tab PO 25 mg QAM-WM KAITLYNN Administration - Exam General Appearance: awake alert Eye: anicteric sclera ENT: moist mucosa Neck: supple Heart: RRR Respiratory - other findings: Bilateral crackles Gastrointestinal: soft Skin: no rashes Psychiatric: normal affect, normal behavior Hosp A/P - Plan -Assessment (1) Acute on chronic systolic heart failure, NYHA class 3 Code(s): I50.23 - ACUTE ON CHRONIC SYSTOLIC (CONGESTIVE) HEART FAILURE Status: Acute (2) CAD (coronary artery disease) Code(s): I25.10 - ATHSCL HEART DISEASE OF [place] CORONARY ARTERY W/O ANG PCTRS Status: Chronic (3) Physical deconditioning Code(s): R53.81 - OTHER MALAISE Status: Chronic (4) Acute kidney injury Code(s): N17.9 - ACUTE KIDNEY FAILURE, UNSPECIFIED Status: Resolved - Plan * Continue Lasix, metolazone and dobutamine drip. * No plan for surgical intervention for the pacemaker lead * PT- mobilize patient * Prognosis is guarded * Patient palliative care service input.
[2020-03-09] MEDS: Senokot 8.6 MG TAB PO SCH (21:13)
[2020-03-09] MEDS: Rosuvastatin 10 MG TAB PO SCH (21:13)
[2020-03-10] MEDS: DOBUTamine 500 mg/250 ml 250 ML IVPB SCH (01:45)
[2020-03-10 03:57] LABS: Anion Gap 15 mmol/L (10-20); BUN (Urea Nitrogen) 48 mg/dL (8.4-25.7); Calc. Creatinine Clearance 45 mL/min (70-130); Carbon Dioxide 33 mmol/L (23-31); Chloride 88 mmol/L (98-107); Estimated GFR-MDRD 51; Glucose 123 mg/dL (83-110); Sodium 132 mmol/L (136-145)
[2020-03-10] MEDS: Furosemide 100 MG/10 ML VIAL SLOW IVP SCH ×2 (05:35→14:19)
[2020-03-10] MEDS: Mometasone 200 MCG/Formoterol 5 MCG 120 PUFF INHALER INH SCH ×2 (08:17→18:49)
[2020-03-10] MEDS: Docusate Calcium (SURFAK) 240 MG CAP PO SCH (08:19)
[2020-03-10] MEDS: Saccharomyces boulardii 250 MG CAP PO SCH (08:19)
[2020-03-10] MEDS: Amiodarone 200 MG TAB PO SCH (08:20)
[2020-03-10] MEDS: Spironolactone 25 MG TAB PO SCH (08:20)
[2020-03-10] MEDS: Potassium Chloride 10 MEQ TAB PO SCH ×2 (08:20→16:19)
[2020-03-10] MEDS: Famotidine 20 MG TAB PO SCH ×2 (08:20→21:19)
[2020-03-10] MEDS: Apixaban 5 MG TAB PO SCH ×2 (08:20→21:19)
--- NOTE | 2020-03-10 09:44 | PRG ---
DATE OF SERVICE: 03/10/2020 SUBJECTIVE: Mr. Jane looked very weak and chronically ill. He is resting now. No chest pain or pressure. OBJECTIVE: VITAL SIGNS: Blood pressure 100/68 and pulse is 80. LUNGS: Clear. CARDIAC: Normal S1 and normal S2. ABDOMEN: Soft, nontender. EXTREMITIES: Only mild edema. PERTINENT LABORATORY DATA: Creatinine 1.36, sodium is 132, and potassium is 4.0. EKG shows a very wide QRS 224 milliseconds. ASSESSMENT: 1. Congestive heart failure, systolic, acute on chronic, very low cardiac output clinically. 2. Previous biventricular pacemaker defibrillator, unclear whether its catheter in the RV lead. PLAN: 1. Text of the EKG picture to Dr. Phelps. 2. He is on dobutamine. 3. Really probably need to consider code status and hospice if the patient's clinical status cannot be improved much. Job ID: [id number]
[2020-03-10 12:37] VITALS: BMI 19.4
--- NOTE | 2020-03-10 17:11 | PDOC.HOSPP ---
- Subjective Encounter Date: 03/10/20 Encounter Time: 10:00 Subjective: Patient seen for follow-up regarding CHF exacerbation. He denies any chest pain. He is wondering when he can go home. - Objective Vital Signs & Weight: Vital Signs (12 hours) Temp Pulse Resp Pulse Ox 03/10/20 15:49 96.8 F L 03/10/20 11:20 96.8 F L 03/10/20 08:19 97 03/10/20 08:17 80 20 97 03/10/20 07:43 96 03/10/20 07:28 97.0 F L Weight Admit Weight 171 lb Weight 151 lb 6 oz Most Recent Monitor Data Heart Rate from ECG 80 NIBP 93/59 NIBP BP-Mean 70 Respiration from ECG 20 SpO2 100 I&O: 03/09/20 03/10/20 03/11/20 06:59 06:59 06:59 Intake Total 1523 1135 Output Total 900 1825 Balance 623 -690 Result Diagrams: 03/03/20 03:11 03/10/20 03:06 Additional Labs: Labs and MAR reviewed by me EKG Reviewed by me: Yes (Electronic AV paced rhythm on telemetry) Hospitalist ROS - Review of Systems Respiratory: reports: SOB with excertion Cardiovascular: denies: chest pain, palpitations, orthopnea, paroxysmal noc. dyspnea, edema, light headedness Gastrointestinal: denies: nausea, vomiting, abdominal pain, diarrhea, constipation, melena, hematochezia - Medication Medications: Active Medications Generic Name Dose Route Start Last Admin Trade Name Freq PRN Reason Stop Dose Admin Acetaminophen 1,000 mg 02/29/20 18:11 03/01/20 15:07 Acetaminophen 500 Mg Tab PO 1,000 mg Q6H PRN Administration Moderate to Severe Pain (6-10) Amiodarone HCl 200 mg 02/28/20 09:00 03/10/20 08:20 Amiodarone 200 Mg Tab PO 200 mg DAILY KAITLYNN Administration Apixaban 5 mg 02/27/20 09:00 03/10/20 08:20 Apixaban 5 Mg Tab PO 5 mg BID KAITLYNN Administration Docusate Calcium 240 mg 02/28/20 09:00 03/10/20 08:19 Docusate Calcium (Surfak) 240 Mg Cap PO 240 mg DAILY KAITLYNN Administration Famotidine 20 mg 02/27/20 09:00 03/10/20 08:20 Famotidine 20 Mg Tab PO 20 mg BID KAITLYNN Administration Furosemide 80 mg 03/03/20 14:00 03/10/20 14:19 Furosemide 100 Mg/10 Ml Vial SLOW IVP 80 mg 0600,1400 KAITLYNN Administration Dobutamine HCl/Dextrose 250 mls @ 5.851 mls/hr 03/04/20 07:51 03/10/20 01:45 Dobutamine 500 Mg/250 Ml IVPB 250 mls INF KAITLYNN Administration Protocol 2.5 MCG/KG/MIN Mometasone Furoate/Formoterol Fumar 2 puff 03/07/20 18:30 03/10/20 08:17 Mometasone 200 Mcg/Formoterol 5 Mcg 120 Puff Inhaler INH 2 puff BID-RT KAITLYNN Administration Potassium Chloride 10 meq 03/07/20 17:00 03/10/20 16:19 Potassium Chloride 10 Meq Tab PO 10 meq BID-WM KAITLYNN Administration Rosuvastatin Calcium 10 mg 02/27/20 21:00 03/09/20 21:13 Rosuvastatin 10 Mg Tab PO 10 mg HS KAITLYNN Administration Saccharomyces Boulardii 250 mg 02/28/20 09:00 03/10/20 08:19 Saccharomyces Boulardii 250 Mg Cap PO 250 mg DAILY KAITLYNN Administration Senna 1 tab 02/27/20 21:00 03/09/20 21:13 Senokot 8.6 Mg Tab PO 1 tab HS KAITLYNN Administration Sodium Chloride 10 ml 02/27/20 21:00 03/10/20 08:20 Flush - Normal Saline 10 Ml Syringe IVF 10 ml Q12HR KAITLYNN Administration Spironolactone 25 mg 02/28/20 08:00 03/10/20 08:20 Spironolactone 25 Mg Tab PO 25 mg QAM-WM KAITLYNN Administration - Exam General Appearance: awake alert ENT: normocephalic atraumatic Heart: RRR Respiratory - other findings: Bibasilar crackles Gastrointestinal: soft Skin: no rashes Psychiatric: normal affect, normal behavior Hosp A/P - Plan -Assessment (1) Acute on chronic systolic heart failure, NYHA class 3 Code(s): I50.23 - ACUTE ON CHRONIC SYSTOLIC (CONGESTIVE) HEART FAILURE Status: Acute (2) CAD (coronary artery disease) Code(s): I25.10 - ATHSCL HEART DISEASE OF [place] CORONARY ARTERY W/O ANG PCTRS Status: Chronic (3) Physical deconditioning Code(s): R53.81 - OTHER MALAISE Status: Chronic (4) Acute kidney injury Code(s): N17.9 - ACUTE KIDNEY FAILURE, UNSPECIFIED Status: Resolved - Plan * Patient is on Lasix, metolazone and dobutamine drip. * No plan for surgical intervention for the pacemaker lead * obilize patient * Prognosis is guarded * palliative care service following.
[2020-03-10] MEDS: Rosuvastatin 10 MG TAB PO SCH (21:19)
[2020-03-10] MEDS: Senokot 8.6 MG TAB PO SCH (21:20)
[2020-03-11] MEDS: Furosemide 100 MG/10 ML VIAL SLOW IVP SCH (06:16)
[2020-03-11] MEDS: Mometasone 200 MCG/Formoterol 5 MCG 120 PUFF INHALER INH SCH ×2 (07:20→19:06)
[2020-03-11 07:21] LABS: #Eosinphils 0.2 thou/uL (0.0-0.7); #Monocytes 0.9 thou/uL (0.11-0.59); #Neutrophils 10.5 thou/uL (1.40-6.50); %Basophils 0.2 % (0.0-1.0); %Eosinophils 1.2 % (0.0-10.0); %Lymphocytes 7.9 % (21.0-51.0); %Monocytes 6.9 % (0.0-10.0); %Neutrophils 83.9 % (42.0-75.0); Hemoglobin 16.4 g/dL (14.0-18.0); Mean Corpuscular HGB CONC 32.7 g/dL (32.0-36.0); Mean Corpuscular Hemoglobin 32.6 pg (27.0-31.0); Mean Corpuscular Volume 99.6 fL (78.0-98.0); Mean Platelet Volume 7.5 fL (7.4-10.4); Platelet Count 361 thou/uL (130-400); RBC Distribution Width 13.3 % (11.5-14.5); Red Blood Cell (RBC) Count 5.03 mill/uL (4.70-6.10); White Blood Cell (WBC) Count 12.5 thou/uL (4.8-10.8)
[2020-03-11 07:31] LABS: Anion Gap 16 mmol/L (10-20); BUN (Urea Nitrogen) 50 mg/dL (8.4-25.7); Calc. Creatinine Clearance 41 mL/min (70-130); Calcium 8.7 mg/dL (7.8-10.44); Carbon Dioxide 32 mmol/L (23-31); Chloride 87 mmol/L (98-107); Estimated GFR-MDRD 46; Glucose 121 mg/dL (83-110); Potassium 3.6 mmol/L (3.5-5.1); Sodium 131 mmol/L (136-145)
[2020-03-11] MEDS: Famotidine 20 MG TAB PO SCH ×2 (08:48→21:45)
[2020-03-11] MEDS: Saccharomyces boulardii 250 MG CAP PO SCH (08:49)
[2020-03-11] MEDS: Apixaban 5 MG TAB PO SCH ×2 (08:49→21:45)
[2020-03-11] MEDS: Amiodarone 200 MG TAB PO SCH (08:49)
[2020-03-11] MEDS: Potassium Chloride 10 MEQ TAB PO SCH ×2 (08:49→16:17)
[2020-03-11] MEDS: Spironolactone 25 MG TAB PO SCH (08:49)
[2020-03-11] MEDS: Docusate Calcium (SURFAK) 240 MG CAP PO SCH (08:49)
--- NOTE | 2020-03-11 14:10 | PRG ---
DATE OF SERVICE: 03/11/2020 SUBJECTIVE: Mr. Jane continues to look very weak and chronically ill. He is not short of breath at rest. OBJECTIVE: VITAL SIGNS: Blood pressure 88/57, pulse is 80 and it is paced. LUNGS: Clear. CARDIAC: Normal S1. Normal S2. ABDOMEN: Soft, nontender. EXTREMITIES: Mild edema. ASSESSMENT: 1. Congestive heart failure, systolic, appears end-stage. 2. Atrial fibrillation, in sinus rhythm. 3. Unfortunately had a history of noncompliance with followups. PLAN: 1. Reduce furosemide. 2. Do a chest x-ray tomorrow. 3. The patient is asking about options. The options what appear to be either go to a intermediate or home with hospice. He wishes to talk to the palliative care team. Job ID: [id number]
[2020-03-11] MEDS: Furosemide 40 MG/4 ML VIAL SLOW IVP SCH (15:16)
--- NOTE | 2020-03-11 18:39 | PDOC.HOSPP ---
- Subjective Encounter Date: 03/11/20 Encounter Time: 12:00 Subjective: Patient seen for follow-up regarding congestive heart failure exacerbation. He denies any new complaints. He feels weak. - Objective Vital Signs & Weight: Vital Signs (12 hours) Temp Pulse Ox 03/11/20 16:00 97.1 F L 03/11/20 11:29 97.0 F L 03/11/20 07:54 98 03/11/20 07:10 97.0 F L Weight Admit Weight 171 lb Weight 154 lb 9.6 oz Most Recent Monitor Data Heart Rate from ECG 80 NIBP 84/59 NIBP BP-Mean 67 Respiration from ECG 18 SpO2 98 I&O: 03/10/20 03/11/20 03/12/20 06:59 06:59 06:59 Intake Total 1135 1351 600 Output Total 1825 1200 800 Balance -690 151 -200 Result Diagrams: 03/11/20 06:22 03/11/20 06:22 Additional Labs: I reviewed patient's labs and MAR EKG Reviewed by me: Yes (Electronic AV paced rhythm on telemetry) Hospitalist ROS - Review of Systems Constitutional: reports: weakness Respiratory: reports: SOB with excertion. denies: cough, shortness of breath, pleuritic pain, wheezing Cardiovascular: denies: chest pain, palpitations, orthopnea, paroxysmal noc. dyspnea, edema, light headedness - Medication Medications: Active Medications Generic Name Dose Route Start Last Admin Trade Name Freq PRN Reason Stop Dose Admin Acetaminophen 1,000 mg 02/29/20 18:11 03/01/20 15:07 Acetaminophen 500 Mg Tab PO 1,000 mg Q6H PRN Administration Moderate to Severe Pain (6-10) Amiodarone HCl 200 mg 02/28/20 09:00 03/11/20 08:49 Amiodarone 200 Mg Tab PO 200 mg DAILY KAITLYNN Administration Apixaban 5 mg 02/27/20 09:00 03/11/20 08:49 Apixaban 5 Mg Tab PO 5 mg BID KAITLYNN Administration Docusate Calcium 240 mg 02/28/20 09:00 03/11/20 08:49 Docusate Calcium (Surfak) 240 Mg Cap PO 240 mg DAILY KAITLYNN Administration Famotidine 20 mg 02/27/20 09:00 03/11/20 08:48 Famotidine 20 Mg Tab PO 20 mg BID KAITLYNN Administration Furosemide 40 mg 03/11/20 14:00 03/11/20 15:16 Furosemide 40 Mg/4 Ml Vial SLOW IVP 40 mg 0600,1400 KAITLYNN Administration Dobutamine HCl/Dextrose 250 mls @ 5.851 mls/hr 03/04/20 07:51 03/10/20 01:45 Dobutamine 500 Mg/250 Ml IVPB 250 mls INF KAITLYNN Administration Protocol 2.5 MCG/KG/MIN Mometasone Furoate/Formoterol Fumar 2 puff 03/07/20 18:30 03/11/20 07:20 Mometasone 200 Mcg/Formoterol 5 Mcg 120 Puff Inhaler INH 2 puff BID-RT KAITLYNN Administration Potassium Chloride 10 meq 03/07/20 17:00 03/11/20 16:17 Potassium Chloride 10 Meq Tab PO 10 meq BID-WM KAITLYNN Administration Rosuvastatin Calcium 10 mg 02/27/20 21:00 03/10/20 21:19 Rosuvastatin 10 Mg Tab PO 10 mg HS KAITLYNN Administration Saccharomyces Boulardii 250 mg 02/28/20 09:00 03/11/20 08:49 Saccharomyces Boulardii 250 Mg Cap PO 250 mg DAILY KAITLYNN Administration Senna 1 tab 02/27/20 21:00 03/10/20 21:20 Senokot 8.6 Mg Tab PO 1 tab HS KAITLYNN Administration Sodium Chloride 10 ml 02/27/20 21:00 03/11/20 08:49 Flush - Normal Saline 10 Ml Syringe IVF 10 ml Q12HR KAITLYNN Administration Spironolactone 25 mg 02/28/20 08:00 03/11/20 08:49 Spironolactone 25 Mg Tab PO 25 mg QAM-WM KAITLYNN Administration - Exam General Appearance: awake alert Eye: anicteric sclera ENT: no oropharyngeal lesions Neck: supple Heart: RRR Respiratory - other findings: Bilateral crackles Gastrointestinal: soft Skin: no rashes Psychiatric: normal affect Hosp A/P - Plan Patient is a pleasant 75-year-old gentleman who was admitted to the hospital on February 27, 2020 for congestive heart failure exacerbation. He has been seen by cardiology and electrophysiology services. He was started on a dobutamine drip and has received furosemide and metolazone. He has not shown much improvement. ICD was interrogated by bedside and electrophysiology service felt that the current configuration provides adequate resynchronization. Therefore, no further plans for surgical intervention. Palliative care service has been following him as well. On March 11, patient reportedly expressed desire to pursue hospice care. -Assessment (1) Acute on chronic systolic heart failure, NYHA class 3 Code(s): I50.23 - ACUTE ON CHRONIC SYSTOLIC (CONGESTIVE) HEART FAILURE Status: Acute (2) CAD (coronary artery disease) Code(s): I25.10 - ATHSCL HEART DISEASE OF [place] CORONARY ARTERY W/O ANG PCTRS Status: Chronic (3) Physical deconditioning Code(s): R53.81 - OTHER MALAISE Status: Chronic (4) Acute kidney injury Code(s): N17.9 - ACUTE KIDNEY FAILURE, UNSPECIFIED Status: Resolved - Plan * Continue furosemide 40 mg IV twice daily and dobutamine drip. * No plan for surgical intervention for the pacemaker lead * Ambulate patient * Prognosis is guarded * palliative care service following. Patient reportedly is opting for hospice care.
[2020-03-11] MEDS: Senokot 8.6 MG TAB PO SCH (21:45)
[2020-03-11] MEDS: Rosuvastatin 10 MG TAB PO SCH (21:45)
[2020-03-12 04:00] LABS: Anion Gap 17 mmol/L (10-20); BUN (Urea Nitrogen) 48 mg/dL (8.4-25.7); Calc. Creatinine Clearance 44 mL/min (70-130); Calcium 8.7 mg/dL (7.8-10.44); Carbon Dioxide 27 mmol/L (23-31); Chloride 92 mmol/L (98-107); Estimated GFR-MDRD 50; Glucose 91 mg/dL (83-110); Potassium 4.8 mmol/L (3.5-5.1); Sodium 131 mmol/L (136-145)
[2020-03-12] MEDS: DOBUTamine 500 mg/250 ml 250 ML IVPB SCH (06:25)
[2020-03-12] MEDS: Furosemide 40 MG/4 ML VIAL SLOW IVP SCH ×2 (06:25→16:01)
[2020-03-12] MEDS: Mometasone 200 MCG/Formoterol 5 MCG 120 PUFF INHALER INH SCH ×2 (07:11→19:01)
--- NOTE | 2020-03-12 08:23 | RAD ---
Chest one view HISTORY: CHF. Follow-up. COMPARISON: 03/02/2020. FINDINGS: Cardiac silhouette is magnified by projection, enlarged, and partially obscured by bibasila r infiltrates, left greater than right, and opacity at the left base that has the appearance of pleural fluid. Mediastinum is midline with postoperative changes, aortic calcification, and a multi lead left subcla vian cardiac electronic device. Pulmonary vasculature is engorged with widespread reticulonodular interstitial prominence and mild gr oundglass opacity. No evidence of pneumothorax. IMPRESSION : Radiographic findings of CHF are unchanged.
[2020-03-12] MEDS: Spironolactone 25 MG TAB PO SCH (08:59)
[2020-03-12] MEDS: Docusate Calcium (SURFAK) 240 MG CAP PO SCH (08:59)
[2020-03-12] MEDS: Amiodarone 200 MG TAB PO SCH (08:59)
[2020-03-12] MEDS: Saccharomyces boulardii 250 MG CAP PO SCH (08:59)
[2020-03-12] MEDS: Potassium Chloride 10 MEQ TAB PO SCH ×2 (08:59→16:01)
[2020-03-12] MEDS: Famotidine 20 MG TAB PO SCH ×2 (08:59→21:58)
[2020-03-12] MEDS: Apixaban 5 MG TAB PO SCH ×2 (08:59→21:58)
--- NOTE | 2020-03-12 09:59 | PRG ---
DATE OF SERVICE: 03/12/2020 SUBJECTIVE: Mr. Jane is a pleasant 75-year-old gentleman. OBJECTIVE: VITAL SIGNS: His blood pressure is low 90 systolic, is still on 2.5 mcg per kg per minute of dobutamine. LUNGS: Clear anteriorly and laterally. CARDIAC: Normal S1, normal S2. ABDOMEN: Soft. Nontender. EXTREMITIES: Mild edema. LABORATORY DATA: Creatinine is 1.38. ASSESSMENT: End-stage heart disease, on dobutamine. PLAN: 1. Continue dobutamine. 2. Palliative care is being arranged. Job ID: [id number]
--- NOTE | 2020-03-12 12:38 | PDOC.HOSPP ---
- Subjective Encounter Date: 03/12/20 Encounter Time: 12:37 Subjective: 75-year-old patient who now likely has end-stage CHF admitted to the hospital with CHF exacerbation. He has been followed by cardiology and [facility] cardiology services. He has not improved any since admission. He is now thinking along the lines of comfort measures only. Palliative care services are following him. When I saw the patient earlier today he just was adamant about being released to discharge home. He says that we are holding him against his will. I had a chance to discuss the case with case management who will reach out to the patient's family and medical power of assistant district attorney in addition to the hospice group that the family chose. He will likely be discharged on hospice care. - Objective Vital Signs & Weight: Vital Signs (12 hours) Temp Pulse Ox 03/12/20 07:59 100 03/12/20 04:08 97.0 F L Weight Admit Weight 171 lb Weight 153 lb 11.2 oz Most Recent Monitor Data Heart Rate from ECG 80 NIBP 89/59 NIBP BP-Mean 69 Respiration from ECG 31 SpO2 100 I&O: 03/11/20 03/12/20 03/13/20 06:59 06:59 06:59 Intake Total 1351 1280 Output Total 1200 1300 Balance 151 -20 Result Diagrams: 03/11/20 06:22 03/12/20 03:18 Radiology Reviewed by me: Yes EKG Reviewed by me: Yes Hospitalist ROS - Review of Systems Constitutional: reports: weakness Respiratory: reports: shortness of breath, SOB with excertion Cardiovascular: reports: paroxysmal noc. dyspnea - Medication Medications: Active Medications Generic Name Dose Route Start Last Admin Trade Name Freq PRN Reason Stop Dose Admin Acetaminophen 1,000 mg 02/29/20 18:11 03/01/20 15:07 Acetaminophen 500 Mg Tab PO 1,000 mg Q6H PRN Administration Moderate to Severe Pain (6-10) Amiodarone HCl 200 mg 02/28/20 09:00 03/12/20 08:59 Amiodarone 200 Mg Tab PO 200 mg DAILY KAITLYNN Administration Apixaban 5 mg 02/27/20 09:00 03/12/20 08:59 Apixaban 5 Mg Tab PO 5 mg BID KAITLYNN Administration Docusate Calcium 240 mg 02/28/20 09:00 03/12/20 08:59 Docusate Calcium (Surfak) 240 Mg Cap PO 240 mg DAILY KAITLYNN Administration Famotidine 20 mg 02/27/20 09:00 03/12/20 08:59 Famotidine 20 Mg Tab PO 20 mg BID KAITLYNN Administration Furosemide 40 mg 03/11/20 14:00 03/12/20 06:25 Furosemide 40 Mg/4 Ml Vial SLOW IVP 40 mg 0600,1400 KAITLYNN Administration Dobutamine HCl/Dextrose 250 mls @ 5.851 mls/hr 03/04/20 07:51 03/12/20 06:25 Dobutamine 500 Mg/250 Ml IVPB 250 mls INF KAITLYNN Administration Protocol 2.5 MCG/KG/MIN Mometasone Furoate/Formoterol Fumar 2 puff 03/07/20 18:30 03/12/20 07:11 Mometasone 200 Mcg/Formoterol 5 Mcg 120 Puff Inhaler INH 2 puff BID-RT KAITLYNN Administration Potassium Chloride 10 meq 03/07/20 17:00 03/12/20 08:59 Potassium Chloride 10 Meq Tab PO 10 meq BID-WM KAITLYNN Administration Rosuvastatin Calcium 10 mg 02/27/20 21:00 03/11/20 21:45 Rosuvastatin 10 Mg Tab PO 10 mg HS KAITLYNN Administration Saccharomyces Boulardii 250 mg 02/28/20 09:00 03/12/20 08:59 Saccharomyces Boulardii 250 Mg Cap PO 250 mg DAILY KAITLYNN Administration Senna 1 tab 02/27/20 21:00 03/11/20 21:45 Senokot 8.6 Mg Tab PO 1 tab HS KAITLYNN Administration Sodium Chloride 10 ml 02/27/20 21:00 03/12/20 08:59 Flush - Normal Saline 10 Ml Syringe IVF 10 ml Q12HR KAITLYNN Administration Spironolactone 25 mg 02/28/20 08:00 03/12/20 08:59 Spironolactone 25 Mg Tab PO 25 mg QAM-WM KAITLYNN Administration - Exam Neck: supple, symmetric, no JVD, no thyromegaly, no lymphadenopathy Heart: RRR, no murmur, no gallops Respiratory: CTAB, no wheezes, no rales, no ronchi, normal chest expansion Gastrointestinal: soft, non-tender, non-distended, normal bowel sounds, no palpable masses Extremities: no cyanosis, no clubbing, 1+ LE edema Neurological: cranial nerve grossly intact, normal sensation to touch, no weakness, no focal deficits, no new deficit Musculoskeletal: normal tone, normal strength, no muscle wasting, generalized weakness Psychiatric: normal affect, normal behavior, A&O x 3, oriented to person, oriented to place, oriented to time Hosp A/P - Plan PT/OT, respiratory therapy, out of bed/ambulate, DVT proph w/heparin Consults: Palliative Care
--- NOTE | 2020-03-12 13:32 | EKG ---
Test Reason : SOB Blood Pressure : / mmHG Vent. Rate : 080 BPM Atrial Rate : 045 BPM P-R Int : 000 ms QRS Dur : 180 ms QT Int : 538 ms P-R-T Axes : 000 055 102 degrees QTc Int : 620 ms AV sequential or dual chamber electronic pacemaker Confirmed by LONNIE PORTILLO MD ([id number]), editor managing director SONAM DAVIS ([id number]) on 03/12/2020 1:32:06 PM Referred By: Confirmed By:LONNIE PORTILLO MD
[2020-03-12 16:32] VITALS: BP 75/52
[2020-03-12] MEDS: Senokot 8.6 MG TAB PO SCH (21:58)
[2020-03-12] MEDS: Rosuvastatin 10 MG TAB PO SCH (21:58)
[2020-03-13 04:38] LABS: Anion Gap 16 mmol/L (10-20); BUN (Urea Nitrogen) 57 mg/dL (8.4-25.7); Calc. Creatinine Clearance 47 mL/min (70-130); Calcium 8.4 mg/dL (7.8-10.44); Carbon Dioxide 30 mmol/L (23-31); Chloride 91 mmol/L (98-107); Estimated GFR-MDRD 54; Glucose 95 mg/dL (83-110); Potassium 3.6 mmol/L (3.5-5.1); Sodium 133 mmol/L (136-145)
[2020-03-13] MEDS: Furosemide 40 MG/4 ML VIAL SLOW IVP SCH (05:47)
[2020-03-13] MEDS: Mometasone 200 MCG/Formoterol 5 MCG 120 PUFF INHALER INH SCH ×2 (07:09→18:57)
[2020-03-13] MEDS: Saccharomyces boulardii 250 MG CAP PO SCH (10:21)
[2020-03-13] MEDS: Docusate Calcium (SURFAK) 240 MG CAP PO SCH (10:21)
[2020-03-13] MEDS: Famotidine 20 MG TAB PO SCH ×2 (10:21→21:36)
[2020-03-13] MEDS: Potassium Chloride 10 MEQ TAB PO SCH ×2 (10:21→17:30)
[2020-03-13] MEDS: Apixaban 5 MG TAB PO SCH ×2 (10:22→21:37)
[2020-03-13] MEDS: Spironolactone 25 MG TAB PO SCH (10:22)
[2020-03-13] MEDS: Amiodarone 200 MG TAB PO SCH (10:22)
--- NOTE | 2020-03-13 10:29 | PRG ---
DATE OF SERVICE: 03/13/2020 SUBJECTIVE: Mr. Jane is resting in bed, looks very weak, chronically ill. OBJECTIVE: VITAL SIGNS: Blood pressure off the dobutamine now is 90 systolic, pulse is 80 and it is paced. LUNGS: Basilar rales. CARDIAC: Normal S1, normal S2. ABDOMEN: Soft, nontender. EXTREMITIES: There is no edema. ASSESSMENT: 1. Congestive heart failure systolic, acute on chronic, appears to be end-stage. 2. Paroxysmal atrial arrhythmias. 3. Previous biventricular pacemaker defibrillator. PLAN: 1. We will go and increase furosemide. 2. Trying to figure out placement whether he needs to go to a snf. He wants to go home but it does not look feasible for him to take care of himself at home. Palliative Care seems most appropriate. This gentleman appears to be end-stage from heart disease. Job ID: [id number]
[2020-03-13] MEDS ORDERED: Potassium Chloride 20 MEQ TAB PO SCH (12:00)
[2020-03-13] MEDS: Furosemide 100 MG/10 ML VIAL SLOW IVP SCH (14:46)
--- NOTE | 2020-03-13 16:45 | PDOC.HOSPP ---
- Subjective Encounter Date: 03/13/20 Encounter Time: 16:44 Subjective: Patient has been weaned off of dobutamine. He wants to absolutely go home. We finally were able to speak to the patient's and medical power of litigation attorney associate who advised that the patient will have more services by tomorrow. They will contact hospice group close to the patient's home so he could be monitored when he gets released tomorrow. This has been explained to the patient and we will plan on discharging home by tomorrow. - Objective Vital Signs & Weight: Vital Signs (12 hours) Temp Pulse Ox 03/13/20 12:00 97.4 F L 03/13/20 08:00 97.5 F L 100 Weight Admit Weight 171 lb Weight 153 lb 11.2 oz Most Recent Monitor Data Heart Rate from ECG 80 NIBP 84/59 NIBP BP-Mean 67 Respiration from ECG 30 SpO2 100 I&O: 03/12/20 03/13/20 03/14/20 06:59 06:59 06:59 Intake Total 1280 1320.9 480 Output Total 1300 Balance -20 1320.9 480 Result Diagrams: 03/11/20 06:22 03/13/20 03:44 Hospitalist ROS - Review of Systems ROS unobtainable: due to mental status Cardiovascular: reports: chest pain Gastrointestinal: reports: nausea, vomiting - Medication Medications: Active Medications Generic Name Dose Route Start Last Admin Trade Name Freq PRN Reason Stop Dose Admin Acetaminophen 1,000 mg 02/29/20 18:11 03/01/20 15:07 Acetaminophen 500 Mg Tab PO 1,000 mg Q6H PRN Administration Moderate to Severe Pain (6-10) Amiodarone HCl 200 mg 02/28/20 09:00 03/13/20 10:22 Amiodarone 200 Mg Tab PO 200 mg DAILY KAITLYNN Administration Apixaban 5 mg 02/27/20 09:00 03/13/20 10:22 Apixaban 5 Mg Tab PO 5 mg BID KAITLYNN Administration Docusate Calcium 240 mg 02/28/20 09:00 03/13/20 10:21 Docusate Calcium (Surfak) 240 Mg Cap PO 240 mg DAILY KAITLYNN Administration Famotidine 20 mg 02/27/20 09:00 03/13/20 10:21 Famotidine 20 Mg Tab PO 20 mg BID KAITLYNN Administration Furosemide 80 mg 03/13/20 14:00 03/13/20 14:46 Furosemide 100 Mg/10 Ml Vial SLOW IVP 80 mg 0600,1400 KAITLYNN Administration Dobutamine HCl/Dextrose 250 mls @ 5.851 mls/hr 03/04/20 07:51 03/12/20 06:25 Dobutamine 500 Mg/250 Ml IVPB 250 mls INF KAITLYNN Administration Protocol 2.5 MCG/KG/MIN Mometasone Furoate/Formoterol Fumar 2 puff 03/07/20 18:30 03/13/20 07:09 Mometasone 200 Mcg/Formoterol 5 Mcg 120 Puff Inhaler INH 2 puff BID-RT KAITLYNN Administration Potassium Chloride 10 meq 03/07/20 17:00 03/13/20 10:21 Potassium Chloride 10 Meq Tab PO 10 meq BID-WM KAITLYNN Administration Rosuvastatin Calcium 10 mg 02/27/20 21:00 03/12/20 21:58 Rosuvastatin 10 Mg Tab PO 10 mg HS KAITLYNN Administration Saccharomyces Boulardii 250 mg 02/28/20 09:00 03/13/20 10:21 Saccharomyces Boulardii 250 Mg Cap PO 250 mg DAILY KAITLYNN Administration Senna 1 tab 02/27/20 21:00 03/12/20 21:58 Senokot 8.6 Mg Tab PO 1 tab HS KAITLYNN Administration Sodium Chloride 10 ml 02/27/20 21:00 03/13/20 10:22 Flush - Normal Saline 10 Ml Syringe IVF 10 ml Q12HR KAITLYNN Administration Spironolactone 25 mg 02/28/20 08:00 03/13/20 10:22 Spironolactone 25 Mg Tab PO 25 mg QAM-WM KAITLYNN Administration - Exam General Appearance: NAD, awake alert, ill appearing Eye: PERRL, anicteric sclera ENT: normocephalic atraumatic, no oropharyngeal lesions Neck: supple, symmetric, no JVD, no thyromegaly, no lymphadenopathy Heart: RRR, no murmur, no gallops, no rubs, normal peripheral pulses Respiratory: CTAB, no wheezes, no rales, no ronchi, normal chest expansion Gastrointestinal: soft, non-tender, non-distended Hosp A/P (1) Acute on chronic systolic heart failure, NYHA class 3 Code(s): I50.23 - ACUTE ON CHRONIC SYSTOLIC (CONGESTIVE) HEART FAILURE Status: Acute Plan: Patient is getting diuresed. He appears to be terminal with his CHF. He has been speaking with palliative care and hospice services. We will likely discharge him home with hospice by tomorrow. (2) CAD (coronary artery disease) Code(s): I25.10 - ATHSCL HEART DISEASE OF [place] CORONARY ARTERY W/O ANG PCTRS Status: Chronic Qualifiers: Coronary Disease-Associated Artery/Lesion type: bypass graft, nonautologous biological Associated angina: without angina Qualified Code(s): I25.810 - Atherosclerosis of coronary artery bypass graft(s) without angina pectoris Plan: Continue home medicines. (3) CKD (chronic kidney disease) stage 3, GFR 30-59 ml/min Code(s): N18.30 - CHRONIC KIDNEY DISEASE, STAGE 3 UNSPECIFIED Status: Acute (4) Hx of CABG Status: Chronic (5) Palliative care encounter Code(s): Z51.5 - ENCOUNTER FOR PALLIATIVE CARE Status: Acute - Plan old records reviewed/req, plan discussed w/ family Consults: Hospice, Palliative Care
[2020-03-13] MEDS: Senokot 8.6 MG TAB PO SCH (21:37)
[2020-03-13] MEDS: Rosuvastatin 10 MG TAB PO SCH (21:37)
[2020-03-14] MEDS: Furosemide 100 MG/10 ML VIAL SLOW IVP SCH (06:26)
[2020-03-14 07:23] LABS: Anion Gap 13 mmol/L (10-20); BUN (Urea Nitrogen) 59 mg/dL (8.4-25.7); Calc. Creatinine Clearance 43 mL/min (70-130); Calcium 8.3 mg/dL (7.8-10.44); Carbon Dioxide 32 mmol/L (23-31); Chloride 92 mmol/L (98-107); Estimated GFR-MDRD 49; Glucose 118 mg/dL (83-110); Potassium 4.3 mmol/L (3.5-5.1); Sodium 133 mmol/L (136-145)
[2020-03-14] MEDS: Mometasone 200 MCG/Formoterol 5 MCG 120 PUFF INHALER INH SCH (07:38)
[2020-03-14] MEDS: Potassium Chloride 10 MEQ TAB PO SCH ×2 (09:12→16:23)
[2020-03-14] MEDS: Apixaban 5 MG TAB PO SCH (09:13)
[2020-03-14] MEDS: Docusate Calcium (SURFAK) 240 MG CAP PO SCH (09:13)
[2020-03-14] MEDS: Spironolactone 25 MG TAB PO SCH (09:13)
[2020-03-14] MEDS: Amiodarone 200 MG TAB PO SCH (09:13)
[2020-03-14] MEDS: Saccharomyces boulardii 250 MG CAP PO SCH (09:13)
[2020-03-14] MEDS: Famotidine 20 MG TAB PO SCH (09:13)
--- NOTE | 2020-03-14 11:07 | PDOC.PALPN ---
Palliative Progress Note - Subjective Awake, weakness. Desires to transition to home setting as soon as possible. Weaned off of pressure support. - Objective Vital Signs: Vital Signs - Most Recent Temp Pulse Resp BP Pulse Ox 97.6 F 80 24 H 75/52 L 100 03/14/20 07:30 03/13/20 18:57 03/13/20 18:57 03/12/20 14:10 03/13/20 20:00 - Physical Exam Constitutional: cachectic, emaciated, ill appearing HEENT: EOMI, moist MMs, PERRLA, sclera anicteric Respiratory: no wheezing, diminished lung sound, labored respirations Cardiovascular: RRR, diminished peripheral pulses Gastrointestinal: soft, non-tender, positive bowel sounds Genitourinary: incontinent Musculoskeletal: no cyanosis, no clubbing Neurology: moves all 4 limbs, no focal deficits Skin: cap refill <2 seconds, no lesions, fragile Psychiatric: A&O x 3 - Assessment (1) CKD (chronic kidney disease) stage 3, GFR 30-59 ml/min Code(s): N18.30 - CHRONIC KIDNEY DISEASE, STAGE 3 UNSPECIFIED Current Visit: Yes Status: Acute (2) Acute on chronic systolic heart failure, NYHA class 3 Code(s): I50.23 - ACUTE ON CHRONIC SYSTOLIC (CONGESTIVE) HEART FAILURE Current Visit: No Status: Acute (3) Palliative care encounter Code(s): Z51.5 - ENCOUNTER FOR PALLIATIVE CARE Current Visit: No Status: Acute (4) Peripheral vascular disease of lower extremity Code(s): I73.9 - PERIPHERAL VASCULAR DISEASE, UNSPECIFIED Current Visit: No Status: Acute (5) Physical deconditioning Code(s): R53.81 - OTHER MALAISE Current Visit: No Status: Chronic - Plan Plan: Mr Jane is agreeable to transition to home setting with [facility]. Palliative care has communicated with patient MPOA. Mr Jane is decisional, desiring to transition back to his home/camper to remain. He desires to live independently as possible for as long as he can. [facility] for Mr Jane. Emotional support and therapeutic listening. [45] minutes spent on this encounter with >50% of the time in counseling and coordination of care. - ROS Constitutional: alert, loss appetite, weakness Respiratory: shortness of breath Cardiology: light headedness Gastrointestinal: other (Negative for nausea, vomiting) Musculoskeletal: arthritis/arthralgias
--- NOTE | 2020-03-14 11:46 | PRG ---
DATE OF SERVICE: 03/14/2020 SUBJECTIVE: Mr. Jane looks very weak and fatigued, but he is not short of breath. OBJECTIVE: VITAL SIGNS: His blood pressure is in the low 80s systolic, pulse 80 and it is paced. LUNGS: Clear anteriorly and laterally. CARDIAC: Normal S1, normal S2. ABDOMEN: Soft, nontender. EXTREMITIES: Only mild edema. LABORATORY DATA: Sodium is 133, potassium is 4.3, creatinine 1.4. ASSESSMENT: 1. Congestive heart failure systolic, acute on chronic end-stage disease. 2. History of atrial arrhythmias. PLAN: 1. He is on amiodarone. 2. Apixaban. 3. Intravenous furosemide. 4. Arrangements were being made for home hospice. I discussed with the patient likely limited. He says he understands all that and is spiritually ready. Job ID: [id number]
[2020-03-14 11:48] VITALS: TEMP 97.4
[2020-03-14] MEDS ORDERED: Furosemide 100 MG/10 ML VIAL SLOW IVP SCH (14:00)
--- NOTE | 2020-03-14 16:50 | PDOC.DS.DS ---
Provider - Provider Date of Admission: 02/26/20 20:52 Date of Discharge: 03/14/20 Admitting Provider: Alesia Marin MD Consultations: Cardiology Primary Care Physician: Unknown Course - Hospital Course Hospital Course: This patient is a 75-year-old with a history of coronary artery disease, ischemic cardiomyopathy with a defibrillator in place, he has congestive heart failure with severe decrease in his EF around 15% who was admitted to the [facility] with CHF symptoms. He was placed on diuresis and cardiology services were obtained. Despite multiple interventions the patient did not make much progress. He wanted to explore options including palliative care who did see him while he was hospitalized. However the patient during the course of his prolonged hospitalization became very agitated and irate. We were able to calm him down after speaking to his medical power of district attorney. The patient accepted to discharge home with hospice services. He did require dobutamine drip while he was hospitalized. However for the most part he is relatively okay. He will follow up with hospice services on discharge home. Pertinent Studies: Echocardiogram showed severely decreased ejection fraction around 15% with some valvular dysfunctions. Resuscitation Status: 03/04/20 15:16 Resuscitation Status Routine Resuscitation Status: DNAR: NO Resuscitation Discussed with: PtMartin Jane - Labs Lab Results: 03/11/20 06:22 03/14/20 06:37 Abnormal Lab Results - Last 48 hrs 03/13/20 03:44: Sodium 133 L, Chloride 91 L, BUN 57 H 03/14/20 06:37: Sodium 133 L, Chloride 92 L, Carbon Dioxide 32 H, BUN 59 H, Creatinine 1.41 H - Physical Exam Vitals: Vital Signs (12 hours) Temp Pulse Ox 03/14/20 11:48 97.4 F L 03/14/20 08:00 96 03/14/20 07:30 97.6 F Weight Admit Weight 171 lb Weight 151 lb 8 oz Most Recent Monitor Data Heart Rate from ECG 87 NIBP 88/51 NIBP BP-Mean 63 Respiration from ECG 33 SpO2 98 Physical Exam: The patient was seen and examined on the day of discharge. Problem - Discharge Plan Assessment: I saw and evaluated him on the day of discharge and he seems to be doing reasonably well. Plan of Treatment: He will follow up with hospice services as outpatient. - Problem (1) Acute on chronic systolic heart failure, NYHA class 3 Code(s): I50.23 - ACUTE ON CHRONIC SYSTOLIC (CONGESTIVE) HEART FAILURE Status: Acute (2) CAD (coronary artery disease) Code(s): I25.10 - ATHSCL HEART DISEASE OF [place] CORONARY ARTERY W/O ANG PCTRS Status: Chronic Qualifiers: Coronary Disease-Associated Artery/Lesion type: bypass graft, nonautologous biological Associated angina: without angina Qualified Code(s): I25.810 - Atherosclerosis of coronary artery bypass graft(s) without angina pectoris (3) CKD (chronic kidney disease) stage 3, GFR 30-59 ml/min Code(s): N18.30 - CHRONIC KIDNEY DISEASE, STAGE 3 UNSPECIFIED Status: Acute (4) Hx of CABG Status: Chronic (5) Palliative care encounter Code(s): Z51.5 - ENCOUNTER FOR PALLIATIVE CARE Status: Acute Plan - Discharge Medications Home Medications: Medication Instructions Recorded Confirmed Type Amiodarone [Cordarone] 200 mg PO BID tab 05/22/19 02/27/20 Rx Apixaban [Eliquis] 5 mg PO BID tab 05/22/19 02/27/20 Rx Spironolactone [Aldactone] 25 mg PO QAM-WM #0 tab 05/22/19 02/27/20 Rx Torsemide [Demadex] 10 mg PO DAILY tab 05/22/19 02/27/20 Rx Atorvastatin Calcium [Lipitor] 20 mg PO HS 02/27/20 02/27/20 History Docusate Sodium 250 mg PO DAILY 02/27/20 02/27/20 History Potassium Chloride [Klor-Con 10] 10 meq PO BID 02/27/20 02/27/20 History Mometasone/Formoterol 200/5 2 puff INH BID-RT inh 03/14/20 Rx [Dulera 200 Mcg/5 Mcg Inhaler] Rosuvastatin [Crestor] 10 mg PO HS tab 03/14/20 Rx Allergies: No Known Drug Allergies Allergy (Verified 04/28/19 13:19) PER H&P REPORT - Discharge Instructions Activity:: Activity as Tolerated Nourishment:: Heart Healthy Diet, Low Sodium Diet, No Added Salt Diet Therapies:: Home Health, Occupational Therapy, Physical Therapy - Follow up Plan Referrals: Unknown,Unknown [Primary Care Provider] - Disposition: HOSPICE-HOME Quality - Care Measures CORE MEASURES:: N/A
--- NOTE | 2020-03-15 07:05 | EKG ---
Test Reason : Blood Pressure : / mmHG Vent. Rate : 093 BPM Atrial Rate : 079 BPM P-R Int : 000 ms QRS Dur : 224 ms QT Int : 560 ms P-R-T Axes : 000 -79 083 degrees QTc Int : 696 ms AV sequential or dual chamber electronic pacemaker When compared with ECG of 03-MAR-2020 12:59, Vent. rate has increased BY 13 BPM Confirmed by IRVIN VAZQUEZ MD ([id number]) on 03/15/2020 7:04:46 AM Referred By: LEOBARDO Confirmed By:IRVIN VAZQUEZ MD
== END 2020-03-14 15:58 | disposition hospice, home (50) | DRG 291 ==
LOC: ERS 18:13 → ERHOLD 20:52 → 2NO 20:54 → IMCU/EMU 03-02 16:04
PROVIDERS: ADMIT Internal Medicine; ATTEND Hospitalist
PROC: 4B02XTZ Measurement of Cardiac Defibrillator, External Approach (ICD-10-PCS; 2020-03-01)
PROC: 5A09457 Assistance with Respiratory Ventilation, 24-96 Consecutive Hours, Continuous Positive Airway Pressure (ICD-10-PCS; principal; 2020-03-02)
DX: I13.0 Hypertensive heart and chronic kidney disease with heart failure and stage 1 through stage 4 chronic kidney disease, or unspecified chronic kidney disease (principal); I50.23 Acute on chronic systolic (congestive) heart failure; J96.20 Acute and chronic respiratory failure, unspecified whether with hypoxia or hypercapnia; I25.810 Atherosclerosis of coronary artery bypass graft(s) without angina pectoris; N17.9 Acute kidney failure, unspecified; L03.116 Cellulitis of left lower limb; I47.2 Ventricular tachycardia; E87.3 Alkalosis; Z20.828 Contact with and (suspected) exposure to other viral communicable diseases; Z66 Do not resuscitate; Z51.5 Encounter for palliative care; I25.5 Ischemic cardiomyopathy; I87.2 Venous insufficiency (chronic) (peripheral); E78.00 Pure hypercholesterolemia, unspecified; I48.0 Paroxysmal atrial fibrillation; K76.1 Chronic passive congestion of liver; N18.30 Chronic kidney disease, stage 3 unspecified; I73.9 Peripheral vascular disease, unspecified; R53.81 Other malaise; I49.3 Ventricular premature depolarization; Z95.810 Presence of automatic (implantable) cardiac defibrillator; Z95.1 Presence of aortocoronary bypass graft; I25.2 Old myocardial infarction; Z86.73 Personal history of transient ischemic attack (TIA), and cerebral infarction without residual deficits; Z91.14 Patient's other noncompliance with medication regimen; Z79.01 Long term (current) use of anticoagulants; Z79.899 Other long term (current) drug therapy
CPT/HCPCS: 36415; 36600; 71045; 80048; 80053; 80061; 82553; 82805; 83735; 83880; 84484; 85025; 87635; 93005; 93010; 93306; 96374; J0690; J0696; J1120; J1250; J1580; J1940; J2001; J3480; J3490; U0003